=== PATIENT | male | born 1960 | race Caucasian/White ===

== ENCOUNTER 2020-05-09 08:56 | Outpatient (REF) | payer SELFPAY | END 2020-05-09 08:57 | disposition home or self-care (01) | LOC: HO.LAB 08:56 | PROVIDERS: Visit Provider Internal Medicine | DX: Z20.828 Contact with and (suspected) exposure to other viral communicable diseases (principal) | CPT/HCPCS: U0003 ==

== ENCOUNTER 2023-04-26 10:12 | Inpatient (IN) | payer OTHER, SELFPAY ==
[2023-04-26] VITALS (14 sets, daily range): BP systolic 129–240; BP diastolic 56–140; PULSE 75–100; RESP 11–20; TEMP 36.6–37.3; O2SAT 96–100; BMI 28.2
--- NOTE | ~2023-04-26 | XR_ITS ---
EXAMINATION: CHEST LUMBAR SPINE PELVIS LEFT HIP CLINICAL INFORMATION: Fall. Cough COMPARISON: None. TECHNIQUE: Frontal view of the chest. Frontal view of the pelvis. 2 views left hip. 3 views lumbar spine FINDINGS: Chest: Devices overlie the patient. No mediastinal widening. No mediastinal or hilar mass. The vasculature, lungs and visualized pleural margins are within normal limits. No acute displaced fracture demonstrated Pelvis: The SI joints, hips and symphysis are maintained. No acute pelvic fracture. No evidence of pelvic mass or collection. The visualized right proximal femur appears intact. Left hip: The hip is in normal alignment and the joint spaces preserved. The femoral head contour is smooth. There is no fracture in the visualized proximal femur. Lumbar spine: There are 5 intact lumbar vertebrae in normal alignment. There are some trace marginal osteophytes. The pedicles appear intact. No convincing evidence of a paraspinal abnormality. Faint arterial calcification. XR/XR hip LT w [id number] IMPRESSION: No mediastinal widening or pneumothorax. No pneumonia or edema. No acute fracture or subluxation demonstrated
--- NOTE | ~2023-04-26 | CT_ITS ---
EXAMINATION: CT ABDOMEN AND PELVIS WITHOUT CONTRAST CLINICAL INFORMATION: Suprapubic pain catheter site COMPARISON: CT abdomen from 04/26/2023 TECHNIQUE: Multidetector volumetric imaging was performed from the superior aspect of the liver through the pubic symphysis. Sagittal and coronal reformatted images were obtained on the technologist's workstation. This CT examination was performed using dose optimization techniques as appropriate, variously including the following: *Automated exposure control *Adjustment of mA and/or kV according to patient size (this includes techniques or standardized protocols for targeted exams where dose is matched to indication/reason for exam; i.e. extremities or head) *Use of iterative reconstruction technique DLP: 521 mGy-cm FINDINGS: LUNG BASES: The visualized lung bases are unremarkable. LIVER, GALLBLADDER, AND BILIARY TREE: The liver is normal in size, shape, and attenuation. No focal hepatic lesion or biliary ductal dilatation is present. The gallbladder is unremarkable with no evidence of radiopaque gallstones, gallbladder wall thickening, or obvious pericholecystic inflammatory changes. PANCREAS: Unremarkable. SPLEEN: Unremarkable. ADRENAL GLANDS: Unremarkable. KIDNEYS AND URETERS AND BLADDER: Redemonstration of severe bilateral hydronephrosis without discrete obstructing calculus. Redemonstration of prominently distended urinary bladder. Interval placement of Lew catheter balloon within the urinary bladder with large hyperdense focus around the balloon and within the urinary bladder lumen measuring 16.8 x 9.0 suggesting hematoma from recent insertion. Dependent foci of air noted in the urinary bladder. GASTROINTESTINAL TRACT: Colonic diverticulosis without acute diverticulitis. The small and large bowel are unremarkable. The appendix is unremarkable. ABDOMINAL WALL: Large left inguinal hernia containing sigmoid colon without evidence of obstruction. LYMPH NODES: Normal. VASCULAR: Unremarkable. PELVIC VISCERA: Prostate is enlarged measuring 5.9 x 5.5 cm with mass effect upon the urinary bladder base. OSSEOUS STRUCTURES: Multilevel degenerative changes of the thoracolumbar lumbosacral spine. CT/CT abdomen pelvis wo IV con IMPRESSION: 1. Redemonstration of prominently distended urinary bladder. Interval placement of Lew catheter balloon within the urinary bladder with large hyperdense focus around the balloon and within the urinary bladder lumen measuring 16.8 x 9.0 suggesting hematoma from recent insertion. Dependent foci of air noted in the urinary bladder. 2. Redemonstration of severe bilateral hydronephrosis without discrete obstructing calculus. 3. Prostate is enlarged measuring 5.9 x 5.5 cm with mass effect upon the urinary bladder base. 4. Large left inguinal hernia containing sigmoid colon without evidence of obstruction. 5. Colonic diverticulosis without acute diverticulitis.
--- NOTE | ~2023-04-26 | XR_ITS ---
EXAMINATION: CHEST LUMBAR SPINE PELVIS LEFT HIP CLINICAL INFORMATION: Fall. Cough COMPARISON: None. TECHNIQUE: Frontal view of the chest. Frontal view of the pelvis. 2 views left hip. 3 views lumbar spine FINDINGS: Chest: Devices overlie the patient. No mediastinal widening. No mediastinal or hilar mass. The vasculature, lungs and visualized pleural margins are within normal limits. No acute displaced fracture demonstrated Pelvis: The SI joints, hips and symphysis are maintained. No acute pelvic fracture. No evidence of pelvic mass or collection. The visualized right proximal femur appears intact. Left hip: The hip is in normal alignment and the joint spaces preserved. The femoral head contour is smooth. There is no fracture in the visualized proximal femur. Lumbar spine: There are 5 intact lumbar vertebrae in normal alignment. There are some trace marginal osteophytes. The pedicles appear intact. No convincing evidence of a paraspinal abnormality. Faint arterial calcification. XR/XR chest 1V IMPRESSION: No mediastinal widening or pneumothorax. No pneumonia or edema. No acute fracture or subluxation demonstrated
--- NOTE | ~2023-04-26 | CT_ITS ---
EXAMINATION: CT ABDOMEN AND PELVIS WITHOUT CONTRAST CLINICAL INFORMATION: Acute kidney injury. COMPARISON: None available. TECHNIQUE: Multidetector volumetric imaging was performed from the superior aspect of the liver through the pubic symphysis. Sagittal and coronal reformatted images were obtained on the technologist's workstation. This CT examination was performed using dose optimization techniques as appropriate, variously including the following: *Automated exposure control *Adjustment of mA and/or kV according to patient size (this includes techniques or standardized protocols for targeted exams where dose is matched to indication/reason for exam; i.e. extremities or head) *Use of iterative reconstruction technique DLP: 1023 mGy-cm FINDINGS: LUNG BASES: The visualized lung bases are unremarkable. LIVER, GALLBLADDER, AND BILIARY TREE: The liver is normal in size, shape, and attenuation. No focal hepatic lesion or biliary ductal dilatation is present. The gallbladder is unremarkable with no evidence of radiopaque gallstones, gallbladder wall thickening, or obvious pericholecystic inflammatory changes. PANCREAS: No discrete mass or ductal dilatation. SPLEEN: Normal. ADRENAL GLANDS: No adrenal mass. KIDNEYS AND URETERS: Severe bilateral hydroureteronephrosis without discrete obstructing lesion seen. Multiple simple cysts in the left kidney. No follow-up imaging is recommended. No nephrolithiasis BLADDER: Massively distended measuring 10.5 x 9.9 x 19.1 cm. approximately 900 mL. No discrete bladder mass. No bladder calculus. GASTROINTESTINAL TRACT: Small bowel is normal in caliber. The appendix is normal. Colonic diverticulosis without evidence of diverticulitis. The sigmoid colon is contained in a left inguinal hernia which appears indirect type. There is no evidence of bowel obstruction. ABDOMINAL WALL: Left inguinal hernia containing large bowel without evidence of obstruction. The hernia appears indirect. LYMPH NODES: No adenopathy. VASCULAR: Aortoiliac atherosclerosis without aneurysm. PELVIC VISCERA: The prostate is enlarged measuring 5.6 x 4.6 x 5.2 cm. Approximately 65 mL. OSSEOUS STRUCTURES: Degenerative changes in the hips and spine. CT/CT abdomen pelvis wo IV con IMPRESSION: Enlarged prostate, massively distended urinary bladder and bilateral severe hydronephrosis consistent with urinary retention. Fleischner guidelines were followed.
--- NOTE | ~2023-04-26 | XR_ITS ---
EXAMINATION: XR CHEST CLINICAL INFORMATION: Line placement COMPARISON: 04/26/2023 TECHNIQUE: Frontal view of the chest was obtained. FINDINGS: Lungs are mildly hypoinflated. The tip of a right IJ catheter is in region of proximal right atrium. No pneumothorax or pleural effusion. No acute pulmonary abnormality. No evidence of pulmonary edema, mass or focal consolidation. Cardiac silhouette has normal size and contour. Skeletal structures are unremarkable. XR/XR chest 1V IMPRESSION: No pneumothorax after right IJ line placement. The catheter tip is located in region of proximal right atrium.
--- NOTE | ~2023-04-26 | NM_ITS ---
EXAMINATION: NM BONE SCAN OF THE WHOLE BODY CLINICAL INFORMATION: Metastatic prostate. COMPARISON: No previous bone scan is available for comparison. A radiograph of the chest dated 04/30/2023, the same date as this lung scan, is available for comparison. CT scan of the abdomen dated 04/29/[address] of the head dated 04/26/2023 are available for comparison. Radiographs of the lumbar spine and pelvis and left hip dated 04/26/2023 are also available for comparison. TECHNIQUE: Multiple gamma scintillation camera images of the whole body were performed 4 hours following the intravenous administration of 28.0 mCi Tc-99m MDP. FINDINGS: In the head, no significant abnormalities are present. In the thoracic cage and upper extremities, there is minimally increased activity in the right acromioclavicular short and sternoclavicular joints bilaterally.. In the spine, there is mildly increased activity anteriorly in the lower cervical upper thoracic spine. In the pelvis, there is mildly increased activity present in the superior lip of the acetabula bilaterally, more prominently on the right. In the lower extremities, there is very mildly increased activity present in the intertrochanteric region of the proximal femurs bilaterally. Additional mild focus of increased activity is present in the midshaft of the right femur, and this is visualized only on the anterior whole body images. No other definite bony abnormalities are noted. The kidneys are well visualized bilaterally, but there is only faint activity visualized in the urinary bladder, possibly because the patient has a bladder catheter in place. NM/NM bone scan whole body IMPRESSION: 1. A focus of mildly increased activity is suggested in the midshaft of the right femur and there is also a mild diffuse increase in activity in the intertrochanteric regions bilaterally. The findings suggest continued bone remodeling at prior fracture sites, or possibly in the right mid shaft femoral region to some overlying urinary contamination. Clinical correlation is recommended, and the suggested abnormality in the midshaft of the right femur could be further evaluated with plain radiographs. 2. A few additional mild nonspecific abnormalities are noted as described above and these are all likely arthritic or traumatic in etiology. None of these abnormalities is strongly suspicious for metastatic disease.
--- NOTE | ~2023-04-26 | IR_ITS ---
CLINICAL HISTORY: End-stage renal disease. The patient presents to interventional radiology for placement of a tunneled central venous catheter for hemodialysis. PROCEDURES: 1. Real-time ultrasound-guided access into the right internal jugular vein after documentation of selected vessel patency, and permanent imaging storing in the patient record. 2. Placement of a 14.5 fr 23 cm tunneled, dual-lumen hemodialysis catheter. Clinician: Davide Landrum PA-C MEDICATIONS: -Fentanyl 50 mcg, Lidocaine 1% 10 mL SQ. -Antibiotics: None -For additional details, please see nursing flowsheet. COMPLICATIONS: None. ESTIMATED BLOOD LOSS: <5 ml SPECIMENS: None FLUOROSCOPY TIME: 1.2 min MODERATE SEDATION TIME: 28 min PROCEDURE NOTE: The procedure, risks, benefits, and alternatives were carefully explained to patient, and written informed consent was obtained. The patient was placed supine on the fluoroscopy table. A timeout was performed. The right neck and chest was prepped and draped in usual sterile fashion. Local anesthesia was administered to the access site with lidocaine. Under ultrasound guidance, the right internal jugular vein was accessed with a 5 Fr micropuncture set. A 0.035 in wire was advanced to the IVC to maintain access during the tunneling process. Next, subcutaneous lidocaine was administered to the chest. Using blunt dissection, a subcutaneous tunnel was created that connects from the upper chest to the venotomy site. The dialysis catheter was pulled through the tunnel. The tract in the vein was dilated and a peel-away sheath was advanced over the wire. The catheter was advanced through the sheath, which was subsequently peeled away. The catheter was tested, flushed, and sutured to the skin with its tip in the high right atrium. A permanent fluoroscopic image of the chest was saved to PACS. The catheter ports were packed with heparin per routine protocol. The temporary right dialysis catheter was removed after the procedure without immediate complications. The patient was stable after the procedure and was transferred to the post anesthesia care unit. This procedure was performed under moderate sedation with a dedicated nurse and continuous monitoring of vital signs. FINDINGS: 1. Patent right internal jugular vein. 2. Placement of a tunneled, dual-lumen hemodialysis catheter as above. 3. Catheter flushes and aspirates very well with a 10 mL syringe. No pneumothorax. IR/IR cvc insert central tunnel IMPRESSION: Placement of a tunneled hemodialysis catheter in the right internal jugular vein. PLAN: -The catheter may be used immediately. This procedure was performed by Davide Landrum PA-C, and directly supervised by Dr. Crenshaw.
--- NOTE | ~2023-04-26 | CT_ITS ---
EXAMINATION: CT HEAD WITHOUT CONTRAST CLINICAL INFORMATION: Left lower extremity weakness. COMPARISON: No relevant prior imaging. TECHNIQUE: Contiguous axial imaging was performed from the skull base to vertex without intravenous administration of contrast. This CT examination was performed using dose optimization techniques as appropriate, variously including the following: *Automated exposure control *Adjustment of mA and/or kV according to patient size (this includes techniques or standardized protocols for targeted exams where dose is matched to indication/reason for exam; i.e. extremities or head) *Use of iterative reconstruction technique DLP: 1045 mGy-cm FINDINGS: There is no acute intracranial hemorrhage or abnormal extra-axial collection. No intracranial mass effect or midline shift. Lateral and third ventricles are normal. Coy-white matter differentiation is grossly preserved and there is no evidence of acute territorial infarct. The calvarium and skull base are grossly intact. No mastoid or middle ear effusion. No active paranasal sinus disease. CT/CT head/brain wo IV con IMPRESSION: Unremarkable CT scan of the head. No evidence of acute territorial infarct or hemorrhage.
--- NOTE | ~2023-04-26 | XR_ITS ---
EXAMINATION: CHEST LUMBAR SPINE PELVIS LEFT HIP CLINICAL INFORMATION: Fall. Cough COMPARISON: None. TECHNIQUE: Frontal view of the chest. Frontal view of the pelvis. 2 views left hip. 3 views lumbar spine FINDINGS: Chest: Devices overlie the patient. No mediastinal widening. No mediastinal or hilar mass. The vasculature, lungs and visualized pleural margins are within normal limits. No acute displaced fracture demonstrated Pelvis: The SI joints, hips and symphysis are maintained. No acute pelvic fracture. No evidence of pelvic mass or collection. The visualized right proximal femur appears intact. Left hip: The hip is in normal alignment and the joint spaces preserved. The femoral head contour is smooth. There is no fracture in the visualized proximal femur. Lumbar spine: There are 5 intact lumbar vertebrae in normal alignment. There are some trace marginal osteophytes. The pedicles appear intact. No convincing evidence of a paraspinal abnormality. Faint arterial calcification. XR/XR lumbar spine 2-3V IMPRESSION: No mediastinal widening or pneumothorax. No pneumonia or edema. No acute fracture or subluxation demonstrated
--- NOTE | 2023-04-26 10:15 | ED_ITS ---
HPI - Neuro Symptoms/Deficit General Chief Complaint: Weakness Stated Complaint: STROKE ALERT,MEENU LEG WEAK X2 D,FALL T-1,BP 240/140 Time Seen by Provider: 04/26/23 10:14 Source: patient Mode of arrival: EMS Limitations: no limitations History of Present Illness HPI Narrative: Patient alcoholic drinks heavy comes here for increased weakness in the left lower extremity last few days yesterday fell because lower extremity has not seen a PCP for your blood pressure on EMS arrival was 240/140 no facial weakness no upper extremity pain no speech problem no low back pain complaining of pain in the left hip area repeat blood pressure in the ER was 180/90 patient does have history of alcohol use says last drink was 1 week ago was noticed to be tremulous no history of seizure no back pain no neck pain Patient does not have any PCP has not seen PCP since 1984 denies any melena or urinary discomfort Related Data Home Medications Medication Instructions Recorded Confirmed No Known Home Meds 04/26/23 04/26/23 Allergies Allergy/AdvReac Type Severity Reaction Status Date / Time No Known Allergies Allergy Verified 04/26/23 10:27 Review of Systems 2 Review of Systems: Yes all other systems are reviewed and are negative [facility] Social History Social History Alcohol intake: current Alcohol intake frequency: other Alcohol type: hard liquor Smoked in Last 30 Days: No Use of substances other than those prescribed or required for medical reasons: No Advance Directives: No Advance Directives Information Provided: Yes Physical Exam 2 Vital Signs: Vital Signs: Last Vital Signs Temp 98.2 F 04/26/23 13:32 Pulse 87 04/26/23 14:07 Resp 20 04/26/23 14:07 BP 188/80 H 04/26/23 14:07 Pulse Ox 99 04/26/23 13:32 O2 Del Method Room Air 04/26/23 13:32 BMI result Body Mass Index 28.2 Appearance: Alert. Oriented X3. No acute distress. Eyes: PERRLA, No Nystagmus pallor ENT: Pharynx normal. Oral Mucosa moist Neck: Normal inspection. Neck supple. CVS: Normal heart rate and rhythm. Pulses normal. Respiratory: No respiratory distress. Equal air entry bilateral, no wheezing/rales/rhonchi Abdomen: Soft and nontender. Bowel sounds are present, no mass palpable, no CVA tenderness rectal: Enlarged nontender prostate brown stool Skin: Skin warm and dry. Normal skin color. Normal skin turgor. Extremities: No lower extremity edema. No calf tenderness tender to touch left greater trochanteric area no lumbar spinal tenderness Neuro: Oriented X 3. Left leg slightly weaker than right deep tendon reflexes 2+. No sensory deficit.No cerebellar signs , cranial nerves II-XII intact Medications Administered Generic Name Dose Route Start Last Admin Trade Name Freq PRN Reason Stop Dose Admin Sodium Bicarbonate 100 meq/ 1,000 mls @ 100 mls/hr 04/26/23 12:00 04/26/23 12:30 Dextrose IV 100 mls/hr .Q10H ABDULAZIZ Administration Discontinued Medications Generic Name Dose Route Start Last Admin Trade Name Freq PRN Reason Stop Dose Admin Sodium Chloride 1,000 mls @ 999 mls/hr 04/26/23 10:38 04/26/23 12:31 Ns IV 04/26/23 11:38 Infused .Q1H1M ONE Infusion Sodium Chloride 1,000 mls @ 999 mls/hr 04/26/23 11:37 04/26/23 12:04 Ns IV 04/26/23 12:37 999 mls/hr .Q1H1M ONE Administration Lidocaine HCl 10 ml 04/26/23 12:49 04/26/23 13:00 Lidocaine Hcl 2 % Urojet 10 Ml Jel.Pf.Radha TOPICAL 04/26/23 12:50 10 ml ONCE ONE Administration Lorazepam 1 mg 04/26/23 10:38 04/26/23 10:49 Lorazepam 2 Mg/Ml Vial IVPUSH 04/26/23 10:39 1 mg ONCE ONE Administration Morphine Sulfate 4 mg 04/26/23 10:20 04/26/23 10:49 Morphine Sulfate 4 Mg/Ml Cartridge IVPUSH 04/26/23 10:21 4 mg ONCE ONE Administration Protocol Ondansetron HCl 4 mg 04/26/23 10:38 04/26/23 10:49 Ondansetron Hcl 4 Mg/2 Ml Vial IVPUSH 04/26/23 10:39 4 mg ONCE ONE Administration Procedures Catheter Insertion (Urinary) Date of insertion: 04/26/23 Time of insertion: 13:17 Reason for placing: Yes Reason for placing indwelling catheter: Acute urinary retention Bladder scan/ultrasound used before catheterization: No Antiseptic solution prep: Povidone-Iodine Topical anesthesia used: Yes Catheter type/location: Urethral Size (Afghan): 14 Catheter balloon size (mL): 10 Catheter balloon amount: 10 Results: successfully catheterized-immediate flow and other (Guidewire was used to place a Lew catheter) Procedure performed: without complications Comment: 1500 cc urine drained yellowish in color Medical Decision Making Medical Decision Making [facility] Narrative: Patient with generalized weakness alcoholic status post fall pain in the left hip area x-ray negative no focal deficit workup showed BUN of 93 creatinine 20.77 bicarb of 30 potassium 5.4 hemoglobin of 7.7 again patient has KIERA on CKD details not available as patient has not seen any PCP for more than 30 years no use of NSAID no abdominal pain patient denies any decreased urine output, will do CT scan of the abdomen to rule out any acute hydronephrosis 14:00 CT scan showed enlarged prostate with bilateral hydronephrosis Lew catheter was placed which drained about 50 100 cc of urine initially was yellow in color last for the urine was bright red blood without any pulling on the catheter by patient kg to the hospitalist will be admitting patient to the floor with pea the chemistry case discussed with mass spectroscopist Dr. Crespo IV hydration bicarb drip recheck chemistry and plan for dialysis in 1-2 days depending upon the response to the fluid and Lew catheter Differential Diagnosis Differential Diagnoses: The differential diagnosis associated with the presentation includes Alcoholic myopathy/CKD/KIERA/metabolic etiology/rhabdo/SAH/ Admission/Observation Consideration of admission/observation: Escalation of care including admission/observation considered Consult Healthcare Provider Management of the patient was discussed with: Hospitalist Lab Data [facility] Lab Attestation statement: I reviewed the patient's lab results. 04/26/23 10:35 04/26/23 14:15 Labs: Lab Results 04/26/23 04/26/23 04/26/23 Range/Units 10:35 10:36 11:57 WBC 6.4 (4.8-10.8) X10*3/uL RBC 2.42 L (4.60-5.80) X10*6/uL Hgb 7.7 L (14.0-18.0) g/dl Hct 21.7 L (42.0-52.0) % MCV 89.7 (80.0-98.0) fL MCH 31.8 (27.0-33.0) pg MCHC 35.5 (31.0-36.0) g/dl RDW 12.7 (11.0-16.0) % Plt Count 171 (160-400) X10*3/uL MPV 10.0 (9.4-12.4) fL Immature Gran % (Auto) 0.2 (0.0-0.4) % Neut % (Auto) 80.9 H (45-73) % Lymph % (Auto) 9.5 L (20-40) % [place] % (Auto) 7.5 (2-11) % Eos % (Auto) 1.4 (0-4) % Baso % (Auto) 0.5 (0-2) % Lymph # (Auto) 0.6 L (1.2-4.9) X10*3/uL [place] # (Auto) 0.5 (0.1-1.2) X10*3/uL Eos # (Auto) 0.1 (0.0-0.4) X10*3/uL Baso # (Auto) 0.0 (0.0-0.2) X10*3/uL Abs Immat Gran (auto) 0.01 (0.00-0.03) X10*3/uL Absolute Neuts (auto) 5.2 (2.0-8.3) x10*3/uL Absolute Nucleated RBC 0.000 (0.0-0.012) X10*3/uL Nucleated RBC % (auto) 0.0 (0.0-0.2) /100WBC PT 11.8 (11.1-13.3) SEC INR 1.0 (0.9-1.1) APTT 29.3 (26.0-36.4) SEC VBG pH (7.32-7.43) VBG pCO2 mmHg VBG pO2 mmHg VBG HCO3 (22-26) mmol/L VBG O2 Saturation % VBG Base Excess mmol/L Sodium 134 L (135-145) mmol/L Potassium 5.4 H (3.3-5.1) mmol/L Chloride 95 L (96-108) mmol/L Carbon Dioxide 13 L (22-29) mmol/L Anion Gap 31 H (12-20) BUN 193 H (9-16) mg/dL Creatinine 20.77 H* (0.5-1.4) mg/dL Estim Creat Clear Calc 3.6 Estimated GFR 2 Random Glucose 141 H (60-115) mg/dL Calcium 8.1 L (8.4-10.2) mg/dL Magnesium 2.6 (1.6-2.6) mg/dL Total Bilirubin 0.4 (0.0-1.0) mg/dL AST 6 (5-37) U/L ALT 9 (0-40) U/L Alkaline Phosphatase 62 (39-117) U/L Total Creatine Kinase 373 H (38-174) U/L Troponin I High Sens 53.9 H (<3.5-35.0) ng/L Total Protein 7.0 (6.5-8.0) g/dL Albumin 4.1 (3.5-5.0) g/dL Urine Color Urine Appearance Urine pH (5.0-9.0) Ur Specific [place] (1.005-1.025) Urine Protein (Neg-Trace) mg/dL Urine Glucose (UA) (Negative) mg/dL Urine Ketones (Negative) mg/dL Urine Blood (Negative) Urine Nitrite (Negative) Ur Leukocyte Esterase (Negative) Urine RBC (0-2) /HPF Urine WBC (0-5) /HPF Ur Squamous Epith Cells (0-2) /HPF Urine Bacteria (None Seen) Hyaline Casts (0-2) /LPF Stool Occult Blood NEGATIVE (NEGATIVE) Ethyl Alcohol < 10 mg/dL COVID-19 ([facility]ON) Negative (Negative) COVID-19 Clin Com See Note Blood Type Antibody Screen 04/26/23 04/26/23 04/26/23 Range/Units 12:41 13:35 14:15 WBC (4.8-10.8) X10*3/uL RBC (4.60-5.80) X10*6/uL Hgb (14.0-18.0) g/dl Hct (42.0-52.0) % MCV (80.0-98.0) fL MCH (27.0-33.0) pg MCHC (31.0-36.0) g/dl RDW (11.0-16.0) % Plt Count (160-400) X10*3/uL MPV (9.4-12.4) fL Immature Gran % (Auto) (0.0-0.4) % Neut % (Auto) (45-73) % Lymph % (Auto) (20-40) % [place] % (Auto) (2-11) % Eos % (Auto) (0-4) % Baso % (Auto) (0-2) % Lymph # (Auto) (1.2-4.9) X10*3/uL [place] # (Auto) (0.1-1.2) X10*3/uL Eos # (Auto) (0.0-0.4) X10*3/uL Baso # (Auto) (0.0-0.2) X10*3/uL Abs Immat Gran (auto) (0.00-0.03) X10*3/uL Absolute Neuts (auto) (2.0-8.3) x10*3/uL Absolute Nucleated RBC (0.0-0.012) X10*3/uL Nucleated RBC % (auto) (0.0-0.2) /100WBC PT (11.1-13.3) SEC INR (0.9-1.1) APTT (26.0-36.4) SEC VBG pH (7.32-7.43) VBG pCO2 mmHg VBG pO2 mmHg VBG HCO3 (22-26) mmol/L VBG O2 Saturation % VBG Base Excess mmol/L Sodium 135 (135-145) mmol/L Potassium 4.7 (3.3-5.1) mmol/L Chloride 97 (96-108) mmol/L Carbon Dioxide 12 L (22-29) mmol/L Anion Gap 31 H (12-20) BUN 192 H (9-16) mg/dL Creatinine 19.28 H* (0.5-1.4) mg/dL Estim Creat Clear Calc 3.8 Estimated GFR 2 Random Glucose 109 (60-115) mg/dL Calcium 7.7 L (8.4-10.2) mg/dL Magnesium (1.6-2.6) mg/dL Total Bilirubin (0.0-1.0) mg/dL AST (5-37) U/L ALT (0-40) U/L Alkaline Phosphatase (39-117) U/L Total Creatine Kinase (38-174) U/L Troponin I High Sens (<3.5-35.0) ng/L Total Protein (6.5-8.0) g/dL Albumin (3.5-5.0) g/dL Urine Color Yellow Urine Appearance Clear Urine pH 5.5 (5.0-9.0) Ur Specific [place] 1.010 (1.005-1.025) Urine Protein Trace (Neg-Trace) mg/dL Urine Glucose (UA) Negative (Negative) mg/dL Urine Ketones Negative (Negative) mg/dL Urine Blood Moderate (2+) H (Negative) Urine Nitrite Negative (Negative) Ur Leukocyte Esterase Negative (Negative) Urine RBC 6-10 H (0-2) /HPF Urine WBC 0-5 (0-5) /HPF Ur Squamous Epith Cells 0-2 (0-2) /HPF Urine Bacteria None Seen (None Seen) Hyaline Casts 0-2 (0-2) /LPF Stool Occult Blood (NEGATIVE) Ethyl Alcohol mg/dL COVID-19 ([facility]ON) (Negative) COVID-19 Clin Com Blood Type B Positive Antibody Screen NEGATIVE 04/26/23 Range/Units 14:19 WBC (4.8-10.8) X10*3/uL RBC (4.60-5.80) X10*6/uL Hgb (14.0-18.0) g/dl Hct (42.0-52.0) % MCV (80.0-98.0) fL MCH (27.0-33.0) pg MCHC (31.0-36.0) g/dl RDW (11.0-16.0) % Plt Count (160-400) X10*3/uL MPV (9.4-12.4) fL Immature Gran % (Auto) (0.0-0.4) % Neut % (Auto) (45-73) % Lymph % (Auto) (20-40) % [place] % (Auto) (2-11) % Eos % (Auto) (0-4) % Baso % (Auto) (0-2) % Lymph # (Auto) (1.2-4.9) X10*3/uL [place] # (Auto) (0.1-1.2) X10*3/uL Eos # (Auto) (0.0-0.4) X10*3/uL Baso # (Auto) (0.0-0.2) X10*3/uL Abs Immat Gran (auto) (0.00-0.03) X10*3/uL Absolute Neuts (auto) (2.0-8.3) x10*3/uL Absolute Nucleated RBC (0.0-0.012) X10*3/uL Nucleated RBC % (auto) (0.0-0.2) /100WBC PT (11.1-13.3) SEC INR (0.9-1.1) APTT (26.0-36.4) SEC VBG pH 7.26 L (7.32-7.43) VBG pCO2 26 mmHg VBG pO2 57 mmHg VBG HCO3 12 L (22-26) mmol/L VBG O2 Saturation 85.0 % VBG Base Excess -12.9 mmol/L Sodium (135-145) mmol/L Potassium (3.3-5.1) mmol/L Chloride (96-108) mmol/L Carbon Dioxide (22-29) mmol/L Anion Gap (12-20) BUN (9-16) mg/dL Creatinine (0.5-1.4) mg/dL Estim Creat Clear Calc Estimated GFR Random Glucose (60-115) mg/dL Calcium (8.4-10.2) mg/dL Magnesium (1.6-2.6) mg/dL Total Bilirubin (0.0-1.0) mg/dL AST (5-37) U/L ALT (0-40) U/L Alkaline Phosphatase (39-117) U/L Total Creatine Kinase (38-174) U/L Troponin I High Sens (<3.5-35.0) ng/L Total Protein (6.5-8.0) g/dL Albumin (3.5-5.0) g/dL Urine Color Urine Appearance Urine pH (5.0-9.0) Ur Specific [place] (1.005-1.025) Urine Protein (Neg-Trace) mg/dL Urine Glucose (UA) (Negative) mg/dL Urine Ketones (Negative) mg/dL Urine Blood (Negative) Urine Nitrite (Negative) Ur Leukocyte Esterase (Negative) Urine RBC (0-2) /HPF Urine WBC (0-5) /HPF Ur Squamous Epith Cells (0-2) /HPF Urine Bacteria (None Seen) Hyaline Casts (0-2) /LPF Stool Occult Blood (NEGATIVE) Ethyl Alcohol mg/dL COVID-19 ([facility]ON) (Negative) COVID-19 Clin Com Blood Type Antibody Screen Independent Interpretation I performed an independent interpretation of an: EKG Interpretation: Normal sinus rhythm heart rate 84 beats per minute poor progression of R-wave no acute ST-T changes no acute ischemia Radiology Impression Discussion of test interpretation with radiology: I have reviewed the radiologist's reading. Radiologist Impression: RDER #: [id number] CT/CT abdomen pelvis wo IV con IMPRESSION: Enlarged prostate, massively distended urinary bladder and bilateral severe hydronephrosis consistent with urinary retention. NIH Stroke Scale Internal: Initial- Upon Arrival Level of Consciousness: Alert Level of Consciousness Questions: Answers both questions correctly Level of Consciousness Commands: Performs both tasks correctly Best Gaze: Normal Visual: No visual loss Facial Palsy: Normal Motor Arm (Right): No drift Motor Arm (Left): No drift Motor Leg (Right): No drift Motor Leg (Left): Drift Limb Ataxia: Absent Sensory: Normal Best Language: No aphasia Dysarthia: Normal Extinction and Inattention: No abnormality Score: 1 Critical Care Time Critical Care Time Critical Care Time: Yes Total Critical Care Time: 60 Attestation: The patient was critically ill with a high probability of imminent or life threatening deterioration. I spent greater than 70 minutes of discontinuous time evaluating the patient,delivering critical care at the bedside, discussing and evaluating pertinent data with consultants. Critical care time does not include time spent performing separately billable procedures or teaching. Total time spent performing critical care was 60 minutes. Discharge Plan Discharge Clinical Impression: Acute renal failure (ARF), Benign enlargement of prostate, Bladder outlet obstruction, Anemia Patient Disposition: Admitted As Inpatient
--- NOTE | 2023-04-26 10:20 | ECG_ITS ---
Test Reason : HTN Blood Pressure : / mmHG Vent. Rate : 084 BPM Atrial Rate : 084 BPM P-R Int : 138 ms QRS Dur : 082 ms QT Int : 356 ms P-R-T Axes : 072 028 047 degrees QTc Int : 420 ms Normal sinus rhythm Normal ECG No previous ECGs available Referred By: Vick Albright Electronically Signed By:JANIE VOSS MD
[2023-04-26 10:42] LABS: MANUAL DIFF FLAG NO
[2023-04-26 10:43] LABS: Basophils Percent Auto 0.5 % (0-2); Eosinophils Absolute Auto 0.1 X10*3/uL (0.0-0.4); Eosinophils Percent Auto 1.4 % (0-4); Hematocrit 21.7 % (42.0-52.0); Hemoglobin 7.7 g/dl (14.0-18.0); Imm Gran Abs Auto 0.01 X10*3/uL (0.00-0.03); Imm Gran Pct Auto 0.2 % (0.0-0.4); Lymphocytes Absolute Auto 0.6 X10*3/uL (1.2-4.9); Lymphocytes Percent Auto 9.5 % (20-40); Mean Corpuscular HGB Conc 35.5 g/dl (31.0-36.0); Mean Corpuscular Hemoglobin 31.8 pg (27.0-33.0); Mean Corpuscular Volume 89.7 fL (80.0-98.0); Monocytes Absolute Auto 0.5 X10*3/uL (0.1-1.2); Monocytes Percent Auto 7.5 % (2-11); Neutrophils Absolute Auto 5.2 x10*3/uL (2.0-8.3); Neutrophils Percent Auto 80.9 % (45-73); Platelet Count 171 X10*3/uL (160-400); Red Blood Count 2.42 X10*6/uL (4.60-5.80); Red Cell Distribution Width 12.7 % (11.0-16.0); White Blood Count 6.4 X10*3/uL (4.8-10.8)
[2023-04-26] MEDS: 0.9 % Sodium Chloride 1,000 ML 999 ML IV ×2 (10:48→12:04)
[2023-04-26] MEDS: LORazepam 2 MG/ML VIAL 1 MG IVPUSH ×2 (10:49→15:34)
[2023-04-26] MEDS: Morphine Sulfate 4 MG/ML CARTRIDGE IVPUSH ×2 (10:49→15:37)
[2023-04-26] MEDS: ondansetron HCL 4 MG/2 ML VIAL IVPUSH ×3 (10:49→17:13)
[2023-04-26 10:55] LABS: Prothrombin Time 11.8 SEC (11.1-13.3)
--- NOTE | 2023-04-26 11:00 | PC.NURSE ---
Addendum entered by Di Syed 04/26/23 11:04: pt speaking in clear full sentences, no facial droop, hand grasp strong and equal and no drift, left leg appears weaker then the right Original Note: pt is alert and oriented, skin slightly pale in appearance and sclera slightly yellow, respiration even and unlabored, ls clear, oral musocal dry and pt reports poor po intake with nausea and intermittent vomiting but denies abd pain, is reporting left sided hip pain at 8/10, pt did have a fall yesterday denies head strike and no blood thinners, pt is a daily drinker about half a pint of chevy a day has not had a drink for a couple days, visible tremor at this time, vs stable and seizure pads in place
[2023-04-26 11:27] LABS: Troponin-I High Sensitivity 53.9 ng/L (<3.5-35.0)
[2023-04-26 11:30] LABS: Ethanol < 10 mg/dL
[2023-04-26 11:31] LABS: COVID-19 Test Negative (Negative); IDNOW Serial# 55D5AD1C
[2023-04-26 11:44] LABS: Alanine Aminotransferase 9 U/L (0-40); Albumin Level 4.1 g/dL (3.5-5.0); Alkaline Phosphatase 62 U/L (39-117); Anion Gap 31 (12-20); Aspartate Amino Transferase 6 U/L (5-37); Bilirubin Total 0.4 mg/dL (0.0-1.0); Blood Urea Nitrogen 193 mg/dL (9-16); Calcium 8.1 mg/dL (8.4-10.2); Carbon Dioxide 13 mmol/L (22-29); Chloride 95 mmol/L (96-108); Creatinine Clr Calc Pharmacy 3.6; Estimated Glomerular Filt Rate 2; Glucose Random 141 mg/dL (60-115); Magnesium 2.6 mg/dL (1.6-2.6); Potassium 5.4 mmol/L (3.3-5.1); Sodium 134 mmol/L (135-145)
--- NOTE | 2023-04-26 11:54 | PC.NURSE ---
chaperoned dr gardner during a rectal exam, pt tolerated the procedure well
[2023-04-26 12:05] LABS: OBS Int Ctl Valid YES; OBS1 NEGATIVE (NEGATIVE)
--- NOTE | 2023-04-26 12:08 | PHA.MEDREC ---
Pharmacy Consult ? Medication Reconciliation Pharmacy has completed the medication reconciliation.
[2023-04-26] MEDS: Sodium Bicarbonate 8.4% 100 MEQ in Dextrose 5 % 900 ML IV ×2 (12:30→22:28)
[2023-04-26] MEDS: Lidocaine HCl 2 % Urojet 10 ML JEL.PF.APP TOPICAL ×2 (13:00→16:29)
--- NOTE | 2023-04-26 13:20 | PC.NURSE ---
called the floor to given report and tiggered the nurse
--- NOTE | 2023-04-26 13:20 | PC.NURSE ---
attempted to insert a lockhart but unable to do so because of the enlarged prostate, dr gardner aware and dr gardner ended up inserting a 14french with a guide wire, urine yellow and about 1200 ml as if now
[2023-04-26 13:43] LABS: Appearance Urine Clear; Color Urine Yellow; Glucose Urine UA Negative (Negative); Leukocyte Esterase Urine Negative (Negative); Nitrite Urine Negative (Negative); PH 5.5 (5.0-9.0); UMIC TRIGGER UACC YES; Urine Blood Moderate (2+) (Negative); Urine Ketones Negative (Negative); Urine Protein Trace mg/dL (Neg-Trace)
[2023-04-26 14:00] LABS: Bacteria Urine None Seen (None Seen); Hyaline Casts Urine 0-2 /LPF (0-2); Squamous Epithelial Cell Urine 0-2 /HPF (0-2); WBC Urine 0-5 /HPF (0-5)
--- NOTE | 2023-04-26 14:10 | PC.NURSE ---
pt's lockhart is now draining light red blood into the lockhart about 800ml of bloody urine, dr gardner is aware
[2023-04-26 14:24] LABS: VBG Base Excess -12.9 mmol/L; VBG HCO3 12 mmol/L (22-26); VBG pCO2 26 mmHg; VBG pH 7.26 (7.32-7.43); VBG pO2 57 mmHg
[2023-04-26 14:26] LABS: Venous Blood Gas Refer to POC result
[2023-04-26 14:30] LABS: Partial Thromboplastin Time 29.3 SEC (26.0-36.4)
[2023-04-26 15:00] LABS: Anion Gap 31 (12-20); Blood Urea Nitrogen 192 mg/dL (9-16); Calcium 7.7 mg/dL (8.4-10.2); Carbon Dioxide 12 mmol/L (22-29); Chloride 97 mmol/L (96-108); Creatinine Clr Calc Pharmacy 3.8; Estimated Glomerular Filt Rate 2; Glucose Random 109 mg/dL (60-115); Potassium 4.7 mmol/L (3.3-5.1); Sodium 135 mmol/L (135-145)
--- NOTE | 2023-04-26 16:09 | P.HPHOSP_ITS ---
History of Present Illness Date of Service: 04/26/23 Attending physician on admission: Rossana Salazar Chief Complaint: Feeling generally unwell Pt is a 62-year-old male with no reported significant PMH who states he has not seen a PCP since 1984 who presents to the ED with vague complaints of feeling generally unwell. Patient is a poor historian and it is unclear how long symptoms have been ongoing, but likely for at least a few weeks. Patient has been experiencing nausea and occasional vomiting, generalized weakness, and urinary incontinence at night. Patient is unable to further verbalize his symptoms, chest says he knows ?something is wrong?. Patient states he has a long history of daily alcohol use of up to 1 pt of whiskey and ?some beers?. Reports stopped drinking 6 days ago because his skin turned yellow. Patient denies chest pain/pressure, palpitations. Occasional SOB. Denies fever, chills, abdominal pain. Patient also complaints of urogenital pain at site of Lew catheter insertion. There is gross hematuria in Lew collection bag. Patient denies any previous history of hematuria. In the ED patient with temperature as high as 99.2 degrees, pulse high as 100, and elevated BP as high as 199/86. Labs were significant for H&H of, 7.7/21.7, sodium 134, potassium 5.4, bicarb 13, anion gap 31, BUN 193, creatinine 20.77, CPK 373, initial troponin 53.9. VBG joint metabolic acidosis with pH of 7.26 bicarb of 12. Hepatic function WNL. Stool negative for occult blood. UA negative for UTI. Ethyl alcohol <10. CXR showed no acute cardiopulmonary process seen. CT?of abdomen and pelvis found enlarged prostate, massively distended urinary bladder, and bilateral severe hydronephrosis consistent with urinary retention. CT of head unremarkable with no evidence of acute territorial infarct or hemorrhage. Hip and pelvis and lumbar spine x-rays found no evidence for any acute fracture or subluxation. EKG demonstrated normal sinus rhythm without evidence of ST elevations or depressions. Pt was treated with IVF, morphine, ondansetron, lorazepam, lidocaine, and started on a bicarb drip. Pt will be admitted to the hospital for treatment further evaluation of acute renal failure, metabolic acidosis, and electrolyte imbalances. Review of Systems 2 Review of Systems: Generalized weakness [place] no urinary incontinence Chills, no fever Nausea, no vomiting Urogenital pain Denies chest pain/pressure, palpitations No shortness of breath Denies abdominal pain [facility] Medical History Anemia Social History Household Members: None Housing: Apartment Alcohol intake: current Alcohol intake frequency: other Alcohol type: hard liquor Patient Tobacco Use Status: Never used Tobacco Second Hand Smoke Exposure: No service: No Meds Allergies Allergy/AdvReac Type Severity Reaction Status Date / Time No Known Allergies Allergy Verified 04/26/23 10:27 Active Medications: Current Medications Acetaminophen (Acetaminophen 325 Mg Tablet) 650 mg PO Q6H PRN PRN Reason: Pain, Mild (Pain Scale 1-3) Benzonatate (Benzonatate 100 Mg Capsule) 100 mg PO TID PRN PRN Reason: Cough Docusate Sodium (Docusate Sodium 100 Mg Capsule) 100 mg PO DAILY PRN PRN Reason: Constipation Sodium Bicarbonate 100 meq/ (Dextrose) 1,000 mls @ 100 mls/hr IV .Q10H [facility] Last Admin: 04/26/23 12:30 Dose: 100 mls/hr Melatonin (Melatonin 3 Mg Tablet) 6 mg PO BEDTIME PRN PRN Reason: Insomnia Ondansetron HCl (Ondansetron Hcl 4 Mg/2 Ml Vial) 4 mg IVPUSH Q8H PRN PRN Reason: Nausea and Vomiting Sodium Chloride (0.9 % Sodium Chloride Flush 3 Ml Syringe) 3 ml IVFLUSH QSHIFT [facility] Home Medications Medication Instructions Recorded Confirmed Last Taken Type No Known Home Meds 04/26/23 04/26/23 Unknown History Physical Exam 2 Vital Signs and Narrative: Vital Signs: Last Vital Signs Temp 98.2 F 04/26/23 13:32 Pulse 87 04/26/23 14:07 Resp 20 04/26/23 14:07 BP 188/80 H 04/26/23 14:07 Pulse Ox 99 04/26/23 13:32 O2 Del Method Room Air 04/26/23 13:32 BMI result Body Mass Index 28.2 Constitutional: Alert, looks uncomfortable, in no acute distress. Mental Status: Oriented to person, place and time. Eyes: Pupils are equal, round, and reactive to light. Ear, Nose, and Throat: Oropharynx clear, mucous membranes moist. Ears and nose without deformities. Trachea midline. Respiratory: Clear to auscultation bilaterally. No wheezing, rales, or rhonchi. Cardiovascular: S1, S2 regular. No murmurs, rubs, or gallops. Gastrointestinal: Abdomen soft, non-tender, non-distended. Normal bowel sounds. Neurologic: Cranial nerves II-XII are grossly intact bilaterally. No focal neurological deficits. Moves all extremities spontaneously. Preserved strength and ROM of upper and lower extremities bilaterally. Skin: Warm, dry. Musculoskeletal: No cyanosis or clubbing. : Lew in place with gross hematuria. Extremities: No edema. Psychiatric: Normal mood and affect. Results Labs 04/27/23 06:19 04/27/23 06:19 Labs: Laboratory Results - last 24 hr 04/26/23 04/26/23 04/26/23 10:35 10:36 11:57 MCV 89.7 MCH 31.8 MCHC 35.5 RDW 12.7 Plt Count 171 MPV 10.0 Immature Gran % (Auto) 0.2 Neut % (Auto) 80.9 H Lymph % (Auto) 9.5 L [place] % (Auto) 7.5 Eos % (Auto) 1.4 Baso % (Auto) 0.5 Lymph # (Auto) 0.6 L [place] # (Auto) 0.5 Eos # (Auto) 0.1 Baso # (Auto) 0.0 Abs Immat Gran (auto) 0.01 Absolute Neuts (auto) 5.2 Absolute Nucleated RBC 0.000 Nucleated RBC % (auto) 0.0 PT 11.8 INR 1.0 APTT 29.3 VBG pH VBG pCO2 VBG pO2 VBG HCO3 VBG O2 Saturation VBG Base Excess Anion Gap 31 H Estim Creat Clear Calc 3.6 Estimated GFR 2 Random Glucose 141 H Calcium 8.1 L Magnesium 2.6 Total Bilirubin 0.4 AST 6 ALT 9 Alkaline Phosphatase 62 Total Creatine Kinase 373 H Total Protein 7.0 Albumin 4.1 Urine Color Urine Appearance Urine pH Ur Specific [place] Urine Protein Urine Glucose (UA) Urine Ketones Urine Blood Urine Nitrite Ur Leukocyte Esterase Urine RBC Urine WBC Ur Squamous Epith Cells Urine Bacteria Hyaline Casts Stool Occult Blood NEGATIVE Ethyl Alcohol < 10 COVID-19 ([facility]) Negative COVID-19 Clin Com See Note Blood Type Antibody Screen 04/26/23 04/26/23 04/26/23 12:41 13:35 14:15 MCV MCH MCHC RDW Plt Count MPV Immature Gran % (Auto) Neut % (Auto) Lymph % (Auto) [place] % (Auto) Eos % (Auto) Baso % (Auto) Lymph # (Auto) [place] # (Auto) Eos # (Auto) Baso # (Auto) Abs Immat Gran (auto) Absolute Neuts (auto) Absolute Nucleated RBC Nucleated RBC % (auto) PT INR APTT VBG pH VBG pCO2 VBG pO2 VBG HCO3 VBG O2 Saturation VBG Base Excess Anion Gap 31 H Estim Creat Clear Calc 3.8 Estimated GFR 2 Random Glucose 109 Calcium 7.7 L Magnesium Total Bilirubin AST ALT Alkaline Phosphatase Total Creatine Kinase Total Protein Albumin Urine Color Yellow Urine Appearance Clear Urine pH 5.5 Ur Specific [place] 1.010 Urine Protein Trace Urine Glucose (UA) Negative Urine Ketones Negative Urine Blood Moderate (2+) H Urine Nitrite Negative Ur Leukocyte Esterase Negative Urine RBC 6-10 H Urine WBC 0-5 Ur Squamous Epith Cells 0-2 Urine Bacteria None Seen Hyaline Casts 0-2 Stool Occult Blood Ethyl Alcohol COVID-19 ([facility]) [id number] Com Blood Type B Positive Antibody Screen NEGATIVE 04/26/23 14:19 MCV MCH MCHC RDW Plt Count MPV Immature Gran % (Auto) Neut % (Auto) Lymph % (Auto) [place] % (Auto) Eos % (Auto) Baso % (Auto) Lymph # (Auto) [place] # (Auto) Eos # (Auto) Baso # (Auto) Abs Immat Gran (auto) Absolute Neuts (auto) Absolute Nucleated RBC Nucleated RBC % (auto) PT INR APTT VBG pH 7.26 L VBG pCO2 26 VBG pO2 57 VBG HCO3 12 L VBG O2 Saturation 85.0 VBG Base Excess -12.9 Anion Gap Estim Creat Clear Calc Estimated GFR Random Glucose Calcium Magnesium Total Bilirubin AST ALT Alkaline Phosphatase Total Creatine Kinase Total Protein Albumin Urine Color Urine Appearance Urine pH Ur Specific [place] Urine Protein Urine Glucose (UA) Urine Ketones Urine Blood Urine Nitrite Ur Leukocyte Esterase Urine RBC Urine WBC Ur Squamous Epith Cells Urine Bacteria Hyaline Casts Stool Occult Blood Ethyl Alcohol COVID-19 ([facility]) [id number] Com Blood Type Antibody Screen Imaging Radiologist's Impressions: Impressions Chest X-Ray 04/26/23 11:32 IMPRESSION: No mediastinal widening or pneumothorax. No pneumonia or edema. No acute fracture or subluxation demonstrated Head CT 04/26/23 11:32 IMPRESSION: Unremarkable CT scan of the head. No evidence of acute territorial infarct or hemorrhage. Hip/Pelvis X-Ray 04/26/23 11:32 IMPRESSION: No mediastinal widening or pneumothorax. No pneumonia or edema. No acute fracture or subluxation demonstrated Lumbar Spine X-Ray 04/26/23 11:32 IMPRESSION: No mediastinal widening or pneumothorax. No pneumonia or edema. No acute fracture or subluxation demonstrated Abdomen/Pelvis CT 04/26/23 12:29 IMPRESSION: Enlarged prostate, massively distended urinary bladder and bilateral severe hydronephrosis consistent with urinary retention. Fleischner guidelines were followed. Assessment and Plan (1) Acute renal failure (ARF): Status: Acute Plan Pt is a 62-year-old male with no reported significant PMH who states he has not seen a PCP since 1984 who presents to the ED with vague complaints of feeling generally unwell. Pt will be admitted to the hospital for treatment further evaluation of acute renal failure, metabolic acidosis, and electrolyte imbalances. Acute renal failure with urinary retention BUN [address] of abdomen and pelvis found enlarged prostate with massively distended urinary bladder and bilateral severe hydronephrosis consistent with urinary retention Patient with no known significant renal PMH, though patient states he has not seen a doctor regularly since 1984 Reports urinary incontinence at night, not clear how much he urinates in the day Lew placed in the ED Will start on tamsulosin Nephrology consult Follow BMP Hematuria Likely secondary to traumatic Lew insertion d/t enlarged prostate Patient denies any previous history of hematuria Maintain Lew Urology consult Follow CBC Metabolic acidosis Patient with VBG pH 7.26, bicarb 12 Patient placed on bicarb drip in ED, continue Follow BMP Hyperkalemia Patient's potassium 5.4 at time of presentation repeat WNL at 4.7 EKG without significant T-wave changes Monitor on telemetry Follow BMP Elevated troponins Initial troponin 53.9 Pt asymptomatic: Denies chest pain/pressure, palpitations, EKG without significant ischemic changes Likely type 2 in the setting of demand ischemia Will repeat troponin Monitor on telemetry Normocytic anemia H&H 7.7/21.7 with MCV 89.7, baseline unclear Will check iron studies, B12, folate Follow CBC Hypertension BP elevated as high as 191/90 Will start on amlodipine 2.5 mg daily History of alcohol use disorder Patient reports longstanding hx of drinking 1 pt of whiskey with up to 6 beers daily Reports last drink 6 days ago Currently no signs of acute alcohol withdrawal CIWA Generalized weakness Pt complains of recent weakness the past couple of weeks with difficult ambulating Will get PT consult Full Code Attending:?Dr. Salazar DVT Prophylaxis: Pneumatic boots d/t anemia and hematuria Pt will require a hospitalization of at least two nights for treatment of?acute renal failure with metabolic acidosis. Patient will require bicarb drip, electrolyte replenishment, close monitoring, and specialist consultation. Time Spent With Patient Time: Total time managing care of this patient today ____ minutes. Quality Stroke Does the patient have a stroke diagnosis?: No VTE Prior VTE?: No VTE Risk Level:: Medical - moderate - high VTE Device Contraindication: N/A - Device Ordered VTE Drug Contraindication: Treatment Not Indicated
[2023-04-26] MEDS: 0.9 % Sodium Chloride Flush 3 ML SYRINGE IVFLUSH (16:29)
--- NOTE | 2023-04-26 16:34 | PC.NURSE ---
MD requested this RN assist him with placing catheter in pt. MD removed first catheter, pts was having hematuria with first cath. MD Pires attempted second catheter, pt in visible dicomfort during procedure, this RN made MD aware. MD continued to place catheter, moderate amount of blood occurring in the catheter itself. Pt became increasingly uncomfortable, yelling and requesting to stop. MD continued. Finally, Md stopped and pulled catheter out, moderate amount of blood came out after catheter was removed. MD requested this RN retrieve an 18f cath so he could attempt again, pt stated please don't . This RN advocated to give pts a break with cath due to being in increasing amounts of pain. MD continued, attempted to place 18f cath with a wire guide . Pt tolerated poorly, yelling, requesting MD to stop. This RN voiced concern with continuing. stopped stated he will contact the urologist. Pt is now resting on stretcher, verbalizing discomfort in penis. Otherwise, respirations even and unlabored, skin pwd. Bed cleaned up and pt gown changed. Pt provided with urinal at bedside along with emesis bag
[2023-04-26] MEDS: Tamsulosin HCL 0.4 MG CAPSULE PO (17:05)
--- NOTE | 2023-04-26 17:11 | PC.NURSE ---
this RN attempted to medicate patient. Pt began vomiting, will hold PO medications until symptoms subside
[2023-04-26] MEDS: amLODIPine Besylate 2.5 MG TABLET PO (17:32)
[2023-04-26 17:34] LABS: Troponin-I High Sensitivity 60.8 ng/L (<3.5-35.0)
--- NOTE | 2023-04-26 18:10 | PM.UROCN ---
History of Present Illness Consult details Consult date: 04/26/23 Narrative: consulting complaint: difficult Lew catheter placement 62-year-old male seen in emergency room alcohol withdrawal seizures prior catheter placement with hematuria Removed by ER physician Now with bladder spasm in retention, scan for a 500 cc Nursing staff have tried to place Lew multiple times Lew catheter placed by urologic staff member. required disposable cystoscope at bedside with use of guidewire and 16 [place] tip catheter - CPT 62435 Good efflux of urine. See nursing note for description of total output. 650 cc on initial placement If output less than 500 cc voiding trial may be performed in 48 hours, if output 500 to a 1000 cc voiding trial may be performed in 1 week, if output greater than a 1000 cc catheter should remain for 1 month. If catheter going to remain for longer than 48 hours blue cap should be placed in end of catheter to allow bladder cycling. Cap is a available on . Patient should be taught how to cycle bladder during the day and empty every 4-6 hours while using a drainage bag overnight. Review of Systems Constitutional: Constitutional: Reports as per HPI and Reports no additional constitutional complaints Cardiovascular: Cardiovascular: Reports as per HPI and Reports no additional cardiovascular complaints Respiratory: Respiratory: Reports as per HPI and Reports no additional respiratory complaints Gastrointestinal: Gastrointestinal: Reports as per HPI and Reports no additional gastrointestinal complaints Genitourinary: Genitourinary: Reports as per HPI Musculoskeletal: Musculoskeletal: Reports no additional musculoskeletal complaints and Reports as per HPI Neurologic: Reports system reviewed and no additional complaints, except as documented and Reports as per HPI [facility] Social History Social History Alcohol intake: current Alcohol intake frequency: other Alcohol type: hard liquor Patient Tobacco Use Status: Never used Tobacco Smoked in Last 30 Days: No Use of substances other than those prescribed or required for medical reasons: No Advance Directives: No Advance Directives Information Provided: Yes Nutrition Risks: No Nutritional Risk Meds Allergies Allergy/AdvReac Type Severity Reaction Status Date / Time No Known Allergies Allergy Verified 04/26/23 10:27 Active Medications: Current Medications Acetaminophen (Acetaminophen 325 Mg Tablet) 650 mg PO Q6H PRN PRN Reason: Pain, Mild (Pain Scale 1-3) Amlodipine Besylate (Amlodipine Besylate 2.5 Mg Tablet) 2.5 mg PO DAILY ABDULAZIZ; Protocol Last Admin: 04/26/23 17:32 Dose: 2.5 mg Benzonatate (Benzonatate 100 Mg Capsule) 100 mg PO TID PRN PRN Reason: Cough Docusate Sodium (Docusate Sodium 100 Mg Capsule) 100 mg PO DAILY PRN PRN Reason: Constipation Finasteride (Finasteride 5 Mg Tablet) 5 mg PO DAILY [facility] Last Admin: 04/26/23 17:35 Dose: Not Given Sodium Bicarbonate 100 meq/ (Dextrose) 1,000 mls @ 100 mls/hr IV .Q10H [facility] Last Admin: 04/26/23 12:30 Dose: 100 mls/hr Melatonin (Melatonin 3 Mg Tablet) 6 mg PO BEDTIME PRN PRN Reason: Insomnia Ondansetron HCl (Ondansetron Hcl 4 Mg/2 Ml Vial) 4 mg IVPUSH Q8H PRN PRN Reason: Nausea and Vomiting Last Admin: 04/26/23 17:13 Dose: 4 mg Sodium Chloride (0.9 % Sodium Chloride Flush 3 Ml Syringe) 3 ml IVFLUSH QSHIFT [facility] Last Admin: 04/26/23 16:29 Dose: 3 ml Tamsulosin HCl (Tamsulosin Hcl 0.4 Mg Capsule) 0.4 mg PO DAILY [facility] Last Admin: 04/26/23 17:05 Dose: 0.4 mg Home Medications Medication Instructions Recorded Confirmed Last Taken Type No Known Home Meds 04/26/23 04/26/23 Unknown History Physical Exam Vital Signs: Vital Signs: Last Vital Signs Temp 98.8 F 04/26/23 17:32 Pulse 81 04/26/23 17:32 Resp 16 04/26/23 17:32 BP 179/79 H 04/26/23 17:32 Pulse Ox 97 04/26/23 17:32 O2 Del Method Room Air 04/26/23 17:32 BMI result Body Mass Index 28.2 Const: General: cooperative, healthy appearing, comfortable and no acute distress Orientation/consciousness: patient oriented x3 HEENT: Face and sinus: Yes normal facial exam Mouth: moist mucous membranes Neck: Neck: Yes normal visual inspection, Yes full ROM and Yes trachea midline Chest: Chest palpation & inspection: normal inspection of the chest Resp: Effort & Inspection: normal respiratory effort, able to speak in complete sentences and no respiratory distress GI: Inspection: Yes normal to inspection Back/Spine/Pelvis: Cervical Spine: normal cervical lordosis Thoracic/Lumbar Spine: thoracic and lumbar spine normal to inspection Skin: General skin exam: no rashes or lesions noted Neuro: General: patient oriented x3, tone normal and moves all extremities Extrem: General: Yes normal to inspection and Yes capillary refill normal Results Labs 04/26/23 10:35 04/26/23 14:15 Labs: Abnormal lab results 04/26/23 04/26/23 04/26/23 Range/Units 10:35 13:35 14:15 RBC 2.42 L (4.60-5.80) X10*6/uL Hgb 7.7 L (14.0-18.0) g/dl Hct 21.7 L (42.0-52.0) % Neut % (Auto) 80.9 H (45-73) % Lymph % (Auto) 9.5 L (20-40) % Lymph # (Auto) 0.6 L (1.2-4.9) X10*3/uL VBG pH (7.32-7.43) VBG HCO3 (22-26) mmol/L Sodium 134 L (135-145) mmol/L Potassium 5.4 H (3.3-5.1) mmol/L Chloride 95 L (96-108) mmol/L Carbon Dioxide 13 L 12 L (22-29) mmol/L Anion Gap 31 H 31 H (12-20) BUN 193 H 192 H (9-16) mg/dL Creatinine 20.77 H* 19.28 H* (0.5-1.4) mg/dL Random Glucose 141 H (60-115) mg/dL Calcium 8.1 L 7.7 L (8.4-10.2) mg/dL Total Creatine Kinase 373 H (38-174) U/L Troponin I High Sens 53.9 H (<3.5-35.0) ng/L Urine Blood Moderate (2+) H (Negative) Urine RBC 6-10 H (0-2) /HPF 04/26/23 04/26/23 Range/Units 14:19 17:04 RBC (4.60-5.80) X10*6/uL Hgb (14.0-18.0) g/dl Hct (42.0-52.0) % Neut % (Auto) (45-73) % Lymph % (Auto) (20-40) % Lymph # (Auto) (1.2-4.9) X10*3/uL VBG pH 7.26 L (7.32-7.43) VBG HCO3 12 L (22-26) mmol/L Sodium (135-145) mmol/L Potassium (3.3-5.1) mmol/L Chloride (96-108) mmol/L Carbon Dioxide (22-29) mmol/L Anion Gap (12-20) BUN (9-16) mg/dL Creatinine (0.5-1.4) mg/dL Random Glucose (60-115) mg/dL Calcium (8.4-10.2) mg/dL Total Creatine Kinase (38-174) U/L Troponin I High Sens 60.8 H (<3.5-35.0) ng/L Urine Blood (Negative) Urine RBC (0-2) /HPF Short CBC 04/26/23 Range/Units 10:35 WBC 6.4 (4.8-10.8) X10*3/uL Hgb 7.7 L (14.0-18.0) g/dl Hct 21.7 L (42.0-52.0) % Plt Count 171 (160-400) X10*3/uL BMP 04/26/23 04/26/23 10:35 14:15 Sodium 134 L 135 Potassium 5.4 H 4.7 Chloride 95 L 97 Carbon Dioxide 13 L 12 L BUN 193 H 192 H Creatinine 20.77 H* 19.28 H* Calcium 8.1 L 7.7 L Cardiac Enzymes 04/26/23 Range/Units 10:35 Total Creatine Kinase 373 H (38-174) U/L Liver Function 04/26/23 Range/Units 10:35 Total Bilirubin 0.4 (0.0-1.0) mg/dL AST 6 (5-37) U/L ALT 9 (0-40) U/L Alkaline Phosphatase 62 (39-117) U/L Albumin 4.1 (3.5-5.0) g/dL Urine 04/26/23 Range/Units 13:35 Urine Color Yellow Urine Appearance Clear Urine pH 5.5 (5.0-9.0) Ur Specific [place] 1.010 (1.005-1.025) Urine Protein Trace (Neg-Trace) mg/dL Urine Glucose (UA) Negative (Negative) mg/dL All other labs normal. Assessment and Plan (1) Bladder outlet obstruction: Status: Acute (2) Urinary retention with incomplete bladder emptying: Status: Acute Plan Lew catheter 7 days Time Spent With Patient Time: Total time managing care of this patient today ____ minutes. Procedures Date of Service Date of Service: 04/26/23 Catheter Insertion (Urinary) Replacement of catheter present on admission: No Reason for placing: Acute urinary retention Bladder scan/ultrasound used before catheterization: Yes Antiseptic solution prep: Povidone-Iodine Topical anesthesia used: Yes Catheter type/location: 2-way Urethral Size (Sammarinese): 16 Procedure performed: with complications ( required Urology assistance) Additional comments: Meatus circumcised Urethra anterior posterior urethra normal Prostatic Urethra false passage at level of prostatic urethra. Using cystoscopy guidance into bladder CPT 90903, 39913 difficult catheter
--- NOTE | 2023-04-26 18:18 | PC.NURSE ---
Dr. Louise placed catheter, pt cleaned and changed by this RN and NICKI Chauhan. Pt now resting on stretcher, respirations even and unlabored, skin pwd, alert and oriented x2. Pt verbalizes no complaints at this time
[2023-04-26 21:11] LABS: Hematocrit 18.7 % (42.0-52.0); Hemoglobin 6.6 g/dl (14.0-18.0)
--- NOTE | 2023-04-26 21:13 | PM.EVENT ---
Event Note Date of Service: 04/26/23 Event Note: Hb noted be less than 7. Will transfuse one unit pRBC. Close monitor H&H Time Spent With Patient Time: Total time managing care of this patient today ____ minutes.
--- NOTE | 2023-04-26 21:25 | PC.NURSE ---
Pts H&H decreased upon second draw, aware, 1 unit PRBC ordered. Pt is aware. This RN went over risks and benefits of receiving blood transfusion. pt agreeable. PA signed transfusion consent with patient. Pt has 2 points of access, vitals within range for transfusion.
--- NOTE | 2023-04-26 21:30 | PC.NURSE ---
this RN called pharmacy for 2200 medication
[2023-04-26 21:34] LABS: Anion Gap 30 (12-20); Calcium 7.5 mg/dL (8.4-10.2); Carbon Dioxide 13 mmol/L (22-29); Chloride 97 mmol/L (96-108); Estimated Glomerular Filt Rate 3; Glucose Random 169 mg/dL (60-115); Iron 157 mcg/dL (45-160); Percent Iron Saturation 86 % (15-50); Potassium 4.2 mmol/L (3.3-5.1); Sodium 136 mmol/L (135-145); Total Iron Binding Capacity 182 mcg/dL (228-428); Unsaturated Iron Binding < 25 ug/dL
[2023-04-26 21:54] LABS: Blood Urea Nitrogen 179 mg/dL (9-16)
[2023-04-26 22:01] LABS: Folate 5.2 ng/mL (> or = 4.0); Vitamin B12 1071 pg/mL (200-900)
--- NOTE | 2023-04-26 22:30 | PC.NURSE ---
pt receiving blood transfusion at this time, respirations even and unlabored, skin pwd, alert and oriented x2 at baseline at this time. No transfusion rxns thus far
--- NOTE | 2023-04-26 23:56 | PC.NURSE ---
Pt continues to tolerate blood transfusion well. Sleeping on stretcher, respirations even and unlabored, skin pwd, no apparent distress. Cath intact, draining urine appropriately, urine is red with no clots at this time.
[2023-04-27] VITALS (12 sets, daily range): BP systolic 139–198; BP diastolic 65–98; PULSE 80–115; RESP 11–20; TEMP 36.1–37.1; O2SAT 95–98; BMI 28.2
--- NOTE | 2023-04-27 00:29 | PC.NURSE ---
Pt starting to become agitated once again, restless in bed, unable to find comfortable position. He states that he needs to urinate, this RN educated patient that he has a lockhart catheter and that it is draining urine for him. Lockhart cath is patent, continues to drain appropriately. Updated CIWA of 16, this RN delfina texted MD Meza requesting Ativan for pts comfort
[2023-04-27] MEDS: LORazepam 2 MG/ML VIAL IVPUSH (01:37)
--- NOTE | 2023-04-27 02:18 | PC.NURSE ---
20g in RAC starting to fall out due to patient moving around. this RN attempted to fix it but was unsuccessful. Attempted a second IV in two other locations with no success. Pt currently only has 20g in LAC at this time.
--- NOTE | 2023-04-27 02:22 | PC.NURSE ---
pt was reporting that he felt like he needed to urinate again, this RN explained that the catheter was draining his urine but requested that Shaggy ROBERT and ELDER Bruner bladder scan patient. Bladder scan came out to 152. Lew cath still draining appropriately
[2023-04-27 06:57] LABS: Anion Gap 27 (12-20); Calcium 7.8 mg/dL (8.4-10.2); Carbon Dioxide 17 mmol/L (22-29); Chloride 97 mmol/L (96-108); Estimated Glomerular Filt Rate 3; Glucose Random 154 mg/dL (60-115); Potassium 4.2 mmol/L (3.3-5.1); Sodium 137 mmol/L (135-145)
[2023-04-27 07:12] LABS: Blood Urea Nitrogen 180 mg/dL (9-16)
--- NOTE | 2023-04-27 07:15 | PC.NURSE ---
Patient alert, reports pain at cath site, patient requesting liquids reminded he is NPO until he is seen by speech. Bicarb infusing per order. NSR on monitor. Lew cath draining bright red bloody urine.
[2023-04-27 07:18] LABS: Hemoglobin 7.2 g/dl (14.0-18.0); Mean Corpuscular HGB Conc 34.3 g/dl (31.0-36.0); Mean Corpuscular Hemoglobin 30.6 pg (27.0-33.0); Mean Corpuscular Volume 89.4 fL (80.0-98.0); Mean Platelet Volume 10.9 fL (9.4-12.4); Platelet Count 142 X10*3/uL (160-400); Red Blood Count 2.35 X10*6/uL (4.60-5.80); Red Cell Distribution Width 13.1 % (11.0-16.0); White Blood Count 6.8 X10*3/uL (4.8-10.8)
--- NOTE | 2023-04-27 08:06 | PM.CNNEP ---
History of Present Illness Reason for Consult Consult date: 04/27/23 Chief Complaint Chief complaint: acute kidney failure, electrolyte imbalances History of Present Illness Narrative: 62 year old patient presented with general malaise and found to have elevated serum creatinine and BUN. The patient who has not seen a provider for many years complains for nausea and vomiting. CT scan of the abdomen showed enlarged prostate with bilateral hydronephrosis. Patient was seen by urology and Lew was inserted withy 500 cc urine drained. Review of Systems Review of Systems 10 points ROS negative except for pertinent in [facility] Past Medical History Medical History (Updated 04/27/23 @ 08:08 by Noe Benton MD) Anemia Social History Social History Alcohol intake: current Alcohol intake frequency: other Alcohol type: hard liquor Patient Tobacco Use Status: Never used Tobacco Smoked in Last 30 Days: No Use of substances other than those prescribed or required for medical reasons: No Advance Directives: No Advance Directives Information Provided: Yes Nutrition Risks: No Nutritional Risk Meds Allergies Allergy/AdvReac Type Severity Reaction Status Date / Time No Known Allergies Allergy Verified 04/26/23 10:27 Active Medications: Current Medications Acetaminophen (Acetaminophen 325 Mg Tablet) 650 mg PO Q6H PRN PRN Reason: Pain, Mild (Pain Scale 1-3) Amlodipine Besylate (Amlodipine Besylate 2.5 Mg Tablet) 2.5 mg PO DAILY ABDULAZIZ; Protocol Last Admin: 04/26/23 17:32 Dose: 2.5 mg Benzonatate (Benzonatate 100 Mg Capsule) 100 mg PO TID PRN PRN Reason: Cough Docusate Sodium (Docusate Sodium 100 Mg Capsule) 100 mg PO DAILY PRN PRN Reason: Constipation Finasteride (Finasteride 5 Mg Tablet) 5 mg PO DAILY [facility] Last Admin: 04/26/23 17:35 Dose: Not Given Sodium Bicarbonate 100 meq/ (Dextrose) 1,000 mls @ 100 mls/hr IV .Q10H ABDULAZIZ Last Admin: 04/26/23 22:28 Dose: 100 mls/hr Sodium Chloride (Ns) 100 mls @ 100 mls/hr IV ONCE ONE Stop: 04/27/23 08:15 Melatonin (Melatonin 3 Mg Tablet) 6 mg PO BEDTIME PRN PRN Reason: Insomnia Ondansetron HCl (Ondansetron Hcl 4 Mg/2 Ml Vial) 4 mg IVPUSH Q8H PRN PRN Reason: Nausea and Vomiting Last Admin: 04/26/23 17:13 Dose: 4 mg Sodium Chloride (0.9 % Sodium Chloride Flush 3 Ml Syringe) 3 ml IVFLUSH QSHIFT [facility] Last Admin: 04/26/23 22:29 Dose: Not Given Tamsulosin HCl (Tamsulosin Hcl 0.4 Mg Capsule) 0.4 mg PO DAILY [facility] Last Admin: 04/26/23 17:05 Dose: 0.4 mg Home Medications Medication Instructions Recorded Confirmed Last Taken Type No Known Home Meds 04/26/23 04/26/23 Unknown History Physical Exam Vital Signs: Last Vital Signs Temp 98.3 F 04/27/23 01:47 Pulse 84 04/27/23 06:02 Resp 13 04/27/23 06:02 BP 151/80 H 04/27/23 06:02 Pulse Ox 98 04/27/23 06:02 O2 Del Method Room Air 04/27/23 06:02 BMI result Body Mass Index 28.2 Const General: alert and awake HEENT Head: Yes normocephalic and Yes atraumatic Neck Neck: Yes supple Resp Auscultation: clear to auscultation bilaterally Cardio Heart sounds: S1 normal heart sound present and S2 normal heart sound present GI Palpation (GI): Soft to palpation and nontender Extrem General: Yes normal to inspection Results Lab Results 04/27/23 06:19 04/27/23 06:19 Lab results: Chemistry 04/26/23 04/26/23 04/26/23 10:35 14:15 20:59 Sodium 134 L 135 136 Potassium 5.4 H 4.7 4.2 Carbon Dioxide 13 L 12 L 13 L BUN 193 H 192 H 179 H Creatinine 20.77 H* 19.28 H* 18.70 H* Calcium 8.1 L 7.7 L 7.5 L 04/27/23 06:19 Sodium 137 Potassium 4.2 Carbon Dioxide 17 L BUN 180 H Creatinine 18.55 H* Calcium 7.8 L Hematology 04/26/23 04/26/23 04/27/23 10:35 20:59 06:19 WBC 6.4 6.8 Hgb 7.7 L 6.6 L* 7.2 L Plt Count 171 142 L Urinalysis 04/26/23 13:35 Urine Color Yellow Urine Appearance Clear Urine pH 5.5 Ur Specific [place] 1.010 Urine Protein Trace Urine Glucose (UA) Negative Urine Ketones Negative Urine Blood Moderate (2+) H Urine Nitrite Negative Ur Leukocyte Esterase Negative Urine RBC 6-10 H Urine WBC 0-5 Ur Squamous Epith Cells 0-2 Hyaline Casts 0-2 Assessment and Plan (1) KIERA (acute kidney injury): Status: Acute (2) Bladder outlet obstruction: Status: Acute (3) Benign enlargement of prostate: Status: Acute (4) Metabolic acidosis: Status: Acute (5) Anemia: Status: Acute Plan KIERA due to obstructive uropathy CT scan of the abdomen c/w bilateral hydronephrosis in the setting of bladder outlet obstruction unknown chronicity of obstructive uropathy he may have end stage kidney disease due to chronic obstructive uropathy 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 Procedures Date of Service Date of Service: 04/27/23
--- NOTE | 2023-04-27 08:21 | PC.NURSE ---
Report given to accepting unit, transport notified
[2023-04-27] MEDS: amLODIPine Besylate 2.5 MG TABLET PO (09:34)
[2023-04-27] MEDS: Tamsulosin HCL 0.4 MG CAPSULE PO (09:34)
[2023-04-27] MEDS: Finasteride 5 MG TABLET PO (09:35)
[2023-04-27] MEDS: Acetaminophen 325 MG TABLET 650 MG PO (09:35)
[2023-04-27] MEDS: Tranexamic Acid 1,000 MG in 0.9 % Sodium Chloride 50 ML 360 MG IV (09:41)
[2023-04-27] MEDS: Sodium Bicarbonate 8.4% 100 MEQ in Dextrose 5 % 900 ML IV (09:41)
[2023-04-27] MEDS: PHENobarbitaL sodium 130 MG/ML IM ONCE 204 MG IM (10:12)
--- NOTE | 2023-04-27 11:13 | MHC.CM.PN ---
EMR REVIEWED, PT ADMITTED W/KIERA/ELECTROLYTE IMBALANCE, CM MET W/PT AT BEDSIDE WHILE PT RECEIVING BLOOD, PT REPORTS HE LIVES ALONE, DOES NOT DRIVE HOWEVER STILL WORKS, PT REPORTS HE IS INDEP W/ALL CARE, DENIES USE OF DME/HOME SERVICES. PT REPORTS HE DOES NOT HAVE A PCP AND WAS PROVIDED W/PAPMPHLET W/[facility] PROVIDERS, PT EDUCATED ON AND DECLINES TO COMPLETE A HCP HOWEVER WILL THINK ABOUT IT, PT COVID VACC X2.
[2023-04-27] MEDS: cloNIDine HCL 0.1 MG TABLET PO ×2 (11:34→20:33)
[2023-04-27] MEDS: PHENobarbitaL sodium 130 MG/ML VIAL IM (11:35)
[2023-04-27] MEDS: Haloperidol Lactate 5 MG/ML VIAL 2 MG IM (11:35)
[2023-04-27] MEDS: PHENobarbitaL sodium 130 MG/ML VIAL IM Q3Hx2 153 MG IM ×2 (14:01→17:37)
--- NOTE | 2023-04-27 14:28 | HO.PM.IMPN ---
Subjective Subjective Date of Service: 04/27/23 Interval History: has anemia acute blood loss on possible ch anemia ,hematuria ,alcohol withdrawal,kiera seems anxious Review of Systems tramulous ,sweaty ,anxious , still has hematuria mental status seems fine denies sob or chest pain or abd pain or fevers or nausea Physical Exam Vital Signs: Vital Signs: Last Vital Signs Temp 97.8 F 04/27/23 12:00 Pulse 90 04/27/23 12:00 Resp 20 04/27/23 12:00 BP 139/85 04/27/23 12:00 Pulse Ox 97 04/27/23 12:00 O2 Del Method Room Air 04/27/23 12:00 BMI result Body Mass Index 28.2 Appearance: Alert.? Oriented X3.? but little drowsy? cvs: rrr, [id number] , no murmur res: clear to auscultation ,no rhonchii or wheezing abd: no rebound or guarding ,nt, bs present. Gu: gross hemtaruria lockhart bag ext pulses present , no cyanosis . neuro: axo3 , nonfocal. Objective Data Active Medications Acetaminophen (Acetaminophen 325 Mg Tablet) 650 mg PO Q6H PRN PRN Reason: Pain, Mild (Pain Scale 1-3) Amlodipine Besylate (Amlodipine Besylate 2.5 Mg Tablet) 2.5 mg PO DAILY [facility]; Protocol Last Admin: 04/27/23 09:34 Dose: 2.5 mg Documented By: LIZA Benzonatate (Benzonatate 100 Mg Capsule) 100 mg PO TID PRN PRN Reason: Cough Clonidine HCl (Clonidine Hcl 0.1 Mg Tablet) 0.1 mg PO BID [facility]; Protocol Last Admin: 04/27/23 11:34 Dose: 0.1 mg Documented By: LIZA Docusate Sodium (Docusate Sodium 100 Mg Capsule) 100 mg PO DAILY PRN PRN Reason: Constipation Finasteride (Finasteride 5 Mg Tablet) 5 mg PO DAILY [facility] Last Admin: 04/27/23 09:35 Dose: 5 mg Documented By: LIZA Sodium Bicarbonate 100 meq/ (Dextrose) 1,000 mls @ 100 mls/hr IV .Q10H [facility] Last Infusion: 04/27/23 14:02 Dose: 100 mls/hr Documented By: LIZA Melatonin (Melatonin 3 Mg Tablet) 6 mg PO BEDTIME PRN PRN Reason: Insomnia Ondansetron HCl (Ondansetron Hcl 4 Mg/2 Ml Vial) 4 mg IVPUSH Q8H PRN PRN Reason: Nausea and Vomiting Last Admin: 04/26/23 17:13 Dose: 4 mg Documented By: LOTTIE Pharmacy Consult (Consult Rx Etoh Phenob Im/Po) 1 each MISCELLANE ONCE PRN; Protocol PRN Reason: Consult order Phenobarbital (Phenobarbital 15 Mg Tablet) 45 mg PO BID [facility] Stop: 04/29/23 21:01 Phenobarbital (Phenobarbital 15 Mg Tablet) 15 mg PO BID [facility] Stop: 05/01/23 21:01 Phenobarbital (Phenobarbital 15 Mg Tablet) 15 mg PO DAILY [facility] Stop: 05/03/23 09:01 Phenobarbital Sodium (Phenobarbital Sodium 130 Mg/Ml Vial Im Q3hx2) 153 mg IM Q3H [facility] Stop: 04/27/23 17:01 Last Admin: 04/27/23 14:01 Dose: 153 mg Documented By: LIZA Comments: L thigh Sodium Chloride (0.9 % Sodium Chloride Flush 3 Ml Syringe) 3 ml IVFLUSH QSHIFT [facility] Last Admin: 04/27/23 09:04 Dose: Not Given Documented By: LIZA Non-Admin Reason: IV Running Tamsulosin HCl (Tamsulosin Hcl 0.4 Mg Capsule) 0.4 mg PO DAILY [facility] Last Admin: 04/27/23 09:34 Dose: 0.4 mg Documented By: LIZA Labs 04/27/23 06:19 04/27/23 06:19 Labs: Laboratory Results - last 24 hr 04/26/23 04/26/23 04/26/23 10:35 12:41 14:15 MCV MCH MCHC RDW Plt Count MPV Absolute Nucleated RBC Nucleated RBC % (auto) APTT 29.3 Anion Gap 31 H Estim Creat Clear Calc 3.8 Estimated GFR 2 Random Glucose 109 Calcium 7.7 L Iron TIBC % Saturation Unsat Iron Binding Vitamin B12 Folate Blood Type B Positive Antibody Screen NEGATIVE Crossmatch See Detail 04/26/23 04/26/23 04/27/23 20:58 20:59 06:19 MCV 89.4 MCH 30.6 MCHC 34.3 RDW 13.1 Plt Count 142 L MPV 10.9 Absolute Nucleated RBC 0.000 Nucleated RBC % (auto) 0.0 APTT Anion Gap 30 H 27 H Estim Creat Clear Calc 4.0 4.0 Estimated GFR 3 3 Random Glucose 169 H 154 H Calcium 7.5 L 7.8 L Iron 157 TIBC 182 L % Saturation 86 H Unsat Iron Binding < 25 Vitamin B12 1071 H Folate 5.2 Blood Type Antibody Screen Crossmatch Assessment and Plan (1) Anemia: Status: Acute (2) Metabolic acidosis: Status: Acute (3) KIERA (acute kidney injury): Status: Acute (4) Urinary retention with incomplete bladder emptying: Status: Acute Assessment and Plan: 62-year-old male with no reported significant PMH who states he has not seen a PCP since 1984 who presents to the ED with vague complaints of feeling generally unwell. Pt will be admitted to the hospital for treatment further evaluation of acute renal failure, metabolic acidosis, and electrolyte imbalances. Acute renal failure with urinary retention -possible bph/bladder outlet obstruction intial -BUN [address] of abdomen and pelvis found enlarged prostate with massively distended urinary bladder and bilateral severe hydronephrosis consistent with urinary retention Patient with no known significant renal PMH, though patient states he has not seen a doctor regularly since 1984 Reports urinary incontinence at night, not clear how much he urinates in the day has Lockhart , need bladder irrigation, tamsulosin Nephrology consult noted-continue flomax ,ivf ,urology eval also noted - also staff is aware for bladder irrigation . Follow BMP Hematuria Likely secondary to traumatic Lockhart insertion d/t enlarged prostate s/p 2 prbc ,tranexemic acid x1 Maintain Lockhart Urology consult- placed lockhart -need irrigation. moniter h/h Metabolic acidosis Patient with VBG pH 7.26, bicarb 12 bicarb inproving ,has agma cotninue bicarb drip. Follow BMP Hyperkalemia Patient's potassium 5.4 at time of presentation repeat WNL at 4.7 EKG without significant T-wave changes Monitor on telemetry Follow BMP Elevated troponins Initial troponin flat in 50 Pt asymptomatic: Denies chest pain/pressure, palpitations, EKG without significant ischemic changes added echo Monitor on telemetry acute blood loss anemia on possible ch Normocytic anemia(aocd) s/p 1prbc -h/h 7.2/21 H&H 7.7/21.7 with MCV 89.7, baseline unclear reviewed iron studies, B12, folate-seems aocd moniter h/h Hypertension BP elevated as high as 191/90 Will start on amlodipine 2.5 mg daily alcohol withdrwals Patient reports longstanding hx of drinking 1 pt of whiskey with up to 6 beers daily CIWA continue phenobarbital ,given dose of halodol moniter neurochecks. Generalized weakness Pt complains of recent weakness the past couple of weeks with difficult ambulating Will get PT consult Full Code DVT Prophylaxis: Pneumatic boots d/t anemia and hematuria ongoing hospitalization need: for treatment of?acute renal failure with metabolic acidosis. Patient will require bicarb drip, electrolyte replenishment, close monitoring, and also Need hematuria monitoring as well as H as in H monitoring ,alcohol withdrawal,on phenobarbital protocol. Time Spent With Patient Time: Total time managing care of this patient today ____ minutes. Quality Stroke Does the patient have a stroke diagnosis?: No VTE Prior VTE?: No VTE Risk Level:: Medical - moderate - high VTE Device Contraindication: N/A - Device Ordered VTE Drug Contraindication: Treatment Not Indicated
[2023-04-27 15:19] LABS: Hematocrit 21.4 % (42.0-52.0); Hemoglobin 7.3 g/dl (14.0-18.0)
[2023-04-27] MEDS: Morphine Sulfate 4 MG/ML CARTRIDGE IVPUSH ×2 (19:33→22:10)
--- NOTE | 2023-04-27 21:29 | PC.NURSE ---
Dr Salazar ordered CBI this afternoon , requested nursing curing supervisor to place 3 way catheter. Nursing curing supervisor Hilda tried to place 3 way cath with no success . DR Salazar and DR Jose Guadalupe Louise was notifed at that time by curing supervisor. The plan was made for DR Louise to come in and palce 3 way lockhart for CBI. This RN reached out to DR Louise via tiger text to clarified if he is coming tonight.DR Louise responded that he will . Pt c/o lt groin pain , medicated with Morphine with minimal effect, bladder scanned for 459 ml at 21:00 , pt has some scant amount of bloody discharge from the penise .
--- NOTE | 2023-04-27 22:13 | PM.EVENT ---
Event Note Date of Service: 04/27/23 Event Note: Rapid response was called as patient in significant pain. Vital stable. Will administer IV morphine. Urology consult pending to replace Lew. Nurse to text Dr. Louise Time Spent With Patient Time: Total time managing care of this patient today ____ minutes.
--- NOTE | 2023-04-27 22:16 | PC.NURSE ---
SENIOR GRANT WRITER was called for increased pain to the left groin, swelling to the lt grion , pt stated i am dying Morphine 4 mg Iv administered , Dr Louise on his way to place the lockhart cath
--- NOTE | 2023-04-27 22:43 | PC.NURSE ---
Dr Louise placed silicone cath #22 , initial output 500 ml bloody urine , small blood clots . Per DR Louise , pt doesn't need 3 way cath and CBI. Nursing may irrigate cath PRN manually
[2023-04-28] VITALS (14 sets, daily range): BP systolic 135–175; BP diastolic 64–92; PULSE 73–115; RESP 14–20; TEMP 36.2–37.3; O2SAT 96–100
[2023-04-28] MEDS: Sodium Bicarbonate 8.4% 100 MEQ in Dextrose 5 % 900 ML IV (03:07)
[2023-04-28] MEDS: Morphine Sulfate 4 MG/ML CARTRIDGE IVPUSH (03:14)
--- NOTE | 2023-04-28 04:30 | PC.NURSE ---
Lew continues with hematuria.Irrigated x 2 with NS,no clots obtained.Pt denies pain.Only 100cc output.Bladder scanned at 0430 for 247.
--- NOTE | 2023-04-28 07:00 | CA_ITS ---
Transthoracic Echocardiogram Patient (Last, First, Middle): Abdelrahman Campbell, Gender: Male Date of : 1960 Age: 62 Procedure Date: 04/28/2023 Procedure Type: Transthoracic [place] [facility] [place]: 167.64 cm Weight: 79.38 kg BSA: 1.89 m2 Heart Rate: 80 bpm BP: 166 / 75 mmHg Cesspool Cleaner: MELISSA Referring MD: Rossana Salazar MD Music Historian: Bobby Leary MD Symptoms: elevated troponins Study Quality: Adequate ECG Rhythm: Sinus Conclusions: - 1. Low normal LV ejection fraction 50-55% with mild LVH 2. Normal cardiac valvular Dopplers 3. No gross pericardial effusion Findings Left Ventricle Normal left ventricular cavity size. There is mildly increased left ventricular wall thickness. The left ventricular systolic function is low normal. The visually estimated ejection fraction is between 50-55%. Spectral Doppler is indicative of an impaired relaxation filling pattern. Wall Motion Rest Echo Findings The basal inferior and basal inferoseptal segments are hypokinetic. All other scored wall segments showed normal motion. Right Ventricle Normal right ventricular cavity size. There is normal right ventricular systolic function. Atria The left atrium is normal in size. There is no evidence of interatrial shunt. The right atrium is normal in size. Aortic Valve There is mild calcification of the aortic valve. There is no aortic valve stenosis. There is no aortic valve regurgitation. Mitral Valve There is mild anterior and posterior mitral leaflet thickening. There is trace mitral valve regurgitation. There is no mitral valve stenosis. Pulmonic Valve The pulmonic valve was not well visualized. Tricuspid Valve Likely normal tricuspid valve structure and function. Tricuspid regurgitation envelope is inadequate for calculation of right ventricular systolic pressure. Great Vessels All visible segments of the aorta are normal in size. The pulmonary artery was not well visualized. Venous The inferior vena cava is normal in size and collapses greater than 50% with inspiration. Pericardium/Pleural There is no evidence of pericardial effusion. Prior Study Comparison No prior study available for comparison. Measurements 2D Linear Measurements IVSd: 1.36 0.6-0.9/0.6-1.0 cm LVIDd: 5.13 3.9-5.3/4.2-5.9 cm LVIDd Index: 2.71 2.4-3.2/2.2-3.1 cm/m2 LVIDs: 3.05 2.0-3.6 cm LVPWd: 1.38 0.7-1.1 cm LA Diam: 3.90 2.7-3.8/3.0-4.0 cm LAIDs Index: 2.06 1.5-2.3 cm/m2 LV Mass: 366.54 67-162/88-224 g LV Mass Index: 193.93 43-95/49-115 g/m2 LVOT Diam: 2.10 3.0+(-)1.3 cm 2D Systolic Function EF 4C: 46.70 >55% EF 2C: 54.00 >55% EF BiP: 50.30 >55% Mitral Valve MV Pk E: 0.69 MV PK A: 0.85 MV Decel Time: 187.00 E/A: 0.80 E'Lateral: 4.46 E'Medial: 5.11 E/E' Med: 13.50 E/E' Lat: 15.50 PHT: 55.00 MVA PHT: 4.00 Decel [place]: 3.70 Aortic Valve AoV Pk Heath: 1.35 AoV Pk Grad: 7.00 DIANNE: 2.74 LVOT LVOT Pk Heath: 1.08 LVOT Mn Heath: 0.75 LVOT VTI: 0.22 LVOT Pk Grad: 5.00 LVOT Mn Grad: 3.00 LVOT Diam: 2.10 LVOT Area: 3.46 Diastolic Function MV Pk E: 0.69 MV Pk A: 0.85 E/A: 0.80 E'Medial: 5.11 E/E' Med: 13.50 E' Laterial: 4.46 E/E' Lat: 15.50 Right Ventricle TAPSE (mm): 27.70 TVS' Heath: 21.90 Tricuspid Valve RA Press: 3.00 Great Vessels Aorta Sinus of Valsalva: 3.60 2.0-3.5 cm Ao Asc: 3.30 2.1-3.4 cm Pulmonary Valve PV Pk Heath: 1.51 Peak PV Grad: 9.00 Updated in Other Vendor System with Status of Final Bobby Leary MD electronically signed on 04/28/2023 11:48:16 AM with status of Final
[2023-04-28 07:40] LABS: Mean Corpuscular HGB Conc 35.9 g/dl (31.0-36.0); Mean Corpuscular Hemoglobin 31.4 pg (27.0-33.0); Mean Corpuscular Volume 87.6 fL (80.0-98.0); Mean Platelet Volume 11.3 fL (9.4-12.4); Platelet Count 116 X10*3/uL (160-400); Red Blood Count 1.94 X10*6/uL (4.60-5.80); Red Cell Distribution Width 13.8 % (11.0-16.0); White Blood Count 7.2 X10*3/uL (4.8-10.8)
[2023-04-28 07:54] LABS: Anion Gap 28 (12-20); Calcium 7.6 mg/dL (8.4-10.2); Carbon Dioxide 19 mmol/L (22-29); Chloride 92 mmol/L (96-108); Creatinine Clr Calc Pharmacy 3.8; Estimated Glomerular Filt Rate 2; Glucose Random 115 mg/dL (60-115); Potassium 4.4 mmol/L (3.3-5.1); Sodium 135 mmol/L (135-145)
[2023-04-28 08:02] LABS: Blood Urea Nitrogen 182 mg/dL (9-16)
[2023-04-28] MEDS: amLODIPine Besylate 2.5 MG TABLET PO ×2 (08:05→15:14)
[2023-04-28] MEDS: cloNIDine HCL 0.1 MG TABLET PO (08:05)
[2023-04-28] MEDS: Tamsulosin HCL 0.4 MG CAPSULE PO (08:05)
[2023-04-28] MEDS: Finasteride 5 MG TABLET PO (08:05)
[2023-04-28] MEDS: PHENobarbitaL 15 MG TABLET 45 MG PO ×2 (08:06→20:45)
[2023-04-28 08:14] LABS: Hemoglobin 6.1 g/dl (14.0-18.0)
[2023-04-28 08:24] LABS: Appearance Urine Turbid; Color Urine Red; Glucose Urine UA 100 mg/dL (Negative); Leukocyte Esterase Urine Moderate (2+) (Negative); Nitrite Urine Positive (Negative); PH 6.5 (5.0-9.0); UMIC TRIGGER UA YES; Urine Blood Large (3+) (Negative); Urine Ketones Negative (Negative); Urine Protein 300 (3+) mg/dL (Neg-Trace)
[2023-04-28 08:41] LABS: Bacteria Urine Trace (None Seen); Hyaline Casts Urine 0-2 /LPF (0-2); RBC Urine >20 /HPF (0-2); Squamous Epithelial Cell Urine 0-2 /HPF (0-2)
[2023-04-28] MEDS: Acetaminophen 325 MG TABLET 650 MG PO (09:27)
[2023-04-28 09:45] LABS: Hemoglobin 5.9 g/dl (14.0-18.0)
--- NOTE | 2023-04-28 10:45 | PC.NURSE ---
Lew cath in place and patent draining minimal hemartuia output - [address] Louise at bedside to hand irrigate with improvement of urine output - urine remain bloody w/ minimal clotting. Lew bag removed and plug placed at end of cath VO Dr Louise. Urine output at this time 500cc. Nursing to drain q4hr VO Dr Louise. Patient receiving 2u PRBC for critical H&H. No plan for OR at this time per MD. Low NA diet ordered - GSR called to bedside.
--- NOTE | 2023-04-28 13:17 | MHC.SL.SWA ---
Speech Pathologist Impression: Oral phase dysphagia Risk of Aspiration Due to: Lethargy Dysphasia Diet Status: START on NDD3 Liquid Consistency and Strategies for Safe Swallow: Liquid Intake Recommendation: Thin Liquid Intake Strategies: Small Sips Solid Food Consistency: Dietary Recommendations: Chopped/Advanced (NDD3) Additional Modifications to Solid Foods: Pt w/ mild oral phase dysphagia characterized by slowed and prolonged oral preparation on hard solids. Pt is recommended to START on a CHOPPED/ADVANCED (NDD3) diet to reduce fatigue during meals, and THIN liquids, pills WHOLE in LIQUID. MUSIC PASTOR to continue to follow to monitor tolerance and re-assess for potential upgrade as pt's overall condition improves. Oral Medication Intake: Whole with Liquid Please contact the pharmacy regarding appropriate crushable or liquid drug formulations that are available whenever modified delivery is recommended. Compensatory Strategies and Precautions to be Taken for Safe Swallow: Sitting Upright (90 deg) Double Swallow Small Bites and Sips Alternate Liquids/Solids Rate of Ingestion Change Supervision While Eating and Drinking for Safe Swallow: Intermittent Supervision Swallowing Recommended Treatments: Compens. Strategy Educat. Recommendation for Speech: Inpatient Speech Therapy Comment: Frequency/Duration: M-F PRN Date Range for Service Req: Timeline to reassess: Business Excellence Manager Clinican/Clinical Fellow: No Supervisory Statement: I have reviewed and agree with the student/clinical fellow's documentation: N/A Speech Language Pathologist: Sabrina Mace M.A., CCC-MUSIC PASTOR
--- NOTE | 2023-04-28 13:34 | P.PNUR_ITS ---
Subjective Subjective Date of Service: 04/27/23 Interval history: ATSP: Catheter removed by nursing staff Uable to replace I was called to replace catheter Glidewire placed into bladder 22Fr silicon placed over wire Bladder irrigated (CPT 96537 DIfficult lockhart placement) Review in am Physical Exam 2 Vital Signs: Vital Signs: Last Vital Signs Temp 97.6 F 04/28/23 13:31 Pulse 86 04/28/23 13:31 Resp 17 04/28/23 13:31 BP 175/72 H 04/28/23 13:31 Pulse Ox 97 04/28/23 11:40 O2 Del Method Room Air 04/28/23 11:40 BMI result Body Mass Index 28.2 Const: General: cooperative, healthy appearing, comfortable and no acute distress Orientation/consciousness: patient oriented x3 HEENT: Face and sinus: Yes normal facial exam Mouth: moist mucous membranes Neck: Neck: Yes normal visual inspection, Yes full ROM and Yes trachea midline Chest: Chest palpation & inspection: normal inspection of the chest Resp: Effort & Inspection: normal respiratory effort, able to speak in complete sentences and no respiratory distress GI: Inspection: Yes normal to inspection Back/Spine/Pelvis: Cervical Spine: normal cervical lordosis Thoracic/Lumbar Spine: thoracic and lumbar spine normal to inspection Skin: General skin exam: no rashes or lesions noted Neuro: General: patient oriented x3, tone normal and moves all extremities Extrem: General: Yes normal to inspection and Yes capillary refill normal Urology Results Labs 04/28/23 08:32 04/28/23 06:24 Labs: Laboratory Results - last 24 hr 04/26/23 04/27/23 04/28/23 12:41 15:09 06:24 WBC 7.2 RBC 1.94 L Hgb 7.3 L 6.1 L* Hct 21.4 L 17.0 L* D MCV 87.6 MCH 31.4 MCHC 35.9 RDW 13.8 Plt Count 116 L MPV 11.3 Absolute Nucleated RBC 0.000 Nucleated RBC % (auto) 0.0 Sodium 135 Potassium 4.4 Chloride 92 L Carbon Dioxide 19 L Anion Gap 28 H BUN 182 H Creatinine 19.25 H* Estim Creat Clear Calc 3.8 Estimated GFR 2 Random Glucose 115 Calcium 7.6 L Urine Color Urine Appearance Urine pH Ur Specific [place] Urine Protein Urine Glucose (UA) Urine Ketones Urine Blood Urine Nitrite Ur Leukocyte Esterase Urine RBC Urine WBC Ur Squamous Epith Cells Urine Bacteria Hyaline Casts Blood Type B Positive Antibody Screen NEGATIVE Crossmatch See Detail 04/28/23 04/28/23 08:01 08:32 WBC RBC Hgb 5.9 L* Hct 17.0 L* MCV MCH MCHC RDW Plt Count MPV Absolute Nucleated RBC Nucleated RBC % (auto) Sodium Potassium Chloride Carbon Dioxide Anion Gap BUN Creatinine Estim Creat Clear Calc Estimated GFR Random Glucose Calcium Urine Color Red A Urine Appearance Turbid Urine pH 6.5 Ur Specific [place] 1.020 Urine Protein 300 (3+) H Urine Glucose (UA) 100 H Urine Ketones Negative Urine Blood Large (3+) H Urine Nitrite Positive H Ur Leukocyte Esterase Moderate (2+) H Urine RBC >20 H Urine WBC 6-10 H Ur Squamous Epith Cells 0-2 Urine Bacteria Trace Hyaline Casts 0-2 Blood Type Antibody Screen Crossmatch Progress Note: A&P Assessment and plan (1) Difficult Lockhart catheter placement: Status: Acute Plan Follow in am Time Spent With Patient Time: Total time managing care of this patient today ____ minutes. Progress Note: Quality Stroke Does the patient have a stroke diagnosis?: No
--- NOTE | 2023-04-28 13:36 | PM.UROPN ---
Subjective Subjective Date of Service: 04/28/23 Interval history: Hematuria Catheter examined Large prostate Drainage back leads to tension of catheter in cancer prostate Catheter advanced and bladder irrigated to clear (CPT 54472) 60 cc placed in catheter balloon Recommendation to trial catheter cap with intermittent drainage to reduce trauma from tension on Lockhart Physical Exam Vital Signs: Vital Signs: Last Vital Signs Temp 97.6 F 04/28/23 13:31 Pulse 86 04/28/23 13:31 Resp 17 04/28/23 13:31 BP 175/72 H 04/28/23 13:31 Pulse Ox 97 04/28/23 11:40 O2 Del Method Room Air 04/28/23 11:40 BMI result Body Mass Index 28.2 Const: General: cooperative, healthy appearing, comfortable and no acute distress Orientation/consciousness: patient oriented x3 HEENT: Face and sinus: Yes normal facial exam Mouth: moist mucous membranes Neck: Neck: Yes normal visual inspection, Yes full ROM and Yes trachea midline Chest: Chest palpation & inspection: normal inspection of the chest Resp: Effort & Inspection: normal respiratory effort, able to speak in complete sentences and no respiratory distress GI: Inspection: Yes normal to inspection Back/Spine/Pelvis: Cervical Spine: normal cervical lordosis Thoracic/Lumbar Spine: thoracic and lumbar spine normal to inspection Skin: General skin exam: no rashes or lesions noted Neuro: General: patient oriented x3, gait normal, tone normal and moves all extremities Extrem: General: Yes normal to inspection and Yes capillary refill normal Urology Results Labs 04/28/23 08:32 04/28/23 06:24 Labs: Laboratory Results - last 24 hr 04/26/23 04/27/23 04/28/23 12:41 15:09 06:24 WBC 7.2 RBC 1.94 L Hgb 7.3 L 6.1 L* Hct 21.4 L 17.0 L* D MCV 87.6 MCH 31.4 MCHC 35.9 RDW 13.8 Plt Count 116 L MPV 11.3 Absolute Nucleated RBC 0.000 Nucleated RBC % (auto) 0.0 Sodium 135 Potassium 4.4 Chloride 92 L Carbon Dioxide 19 L Anion Gap 28 H BUN 182 H Creatinine 19.25 H* Estim Creat Clear Calc 3.8 Estimated GFR 2 Random Glucose 115 Calcium 7.6 L Urine Color Urine Appearance Urine pH Ur Specific [place] Urine Protein Urine Glucose (UA) Urine Ketones Urine Blood Urine Nitrite Ur Leukocyte Esterase Urine RBC Urine WBC Ur Squamous Epith Cells Urine Bacteria Hyaline Casts Blood Type B Positive Antibody Screen NEGATIVE Crossmatch See Detail 04/28/23 04/28/23 08:01 08:32 WBC RBC Hgb 5.9 L* Hct 17.0 L* MCV MCH MCHC RDW Plt Count MPV Absolute Nucleated RBC Nucleated RBC % (auto) Sodium Potassium Chloride Carbon Dioxide Anion Gap BUN Creatinine Estim Creat Clear Calc Estimated GFR Random Glucose Calcium Urine Color Red A Urine Appearance Turbid Urine pH 6.5 Ur Specific [place] 1.020 Urine Protein 300 (3+) H Urine Glucose (UA) 100 H Urine Ketones Negative Urine Blood Large (3+) H Urine Nitrite Positive H Ur Leukocyte Esterase Moderate (2+) H Urine RBC >20 H Urine WBC 6-10 H Ur Squamous Epith Cells 0-2 Urine Bacteria Trace Hyaline Casts 0-2 Blood Type Antibody Screen Crossmatch Urology Procedures Other Procedure Other Procedure: See above Lockhart irrigation for hemturia approx 500cc CPT 67571 Progress Note: A&P Assessment and plan (1) Gross hematuria: Status: Acute Plan Continue to review lockhart Time Spent With Patient Time: Total time managing care of this patient today ____ minutes. Progress Note: Quality Stroke Does the patient have a stroke diagnosis?: No
[2023-04-28] MEDS: Sodium Bicarbonate 8.4% 50 MEQ in Dextrose 5 % 950 ML 100 MEQ IV (13:57)
--- NOTE | 2023-04-28 15:04 | HO.PM.IMPN ---
Subjective Subjective Date of Service: 04/28/23 Interval History: has anemia acute blood loss on possible ch anemia ,hematuria ,alcohol withdrawal,jennifer seems anxious Review of Systems less anxious,mental status seems at baseline. still has hematuria denies sob or chest pain or abd pain or fevers or nausea Physical Exam Vital Signs: Vital Signs: Last Vital Signs Temp 97.6 F 04/28/23 13:31 Pulse 86 04/28/23 13:31 Resp 17 04/28/23 13:31 BP 175/72 H 04/28/23 13:31 Pulse Ox 97 04/28/23 11:40 O2 Del Method Room Air 04/28/23 11:40 BMI result Body Mass Index 28.2 Appearance: Alert.? Oriented X3.? mental status seems at baseline,generalised weak.? cvs: [id number], [id number] , no murmur res: clear to auscultation ,no rhonchii or wheezing abd: no rebound or guarding ,nt, bs present. Gu: gross hemtaruria lockhart bag ext pulses present , no cyanosis . neuro: nonfocal. Objective Data Active Medications Acetaminophen (Acetaminophen 325 Mg Tablet) 650 mg PO Q6H PRN PRN Reason: Pain, Mild (Pain Scale 1-3) Last Admin: 04/28/23 09:27 Dose: 650 mg Documented By: GEN Amlodipine Besylate (Amlodipine Besylate 5 Mg Tablet) 5 mg PO DAILY [facility]; Protocol Amlodipine Besylate (Amlodipine Besylate 2.5 Mg Tablet) 2.5 mg PO ONCE ONE; Protocol Stop: 04/28/23 15:05 Benzonatate (Benzonatate 100 Mg Capsule) 100 mg PO TID PRN PRN Reason: Cough Clonidine HCl (Clonidine Hcl 0.1 Mg Tablet) 0.1 mg PO BID [facility]; Protocol Last Admin: 04/28/23 08:05 Dose: 0.1 mg Documented By: GEN Docusate Sodium (Docusate Sodium 100 Mg Capsule) 100 mg PO DAILY PRN PRN Reason: Constipation Finasteride (Finasteride 5 Mg Tablet) 5 mg PO DAILY [facility] Last Admin: 04/28/23 08:05 Dose: 5 mg Documented By: GEN Sodium Bicarbonate 50 meq/ (Dextrose) 1,000 mls @ 100 mls/hr IV .Q10H ABDULAZIZ Last Admin: 04/28/23 13:57 Dose: 100 mls/hr Documented By: JADYN Melatonin (Melatonin 3 Mg Tablet) 6 mg PO BEDTIME PRN PRN Reason: Insomnia Morphine Sulfate (Morphine Sulfate 4 Mg/Ml Cartridge) 4 mg IVPUSH Q4H PRN; Protocol PRN Reason: Pain, Severe (Pain Scale 7-10) Last Admin: 04/28/23 03:14 Dose: 4 mg Documented By: TEDDY Ondansetron HCl (Ondansetron Hcl 4 Mg/2 Ml Vial) 4 mg IVPUSH Q8H PRN PRN Reason: Nausea and Vomiting Last Admin: 04/26/23 17:13 Dose: 4 mg Documented By: LOTTIE Pharmacy Consult (Consult Rx Etoh Phenob Im/Po) 1 each MISCELLANE ONCE PRN; Protocol PRN Reason: Consult order Phenobarbital (Phenobarbital 15 Mg Tablet) 45 mg PO BID [facility] Stop: 04/29/23 21:01 Last Admin: 04/28/23 08:06 Dose: 45 mg Documented By: GEN Phenobarbital (Phenobarbital 15 Mg Tablet) 15 mg PO BID [facility] Stop: 05/01/23 21:01 Phenobarbital (Phenobarbital 15 Mg Tablet) 15 mg PO DAILY [facility] Stop: 05/03/23 09:01 Sodium Chloride (0.9 % Sodium Chloride Flush 3 Ml Syringe) 3 ml IVFLUSH QSHIFT [facility] Last Admin: 04/28/23 14:12 Dose: Not Given Documented By: GEN Non-Admin Reason: IV Running Tamsulosin HCl (Tamsulosin Hcl 0.4 Mg Capsule) 0.4 mg PO DAILY [facility] Last Admin: 04/28/23 08:05 Dose: 0.4 mg Documented By: GEN Labs 04/28/23 08:32 04/28/23 06:24 Labs: Laboratory Results - last 24 hr 04/26/23 04/28/23 04/28/23 12:41 06:24 08:01 MCV 87.6 MCH 31.4 MCHC 35.9 RDW 13.8 Plt Count 116 L MPV 11.3 Absolute Nucleated RBC 0.000 Nucleated RBC % (auto) 0.0 Anion Gap 28 H Estim Creat Clear Calc 3.8 Estimated GFR 2 Random Glucose 115 Calcium 7.6 L Urine Color Red A Urine Appearance Turbid Urine pH 6.5 Ur Specific [place] 1.020 Urine Protein 300 (3+) H Urine Glucose (UA) 100 H Urine Ketones Negative Urine Blood Large (3+) H Urine Nitrite Positive H Ur Leukocyte Esterase Moderate (2+) H Urine RBC >20 H Urine WBC 6-10 H Ur Squamous Epith Cells 0-2 Urine Bacteria Trace Hyaline Casts 0-2 Blood Type B Positive Antibody Screen NEGATIVE Crossmatch See Detail Assessment and Plan (1) Anemia: Status: Acute (2) Metabolic acidosis: Status: Acute (3) JENNIFER (acute kidney injury): Status: Acute (4) Urinary retention with incomplete bladder emptying: Status: Acute Assessment and Plan: 62-year-old male with no reported significant PMH who states he has not seen a PCP since 1984 who presents to the ED with vague complaints of feeling generally unwell. Pt will be admitted to the hospital for treatment further evaluation of acute renal failure, metabolic acidosis, and electrolyte imbalances. Acute renal failure with urinary retention -possible bph/bladder outlet obstruction intial -BUN 182 with creatinine 19.[address] of abdomen and pelvis found enlarged prostate with massively distended urinary bladder and bilateral severe hydronephrosis consistent with urinary retention Patient with no known significant renal PMH, though patient states he has not seen a doctor regularly since 1984 Nephrology consult noted-continue lockhart flomax ,ivf ,urology eval noted ,urology follow up today-recomeded to continue lockhart for now (no clots). Follow BMP Hematuria Likely secondary to traumatic Lockhart insertion d/t enlarged prostate s/p 2 prbc ,tranexemic acid x1 -still h/h 5.9/17 range Urology consult- placed lockhart -please see jennifer section above also. Metabolic acidosis bicarb inproving ,has agma cotninue bicarb drip. Follow BMP Hyperkalemia Patient's potassium 5.4 at time of presentation repeat WNL at 4.4. EKG without significant T-wave changes Monitor on telemetry Follow BMP Elevated troponins Initial troponin flat in 50 Pt asymptomatic: Denies chest pain/pressure, palpitations, EKG without significant ischemic changes echo-shows some wma -basal inferior and basal inferoseptal segments are hypokinetic. started on bb,statin ,will avoid asa since has gross hematuria ongoing/severe anemia requiring transfusions. added cardiology eval acute blood loss anemia on possible ch Normocytic anemia(aocd) s/p 2prbc -h/h 5.9, additional 2 prbc ordered & another dose tranexemic acid x1 reviewed iron studies, B12, folate-seems aocd moniter h/h Hypertension-uncontrolled adjusted amlodipine 5 mg daily,added metoprolol. alcohol withdrawals Patient reports longstanding hx of drinking 1 pt of whiskey with up to 6 beers daily CIWA continue phenobarbital ,given dose of halodol moniter neurochecks. Generalized weakness Pt complains of recent weakness the past couple of weeks with difficult ambulating Will get PT consult Full Code DVT Prophylaxis: Pneumatic boots d/t anemia and hematuria ongoing hospitalization need: for treatment of?acute renal failure with metabolic acidosis. Patient will require bicarb drip, electrolyte replenishment, close monitoring, and also Need hematuria monitoring as well as H as in H monitoring ,alcohol withdrawal,on phenobarbital protocol. Time Spent With Patient Time: Total time managing care of this patient today ____ minutes. Quality Stroke Does the patient have a stroke diagnosis?: No VTE Prior VTE?: No VTE Risk Level:: Medical - moderate - high VTE Device Contraindication: N/A - Device Ordered VTE Drug Contraindication: Treatment Not Indicated
--- NOTE | 2023-04-28 15:11 | P.CDIM_ITS ---
PROVIDER RESPONSE TEXT: To clarify, the appropriate diagnosis supported by the clinical indicators: Acute QUERY TEXT: >>> Provider Instructions - Do not remove this line >>> PHYSICIAN'S DOCUMENTATION REQUEST Date of Query: 04/28/2023 12:28 PM EDT Patient Name: Abdelrahman Campbell Admit Date: 04/26/2023 Dear Rossana Salazar, A review of the medical record indicates additional documentation may be needed. Please review below and update the documentation accordingly. Clinical Indicators: Per Hospitalist Progress Note 04/27/23: Metabolic acidosis Patient with VBG pH 7.26, bicarb 12 bicarb improving ,has agma continue bicarb drip. Follow BMP Clarify which of the following accurately represents the acuity of the Metabolic Acidosis. Possible options might include: <<< Provider Instructions - Do not remove this line <<< Acute Acute on chronic Compensated Chronic stable condition Remission Other (explain)Clinically unable to determine (explain)>>> Contact Info Do not remove this line>>> Thank you, Negar Burdick RN Use of terms such as suspected, likely, concern for, or probable (associated with a specific diagnosi s that is being evaluated, monitored, or treated as if it exists) are acceptable and can be coded in the inpatient se tting, when documented at the time of discharge. Please use your independent medical judgment in providing your response. THIS QUERY IS PART OF THE PERMANENT MEDICAL RECORD <<< Contact Info Do not remove this line <<< >>> Disclaimer - Do no remove this line>>> Extension: [phone] <<< Disclaimer - Do not remove this line<<<
[2023-04-28] MEDS: Tranexamic Acid 1,000 MG in 0.9 % Sodium Chloride 50 ML 360 MG IV (15:50)
[2023-04-28 16:01] LABS: Alanine Aminotransferase 8 U/L (0-40); Albumin Level 3.1 g/dL (3.5-5.0); Alkaline Phosphatase 45 U/L (39-117); Aspartate Amino Transferase 7 U/L (5-37); Bilirubin Direct 0.2 mg/dL (0.0-0.5); Bilirubin Total 0.4 mg/dL (0.0-1.0); Total Protein 5.4 g/dL (6.5-8.0)
[2023-04-28 19:48] LABS: Hemoglobin 7.1 g/dl (14.0-18.0)
[2023-04-28 20:37] LABS: Hematocrit 20.1 % (42.0-52.0)
[2023-04-28] MEDS: Atorvastatin Calcium 20 MG TABLET PO (20:45)
[2023-04-28] MEDS: Metoprolol Tartrate 25 MG TABLET PO (20:45)
--- NOTE | 2023-04-28 21:56 | P.PNNP_ITS ---
Subjective Subjective Date of Service: 04/28/23 Interval history: has anemia acute blood loss on possible ch anemia ,hematuria ,alcohol withdrawal,kiera seems anxious Seen by Urology Has a Lockhart capped Physical Exam 2 Vital Signs: Vital Signs: Last Vital Signs Temp 97.6 F 04/28/23 18:43 Pulse 90 04/28/23 20:48 Resp 18 04/28/23 18:43 BP 162/70 H 04/28/23 20:48 Pulse Ox 98 04/28/23 18:43 O2 Del Method Room Air 04/28/23 18:43 BMI result Body Mass Index 28.2 Appearance: Alert.? Oriented X3.? mental status seems at baseline,generalised weak.? cvs: [id number], [id number] , no murmur res: clear to auscultation ,no rhonchii or wheezing abd: no rebound or guarding ,nt, bs present. Gu: gross hemtaruria lockhart bag ext pulses present , no cyanosis . neuro: nonfocal. Objective Data Labs 04/28/23 19:05 04/28/23 06:24 Labs: Laboratory Results - last 24 hr 04/26/23 04/28/23 04/28/23 12:41 06:24 08:01 WBC 7.2 RBC 1.94 L Hgb 6.1 L* Hct 17.0 L* D MCV 87.6 MCH 31.4 MCHC 35.9 RDW 13.8 Plt Count 116 L MPV 11.3 Absolute Nucleated RBC 0.000 Nucleated RBC % (auto) 0.0 Sodium 135 Potassium 4.4 Chloride 92 L Carbon Dioxide 19 L Anion Gap 28 H BUN 182 H Creatinine 19.25 H* Estim Creat Clear Calc 3.8 Estimated GFR 2 Random Glucose 115 Calcium 7.6 L Total Bilirubin 0.4 Direct Bilirubin 0.2 AST 7 ALT 8 Alkaline Phosphatase 45 Total Protein 5.4 L Albumin 3.1 L Urine Color Red A Urine Appearance Turbid Urine pH 6.5 Ur Specific [place] 1.020 Urine Protein 300 (3+) H Urine Glucose (UA) 100 H Urine Ketones Negative Urine Blood Large (3+) H Urine Nitrite Positive H Ur Leukocyte Esterase Moderate (2+) H Urine RBC >20 H Urine WBC 6-10 H Ur Squamous Epith Cells 0-2 Urine Bacteria Trace Hyaline Casts 0-2 Blood Type B Positive Antibody Screen NEGATIVE Crossmatch See Detail 04/28/23 04/28/23 08:32 19:05 WBC RBC Hgb 5.9 L* 7.1 L D Hct 17.0 L* 20.1 L* MCV MCH MCHC RDW Plt Count MPV Absolute Nucleated RBC Nucleated RBC % (auto) Sodium Potassium Chloride Carbon Dioxide Anion Gap BUN Creatinine Estim Creat Clear Calc Estimated GFR Random Glucose Calcium Total Bilirubin Direct Bilirubin AST ALT Alkaline Phosphatase Total Protein Albumin Urine Color Urine Appearance Urine pH Ur Specific [place] Urine Protein Urine Glucose (UA) Urine Ketones Urine Blood Urine Nitrite Ur Leukocyte Esterase Urine RBC Urine WBC Ur Squamous Epith Cells Urine Bacteria Hyaline Casts Blood Type Antibody Screen Crossmatch Procedures Date of Service Date of Service: 04/28/23 Assessment & Plan Assessment and plan (1) KIERA (acute kidney injury): Status: Acute Assessment and Plan: KIERA due to obstructive uropathy CT scan of the abdomen c/w bilateral hydronephrosis in the setting of bladder outlet obstruction unknown chronicity of obstructive uropathy he may have end stage kidney disease due to chronic obstructive uropathy 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 REC IVF with bicarb Lockhart tamsulosin no indication for emergent [employer] if kidney function does not improve in the next 24-48 hours will need permcath and initiation of [employer] iPTH iron profile- Fe stores are high - Will give epo in AM 20 K s/q transfuse for Hb < 7 follow kidney function and electrtolytes d/w medical team (2) Metabolic acidosis: Status: Acute (3) Anemia: Status: Acute (4) Difficult Lockhart catheter placement: Status: Acute (5) Bladder outlet obstruction: Status: Acute Time Spent With Patient Time: Total time managing care of this patient today ____ minutes. Progress Note: Quality Stroke Does the patient have a stroke diagnosis?: No
[2023-04-29] VITALS (23 sets, daily range): BP systolic 127–188; BP diastolic 57–91; PULSE 78–98; RESP 12–24; TEMP 36.4–37.3; O2SAT 94–100
[2023-04-29] MEDS: 0.9 % Sodium Chloride Flush 3 ML SYRINGE IVFLUSH ×3 (00:35→10:53)
[2023-04-29] MEDS: Sodium Bicarbonate 8.4% 50 MEQ in Dextrose 5 % 950 ML 100 MEQ IV ×2 (01:34→09:48)
[2023-04-29] MEDS: Morphine Sulfate 4 MG/ML CARTRIDGE IVPUSH ×4 (02:22→10:51)
--- NOTE | 2023-04-29 05:00 | MHC.PIE ---
P.Pain I.Pt yelling out in pain.stating he has to pee and has to move his bowels.F/C irrigated several times throughout the night,remains bloody but no clots seen.Seems to have some relief after irrigating but urine output remains low,25-50 cc. Pt unable to move his bowels on bedpan.3 assist OOB to commode as pt is very weak.Still unable to move his bowels.Dr Meza updated,order for dulcolax supp given and extra dose of MS 4MG IV.Pt calmer after meds given. E.Cont to monitor.
[2023-04-29] MEDS: bisacodyL 10 MG SUPP.RECT PR (05:32)
[2023-04-29 06:57] LABS: Anion Gap 32 (12-20); Calcium 7.6 mg/dL (8.4-10.2); Carbon Dioxide 19 mmol/L (22-29); Chloride 85 mmol/L (96-108); Cholesterol 98 mg/dL (<200); Glucose Random 111 mg/dL (60-115); HDL Cholesterol 25 mg/dL (>40); LDL Cholesterol Calculated 53 mg/dL (<100); Potassium 4.6 mmol/L (3.3-5.1); Sodium 131 mmol/L (135-145); Triglycerides 102 mg/dL (<150)
[2023-04-29 07:08] LABS: Blood Urea Nitrogen 185 mg/dL (9-16); Estimated Glomerular Filt Rate 3
[2023-04-29] MEDS: Acetaminophen 325 MG TABLET 650 MG PO (08:15)
[2023-04-29] MEDS: Metoprolol Tartrate 25 MG TABLET PO ×2 (08:15→21:43)
[2023-04-29] MEDS: PHENobarbitaL 15 MG TABLET PO (08:15)
[2023-04-29] MEDS: Tamsulosin HCL 0.4 MG CAPSULE PO (08:15)
[2023-04-29] MEDS: Finasteride 5 MG TABLET PO (08:15)
[2023-04-29] MEDS: amLODIPine Besylate 5 MG TABLET PO (08:16)
[2023-04-29] MEDS: ondansetron HCL 4 MG/2 ML VIAL IVPUSH (08:16)
[2023-04-29] MEDS: Docusate Sodium 100 MG CAPSULE PO (08:16)
[2023-04-29 09:27] LABS: Hematocrit 21.2 % (42.0-52.0); Hemoglobin 7.7 g/dl (14.0-18.0)
[2023-04-29 09:28] LABS: VBG Base Excess -0.8 mmol/L; VBG HCO3 20 mmol/L (22-26); VBG pCO2 24 mmHg; VBG pH 7.53 (7.32-7.43); VBG pO2 151 mmHg
[2023-04-29 09:34] LABS: Venous Blood Gas Refer to POC result
[2023-04-29] MEDS: cefTRIAXone sodium 1 GM in 0.9 % Sodium Chloride 50 ML IV (09:48)
--- NOTE | 2023-04-29 10:30 | PM.CNCAR ---
History of Present Illness History of Present Illness Date of Service: 04/29/23 Requesting physician: Rossana Salazar Consult reason: troponin elevation Chief complaint: acute kidney failure, electrolyte imbalances Narrative: I was consulted to see Abdelrahman in cardiology consultation today for elevated troponin. Patient is 62-year-old male was not seen a physician for many years presents to the hospital with not feeling well. Patient was noted to have significantly elevated BUN and creatinine subsequently noticed to be related to obstructive uropathy with markedly dilated urinary bladder as well as both kidneys with significant hydronephrosis suspected to be due to prostate issue. He subsequently had a catheter placed in the ED and there is reported good diuresis although no improvement in his creatinine over the last 2 days. He will also present with marked hyperkalemia which has subsequently improved and also significant anemia. Subsequently as significant hematuria. He has also has significant alcohol abuse history and was initially treated for alcohol withdrawal syndrome. He is currently complain of significant pain in the suprapubic area and continues to have hematuria. He has required multiple transfusions of packed RBCs. On admission troponin was minimally elevated in the 50s and flat. There were no EKG changes for ischemia. Cardiology consult was sought for the same. Patient denies any chest pain. Denies any prior cardiac history. Remains hypertensive but is in significant pain at this point in time. Review of Systems Constitutional: Constitutional: Denies chills, Denies fever(s), Reports lethargy and Reports weakness Cardiovascular: Cardiovascular: Reports no additional cardiovascular complaints Respiratory: Respiratory: Reports no additional respiratory complaints Genitourinary: Genitourinary: Reports hematuria, Reports oliguria and Reports other (Suprapubic pain) Neurologic: Reports system reviewed and no additional complaints, except as documented and Reports weakness Endocrine: Endocrine: Reports no additional endocrine complaints [facility] Past Medical History Medical History Anemia Social History Social History Household Members: None Housing: Apartment Alcohol intake: current Alcohol intake frequency: other Alcohol type: hard liquor Patient Tobacco Use Status: Never used Tobacco Second Hand Smoke Exposure: No service: No Meds Allergies Allergy/AdvReac Type Severity Reaction Status Date / Time No Known Allergies Allergy Verified 04/26/23 10:27 Active Medications: Current Medications Acetaminophen (Acetaminophen 325 Mg Tablet) 650 mg PO Q6H PRN PRN Reason: Pain, Mild (Pain Scale 1-3) Last Admin: 04/29/23 08:15 Dose: 650 mg Amlodipine Besylate (Amlodipine Besylate 5 Mg Tablet) 5 mg PO DAILY [facility]; Protocol Last Admin: 04/29/23 08:16 Dose: 5 mg Atorvastatin Calcium (Atorvastatin Calcium 20 Mg Tablet) 20 mg PO BEDTIME REPLACED BY [facility] Last Admin: 04/28/23 20:45 Dose: 20 mg Benzonatate (Benzonatate 100 Mg Capsule) 100 mg PO TID PRN PRN Reason: Cough Docusate Sodium (Docusate Sodium 100 Mg Capsule) 100 mg PO DAILY PRN PRN Reason: Constipation Last Admin: 04/29/23 08:16 Dose: 100 mg Finasteride (Finasteride 5 Mg Tablet) 5 mg PO DAILY [facility] Last Admin: 04/29/23 08:15 Dose: 5 mg Sodium Bicarbonate 50 meq/ (Dextrose) 1,000 mls @ 100 mls/hr IV .Q10H REPLACED BY [facility] Last Admin: 04/29/23 09:48 Dose: 100 mls/hr Ceftriaxone Sodium 1 gm/ (Sodium Chloride) 50 mls @ 100 mls/hr IV Q24H REPLACED BY [facility] Last Admin: 04/29/23 09:48 Dose: 100 mls/hr Melatonin (Melatonin 3 Mg Tablet) 6 mg PO BEDTIME PRN PRN Reason: Insomnia Metoprolol Tartrate (Metoprolol Tartrate 25 Mg Tablet) 25 mg PO BID [facility] BY [facility]; Protocol Last Admin: 04/29/23 08:15 Dose: 25 mg Morphine Sulfate (Morphine Sulfate 4 Mg/Ml Cartridge) 4 mg IVPUSH Q4H PRN; Protocol PRN Reason: Pain, Severe (Pain Scale 7-10) Last Admin: 04/29/23 02:22 Dose: 4 mg Ondansetron HCl (Ondansetron Hcl 4 Mg/2 Ml Vial) 4 mg IVPUSH Q8H PRN PRN Reason: Nausea and Vomiting Last Admin: 04/29/23 08:16 Dose: 4 mg Pharmacy Consult (Consult Rx Etoh Phenob Im/Po) 1 each MISCELLANE ONCE PRN; Protocol PRN Reason: Consult order Phenobarbital (Phenobarbital 15 Mg Tablet) 45 mg PO BID [facility]PL[facility]ED BY [facility] Stop: 04/29/23 21:01 Last Admin: 04/28/23 20:45 Dose: 45 mg Phenobarbital (Phenobarbital 15 Mg Tablet) 15 mg PO BID REPLACED BY [facility] Stop: 05/01/23 21:01 Last Admin: 04/29/23 08:15 Dose: 15 mg Phenobarbital (Phenobarbital 15 Mg Tablet) 15 mg PO DAILY [facility]PL[facility] BY [facility] Stop: 05/03/23 09:01 Sodium Chloride (0.9 % Sodium Chloride Flush 3 Ml Syringe) 3 ml IVFLUSH QSHIFT REPLACED BY [facility] Last Admin: 04/29/23 08:14 Dose: 3 ml Tamsulosin HCl (Tamsulosin Hcl 0.4 Mg Capsule) 0.4 mg PO DAILY REPLACED BY [facility] Last Admin: 04/29/23 08:15 Dose: 0.4 mg Home Medications Medication Instructions Recorded Confirmed Last Taken Type No Known Home Meds 04/26/23 04/26/23 Unknown History Physical Exam Vital Signs: Vital Signs: Last Vital Signs Temp 98.9 F 04/29/23 07:35 Pulse 98 04/29/23 07:35 Resp 20 04/29/23 07:35 BP 170/74 H 04/29/23 07:35 Pulse Ox 98 04/29/23 07:35 O2 Del Method Room Air 04/29/23 07:35 BMI result Body Mass Index 28.2 Const: General: cooperative and in distress moderate and other (Pain) Nutritional Appearance: overweight Orientation/consciousness: patient oriented x3 HEENT: Head: Yes normocephalic and Yes atraumatic Neck: Neck: Yes trachea midline, Yes supple and Yes no JVD Resp: Effort & Inspection: normal respiratory effort Auscultation: clear to auscultation bilaterally Cardio: Jugular venous distension: no JVD Palpation: normal PMI Rate: regular rate Rhythm: regular rhythm Heart sounds: S1 normal heart sound present, S2 normal heart sound present, no click, no gallops, no murmurs and no rubs Peripheral pulses: Peripheral pulses 2+ throughout GI: Auscultation: normal bowel sounds Skin: General skin exam: no rashes or lesions noted Neuro: General: patient oriented x3 and no focal motor deficits Extrem: General: Yes no clubbing, cyanosis or edema Objective Labs and Meds 04/29/23 09:18 04/29/23 06:01 Lab results: Laboratory Results - last 24 hr 04/26/23 04/28/23 04/28/23 12:41 06:24 19:05 Hgb 7.1 L D Hct 20.1 L* Hold Purple Top VBG pH VBG pCO2 VBG pO2 VBG HCO3 VBG O2 Saturation VBG Base Excess Sodium Potassium Chloride Carbon Dioxide Anion Gap BUN Creatinine Estim Creat Clear Calc Estimated GFR Random Glucose Calcium Total Bilirubin 0.4 Direct Bilirubin 0.2 AST 7 ALT 8 Alkaline Phosphatase 45 Total Protein 5.4 L Albumin 3.1 L Triglycerides Cholesterol LDL Cholesterol, Calc HDL Cholesterol Blood Type B Positive Antibody Screen NEGATIVE Crossmatch See Detail 04/29/23 04/29/23 04/29/23 06:01 09:18 09:23 Hgb 7.7 L Hct 21.2 L Hold Purple Top SEE NOTE VBG pH 7.53 H VBG pCO2 24 VBG pO2 151 VBG HCO3 20 L VBG O2 Saturation 99.0 VBG Base Excess -0.8 Sodium 131 L Potassium 4.6 Chloride 85 L Carbon Dioxide 19 L Anion Gap 32 H BUN 185 H Creatinine 18.58 H* Estim Creat Clear Calc 4.0 Estimated GFR 3 Random Glucose 111 Calcium 7.6 L Total Bilirubin Direct Bilirubin AST ALT Alkaline Phosphatase Total Protein Albumin Triglycerides 102 Cholesterol 98 LDL Cholesterol, Calc 53 HDL Cholesterol 25 L Blood Type Antibody Screen Crossmatch EKG does not show any significant ischemic changes Assessment and Plan (1) Troponin level elevated: Status: Acute Minimal troponin elevation this middle-aged man who has risk factors although a troponin elevation is only minimal and flat and unlikely to represent any evidence of acute coronary syndrome either primary or secondary. Troponin elevation most likely due to acute kidney injury and elevated creatinine with reduce clearance. I do not think he requires any further workup at current time as he has other significant medical/surgical issues that need to be addressed. Continue aggressive control blood pressure and pain control. Can consider amlodipine as well as metoprolol. Also can consider statin therapy. Given his significant anemia and hematuria unlikely to use aspirin or anticoagulation at this point in time. Will sign of the case at this point time. Thank you for allowing me to partake in his care Time Spent With Patient Time: Total time managing care of this patient today ____ minutes. Procedures Date of Service Date of Service: 04/29/23
--- NOTE | 2023-04-29 10:53 | MHC.SPEECHCO ---
Pt NPO for procedure today. [facility]VAGE will continue to follow.
[2023-04-29] MEDS: Tranexamic Acid 1,000 MG in 0.9 % Sodium Chloride 50 ML 360 MG IV (11:05)
--- NOTE | 2023-04-29 12:26 | P.PNIM_ITS ---
Subjective Subjective Date of Service: 04/29/23 Interval History: anemia acute blood loss on possible ch anemia ,hematuria ,alcohol withdrawal,jennifer Review of Systems less anxious,mental status seems at baseline. still has hematuria denies sob or chest pain or abd pain or fevers or nausea Physical Exam 2 Vital Signs: Vital Signs: Last Vital Signs Temp 98.3 F 04/29/23 11:01 Pulse 85 04/29/23 11:01 Resp 20 04/29/23 11:01 BP 158/85 H 04/29/23 11:01 Pulse Ox 98 04/29/23 11:01 O2 Del Method Room Air 04/29/23 11:01 BMI result Body Mass Index 28.2 Appearance: Alert.? Oriented X3.? mental status seems at baseline,generalised weak.? cvs: rrr, [id number]. res: clear to auscultation ,no rhonchii or wheezing abd: no rebound or guarding ,nt, bs present. Gu: gross hemtaruria lockhart bag ext pulses present , no cyanosis . neuro: nonfocal. Objective Data Active Medications Acetaminophen (Acetaminophen 325 Mg Tablet) 650 mg PO Q6H PRN PRN Reason: Pain, Mild (Pain Scale 1-3) Last Admin: 04/29/23 08:15 Dose: 650 mg Documented By: ARNAUD Amlodipine Besylate (Amlodipine Besylate 5 Mg Tablet) 5 mg PO DAILY [facility]; Protocol Last Admin: 04/29/23 08:16 Dose: 5 mg Documented By: ARNAUD Atorvastatin Calcium (Atorvastatin Calcium 20 Mg Tablet) 20 mg PO BEDTIME [facility] Last Admin: 04/28/23 20:45 Dose: 20 mg Documented By: NETTE Benzonatate (Benzonatate 100 Mg Capsule) 100 mg PO TID PRN PRN Reason: Cough Docusate Sodium (Docusate Sodium 100 Mg Capsule) 100 mg PO DAILY PRN PRN Reason: Constipation Last Admin: 04/29/23 08:16 Dose: 100 mg Documented By: ARNAUD Finasteride (Finasteride 5 Mg Tablet) 5 mg PO DAILY [facility] Last Admin: 04/29/23 08:15 Dose: 5 mg Documented By: ARNAUD Sodium Bicarbonate 50 meq/ (Dextrose) 1,000 mls @ 100 mls/hr IV .Q10H [facility] Last Admin: 04/29/23 09:48 Dose: 100 mls/hr Documented By: ARNAUD Ceftriaxone Sodium 1 gm/ (Sodium Chloride) 50 mls @ 100 mls/hr IV Q24H [facility] Last Infusion: 04/29/23 10:57 Dose: Infused Documented By: ARNAUD Melatonin (Melatonin 3 Mg Tablet) 6 mg PO BEDTIME PRN PRN Reason: Insomnia Metoprolol Tartrate (Metoprolol Tartrate 25 Mg Tablet) 25 mg PO BID [facility]; Protocol Last Admin: 04/29/23 08:15 Dose: 25 mg Documented By: ARNAUD Morphine Sulfate (Morphine Sulfate 4 Mg/Ml Cartridge) 4 mg IVPUSH Q2H PRN; Protocol PRN Reason: Pain, Severe (Pain Scale 7-10) Last Admin: 04/29/23 10:51 Dose: 4 mg Documented By: ARNAUD Ondansetron HCl (Ondansetron Hcl 4 Mg/2 Ml Vial) 4 mg IVPUSH Q8H PRN PRN Reason: Nausea and Vomiting Last Admin: 04/29/23 08:16 Dose: 4 mg Documented By: ARNAUD Pharmacy Consult (Consult Rx Etoh Phenob Im/Po) 1 each MISCELLANE ONCE PRN; Protocol PRN Reason: Consult order Phenobarbital (Phenobarbital 15 Mg Tablet) 45 mg PO BID [facility] Stop: 04/29/23 21:01 Last Admin: 04/29/23 10:52 Dose: Not Given Documented By: ARNAUD Non-Admin Reason: Patient Refused Phenobarbital (Phenobarbital 15 Mg Tablet) 15 mg PO BID [facility] Stop: 05/01/23 21:01 Last Admin: 04/29/23 08:15 Dose: 15 mg Documented By: ARNAUD Phenobarbital (Phenobarbital 15 Mg Tablet) 15 mg PO DAILY [facility] Stop: 05/03/23 09:01 Sodium Chloride (0.9 % Sodium Chloride Flush 3 Ml Syringe) [facility] Last Admin: 04/29/23 10:53 Dose: 3 ml Documented By: ARNAUD Tamsulosin HCl (Tamsulosin Hcl 0.4 Mg Capsule) 0.4 mg PO DAILY [facility] Last Admin: 04/29/23 08:15 Dose: 0.4 mg Documented By: ARNAUD Labs 04/29/23 09:18 04/29/23 06:01 Labs: Laboratory Results - last 24 hr 04/26/23 04/28/23 04/29/23 12:41 06:24 06:01 Hold Purple Top SEE NOTE VBG pH VBG pCO2 VBG pO2 VBG HCO3 VBG O2 Saturation VBG Base Excess Anion Gap 32 H Estim Creat Clear Calc 4.0 Estimated GFR 3 Random Glucose 111 Calcium 7.6 L Total Bilirubin 0.4 Direct Bilirubin 0.2 AST 7 ALT 8 Alkaline Phosphatase 45 Total Protein 5.4 L Albumin 3.1 L Triglycerides 102 Cholesterol 98 LDL Cholesterol, Calc 53 HDL Cholesterol 25 L Blood Type B Positive Antibody Screen NEGATIVE Crossmatch See Detail 04/29/23 09:23 Hold Purple Top VBG pH 7.53 H VBG pCO2 24 VBG pO2 151 VBG HCO3 20 L VBG O2 Saturation 99.0 VBG Base Excess -0.8 Anion Gap Estim Creat Clear Calc Estimated GFR Random Glucose Calcium Total Bilirubin Direct Bilirubin AST ALT Alkaline Phosphatase Total Protein Albumin Triglycerides Cholesterol LDL Cholesterol, Calc HDL Cholesterol Blood Type Antibody Screen Crossmatch Assessment and Plan (1) Troponin level elevated: Status: Acute (2) Gross hematuria: Status: Acute (3) Difficult Lockhart catheter placement: Status: Acute Plan 62-year-old male with no reported significant PMH who states he has not seen a PCP since 1984 who presents to the ED with vague complaints of feeling generally unwell. Pt will be admitted to the hospital for treatment further evaluation of acute renal failure, metabolic acidosis, and electrolyte imbalances. Acute renal failure with urinary retention -possible bph/bladder outlet obstruction intial -BUN 182 with creatinine 20.[address] of abdomen and pelvis found enlarged prostate with massively distended urinary bladder and bilateral severe hydronephrosis consistent with urinary retention Patient with no known significant renal PMH, though patient states he has not seen a doctor regularly since 1984 Nephrology consult noted-continue lockhart flomax ,ivf ,urology eval noted ,urology follow up today-recomeded to continue lockhart for now (no clots). 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 urology followup-may need cytoscopy, possible bladder irrigation, also continue morphine for pain control Follow BMP Hematuria and acute blood loss anemia on possible ch Normocytic anemia(aocd) Likely secondary to traumatic Lockhart insertion d/t enlarged prostate s/p 4 prbc ,tranexemic acid x3-still h/h 7.7/21.2 still has hemturia will add another prbc in case continue to bleed. Urology follow up as above. ? uti : abnormal ua ,has pain (unable to tell due to obstructive uropathy ?) added urine culture and ceftraixone (04/29/23) Metabolic acidosis bicarb similar ,has agma added vbg nephro- recomended continue bocarb drip. Hyperkalemia Patient's potassium 5.4 at time of presentation repeat WNL at 4.4. EKG without significant T-wave changes Monitor on telemetry Follow BMP Elevated troponins Initial troponin flat in 50 Pt asymptomatic: Denies chest pain/pressure, palpitations, EKG without significant ischemic changes echo-shows some wma -basal inferior and basal inferoseptal segments are hypokinetic. started on bb,statin ,will avoid asa since has gross hematuria ongoing/severe anemia requiring transfusions. cardiology eval-Troponin elevation most likely due to acute kidney injury and elevated creatinine with reduce clearance,continue statin /bb,lipid panel(please see cardiology note for more details) please rediscuss with cardio- once patient hematuria/jennifer improves Hypertension-uncontrolled continue amlodipine 5 mg daily, adjusted metoprolol. alcohol withdrawals Patient reports longstanding hx of drinking 1 pt of whiskey with up to 6 beers daily CIWA continue phenobarbital ,given dose of halodol moniter neurochecks. Generalized weakness Pt complains of recent weakness the past couple of weeks with difficult ambulating Will get PT consult Full Code DVT Prophylaxis: Pneumatic boots d/t anemia and hematuria ongoing hospitalization need: for treatment of?acute renal failure with metabolic acidosis. Patient will require bicarb drip, electrolyte replenishment, close monitoring, and also Need hematuria monitoring as well as H as in H monitoring ,alcohol withdrawal,on phenobarbital protocol. Time Spent With Patient Time: Total time managing care of this patient today ____ minutes. Quality Stroke Does the patient have a stroke diagnosis?: No VTE Prior VTE?: No VTE Risk Level:: Medical - moderate - high VTE Device Contraindication: N/A - Device Ordered VTE Drug Contraindication: Treatment Not Indicated
--- NOTE | 2023-04-29 15:18 | MHC.CM.PN ---
CM has assisted Patient with the completion of a HCP. HCP has been uploaded into [facility] and a copy has been placed on the chart.
[2023-04-29] MEDS: amLODIPine Besylate 2.5 MG TABLET PO (15:58)
[2023-04-29] MEDS: PHENobarbitaL 30 MG TABLET 60 MG PO (15:58)
--- NOTE | 2023-04-29 16:15 | P.CONAN_ITS ---
HPI - Anesthesia Eval Consult details Narrative: cysto plus PMFSH Active Problems Active Problems: All Active Problems (Updated 04/29/23 @ 10:38 by Bobby Leary MD) Troponin level elevated (Acute) Gross hematuria (Acute) Difficult Lew catheter placement (Acute) Anemia (Acute) Anemia (Acute) Metabolic acidosis (Acute) KIERA (acute kidney injury) (Acute) Urinary retention with incomplete bladder emptying (Acute) Bladder outlet obstruction (Acute) Benign enlargement of prostate (Acute) Acute renal failure (ARF) (Acute) Past Medical History Medical History Anemia Family History Family history of problems with anesthesia: No Surgical History History of Problems with Anesthesia: No Social History Social History Household Members: None Housing: Apartment Alcohol intake: current Alcohol intake frequency: other Alcohol type: hard liquor Patient Tobacco Use Status: Never used Tobacco Second Hand Smoke Exposure: No service: No Meds Allergies Allergy/AdvReac Type Severity Reaction Status Date / Time No Known Allergies Allergy Verified 04/26/23 10:27 Active Medications: Current Medications Acetaminophen (Acetaminophen 325 Mg Tablet) 650 mg PO Q6H PRN PRN Reason: Pain, Mild (Pain Scale 1-3) Last Admin: 04/29/23 08:15 Dose: 650 mg Amlodipine Besylate (Amlodipine Besylate 5 Mg Tablet) 5 mg PO DAILY [facility]; Protocol Last Admin: 04/29/23 08:16 Dose: 5 mg Benzonatate (Benzonatate 100 Mg Capsule) 100 mg PO TID PRN PRN Reason: Cough Docusate Sodium (Docusate Sodium 100 Mg Capsule) 100 mg PO DAILY PRN PRN Reason: Constipation Last Admin: 04/29/23 08:16 Dose: 100 mg Finasteride (Finasteride 5 Mg Tablet) 5 mg PO DAILY [facility] Last Admin: 04/29/23 08:15 Dose: 5 mg Sodium Bicarbonate 50 meq/ (Dextrose) 1,000 mls @ 100 mls/hr IV .Q10H [facility] Last Admin: 04/29/23 09:48 Dose: 100 mls/hr Ceftriaxone Sodium 1 gm/ (Sodium Chloride) 50 mls @ 100 mls/hr IV Q24H [facility] Last Infusion: 04/29/23 10:57 Dose: Infused Melatonin (Melatonin 3 Mg Tablet) 6 mg PO BEDTIME PRN PRN Reason: Insomnia Metoprolol Tartrate (Metoprolol Tartrate 25 Mg Tablet) 25 mg PO BID [facility]; Protocol Last Admin: 04/29/23 08:15 Dose: 25 mg Morphine Sulfate (Morphine Sulfate 4 Mg/Ml Cartridge) 4 mg IVPUSH Q2H PRN; Protocol PRN Reason: Pain, Severe (Pain Scale 7-10) Last Admin: 04/29/23 10:51 Dose: 4 mg Ondansetron HCl (Ondansetron Hcl 4 Mg/2 Ml Vial) 4 mg IVPUSH Q8H PRN PRN Reason: Nausea and Vomiting Last Admin: 04/29/23 08:16 Dose: 4 mg Pharmacy Consult (Consult Rx Etoh Phenob Im/Po) 1 each MISCELLANE ONCE PRN; Protocol PRN Reason: Consult order Phenobarbital (Phenobarbital 15 Mg Tablet) 45 mg PO BID [facility] Stop: 04/29/23 21:01 Last Admin: 04/29/23 10:52 Dose: Not Given Phenobarbital (Phenobarbital 15 Mg Tablet) 15 mg PO BID [facility] Stop: 05/01/23 21:01 Last Admin: 04/29/23 08:15 Dose: 15 mg Phenobarbital (Phenobarbital 15 Mg Tablet) 15 mg PO DAILY [facility] Stop: 05/03/23 09:01 Sodium Chloride (0.9 % Sodium Chloride Flush 3 Ml Syringe) 3 ml IVFLUSH QSHIFT [facility] Last Admin: 04/29/23 10:53 Dose: 3 ml Tamsulosin HCl (Tamsulosin Hcl 0.4 Mg Capsule) 0.4 mg PO DAILY [facility] Last Admin: 04/29/23 08:15 Dose: 0.4 mg Home Medications Medication Instructions Recorded Confirmed Last Taken Type No Known Home Meds 04/26/23 04/26/23 Unknown History Exam Exam Date and Time: April 29, 2023 161 Height,Weight and Vital Signs: Height 5 ft 6 in Weight 79.379 kg Last Vital Signs Temp 97.8 F 04/29/23 15:16 Pulse 85 04/29/23 15:16 Resp 18 04/29/23 15:16 BP 182/86 H 04/29/23 15:16 Pulse Ox 99 04/29/23 15:16 O2 Del Method Room Air 04/29/23 15:16 O2 Flow Rate 98 04/29/23 12:56 Pertinent Lab Results Pertinent Lab Results: Laboratory Tests 04/26/23 04/26/23 04/26/23 10:35 10:36 11:57 WBC 6.4 RBC 2.42 L Hgb 7.7 L Hct 21.7 L MCV 89.7 MCH 31.8 MCHC 35.5 RDW 12.7 Plt Count 171 MPV 10.0 Immature Gran % (Auto) 0.2 Neut % (Auto) 80.9 H Lymph % (Auto) 9.5 L Moca % (Auto) 7.5 Eos % (Auto) 1.4 Baso % (Auto) 0.5 Lymph # (Auto) 0.6 L Moca # (Auto) 0.5 Eos # (Auto) 0.1 Baso # (Auto) 0.0 Abs Immat Gran (auto) 0.01 Absolute Neuts (auto) 5.2 Absolute Nucleated RBC 0.000 Nucleated RBC % (auto) 0.0 Hold Purple Top PT 11.8 INR 1.0 APTT 29.3 VBG pH VBG pCO2 VBG pO2 VBG HCO3 VBG O2 Saturation VBG Base Excess Sodium 134 L Potassium 5.4 H Chloride 95 L Carbon Dioxide 13 L Anion Gap 31 H BUN 193 H Creatinine 20.77 H* Estim Creat Clear Calc 3.6 Estimated GFR 2 Random Glucose 141 H Calcium 8.1 L Magnesium 2.6 Iron TIBC % Saturation Unsat Iron Binding Total Bilirubin 0.4 Direct Bilirubin AST 6 ALT 9 Alkaline Phosphatase 62 Total Creatine Kinase 373 H Troponin I High Sens 53.9 H Total Protein 7.0 Albumin 4.1 Triglycerides Cholesterol LDL Cholesterol, Calc HDL Cholesterol Vitamin B12 Folate Urine Color Urine Appearance Urine pH Ur Specific [place] Urine Protein Urine Glucose (UA) Urine Ketones Urine Blood Urine Nitrite Ur Leukocyte Esterase Urine RBC Urine WBC Ur Squamous Epith Cells Urine Bacteria Hyaline Casts Stool Occult Blood NEGATIVE Ethyl Alcohol < 10 COVID-19 ([facility]) Negative COVID-19 Clin Com See Note Blood Type Antibody Screen Crossmatch 04/26/23 04/26/23 04/26/23 12:41 13:35 14:15 WBC RBC Hgb Hct MCV MCH MCHC RDW Plt Count MPV Immature Gran % (Auto) Neut % (Auto) Lymph % (Auto) Moca % (Auto) Eos % (Auto) Baso % (Auto) Lymph # (Auto) Moca # (Auto) Eos # (Auto) Baso # (Auto) Abs Immat Gran (auto) Absolute Neuts (auto) Absolute Nucleated RBC Nucleated RBC % (auto) Hold Purple Top PT INR APTT VBG pH VBG pCO2 VBG pO2 VBG HCO3 VBG O2 Saturation VBG Base Excess Sodium 135 Potassium 4.7 Chloride 97 Carbon Dioxide 12 L Anion Gap 31 H BUN 192 H Creatinine 19.28 H* Estim Creat Clear Calc 3.8 Estimated GFR 2 Random Glucose 109 Calcium 7.7 L Magnesium Iron TIBC % Saturation Unsat Iron Binding Total Bilirubin Direct Bilirubin AST ALT Alkaline Phosphatase Total Creatine Kinase Troponin I High Sens Total Protein Albumin Triglycerides Cholesterol LDL Cholesterol, Calc HDL Cholesterol Vitamin B12 Folate Urine Color Yellow Urine Appearance Clear Urine pH 5.5 Ur Specific [place]eger 1.010 Urine Protein Trace Urine Glucose (UA) Negative Urine Ketones Negative Urine Blood Moderate (2+) H Urine Nitrite Negative Ur Leukocyte Esterase Negative Urine RBC 6-10 H Urine WBC 0-5 Ur Squamous Epith Cells 0-2 Urine Bacteria None Seen Hyaline Casts 0-2 Stool Occult Blood Ethyl Alcohol COVID-19 ([facility]) COVID-19 Clin Com Blood Type B Positive Antibody Screen NEGATIVE Crossmatch See Detail 04/26/23 04/26/23 04/26/23 14:19 17:04 20:58 WBC RBC Hgb Hct MCV MCH MCHC RDW Plt Count MPV Immature Gran % (Auto) Neut % (Auto) Lymph % (Auto) Moca % (Auto) Eos % (Auto) Baso % (Auto) Lymph # (Auto) Moca # (Auto) Eos # (Auto) Baso # (Auto) Abs Immat Gran (auto) Absolute Neuts (auto) Absolute Nucleated RBC Nucleated RBC % (auto) Hold Purple Top PT INR APTT VBG pH 7.26 L VBG pCO2 26 VBG pO2 57 VBG HCO3 12 L VBG O2 Saturation 85.0 VBG Base Excess -12.9 Sodium Potassium Chloride Carbon Dioxide Anion Gap BUN Creatinine Estim Creat Clear Calc Estimated GFR Random Glucose Calcium Magnesium Iron TIBC % Saturation Unsat Iron Binding Total Bilirubin Direct Bilirubin AST ALT Alkaline Phosphatase Total Creatine Kinase Troponin I High Sens 60.8 H Total Protein Albumin Triglycerides Cholesterol LDL Cholesterol, Calc HDL Cholesterol Vitamin B12 1071 H Folate 5.2 Urine Color Urine Appearance Urine pH Ur Specific [place] Urine Protein Urine Glucose (UA) Urine Ketones Urine Blood Urine Nitrite Ur Leukocyte Esterase Urine RBC Urine WBC Ur Squamous Epith Cells Urine Bacteria Hyaline Casts Stool Occult Blood Ethyl Alcohol COVID-19 ([facility]) COVID-19 Clin Com Blood Type Antibody Screen Crossmatch 04/26/23 04/27/23 04/27/23 20:59 06:19 15:09 WBC 6.8 RBC 2.35 L Hgb 6.6 L* 7.2 L 7.3 L Hct 18.7 L* 21.0 L* 21.4 L MCV 89.4 MCH 30.6 MCHC 34.3 RDW 13.1 Plt Count 142 L MPV 10.9 Immature Gran % (Auto) Neut % (Auto) Lymph % (Auto) Moca % (Auto) Eos % (Auto) Baso % (Auto) Lymph # (Auto) Moca # (Auto) Eos # (Auto) Baso # (Auto) Abs Immat Gran (auto) Absolute Neuts (auto) Absolute Nucleated RBC 0.000 Nucleated RBC % (auto) 0.0 Hold Purple Top PT INR APTT VBG pH VBG pCO2 VBG pO2 VBG HCO3 VBG O2 Saturation VBG Base Excess Sodium 136 137 Potassium 4.2 4.2 Chloride 97 97 Carbon Dioxide 13 L 17 L Anion Gap 30 H 27 H BUN 179 H 180 H Creatinine 18.70 H* 18.55 H* Estim Creat Clear Calc 4.0 4.0 Estimated GFR 3 3 Random Glucose 169 H 154 H Calcium 7.5 L 7.8 L Magnesium Iron 157 TIBC 182 L % Saturation 86 H Unsat Iron Binding < 25 Total Bilirubin Direct Bilirubin AST ALT Alkaline Phosphatase Total Creatine Kinase Troponin I High Sens Total Protein Albumin Triglycerides Cholesterol LDL Cholesterol, Calc HDL Cholesterol Vitamin B12 Folate Urine Color Urine Appearance Urine pH Ur Specific [place] Urine Protein Urine Glucose (UA) Urine Ketones Urine Blood Urine Nitrite Ur Leukocyte Esterase Urine RBC Urine WBC Ur Squamous Epith Cells Urine Bacteria Hyaline Casts Stool Occult Blood Ethyl Alcohol COVID-19 ([facility]) COVID-19 Clin Com Blood Type Antibody Screen Crossmatch 04/28/23 04/28/23 04/28/23 06:24 08:01 08:32 WBC 7.2 RBC 1.94 L Hgb 6.1 L* 5.9 L* Hct 17.0 L* D 17.0 L* MCV 87.6 MCH 31.4 MCHC 35.9 RDW 13.8 Plt Count 116 L MPV 11.3 Immature Gran % (Auto) Neut % (Auto) Lymph % (Auto) Moca % (Auto) Eos % (Auto) Baso % (Auto) Lymph # (Auto) Moca # (Auto) Eos # (Auto) Baso # (Auto) Abs Immat Gran (auto) Absolute Neuts (auto) Absolute Nucleated RBC 0.000 Nucleated RBC % (auto) 0.0 Hold Purple Top PT INR APTT VBG pH VBG pCO2 VBG pO2 VBG HCO3 VBG O2 Saturation VBG Base Excess Sodium 135 Potassium 4.4 Chloride 92 L Carbon Dioxide 19 L Anion Gap 28 H BUN 182 H Creatinine 19.25 H* Estim Creat Clear Calc 3.8 Estimated GFR 2 Random Glucose 115 Calcium 7.6 L Magnesium Iron TIBC % Saturation Unsat Iron Binding Total Bilirubin 0.4 Direct Bilirubin 0.2 AST 7 ALT 8 Alkaline Phosphatase 45 Total Creatine Kinase Troponin I High Sens Total Protein 5.4 L Albumin 3.1 L Triglycerides Cholesterol LDL Cholesterol, Calc HDL Cholesterol Vitamin B12 Folate Urine Color Red A Urine Appearance Turbid Urine pH 6.5 Ur Specific [place] 1.020 Urine Protein 300 (3+) H Urine Glucose (UA) 100 H Urine Ketones Negative Urine Blood Large (3+) H Urine Nitrite Positive H Ur Leukocyte Esterase Moderate (2+) H Urine RBC >20 H Urine WBC 6-10 H Ur Squamous Epith Cells 0-2 Urine Bacteria Trace Hyaline Casts 0-2 Stool Occult Blood Ethyl Alcohol COVID-19 ([facility]) COVID-19 Clin Com Blood Type Antibody Screen Crossmatch 04/28/23 04/29/23 04/29/23 19:05 06:01 09:18 WBC RBC Hgb 7.1 L D 7.7 L Hct 20.1 L* 21.2 L MCV MCH MCHC RDW Plt Count MPV Immature Gran % (Auto) Neut % (Auto) Lymph % (Auto) Moca % (Auto) Eos % (Auto) Baso % (Auto) Lymph # (Auto) Moca # (Auto) Eos # (Auto) Baso # (Auto) Abs Immat Gran (auto) Absolute Neuts (auto) Absolute Nucleated RBC Nucleated RBC % (auto) Hold Purple Top SEE NOTE PT INR APTT VBG pH VBG pCO2 VBG pO2 VBG HCO3 VBG O2 Saturation VBG Base Excess Sodium 131 L Potassium 4.6 Chloride 85 L Carbon Dioxide 19 L Anion Gap 32 H BUN 185 H Creatinine 18.58 H* Estim Creat Clear Calc 4.0 Estimated GFR 3 Random Glucose 111 Calcium 7.6 L Magnesium Iron TIBC % Saturation Unsat Iron Binding Total Bilirubin Direct Bilirubin AST ALT Alkaline Phosphatase Total Creatine Kinase 772 H Troponin I High Sens Total Protein Albumin Triglycerides 102 Cholesterol 98 LDL Cholesterol, Calc 53 HDL Cholesterol 25 L Vitamin B12 Folate Urine Color Urine Appearance Urine pH Ur Specific [place] Urine Protein Urine Glucose (UA) Urine Ketones Urine Blood Urine Nitrite Ur Leukocyte Esterase Urine RBC Urine WBC Ur Squamous Epith Cells Urine Bacteria Hyaline Casts Stool Occult Blood Ethyl Alcohol COVID-19 ([facility]) COVID-19 [employer] Com Blood Type Antibody Screen Crossmatch 04/29/23 09:23 WBC RBC Hgb Hct MCV MCH MCHC RDW Plt Count MPV Immature Gran % (Auto) Neut % (Auto) Lymph % (Auto) Moca % (Auto) Eos % (Auto) Baso % (Auto) Lymph # (Auto) Moca # (Auto) Eos # (Auto) Baso # (Auto) Abs Immat Gran (auto) Absolute Neuts (auto) Absolute Nucleated RBC Nucleated RBC % (auto) Hold Purple Top PT INR APTT VBG pH 7.53 H VBG pCO2 24 VBG pO2 151 VBG HCO3 20 L VBG O2 Saturation 99.0 VBG Base Excess -0.8 Sodium Potassium Chloride Carbon Dioxide Anion Gap BUN Creatinine Estim Creat Clear Calc Estimated GFR Random Glucose Calcium Magnesium Iron TIBC % Saturation Unsat Iron Binding Total Bilirubin Direct Bilirubin AST ALT Alkaline Phosphatase Total Creatine Kinase Troponin I High Sens Total Protein Albumin Triglycerides Cholesterol LDL Cholesterol, Calc HDL Cholesterol Vitamin B12 Folate Urine Color Urine Appearance Urine pH Ur Specific [place] Urine Protein Urine Glucose (UA) Urine Ketones Urine Blood Urine Nitrite Ur Leukocyte Esterase Urine RBC Urine WBC Ur Squamous Epith Cells Urine Bacteria Hyaline Casts Stool Occult Blood Ethyl Alcohol COVID-19 ([facility]) COVID-19 [employer] Com Blood Type Antibody Screen Crossmatch Airway Mallampati Class: II TM Dist: <=3cm Neck ROM: Full Loose/Missing/Broken Teeth: Yes, Upper and Lower Heart: ok Lungs: ok Assessment and Plan Assessment Anesthesia Assessment: Anesthesia Plan Discussed and Chart Reviewed Final Anesthetic Review Family History of Problems with Anesthesia: No History of Problems with Anesthesia: No NPO: Yes ASA Class: III and Emergency Final Preanesthetic Review: No Changes in Pt Med Stat, Meds/Allgs Chart Reviewed, Consent Obtained/Reviewed and Anes Risks/Benef Reviewed Patient Risk: High Procedure Risk: Low Anesthetic Plan Anesthetic Plan: GA and Agree w/ Assess. and Plan Disposition: Standard PACU
--- NOTE | 2023-04-29 16:24 | MHC.SHP ---
Pre-Procedural Eval Section A Date of Service: 04/29/23 The patient is an INPATIENT: Yes Changes since office visit: No Cold of Flu in the past 2 weeks, No New Medical Problems, No Changes in Medication and No Patient answered all questions The History & Physical has been completed within 30 days and I have reviewed it.: Yes Section B Chief Complaint: acute kidney failure, electrolyte imbalances Details of Present Illness: gross hematuria secondary to prostate trauma Relevant Family History (Specify if Yes): No Relevant Social History: Alcohol Use Present Medications: see Short Stay Collaborative assessment Medical History: Significant History History of Previous Operations: No relevant previous surgery Allergies: Allergies Allergy/AdvReac Type Severity Reaction Status Date / Time No Known Allergies Allergy Verified 04/26/23 10:27 Review of Systems Sugical H&P ROS: Negative: Constitution, Cardiovascular, Respiratory, Neurological, Psychiatric, Hem-Onc, Allergic/Immunologic, Gastrointestinal, Genitourinary, Musculoskeletal, Integumentary, Endocrine and Eyes/Ears/Nose/Throat Exam Surgical H&P Exam: Normal: HEENT, Normal: Heart, Normal: Lungs, Normal: Extremities, Normal: Abdomen, Normal: Skin and Normal: Neurological Plan Diagnosis/Plan: Unchanged (cysto, clot evacution, prosatate procedure) I have reviewed the history and physical and performed a pertinent physical examination on my patient. No changes have occurred unless specified. Time Spent With Patient Time: Total time managing care of this patient today ____ minutes.
--- NOTE | 2023-04-29 17:37 | P.OP_ITS ---
Operative Note Operative Note Date of Service: 04/29/23 Narrative: PreOperative Diagnosis: Gross hematuria Post Operative Diagnosis: gross hematuria likely secondary to prostate cancer Procedure: cystoscopy with clot evacuation - prostate vaporization Surgeon: Dr Elliott Louise Anesthesia: general Indications for procedure: persistent gross hematuria for 48 hours after admission with Lew catheter placement and balloon and prostate Procedure: After informed consent was verified the patient was brought to the operating room and placed in a supine position. Anesthesia was administered per protocol. The patient was prepped and draped in a sterile fashion. Safety pause time-out was performed. Antibiotics being given. the penile urethra was lubricated with 40 cc of Gel. The resectoscope was placed. As we entered through the prostate there was whitish tissue with ooze throughout the prostate area. We entered the bladder. Large organized clot was seen. The bladder was then irrigated for approximately 25 minutes with significant clot removal. When irrigation was finally free-flowing the bladder was able to be examined. The bladder was examined. There were no lesions within the bladder. Blood blisters with seen. Using the VaporTrode on coag setting 120 some areas in the bladder were cauterized. Coming back to the prostate it was clear the prostate tissue was abnormal. Placing the VaporTrode settings on ablation at 270 areas of the prostate were vaporized. This continued for approximately 25 minutes. Control was gained of bleeding. The prostate tissue was abnormal. This would explain with the continued bleeding lost the patient had been on the floor at the hospital. The appearance was consistent with a prostate cancer type phenomena. This will need to be confirmed with PSA postprocedure. At the completion of the procedure a [address] hematuria catheter was placed using a stylet. 60 cc placed in the balloon the balloon placed on traction. After the patient being cleaned and extubated but was still on the operating table a traction Lew catheter secure was placed on the left leg. The Lew catheter was secured in place under traction where remain for 24-36 hours. The patient was transferred to the bed in stable condition Pathology: None Drains: 3 way Lew hematuria catheter
--- NOTE | 2023-04-29 17:38 | PC.NURSE ---
Pt c/o 10/10 pain this morning lower abd, groin area, prn pain meds utilized with effective results. Pt bladder scanned for 550, unable to irrigate pt. MD aware. Pt had intermittent confusion until pain was under control. PT received 1 unit PRBC this afternoon, with out and reactions to infusion. Pt left floor @4pm to go to OR for Bladder irrigation. Pt will need CT of hip upon return to unit. Pt bi-carb drip on hold until return to unit. Ciwa score 1. Neuros Negative. pt remained NPO except sips for medications. new iv placed L Forearm #20 and R forearm #18
[2023-04-29 17:56] LABS: Hematocrit 25.4 % (42.0-52.0); Hemoglobin 9.1 g/dl (14.0-18.0); Mean Corpuscular HGB Conc 35.8 g/dl (31.0-36.0); Mean Corpuscular Hemoglobin 30.6 pg (27.0-33.0); Mean Corpuscular Volume 85.5 fL (80.0-98.0); Mean Platelet Volume 10.6 fL (9.4-12.4); Platelet Count 130 X10*3/uL (160-400); Red Blood Count 2.97 X10*6/uL (4.60-5.80); Red Cell Distribution Width 14.3 % (11.0-16.0); White Blood Count 10.5 X10*3/uL (4.8-10.8)
--- NOTE | 2023-04-29 18:33 | W.PM.CCCN ---
History of Present Illness Data of Consult Service Date: 04/29/23 Requesting physician: Rossana Salazar Primary Care Provider: None Physician HPI Reason for consult: obstructive nephropathy/ uremia/ KIERA/ hematuria 62-year-old male known alcoholic last drink was approximately 2 days ago when he was admitted came in just not feeling well and the virtually an uric found to have acute renal failure marked azotemia and actually the uremic in did have a little bit of waxing waning mental status issues periods of confusion could not tell how much might be encephalopathic from the uremia and how much might be early alcohol withdrawal he had traumatic Lew catheter placement actually 2 of 3 Lew catheter placements through the emergency room initially there was some urine output but then there was very considerable bleeding / hematuria and today went for a fulgurate shunt procedure and then placement of a of 3 wake at catheter for CBI and a also a cleaned out the about 700 cc of thrombus in inside the bladder sever eating seems to be draining well a nd no issues at of the OR no complaints of pain at this point and were getting a little bit of early clearing and definitely urine output because the amount of volume output is greater than the mount of volume in slight drop in from the 180s to 170s in the BUN and creatinine came down from 18 in half to about 17 and half he has got a compensated pH but is on a bicarb drip but we also noticed that the again is hemoglobin drop so we need to know the unit of transfusion and in addition a precipitous drop in his sodium to 125 and might have been because of some of the glycine in the 45 minutes during the transurethral prostatectomy because his serum osmole allow lid he is a little bit high at 327 so I believe an element of may be pseudo hyponatremia but and that may have been accounting for some of his confusion rather than alcohol withdrawal because he does not have that physical stigmata my bedside echo shows normal LV and RV function Review of Systems Review of Systems: Yes Unobtainable due to mental status PMFSH Past Medical History Medical History Anemia Social History Social History Household Members: None Housing: Apartment Alcohol intake: current Alcohol intake frequency: a few times a week Alcohol type: hard liquor Patient Tobacco Use Status: Never used Tobacco Second Hand Smoke Exposure: No service: No Meds Allergies Allergy/AdvReac Type Severity Reaction Status Date / Time No Known Allergies Allergy Verified 04/26/23 10:27 Active Medications: Current Medications Amlodipine Besylate (Amlodipine Besylate 5 Mg Tablet) 5 mg PO DAILY REPLACED BY [facility]; Protocol Last Admin: 04/29/23 08:16 Dose: 5 mg Docusate Sodium (Docusate Sodium 100 Mg Capsule) 100 mg PO DAILY PRN PRN Reason: Constipation Last Admin: 04/29/23 08:16 Dose: 100 mg Fentanyl (Fentanyl Citrate/Pf 100 Mcg/2 Ml Vial) 50 mcg IVPUSH Q5M PRN; Protocol PRN Reason: Pain, Severe (Pain Scale 7-10) Finasteride (Finasteride 5 Mg Tablet) 5 mg PO DAILY REPLACED BY [facility] Last Admin: 04/29/23 08:15 Dose: 5 mg Hydromorphone HCl (Hydromorphone Hcl 0.5 Mg/0.5 Ml Syringe) 0.25 mg IVPUSH Q5M PRN; Protocol PRN Reason: Pain, Severe (Pain Scale 7-10) Sodium Bicarbonate 50 meq/ (Dextrose) 1,000 mls @ 100 mls/hr IV .Q10H REPLACED BY [facility] Last Infusion: 04/29/23 16:54 Dose: 0 mls/hr Ceftriaxone Sodium 1 gm/ (Sodium Chloride) 50 mls @ 100 mls/hr IV Q24H REPLACED BY [facility] Last Infusion: 04/29/23 10:57 Dose: Infused Melatonin (Melatonin 3 Mg Tablet) 6 mg PO BEDTIME PRN PRN Reason: Insomnia Metoprolol Tartrate (Metoprolol Tartrate 25 Mg Tablet) 25 mg PO BID REPLACED BY [facility]; Protocol Last Admin: 04/29/23 08:15 Dose: 25 mg Ondansetron HCl (Ondansetron Hcl 4 Mg/2 Ml Vial) 4 mg IVPUSH ONCE PRN PRN Reason: Nausea and Vomiting Pharmacy Consult (Consult Rx Etoh Phenob Im/Po) 1 each MISCELLANE ONCE PRN; Protocol PRN Reason: Consult order Phenobarbital (Phenobarbital 15 Mg Tablet) 45 mg PO BID REPLACED BY [facility] Stop: 04/29/23 21:01 Last Admin: 04/29/23 10:52 Dose: Not Given Phenobarbital (Phenobarbital 15 Mg Tablet) 15 mg PO BID REPLACED BY [facility] Stop: 05/01/23 21:01 Last Admin: 04/29/23 08:15 Dose: 15 mg Phenobarbital (Phenobarbital 15 Mg Tablet) 15 mg PO DAILY REPLACED BY [facility] Stop: 05/03/23 09:01 Sodium Chloride (0.9 % Sodium Chloride Flush 3 Ml Syringe) 3 ml IVFLUSH QSHIFT REPLACED BY [facility] Last Admin: 04/29/23 10:53 Dose: 3 ml Tamsulosin HCl (Tamsulosin Hcl 0.4 Mg Capsule) 0.4 mg PO DAILY REPLACED BY [facility] Last Admin: 04/29/23 08:15 Dose: 0.4 mg Home Medications Medication Instructions Recorded Confirmed Last Taken Type No Known Home Meds 04/26/23 04/26/23 Unknown History Physical Exam Vital Signs: Vital Signs: Last Vital Signs Temp 97.5 F 04/29/23 17:41 Pulse 94 04/29/23 18:11 Resp 16 04/29/23 18:11 BP 184/81 H 04/29/23 18:11 Pulse Ox 98 04/29/23 18:11 O2 Del Method Nasal Cannula wit h Capnography 04/29/23 18:11 O2 Flow Rate 2 04/29/23 18:11 BMI result Body Mass Index 28.2 vital signs are stable is intermittently requiring very minimal dose of Levophed but this is usually when we have to use dexmedetomidine to control behavioral issues the no his brief episodes of confusion not truly febrile bedside echo IVC is flat so this still is room for volume and he is currently being transfused and currently on 50 cc an hour of a bicarb drip abdomen is soft no organomegaly Results Labs 04/30/23 02:06 04/30/23 05:50 Labs: Short CBC 04/28/23 04/29/23 04/29/23 Range/Units 19:05 09:18 17:48 WBC 10.5 (4.8-10.8) X10*3/uL Hgb 7.1 L D 7.7 L 9.1 L (14.0-18.0) g/dl Hct 20.1 L* 21.2 L 25.4 L (42.0-52.0) % Plt Count 130 L (160-400) X10*3/uL BMP 04/29/23 06:01 Sodium 131 L Potassium 4.6 Chloride 85 L Carbon Dioxide 19 L BUN 185 H Creatinine 18.58 H* Calcium 7.6 L Cardiac Enzymes 04/29/23 Range/Units 06:01 Total Creatine Kinase 772 H (38-174) U/L Assessment and Plan (1) Troponin level elevated: Status: Acute (2) Gross hematuria: Status: Acute (3) Difficult Lew catheter placement: Status: Acute (4) Anemia: Status: Acute (5) Anemia: Status: Acute (6) Metabolic acidosis: Status: Acute (7) KIERA (acute kidney injury): Status: Acute (8) Urinary retention with incomplete bladder emptying: Status: Acute (9) Bladder outlet obstruction: Status: Acute (10) Benign enlargement of prostate: Status: Acute (11) Acute renal failure (ARF): Status: Acute (12) Uremia: Status: Acute (13) Alcohol withdrawal: Status: Acute (14) Hyponatremia: Status: Acute Plan continuing for now with the bicarb drip given his compensated pH in near normalization of his serum bicarb it is big help dexmedetomidine as needed and Levophed as needed considering 1 dose of vancomycin pending the results of a MRSA nasal screen currently I do not see a need for central line nor do I see a need for temporary dialysis catheter Time Spent With Patient Time: Total time managing care of this patient today _60___ minutes.
[2023-04-29] MEDS: HYDROmorphone HCl 0.5 MG/0.5 ML SYRINGE 0.25 MG IVPUSH ×2 (18:55→19:00)
--- NOTE | 2023-04-29 19:52 | PM.PNNEP ---
Subjective Subjective Date of Service: 04/29/23 Interval history: anemia acute blood loss on possible ch anemia ,hematuria ,alcohol withdrawal,kiera Seen this AM Pt going to OR Physical Exam Vital Signs: Vital Signs: Last Vital Signs Temp 98.5 F 04/29/23 19:15 Pulse 97 04/29/23 19:15 Resp 16 04/29/23 19:15 BP 179/91 H 04/29/23 19:15 Pulse Ox 100 04/29/23 19:15 O2 Del Method Room Air 04/29/23 19:15 O2 Flow Rate 2 04/29/23 18:41 BMI result Body Mass Index 28.2 Appearance: Alert.? Oriented X3.? mental status seems at baseline,generalised weak.? cvs: rrr, [id number] , no murmur res: clear to auscultation ,no rhonchii or wheezing abd: no rebound or guarding ,nt, bs present. Gu: gross hemtaruria lockhart bag ext pulses present , no cyanosis . neuro: nonfocal. Objective Data Labs 04/29/23 17:48 04/29/23 06:01 Labs: Laboratory Results - last 24 hr 04/26/23 04/28/23 04/29/23 12:41 19:05 06:01 WBC RBC Hgb 7.1 L D Hct 20.1 L* MCV MCH MCHC RDW Plt Count MPV Absolute Nucleated RBC Nucleated RBC % (auto) Hold Purple Top SEE NOTE VBG pH VBG pCO2 VBG pO2 VBG HCO3 VBG O2 Saturation VBG Base Excess Sodium 131 L Potassium 4.6 Chloride 85 L Carbon Dioxide 19 L Anion Gap 32 H BUN 185 H Creatinine 18.58 H* Estim Creat Clear Calc 4.0 Estimated GFR 3 Random Glucose 111 Calcium 7.6 L Total Creatine Kinase 772 H Triglycerides 102 Cholesterol 98 LDL Cholesterol, Calc 53 HDL Cholesterol 25 L Blood Type B Positive Antibody Screen NEGATIVE Crossmatch See Detail 04/29/23 04/29/23 04/29/23 09:18 09:23 17:48 WBC 10.5 RBC 2.97 L D Hgb 7.7 L 9.1 L Hct 21.2 L 25.4 L MCV 85.5 MCH 30.6 MCHC 35.8 RDW 14.3 Plt Count 130 L MPV 10.6 Absolute Nucleated RBC 0.000 Nucleated RBC % (auto) 0.0 Hold Purple Top VBG pH 7.53 H VBG pCO2 24 VBG pO2 151 VBG HCO3 20 L VBG O2 Saturation 99.0 VBG Base Excess -0.8 Sodium Potassium Chloride Carbon Dioxide Anion Gap BUN Creatinine Estim Creat Clear Calc Estimated GFR Random Glucose Calcium Total Creatine Kinase Triglycerides Cholesterol LDL Cholesterol, Calc HDL Cholesterol Blood Type B Positive Antibody Screen NEGATIVE Crossmatch See Detail Procedures Date of Service Date of Service: 04/29/23 Assessment & Plan Assessment and plan (1) KIERA (acute kidney injury): Status: Acute Assessment and Plan: KIERA due to obstructive uropathy CT scan of the abdomen c/w bilateral hydronephrosis in the setting of bladder outlet obstruction unknown chronicity of obstructive uropathy he may have end stage kidney disease due to chronic obstructive uropathy 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 Salazar - Asked him to arrange for a permcath in AM Will decide in AM iPTH iron profile- Fe stores are high - Had epo in AM 20 K s/q yesterday transfuse for Hb < 7 follow kidney function and electrolytes d/w medical team (2) Urinary retention with incomplete bladder emptying: Status: Acute (3) Metabolic acidosis: Status: Acute (4) Anemia: Status: Acute (5) Difficult Lockhart catheter placement: Status: Acute (6) Bladder outlet obstruction: Status: Acute Time Spent With Patient Time: Total time managing care of this patient today ____ minutes. Progress Note: Quality Stroke Does the patient have a stroke diagnosis?: No
[2023-04-29] MEDS: PHENobarbitaL 15 MG TABLET 45 MG PO (21:45)
[2023-04-29] MEDS: Sodium Bicarbonate 8.4% 50 MEQ in Dextrose 5 % 950 ML IV (22:00)
--- NOTE | 2023-04-29 22:45 | PC.NURSE ---
Patient came from PACU into ICU approx 2015 pm. Post op prostate procedure, CBI in place, draining bright red. Patient alert, confused, able to follow directions. States doesn't feel great, but unable to describe further, denies pain. Lungs clear, SR 90s, BP 140s. Moving self in bed with ease. CBI infusing wide open, stringy/mucousy clots in bag, blocking ability to drain lockhart bag, changed out for new bag. Bed alarm on for safety, oriented to room. Patient drowsy, sleeping on and off. Medicated with Phenobarb and Metoprolol at HS, patient more confused at this time, stating he needs his keys, he's not sure he needs these meds, able to redirect. Lockhart continues to drain, but now fruit punch. Several 3 L bags have infused, output documented in electronic chart. Sodium bicarb IVF started per provider orders. HR down to 70s by end of shift. Frequent safety checks, patient remains alert, but confused.
[2023-04-30] VITALS (41 sets, daily range): BP systolic 87–163; BP diastolic 46–87; PULSE 66–93; RESP 11–20; TEMP 36.1–37.1; O2SAT 91–100
[2023-04-30] MEDS: dexmedeTOMIDidine HCL/NS 400 MCG/100 ML INFUS..BTL 19.85 MCG IVCONT (00:12)
[2023-04-30 00:19] LABS: VBG Base Excess -2.1 mmol/L; VBG HCO3 20 mmol/L (22-26); VBG pCO2 28 mmHg; VBG pH 7.47 (7.32-7.43); VBG pO2 91 mmHg
--- NOTE | 2023-04-30 00:59 | PC.NURSE ---
Addendum entered by Sunny Daniel RN 04/30/23 02:54: Critical H/H taken by [employer]ICER, new order for 1 UpRBC Addendum entered by Sunny Daniel RN 04/30/23 02:51: Patient with significant drop in BP, required downtitration of precedex to 0.2, MAP now >65. Patient also with some flow problems noted to CBI, patient was initially resisitant to allow RN to reposition and inspect lockhart catheter, but after some encouragement seen to have pinched off inlet line in two places, after which flow stopped, and required 2,000 ccs of NaCl irrigation manually with help from [employer]ICER, now flowing. only one small shred noted. NO clots. Original Note: Assumed care at 23:00. Patient alert, confused, forgetful to short term, oriented to person, forgetful/vague to place, oriented to month/year, but not date or day of week, disoriented to situation. Patient able to move all extremities, is restless, trying to get OOB without assistance, repeatedly saying he needs to leave, to go home, to go to work, to pay his bills, was reassured. Says he works at [employer], in [place], and no one else in family is able to pay his bills for him. Patient is not very redirectable, has CIWA of 11, partly due to tremulousness, anxiety, agitation, itching sensation, disorientation, phenobarbital protocol in place, [employer]ER notified, new order for precedex, at 1 well tolerated. Patient also was very hungry, NPO orders remain, patient was tolerating sips on prior shift. Discussed with [employer] OFFICER, new order for bedside swallow eval, this was passed and ok to eat per [employer]ICER, had an ice cream and well tolerated. SR on monitor. SpO2 100% on RA, BP 140's/80's. Reports 6/10 pain to right side of groin, reports tolerating pain, declines pain medication at this time.
[2023-04-30 01:21] LABS: Anion Gap 28 (12-20); Blood Urea Nitrogen 175 mg/dL (9-16); Calcium 7.3 mg/dL (8.4-10.2); Carbon Dioxide 17 mmol/L (22-29); Chloride 84 mmol/L (96-108); Creatinine Clr Calc Pharmacy 4.2; Estimated Glomerular Filt Rate 3; Glucose Random 138 mg/dL (60-115); Potassium 4.4 mmol/L (3.3-5.1); Sodium 125 mmol/L (135-145)
[2023-04-30 02:15] LABS: VBG Base Excess -1.8 mmol/L; VBG HCO3 21 mmol/L (22-26); VBG pCO2 32 mmHg; VBG pH 7.43 (7.32-7.43); VBG pO2 38 mmHg
[2023-04-30 02:17] LABS: Basophils Percent Auto 0.1 % (0-2); Eosinophils Percent Auto 0.1 % (0-4); Hematocrit 20.7 % (42.0-52.0); Hemoglobin 7.4 g/dl (14.0-18.0); Imm Gran Abs Auto 0.05 X10*3/uL (0.00-0.03); Imm Gran Pct Auto 0.6 % (0.0-0.4); Lymphocytes Absolute Auto 0.3 X10*3/uL (1.2-4.9); Lymphocytes Percent Auto 3.4 % (20-40); MANUAL DIFF FLAG SCAN; Mean Corpuscular HGB Conc 35.7 g/dl (31.0-36.0); Mean Corpuscular Hemoglobin 30.6 pg (27.0-33.0); Mean Corpuscular Volume 85.5 fL (80.0-98.0); Mean Platelet Volume 10.9 fL (9.4-12.4); Monocytes Absolute Auto 0.3 X10*3/uL (0.1-1.2); Monocytes Percent Auto 3.7 % (2-11); Neutrophils Absolute Auto 8.2 x10*3/uL (2.0-8.3); Neutrophils Percent Auto 92.1 % (45-73); Platelet Count 127 X10*3/uL (160-400); Red Blood Count 2.42 X10*6/uL (4.60-5.80); Red Cell Distribution Width 14.8 % (11.0-16.0); SCAN SMEAR FLAG 1; White Blood Count 8.9 X10*3/uL (4.8-10.8)
[2023-04-30 02:30] LABS: Lactic Acid 1.1 mmol/L (0.5-2.0)
[2023-04-30 02:42] LABS: Albumin Level 2.9 g/dL (3.5-5.0); Anion Gap 27 (12-20); Calcium 7.1 mg/dL (8.4-10.2); Carbon Dioxide 19 mmol/L (22-29); Chloride 84 mmol/L (96-108); Creatinine Clr Calc Pharmacy 4.2; Estimated Glomerular Filt Rate 3; Glucose Random 139 mg/dL (60-115); Magnesium 1.8 mg/dL (1.6-2.6); Phosphorus 12.9 mg/dL (2.7-4.5); Potassium 4.7 mmol/L (3.3-5.1); Sodium 125 mmol/L (135-145)
[2023-04-30 02:44] LABS: SLIDE REVIEW VERIFIED
[2023-04-30 02:48] LABS: Blood Urea Nitrogen 175 mg/dL (9-16)
[2023-04-30 03:06] LABS: Osmolality, Serum 327 mosm/kg (281-305)
[2023-04-30 03:09] LABS: Venous Blood Gas Refer to POC result
[2023-04-30 03:30] LABS: Venous Blood Gas Refer to POC result
[2023-04-30] MEDS: HYDROmorphone HCl 0.5 MG/0.5 ML SYRINGE 0.25 MG IVPUSH ×2 (03:38→08:00)
[2023-04-30 04:09] LABS: PTHI 462 pg/mL (16-77)
--- NOTE | 2023-04-30 04:12 | P.HPCC_ITS ---
[facility] Past Medical History Medical History Anemia Social History Social History Household Members: None Housing: Apartment Alcohol intake: current Alcohol intake frequency: a few times a week Alcohol type: hard liquor Patient Tobacco Use Status: Never used Tobacco Second Hand Smoke Exposure: No service: No Meds Allergies Allergy/AdvReac Type Severity Reaction Status Date / Time No Known Allergies Allergy Verified 04/26/23 10:27 Active Medications: Current Medications Amlodipine Besylate (Amlodipine Besylate 5 Mg Tablet) 5 mg PO DAILY ABDULAZIZ; Protocol Last Admin: 04/29/23 08:16 Dose: 5 mg Docusate Sodium (Docusate Sodium 100 Mg Capsule) 100 mg PO DAILY PRN PRN Reason: Constipation Last Admin: 04/29/23 08:16 Dose: 100 mg Fentanyl (Fentanyl Citrate/Pf 100 Mcg/2 Ml Vial) 50 mcg IVPUSH Q5M PRN; Protocol PRN Reason: Pain, Severe (Pain Scale 7-10) Finasteride (Finasteride 5 Mg Tablet) 5 mg PO DAILY ABDULAZIZ Last Admin: 04/29/23 08:15 Dose: 5 mg Hydromorphone HCl (Hydromorphone Hcl 0.5 Mg/0.5 Ml Syringe) 0.25 mg IVPUSH Q5M PRN; Protocol PRN Reason: Pain, Severe (Pain Scale 7-10) Last Admin: 04/30/23 03:38 Dose: 0.25 mg Sodium Bicarbonate 50 meq/ (Dextrose) 1,000 mls @ 50 mls/hr IV .Q20H ABDULAZIZ Last Admin: 04/29/23 22:00 Dose: 50 mls/hr Ceftriaxone Sodium 1 gm/ (Sodium Chloride) 50 mls @ 100 mls/hr IV Q24H ABDULAZIZ Last Infusion: 04/29/23 10:57 Dose: Infused Dexmedetomidine HCl (Precedex) 400 mcg in 100 mls @ 0 mls/hr IVCONT .Q0M ABDULAZIZ; Protocol Last Titration: 04/30/23 01:44 Dose: 0.2 mcg/kg/hr, 3.97 mls/hr Norepinephrine Bitartrate (Levophed) 8 mg in 250 mls @ 0 mls/hr IV .Q0M ABDULAZIZ; Protocol Melatonin (Melatonin 3 Mg Tablet) 6 mg PO BEDTIME PRN PRN Reason: Insomnia Metoprolol Tartrate (Metoprolol Tartrate 25 Mg Tablet) 25 mg PO BID [facility]; Protocol Last Admin: 04/29/23 21:43 Dose: 25 mg Ondansetron HCl (Ondansetron Hcl 4 Mg/2 Ml Vial) 4 mg IVPUSH ONCE PRN PRN Reason: Nausea and Vomiting Pharmacy Consult (Consult Rx Etoh Phenob Im/Po) 1 each MISCELLANE ONCE PRN; Protocol PRN Reason: Consult order Phenobarbital (Phenobarbital 15 Mg Tablet) 15 mg PO BID [facility] Stop: 05/01/23 21:01 Last Admin: 04/29/23 08:15 Dose: 15 mg Phenobarbital (Phenobarbital 15 Mg Tablet) 15 mg PO DAILY [facility] Stop: 05/03/23 09:01 Sodium Chloride (0.9 % Sodium Chloride Flush 3 Ml Syringe) 3 ml IVFLUSH QSHIFT [facility] Last Admin: 04/30/23 01:05 Dose: Not Given Tamsulosin HCl (Tamsulosin Hcl 0.4 Mg Capsule) 0.4 mg PO DAILY [facility] Last Admin: 04/29/23 08:15 Dose: 0.4 mg Home Medications Medication Instructions Recorded Confirmed Last Taken Type No Known Home Meds 04/26/23 04/26/23 Unknown History Physical Exam 2 Vital Signs: Vital Signs: Last Vital Signs Temp 98.4 F 04/30/23 03:17 Pulse 76 04/30/23 03:17 Resp 16 04/30/23 03:38 BP 107/63 04/30/23 03:17 Pulse Ox 92 04/30/23 03:00 O2 Del Method Room Air 04/30/23 03:00 O2 Flow Rate 2 04/29/23 18:41 FiO2 95 04/29/23 20:59 BMI result Body Mass Index 28.2 Results Labs 04/30/23 02:06 04/30/23 02:06 Labs: Laboratory Results - last 24 hr 04/26/23 04/28/23 04/29/23 12:41 06:24 06:01 MCV MCH MCHC RDW Plt Count MPV Immature Gran % (Auto) Neut % (Auto) Lymph % (Auto) [place] % (Auto) Eos % (Auto) Baso % (Auto) Lymph # (Auto) [place] # (Auto) Eos # (Auto) Baso # (Auto) Abs Immat Gran (auto) Absolute Neuts (auto) Absolute Nucleated RBC Nucleated RBC % (auto) Smear Tech's Comments Hold Purple Top SEE NOTE VBG pH VBG pCO2 VBG pO2 VBG HCO3 VBG O2 Saturation VBG Base Excess Anion Gap 32 H Estim Creat Clear Calc 4.0 Estimated GFR 3 Random Glucose 111 Osmolality Lactic Acid Calcium 7.6 L Phosphorus Magnesium Total Creatine Kinase 772 H Albumin Triglycerides 102 Cholesterol 98 LDL Cholesterol, Calc 53 HDL Cholesterol 25 L PTH Intact 462 H Blood Type B Positive Antibody Screen NEGATIVE Crossmatch See Detail 04/29/23 04/29/23 04/30/23 09:23 17:48 00:14 MCV 85.5 MCH 30.6 MCHC 35.8 RDW 14.3 Plt Count 130 L MPV 10.6 Immature Gran % (Auto) Neut % (Auto) Lymph % (Auto) [place] % (Auto) Eos % (Auto) Baso % (Auto) Lymph # (Auto) [place] # (Auto) Eos # (Auto) Baso # (Auto) Abs Immat Gran (auto) Absolute Neuts (auto) Absolute Nucleated RBC 0.000 Nucleated RBC % (auto) 0.0 Smear Tech's Comments Hold Purple Top VBG pH 7.53 H 7.47 H VBG pCO2 24 28 VBG pO2 151 91 VBG HCO3 20 L 20 L VBG O2 Saturation 99.0 97.0 VBG Base Excess -0.8 -2.1 Anion Gap 28 H Estim Creat Clear Calc 4.2 Estimated GFR 3 Random Glucose 138 H Osmolality Lactic Acid Calcium 7.3 L Phosphorus Magnesium Total Creatine Kinase Albumin Triglycerides Cholesterol LDL Cholesterol, Calc HDL Cholesterol PTH Intact Blood Type B Positive Antibody Screen NEGATIVE Crossmatch See Detail 04/30/23 04/30/23 02:06 02:08 MCV 85.5 MCH 30.6 MCHC 35.7 RDW 14.8 Plt Count 127 L MPV 10.9 Immature Gran % (Auto) 0.6 H Neut % (Auto) 92.1 H Lymph % (Auto) 3.4 L [place] % (Auto) 3.7 Eos % (Auto) 0.1 Baso % (Auto) 0.1 Lymph # (Auto) 0.3 L [place] # (Auto) 0.3 Eos # (Auto) 0.0 Baso # (Auto) 0.0 Abs Immat Gran (auto) 0.05 H Absolute Neuts (auto) 8.2 Absolute Nucleated RBC 0.000 Nucleated RBC % (auto) 0.0 Smear Tech's Comments VERIFIED Hold Purple Top VBG pH 7.43 VBG pCO2 32 VBG pO2 38 VBG HCO3 21 L VBG O2 Saturation 61.0 VBG Base Excess -1.8 Anion Gap 27 H Estim Creat Clear Calc 4.2 Estimated GFR 3 Random Glucose 139 H Osmolality 327 H Lactic Acid 1.1 Calcium 7.1 L Phosphorus 12.9 H Magnesium 1.8 Total Creatine Kinase Albumin 2.9 L Triglycerides Cholesterol LDL Cholesterol, Calc HDL Cholesterol PTH Intact Blood Type Antibody Screen Crossmatch Imaging Radiologist's Impressions: Impressions Abdomen/Pelvis CT 04/29/23 10:50 IMPRESSION: 1. Redemonstration of prominently distended urinary bladder. Interval placement of Lew catheter balloon within the urinary bladder with large hyperdense focus around the balloon and within the urinary bladder lumen measuring 16.8 x 9.0 suggesting hematoma from recent insertion. Dependent foci of air noted in the urinary bladder. 2. Redemonstration of severe bilateral hydronephrosis without discrete obstructing calculus. 3. Prostate is enlarged measuring 5.9 x 5.5 cm with mass effect upon the urinary bladder base. 4. Large left inguinal hernia containing sigmoid colon without evidence of obstruction. 5. Colonic diverticulosis without acute diverticulitis. Assessment and Plan Time Spent With Patient Time: Total time managing care of this patient today ____ minutes.
[2023-04-30] MEDS: Norepinephrine Bitartrate/D5W 8 MG/250 ML PLAST..BAG 7.44 MG IV (05:09)
[2023-04-30] MEDS: vancomycin HCL 1,500 MG in 0.9 % Sodium Chloride 500 ML 333.33 MG IV (05:48)
[2023-04-30 05:55] LABS: VBG Base Excess -1.1 mmol/L; VBG HCO3 22 mmol/L (22-26); VBG pCO2 31 mmHg; VBG pH 7.44 (7.32-7.43); VBG pO2 35 mmHg
[2023-04-30 06:08] LABS: Venous Blood Gas Refer to POC result
[2023-04-30 06:32] LABS: Albumin Level 2.8 g/dL (3.5-5.0); Anion Gap 27 (12-20); Calcium 7.1 mg/dL (8.4-10.2); Carbon Dioxide 19 mmol/L (22-29); Chloride 84 mmol/L (96-108); Creatinine Clr Calc Pharmacy 4.3; Estimated Glomerular Filt Rate 3; Glucose Random 138 mg/dL (60-115); Magnesium 1.8 mg/dL (1.6-2.6); Potassium 4.8 mmol/L (3.3-5.1); Sodium 125 mmol/L (135-145)
[2023-04-30 06:53] LABS: Blood Urea Nitrogen 173 mg/dL (9-16)
--- NOTE | 2023-04-30 06:59 | PHA.PROG ---
Admission Date/Time: April 26, 2023 15:47 Indication: OTHER Weight in k.379 kg Adjusted body weight in Kg: [place] body weight in Kg: Obesity Dosing Indication % IBW: Serum Creatinine - Last 168 Hours 04/26/23 04/26/23 04/26/23 10:35 14:15 20:59 Creatinine 20.77 H* 19.28 H* 18.70 H* 04/27/23 04/28/23 04/29/23 06:19 06:24 06:01 Creatinine 18.55 H* 19.25 H* 18.58 H* 04/30/23 04/30/23 04/30/23 00:14 02:06 05:50 Creatinine 17.54 H* 17.68 H* 17.29 H* Estimated CrCl and GFR - Last 168 Hours 04/26/23 04/26/23 04/26/23 10:35 14:15 20:59 Estim Creat Clear Calc 3.6 3.8 4.0 Estimated GFR 2 2 3 04/27/23 04/28/23 04/29/23 06:19 06:24 06:01 Estim Creat Clear Calc 4.0 3.8 4.0 Estimated GFR 3 2 3 04/30/23 04/30/23 04/30/23 00:14 02:06 05:50 Estim Creat Clear Calc 4.2 4.2 4.3 Estimated GFR 3 3 3 Vancomycin Loading Dose: 1500 MG Current Vancomycin Dosing Regimen: pATIENT WILL BE GETTING RANDOM DOSES BASED OFF OF POST DOSE LEVELS Vancomycin Monitoring using AUC goal of 400 - 600 range with trough as surrogate marker: Date and Time for next Vancomycin Level to be drawn: Pharmacist Comments on Vancomycin Plan: Vancomycin dosing will take advantage of [employer] as a clinical decision support tool that uses Bayesian modeling to calculate individual patient's pharmacokinetic parameters and forecast the patient's drug concentration time course with the target goal AUC 24 range of 400 - 600 mg/L/hr.
[2023-04-30] MEDS: Tamsulosin HCL 0.4 MG CAPSULE PO (08:32)
[2023-04-30] MEDS: Metoprolol Tartrate 25 MG TABLET PO (08:32)
[2023-04-30] MEDS: Finasteride 5 MG TABLET PO (08:32)
[2023-04-30] MEDS: cefTRIAXone sodium 1 GM in 0.9 % Sodium Chloride 50 ML IV (08:33)
--- NOTE | 2023-04-30 09:20 | PM.CCPN ---
Subjective Subjective Date of Service: 04/30/23 Interval History: 62-year-old male alcoholic very poor dentition present presented just simply not feeling well was apparently uremic from a a massively enlarged prostatic carcinoma who developed a obstructive nephropathy although uremic were able to compensate despite very very high levels of BUN and creatinine with a bicarb drip keeping good pH compensated and also by transfusing but were up to at least half a dozen units of red cells and in about a 3 to 3 and half day span of time but he underwent a source control procedure with full gear a shins of these of the prostate yesterday and with some mild intermittent confusion we notice his serum osmolarity was a little high as he did receive about 45 minutes of glycine bladder irrigation so some of this is pseudo hyponatremia but was precipitous drop to 125 for the sodium part could have been an early alcohol withdrawal I think that is the less likely cuss he did not have any other clinical stigmata and he is doing very well not confused very very slow drop in BUN and creatinine pH of 7.4 but I am going to give him 3 hours of 3% saline of while off the bicarb just to were not only restore volume because his IVC Critical Care Time (minutes): 45 Physical Exam Vital Signs: Vital Signs: Last Vital Signs Temp 98.7 F 04/30/23 08:00 Pulse 78 04/30/23 09:07 Resp 16 04/30/23 09:00 BP 89/47 L 04/30/23 09:07 Pulse Ox 92 04/30/23 09:00 O2 Del Method Room Air 04/30/23 09:00 O2 Flow Rate 2 04/29/23 18:41 FiO2 95 04/29/23 20:59 BMI result Body Mass Index 28.2 but to soften some of the reduction in his sodium vital signs of find any remains in normal sinus rhythm no acute ST-T changes bedside echo with preserved LV and RV function and still small diameter IVC so there is room for volume he has no adventitious sounds over his lungs lungs are clear there is no respiratory effort abdomen benign Objective Data Labs 04/30/23 02:06 04/30/23 05:50 Labs: Laboratory Results - last 24 hr 04/26/23 04/28/23 04/29/23 12:41 06:24 06:01 WBC RBC Hgb Hct MCV MCH MCHC RDW Plt Count MPV Immature Gran % (Auto) Neut % (Auto) Lymph % (Auto) [place] % (Auto) Eos % (Auto) Baso % (Auto) Lymph # (Auto) [place] # (Auto) Eos # (Auto) Baso # (Auto) Abs Immat Gran (auto) Absolute Neuts (auto) Absolute Nucleated RBC Nucleated RBC % (auto) Smear Tech's Comments VBG pH VBG pCO2 VBG pO2 VBG HCO3 VBG O2 Saturation VBG Base Excess Sodium Potassium Chloride Carbon Dioxide Anion Gap BUN Creatinine Estim Creat Clear Calc Estimated GFR Random Glucose Osmolality Lactic Acid Calcium Phosphorus Magnesium Total Creatine Kinase 772 H Albumin PTH Intact 462 H Calcium (PTH Intact) 5.8 (L) Blood Type B Positive Antibody Screen NEGATIVE Crossmatch See Detail 04/29/23 04/29/23 04/29/23 09:18 09:23 17:48 WBC 10.5 RBC 2.97 L D Hgb 7.7 L 9.1 L Hct 21.2 L 25.4 L MCV 85.5 MCH 30.6 MCHC 35.8 RDW 14.3 Plt Count 130 L MPV 10.6 Immature Gran % (Auto) Neut % (Auto) Lymph % (Auto) [place] % (Auto) Eos % (Auto) Baso % (Auto) Lymph # (Auto) [place] # (Auto) Eos # (Auto) Baso # (Auto) Abs Immat Gran (auto) Absolute Neuts (auto) Absolute Nucleated RBC 0.000 Nucleated RBC % (auto) 0.0 Smear Tech's Comments VBG pH 7.53 H VBG pCO2 24 VBG pO2 151 VBG HCO3 20 L VBG O2 Saturation 99.0 VBG Base Excess -0.8 Sodium Potassium Chloride Carbon Dioxide Anion Gap BUN Creatinine Estim Creat Clear Calc Estimated GFR Random Glucose Osmolality Lactic Acid Calcium Phosphorus Magnesium Total Creatine Kinase Albumin PTH Intact Calcium (PTH Intact) Blood Type B Positive Antibody Screen NEGATIVE Crossmatch See Detail 04/30/23 04/30/23 04/30/23 00:14 02:06 02:08 WBC 8.9 RBC 2.42 L Hgb 7.4 L Hct 20.7 L* MCV 85.5 MCH 30.6 MCHC 35.7 RDW 14.8 Plt Count 127 L MPV 10.9 Immature Gran % (Auto) 0.6 H Neut % (Auto) 92.1 H Lymph % (Auto) 3.4 L [place] % (Auto) 3.7 Eos % (Auto) 0.1 Baso % (Auto) 0.1 Lymph # (Auto) 0.3 L [place] # (Auto) 0.3 Eos # (Auto) 0.0 Baso # (Auto) 0.0 Abs Immat Gran (auto) 0.05 H Absolute Neuts (auto) 8.2 Absolute Nucleated RBC 0.000 Nucleated RBC % (auto) 0.0 Smear Tech's Comments VERIFIED VBG pH 7.47 H 7.43 VBG pCO2 28 32 VBG pO2 91 38 VBG HCO3 20 L 21 L VBG O2 Saturation 97.0 61.0 VBG Base Excess -2.1 -1.8 Sodium 125 L 125 L Potassium 4.4 4.7 Chloride 84 L 84 L Carbon Dioxide 17 L 19 L Anion Gap 28 H 27 H BUN 175 H 175 H Creatinine 17.54 H* 17.68 H* Estim Creat Clear Calc 4.2 4.2 Estimated GFR 3 3 Random Glucose 138 H 139 H Osmolality 327 H Lactic Acid 1.1 Calcium 7.3 L 7.1 L Phosphorus 12.9 H Magnesium 1.8 Total Creatine Kinase Albumin 2.9 L PTH Intact Calcium (PTH Intact) Blood Type Antibody Screen Crossmatch 04/30/23 05:50 WBC RBC Hgb Hct MCV MCH MCHC RDW Plt Count MPV Immature Gran % (Auto) Neut % (Auto) Lymph % (Auto) [place] % (Auto) Eos % (Auto) Baso % (Auto) Lymph # (Auto) [place] # (Auto) Eos # (Auto) Baso # (Auto) Abs Immat Gran (auto) Absolute Neuts (auto) Absolute Nucleated RBC Nucleated RBC % (auto) Smear Tech's Comments VBG pH 7.44 H VBG pCO2 31 VBG pO2 35 VBG HCO3 22 VBG O2 Saturation 57.0 VBG Base Excess -1.1 Sodium 125 L Potassium 4.8 Chloride 84 L Carbon Dioxide 19 L Anion Gap 27 H BUN 173 H Creatinine 17.29 H* Estim Creat Clear Calc 4.3 Estimated GFR 3 Random Glucose 138 H Osmolality Lactic Acid Calcium 7.1 L Phosphorus 14.0 H Magnesium 1.8 Total Creatine Kinase 758 H Albumin 2.8 L PTH Intact Calcium (PTH Intact) Blood Type Antibody Screen Crossmatch Progress Note: A&P Assessment and plan (1) Hyponatremia: Status: Acute (2) Alcohol withdrawal: Status: Acute (3) Uremia: Status: Acute (4) Troponin level elevated: Status: Acute (5) Gross hematuria: Status: Acute (6) Difficult Lew catheter placement: Status: Acute (7) Anemia: Status: Acute (8) Anemia: Status: Acute (9) Metabolic acidosis: Status: Acute (10) KIERA (acute kidney injury): Status: Acute (11) Urinary retention with incomplete bladder emptying: Status: Acute (12) Bladder outlet obstruction: Status: Acute (13) Benign enlargement of prostate: Status: Acute (14) Acute renal failure (ARF): Status: Acute Plan so I plan do more of the same continue with CBI until he really clears follow his renal function numbers but we can hold off on dialysis to and central line today and recheck blood work after the 3% saline and probably introduce diet but I am going to cover him in addition to ceftriaxone with vancomycin Quality Stroke Does the patient have a stroke diagnosis?: No VTE Prior VTE?: No VTE Risk Level:: Medical - moderate - high VTE Device Contraindication: N/A - Device Ordered VTE Drug Contraindication: Treatment Not Indicated
--- NOTE | 2023-04-30 10:59 | MHC.CM.PN ---
EMR reviewed. Pt transferred to ICU and not medically cleared for dc at this time. CM met with patient at bedside, as pt expressed concerns for losing his job and considered leaving AMA. Pt has since communicated with his employer and is no longer considering AMA. From home alone, but currently feeling very weak - will require PT eval when medically appropriate. CM will continue to follow.
[2023-04-30 11:15] LABS: MRSA Nasal PCR NEGATIVE (Negative); SA Nasal PCR POSITIVE (Negative)
--- NOTE | 2023-04-30 11:19 | PC.NURSE ---
Medication administered: 04/29/23 @1052 Phenobarbital 15mgx3
[2023-04-30] MEDS: dexmedeTOMIDidine HCL/NS 400 MCG/100 ML INFUS..BTL 5.95 MCG IVCONT (11:43)
--- NOTE | 2023-04-30 13:07 | HO.POSTANES ---
Post Anesthesia Evaluation Post Anesthesia Evaluation Date of Service: 04/30/23 Vital Signs: Vital Signs Temp Pulse Resp BP Pulse Ox O2 Del Method 04/30/23 12:51 98.4 F 68 14 116/57 L 99 Room Air 04/30/23 12:26 68 92/50 L 04/30/23 12:00 97.8 F 70 13 94/49 L 100 Room Air 04/30/23 11:40 66 88/48 L 04/30/23 11:00 97.2 F 68 14 99/53 L 96 Room Air 04/30/23 10:00 68 15 117/57 L 94 Room Air 04/30/23 09:07 78 89/47 L 04/30/23 09:00 80 16 93/47 L 92 Room Air 04/30/23 08:58 79 93/47 L 04/30/23 08:47 82 126/58 L 04/30/23 08:00 98.7 F 81 16 124/72 95 Room Air 04/30/23 07:55 86 163/71 H 04/30/23 07:00 68 14 109/56 L 93 Room Air 04/30/23 06:00 70 14 100/55 L 95 Room Air 04/30/23 05:27 69 89/47 L 04/30/23 05:15 97.4 F 68 12 90/48 L 04/30/23 05:09 71 87/46 L 04/30/23 05:00 70 14 87/46 L 96 Room Air 04/30/23 04:00 72 15 91/50 L 94 Room Air 04/30/23 03:38 16 04/30/23 03:17 98.4 F 76 14 107/63 04/30/23 03:02 98.4 F 76 20 97/54 L 04/30/23 03:02 98.4 F 72 20 97/54 L 04/30/23 03:00 75 17 103/59 L 92 Room Air 04/30/23 02:00 79 14 114/57 L 96 Room Air Anesthesia: General Mental Status: Awake Pain Control: Satisfactory Nausea/Vomiting: None Hydration: Adequate Anesthesia-Related Issues: No Anes. Related Issues
[2023-04-30] MEDS: Midazolam HCl/PF 2 MG/2 ML VIAL IVPUSH (13:09)
--- NOTE | 2023-04-30 13:48 | P.PCNCC_ITS ---
Procedures Date of Service Date of Service: 04/30/23 Procedure Note Procedure Note: Dr. Singh dictating placement of a 12 [place] 20 cm length double-lumen dialysis catheter for patient with uremia due to obstructive nephropathy no relief or postobstructive diuresis so after sterile preparation and draping utilizing ultrasound guidance I gained easy entry to the right internal jugular vein passing retrograde with Seldinger technique a J tipped guidewire with a progressive dilators and then placed the dialysis catheter over the guidewire and the chest x-ray shows no complication no pneumothorax perfect placement between the superior vena cava and right atrium and the dialysis catheter is cleared to be used
--- NOTE | 2023-04-30 13:50 | MHC.SLORD ---
Speech Language Pathology Order Status: PRECINCT POLICE SERGEANT attempted to see patient; being transported out of room & unavailable for PRECINCT POLICE SERGEANT visit. Per RN, patient is tolerating current diet recommendation (NDD3, thin) w/ no concerns. PRECINCT POLICE SERGEANT to continue to follow during hospitalization.
[2023-04-30] MEDS: MannitoL 12.5 GM/50 ML VIAL IV (19:15)
[2023-04-30] MEDS: fentaNYL citrate/PF 100 MCG/2 ML VIAL 50 MCG IVPUSH (19:45)
[2023-04-30] MEDS: PHENobarbitaL 15 MG TABLET PO (21:07)
--- NOTE | 2023-04-30 21:08 | P.PNNP_ITS ---
Subjective Subjective Date of Service: 04/30/23 Interval history: Pt now in ICU Hyponatremic No improvement in urine output Physical Exam 2 Vital Signs: Vital Signs: Last Vital Signs Temp 98.1 F 04/30/23 21:00 Pulse 88 04/30/23 21:00 Resp 18 04/30/23 21:00 BP 156/69 H 04/30/23 21:00 Pulse Ox 95 04/30/23 21:00 O2 Del Method Room Air 04/30/23 21:00 O2 Flow Rate 2 04/29/23 18:41 FiO2 95 04/29/23 20:59 BMI result Body Mass Index 28.2 Appearance: Alert.? Oriented X3.? mental status seems at baseline,generalised weak.? cvs: rrr, [id number] , no murmur res: clear to auscultation ,no rhonchii or wheezing abd: no rebound or guarding ,nt, bs present. Gu: gross hemtaruria lockhart bag ext pulses present , no cyanosis . neuro: nonfocal. Objective Data Labs 04/30/23 02:06 04/30/23 05:50 Labs: Laboratory Results - last 24 hr 04/28/23 04/29/23 04/30/23 06:24 17:48 00:14 WBC RBC Hgb Hct MCV MCH MCHC RDW Plt Count MPV Immature Gran % (Auto) Neut % (Auto) Lymph % (Auto) [place] % (Auto) Eos % (Auto) Baso % (Auto) Lymph # (Auto) [place] # (Auto) Eos # (Auto) Baso # (Auto) Abs Immat Gran (auto) Absolute Neuts (auto) Absolute Nucleated RBC Nucleated RBC % (auto) Smear Tech's Comments VBG pH 7.47 H VBG pCO2 28 VBG pO2 91 VBG HCO3 20 L VBG O2 Saturation 97.0 VBG Base Excess -2.1 Sodium 125 L Potassium 4.4 Chloride 84 L Carbon Dioxide 17 L Anion Gap 28 H BUN 175 H Creatinine 17.54 H* Estim Creat Clear Calc 4.2 Estimated GFR 3 Random Glucose 138 H Osmolality Lactic Acid Calcium 7.3 L Phosphorus Magnesium Total Creatine Kinase Albumin PTH Intact 462 H Calcium (PTH Intact) 5.8 (L) Nasal Screen MRSA (PCR) Nasal S. aureus Screen Nasal MRSA/S.aureus Interp Blood Type B Positive Antibody Screen NEGATIVE Crossmatch See Detail 04/30/23 04/30/23 04/30/23 02:06 02:08 04:52 WBC 8.9 RBC 2.42 L Hgb 7.4 L Hct 20.7 L* MCV 85.5 MCH 30.6 MCHC 35.7 RDW 14.8 Plt Count 127 L MPV 10.9 Immature Gran % (Auto) 0.6 H Neut % (Auto) 92.1 H Lymph % (Auto) 3.4 L [place] % (Auto) 3.7 Eos % (Auto) 0.1 Baso % (Auto) 0.1 Lymph # (Auto) 0.3 L [place] # (Auto) 0.3 Eos # (Auto) 0.0 Baso # (Auto) 0.0 Abs Immat Gran (auto) 0.05 H Absolute Neuts (auto) 8.2 Absolute Nucleated RBC 0.000 Nucleated RBC % (auto) 0.0 Smear Tech's Comments VERIFIED VBG pH 7.43 VBG pCO2 32 VBG pO2 38 VBG HCO3 21 L VBG O2 Saturation 61.0 VBG Base Excess -1.8 Sodium 125 L Potassium 4.7 Chloride 84 L Carbon Dioxide 19 L Anion Gap 27 H BUN 175 H Creatinine 17.68 H* Estim Creat Clear Calc 4.2 Estimated GFR 3 Random Glucose 139 H Osmolality 327 H Lactic Acid 1.1 Calcium 7.1 L Phosphorus 12.9 H Magnesium 1.8 Total Creatine Kinase Albumin 2.9 L PTH Intact Calcium (PTH Intact) Nasal Screen MRSA (PCR) NEGATIVE Nasal S. aureus Screen POSITIVE A Nasal MRSA/S.aureus Interp SEE NOTE Blood Type Antibody Screen Crossmatch 04/30/23 05:50 WBC RBC Hgb Hct MCV MCH MCHC RDW Plt Count MPV Immature Gran % (Auto) Neut % (Auto) Lymph % (Auto) [place] % (Auto) Eos % (Auto) Baso % (Auto) Lymph # (Auto) [place] # (Auto) Eos # (Auto) Baso # (Auto) Abs Immat Gran (auto) Absolute Neuts (auto) Absolute Nucleated RBC Nucleated RBC % (auto) Smear Tech's Comments VBG pH 7.44 H VBG pCO2 31 VBG pO2 35 VBG HCO3 22 VBG O2 Saturation 57.0 VBG Base Excess -1.1 Sodium 125 L Potassium 4.8 Chloride 84 L Carbon Dioxide 19 L Anion Gap 27 H BUN 173 H Creatinine 17.29 H* Estim Creat Clear Calc 4.3 Estimated GFR 3 Random Glucose 138 H Osmolality Lactic Acid Calcium 7.1 L Phosphorus 14.0 H Magnesium 1.8 Total Creatine Kinase 758 H Albumin 2.8 L PTH Intact Calcium (PTH Intact) Nasal Screen MRSA (PCR) Nasal S. aureus Screen Nasal MRSA/S.aureus Interp Blood Type Antibody Screen Crossmatch Procedures Date of Service Date of Service: 04/30/23 Assessment & Plan Assessment and plan (1) KIERA (acute kidney injury): Status: Acute Assessment and Plan: KIERA due to obstructive uropathy Pt uremic CT scan of the abdomen c/w bilateral hydronephrosis in the setting of bladder outlet obstruction unknown chronicity of obstructive uropathy he may have end stage kidney disease due to chronic obstructive uropathy Hyponatremia - Acute 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 REC Pt received 3% salline D/w pt and ICU attending ICU attending placed a HD cath HD today and in AMN Will follow NA level tamsulosin Cardiopulmonary support in the ICU iPTH iron profile- Fe stores are high - Had epo in AM 20 K s/q this week transfuse for Hb < 7 follow kidney function and electrolytes d/w ICU team (2) Uremia: Status: Acute (3) Hyponatremia: Status: Acute (4) Urinary retention with incomplete bladder emptying: Status: Acute (5) Metabolic acidosis: Status: Acute (6) Anemia: Status: Acute (7) Difficult [place] catheter placement: Status: Acute (8) Bladder outlet obstruction: Status: Acute Time Spent With Patient Time: Total time managing care of this patient today ____ minutes. Progress Note: Quality Stroke Does the patient have a stroke diagnosis?: No
[2023-04-30] MEDS: ondansetron HCL 4 MG/2 ML VIAL IVPUSH (21:12)
[2023-04-30 21:16] LABS: MANUAL DIFF FLAG NO
[2023-04-30 21:20] LABS: Basophils Percent Auto 0.2 % (0-2); Eosinophils Percent Auto 0.1 % (0-4); Hematocrit 21.8 % (42.0-52.0); Hemoglobin 7.9 g/dl (14.0-18.0); Imm Gran Abs Auto 0.06 X10*3/uL (0.00-0.03); Imm Gran Pct Auto 0.5 % (0.0-0.4); Lymphocytes Absolute Auto 0.6 X10*3/uL (1.2-4.9); Lymphocytes Percent Auto 5.3 % (20-40); Mean Corpuscular HGB Conc 36.2 g/dl (31.0-36.0); Mean Corpuscular Hemoglobin 30.5 pg (27.0-33.0); Mean Corpuscular Volume 84.2 fL (80.0-98.0); Mean Platelet Volume 11.2 fL (9.4-12.4); Monocytes Absolute Auto 0.9 X10*3/uL (0.1-1.2); Monocytes Percent Auto 7.9 % (2-11); Neutrophils Absolute Auto 9.9 x10*3/uL (2.0-8.3); Platelet Count 158 X10*3/uL (160-400); Red Blood Count 2.59 X10*6/uL (4.60-5.80); Red Cell Distribution Width 15.2 % (11.0-16.0); White Blood Count 11.5 X10*3/uL (4.8-10.8)
[2023-04-30 21:47] LABS: Anion Gap 24 (12-20); Blood Urea Nitrogen 113 mg/dL (9-16); Calcium 7.5 mg/dL (8.4-10.2); Carbon Dioxide 22 mmol/L (22-29); Chloride 92 mmol/L (96-108); Creatinine Clr Calc Pharmacy 7.3; Estimated Glomerular Filt Rate 5; Glucose Random 102 mg/dL (60-115); Potassium 3.9 mmol/L (3.3-5.1); Sodium 134 mmol/L (135-145)
[2023-05-01] VITALS (23 sets, daily range): BP systolic 112–150; BP diastolic 43–83; PULSE 84–103; RESP 11–19; TEMP 36.2–37.1; O2SAT 92–98; BMI 29.4
[2023-05-01 04:28] LABS: HBS Num1 2.19 mIU/mL (0-7.99); HBc Num1 0.06 S/CO (0.00-0.79); HBsAGNum1 0.48 S/CO (0.00-0.99); Hepatitis B Core Antibody Nonreactive (Nonreactive); Hepatitis B Surface Antigen Negative (Negative); ~Hepatitis B Surface Antibody NONREACTIVE (Nonreactive)
[2023-05-01 05:15] LABS: VBG Base Excess 0.2 mmol/L; VBG HCO3 23 mmol/L (22-26); VBG pCO2 30 mmHg; VBG pH 7.48 (7.32-7.43); VBG pO2 57 mmHg
[2023-05-01 05:18] LABS: Venous Blood Gas Refer to POC result
[2023-05-01 06:00] LABS: Vancomycin Random 16.1 mcg/mL (15-20)
[2023-05-01 06:09] LABS: Albumin Level 2.8 g/dL (3.5-5.0); Anion Gap 24 (12-20); Blood Urea Nitrogen 118 mg/dL (9-16); Calcium 7.7 mg/dL (8.4-10.2); Carbon Dioxide 19 mmol/L (22-29); Chloride 94 mmol/L (96-108); Creatinine Clr Calc Pharmacy 6.5; Estimated Glomerular Filt Rate 5; Glucose Random 100 mg/dL (60-115); Phosphorus 9.9 mg/dL (2.7-4.5); Potassium 3.9 mmol/L (3.3-5.1); Sodium 133 mmol/L (135-145)
[2023-05-01 06:55] LABS: Prostate Specific Antigen 149.45 ng/mL (<0.05-4.0)
[2023-05-01 07:00] LABS: MANUAL DIFF FLAG NO
[2023-05-01 07:01] LABS: Basophils Percent Auto 0.1 % (0-2); Eosinophils Percent Auto 0.1 % (0-4); Imm Gran Abs Auto 0.03 X10*3/uL (0.00-0.03); Imm Gran Pct Auto 0.4 % (0.0-0.4); Lymphocytes Absolute Auto 0.4 X10*3/uL (1.2-4.9); Lymphocytes Percent Auto 5.7 % (20-40); Mean Corpuscular HGB Conc 35.8 g/dl (31.0-36.0); Mean Corpuscular Hemoglobin 30.4 pg (27.0-33.0); Mean Platelet Volume 10.9 fL (9.4-12.4); Monocytes Absolute Auto 0.6 X10*3/uL (0.1-1.2); Monocytes Percent Auto 7.8 % (2-11); Neutrophils Absolute Auto 6.2 x10*3/uL (2.0-8.3); Neutrophils Percent Auto 85.9 % (45-73); Platelet Count 133 X10*3/uL (160-400); Red Blood Count 2.27 X10*6/uL (4.60-5.80); Red Cell Distribution Width 15.3 % (11.0-16.0); White Blood Count 7.2 X10*3/uL (4.8-10.8)
[2023-05-01 07:09] LABS: Hematocrit 19.3 % (42.0-52.0); Hemoglobin 6.9 g/dl (14.0-18.0)
[2023-05-01] MEDS: Famotidine/PF 20 MG/2 ML VIAL IVPUSH (08:26)
[2023-05-01] MEDS: PHENobarbitaL 15 MG TABLET PO ×2 (08:26→20:26)
[2023-05-01] MEDS: Tamsulosin HCL 0.4 MG CAPSULE PO (08:27)
[2023-05-01] MEDS: cefTRIAXone sodium 1 GM in 0.9 % Sodium Chloride 50 ML IV (08:32)
[2023-05-01] MEDS: MannitoL 12.5 GM/50 ML VIAL IV (09:01)
[2023-05-01] MEDS: LORazepam 2 MG/ML VIAL 1 MG IVPUSH (10:18)
--- NOTE | 2023-05-01 12:05 | MHC.SLORD ---
Speech Language Pathology Order Status: Attempted to see patient mid day, with patient sleeping soundly. Per RN, patient is mostly refusing his food due to poor appetite, nausea. Tolerating some liquids only. GIS DATABASE ADMINISTRATOR will continue to follow.
[2023-05-01 14:06] LABS: Anion Gap 18 (12-20); Blood Urea Nitrogen 55 mg/dL (9-16); Calcium 8.5 mg/dL (8.4-10.2); Carbon Dioxide 20 mmol/L (22-29); Chloride 101 mmol/L (96-108); Creatinine Clr Calc Pharmacy 12.4; Estimated Glomerular Filt Rate 9; Glucose Random 103 mg/dL (60-115); Potassium 3.7 mmol/L (3.3-5.1); Sodium 135 mmol/L (135-145)
[2023-05-01] MEDS: vancomycin HCL 500 MG in 0.9 % Sodium Chloride 100 ML 110 MG IV (14:43)
--- NOTE | 2023-05-01 14:58 | MHC.CM.PN ---
Pt continues care in ICU w/obstructive uropathy. D/C plan remains to be finalized: pt resides alone/works. CM to follow - pt may need VNA vs STR.
--- NOTE | 2023-05-01 15:02 | P.PNCC_ITS ---
Subjective Subjective Date of Service: 05/01/23 Interval History: this 62-year-old male presents with an urea for several days in acute end-stage renal disease from obstructive nephropathy on the basis of very large prostate carcinoma complicated by traumatic Lew insertion and subsequent bleeding with large amount of blood loss at least the no 6 units of transfused red cells over a 3 day period of time with continued slow loss of hemoglobin the last hemoglobin today was 6.9 and I am holding off on transfusion at this point until the next CBC but the a dramatic improvement in his metabolic status with is since his 2 dialysis treatments which is considerably improved improved his the no serum bicarb regimen resolution of uremia significant improvement in the degree of azotemia currently has a 3 way Lew catheter placed by Dr. Louise in the OR following a laser treatment of the prostate with fulguration of but whenever actively bleeding sites he saw and because no urine was sent for culture blood cultures have remained negative he was empirically placed on ceftriaxone which she has received 3 days of therapy and this was purely empiric 1 dose of vancomycin was also given because he had had the instrumentation with adeno a retrograde urethral approach but I stopped those medications gave him 1 dose of 500 mg of Levaquin today and I think that with span almost a five-day equivocal in treatment for presumptive urinary tract infection he is not displayed any signs of alcohol withdrawal he also had initially developed progressive hyponatremia which we refers reversed and now has been secured with since the dialysis is started sodium back up in the 130s and that has not resulted in any complication either he was never really clearly encephalopathic by echo he has got preserved LV function no pericardial or other form of serositis Critical Care Time (minutes): 35 Physical Exam 2 Vital Signs: Vital Signs: Last Vital Signs Temp 98.2 F 05/01/23 12:05 Pulse 87 05/01/23 14:00 Resp 15 05/01/23 14:00 BP 118/48 L 05/01/23 14:00 Pulse Ox 93 05/01/23 14:00 O2 Del Method Room Air 05/01/23 14:00 O2 Flow Rate 2 04/29/23 18:41 FiO2 95 04/29/23 20:59 BMI result Body Mass Index 29.4 tolerated dialysis in sinus rhythm rate 88 oxygen saturation 92% no respiratory difficulties blood pressure 110/43 mean of 66 bedside echo with preserved LV function no change abdomen soft no organomegaly lungs with no adventitious sounds Objective Data Labs 05/01/23 06:51 05/01/23 13:37 Labs: Laboratory Results - last 24 hr 04/30/23 05/01/23 05/01/23 20:55 05:08 05:09 WBC 11.5 H RBC 2.59 L Hgb 7.9 L Hct 21.8 L MCV 84.2 MCH 30.5 MCHC 36.2 H RDW 15.2 Plt Count 158 L MPV 11.2 Immature Gran % (Auto) 0.5 H Neut % (Auto) 86.0 H Lymph % (Auto) 5.3 L [place] % (Auto) 7.9 Eos % (Auto) 0.1 Baso % (Auto) 0.2 Lymph # (Auto) 0.6 L [place] # (Auto) 0.9 Eos # (Auto) 0.0 Baso # (Auto) 0.0 Abs Immat Gran (auto) 0.06 H Absolute Neuts (auto) 9.9 H Absolute Nucleated RBC 0.000 Nucleated RBC % (auto) 0.0 Smear Path Review VBG pH 7.48 H VBG pCO2 30 VBG pO2 57 VBG HCO3 23 VBG O2 Saturation 87.0 VBG Base Excess 0.2 Sodium 134 L 133 L Potassium 3.9 3.9 Chloride 92 L 94 L Carbon Dioxide 22 19 L Anion Gap 24 H 24 H BUN 113 H 118 H Creatinine 10.24 H* 11.39 H* Estim Creat Clear Calc 7.3 6.5 Estimated GFR 5 5 Random Glucose 102 100 Calcium 7.5 L 7.7 L Phosphorus 9.9 H Magnesium 2.0 Albumin 2.8 L Prostate Specific Ag 149.45 H Random Vancomycin 16.1 Hep Bs Antigen Negative Hep Bs Antibody NONREACTIVE Hep B Core Total Ab Nonreactive 05/01/23 05/01/23 06:51 13:37 WBC 7.2 RBC 2.27 L Hgb 6.9 L* Hct 19.3 L* MCV 85.0 MCH 30.4 MCHC 35.8 RDW 15.3 Plt Count 133 L MPV 10.9 Immature Gran % (Auto) 0.4 Neut % (Auto) 85.9 H Lymph % (Auto) 5.7 L [place] % (Auto) 7.8 Eos % (Auto) 0.1 Baso % (Auto) 0.1 Lymph # (Auto) 0.4 L [place] # (Auto) 0.6 Eos # (Auto) 0.0 Baso # (Auto) 0.0 Abs Immat Gran (auto) 0.03 Absolute Neuts (auto) 6.2 Absolute Nucleated RBC 0.000 Nucleated RBC % (auto) 0.0 Smear Path Review SEE NOTE VBG pH VBG pCO2 VBG pO2 VBG HCO3 VBG O2 Saturation VBG Base Excess Sodium 135 Potassium 3.7 Chloride 101 Carbon Dioxide 20 L Anion Gap 18 BUN 55 H Creatinine 6.13 H* Estim Creat Clear Calc 12.4 Estimated GFR 9 Random Glucose 103 Calcium 8.5 D Phosphorus Magnesium Albumin Prostate Specific Ag Random Vancomycin 11.0 L Hep Bs Antigen Hep Bs Antibody Hep B Core Total Ab Microbiology Microbiology Results: Microbiology 04/30/23 02:06 Blood - Venous Blood Culture - Preliminary No growth after 24 hours. 04/30/23 02:06 Blood - Venous Blood Culture - Preliminary No growth after 24 hours. Progress Note: A&P Assessment and plan (1) Hyponatremia: Status: Acute (2) Alcohol withdrawal: Status: Acute (3) Uremia: Status: Acute (4) Troponin level elevated: Status: Acute (5) Gross hematuria: Status: Acute (6) Difficult Lew catheter placement: Status: Acute (7) Anemia: Status: Acute (8) Anemia: Status: Acute (9) Metabolic acidosis: Status: Acute (10) KIERA (acute kidney injury): Status: Acute (11) Urinary retention with incomplete bladder emptying: Status: Acute (12) Bladder outlet obstruction: Status: Acute (13) Benign enlargement of prostate: Status: Acute (14) Acute renal failure (ARF): Status: Acute Plan so at this point I think we can remitted to the floor dialysis with frequency will be decided by a renal who has been following along at this point appears to be euvolemic and 1 of the bigger issues is still remains the progressive blood loss Quality Stroke Does the patient have a stroke diagnosis?: No VTE Prior VTE?: No VTE Risk Level:: Medical - moderate - high VTE Device Contraindication: N/A - Device Ordered VTE Drug Contraindication: Treatment Not Indicated
[2023-05-01] MEDS: levoFLOXacin/D5W 500 MG/100 ML PIGGYBACK 100 MG IV (15:52)
[2023-05-01] MEDS: 0.9 % Sodium Chloride Flush 3 ML SYRINGE IVFLUSH ×2 (18:10→23:44)
[2023-05-01] MEDS: Sevelamer Carbonate Tablet 800 MG TABLET PO (18:10)
--- NOTE | 2023-05-01 18:24 | PC.NURSE ---
report to inpatient nurse pt updated on plan of care.
--- NOTE | 2023-05-01 22:57 | PM.PNNEP ---
Subjective Subjective Date of Service: 05/01/23 Interval history: Pt on HD Seen on HD Non oliguric Physical Exam Vital Signs: Vital Signs: Last Vital Signs Temp 98.7 F 05/01/23 19:18 Pulse 97 05/01/23 19:18 Resp 12 05/01/23 19:18 BP 147/65 H 05/01/23 19:18 Pulse Ox 94 05/01/23 19:18 O2 Del Method Room Air 05/01/23 19:18 O2 Flow Rate 2 04/29/23 18:41 FiO2 95 04/29/23 20:59 BMI result Body Mass Index 29.4 tolerated dialysis in sinus rhythm rate 88 oxygen saturation 92% no respiratory difficulties blood pressure 110/43 mean of 66 bedside echo with preserved LV function no change abdomen soft no organomegaly lungs with no adventitious sounds Objective Data Labs 05/01/23 06:51 05/01/23 13:37 Labs: Laboratory Results - last 24 hr 04/30/23 05/01/23 05/01/23 20:55 05:08 05:09 WBC RBC Hgb Hct MCV MCH MCHC RDW Plt Count MPV Immature Gran % (Auto) Neut % (Auto) Lymph % (Auto) [place] % (Auto) Eos % (Auto) Baso % (Auto) Lymph # (Auto) [place] # (Auto) Eos # (Auto) Baso # (Auto) Abs Immat Gran (auto) Absolute Neuts (auto) Absolute Nucleated RBC Nucleated RBC % (auto) Smear Path Review VBG pH 7.48 H VBG pCO2 30 VBG pO2 57 VBG HCO3 23 VBG O2 Saturation 87.0 VBG Base Excess 0.2 Sodium 133 L Potassium 3.9 Chloride 94 L Carbon Dioxide 19 L Anion Gap 24 H BUN 118 H Creatinine 11.39 H* Estim Creat Clear Calc 6.5 Estimated GFR 5 Random Glucose 100 Calcium 7.7 L Phosphorus 9.9 H Magnesium 2.0 Albumin 2.8 L Prostate Specific Ag 149.45 H Random Vancomycin 16.1 Hep Bs Antigen Negative Hep Bs Antibody NONREACTIVE Hep B Core Total Ab Nonreactive 05/01/23 05/01/23 06:51 13:37 WBC 7.2 RBC 2.27 L Hgb 6.9 L* Hct 19.3 L* MCV 85.0 MCH 30.4 MCHC 35.8 RDW 15.3 Plt Count 133 L MPV 10.9 Immature Gran % (Auto) 0.4 Neut % (Auto) 85.9 H Lymph % (Auto) 5.7 L [place] % (Auto) 7.8 Eos % (Auto) 0.1 Baso % (Auto) 0.1 Lymph # (Auto) 0.4 L [place] # (Auto) 0.6 Eos # (Auto) 0.0 Baso # (Auto) 0.0 Abs Immat Gran (auto) 0.03 Absolute Neuts (auto) 6.2 Absolute Nucleated RBC 0.000 Nucleated RBC % (auto) 0.0 Smear Path Review SEE NOTE VBG pH VBG pCO2 VBG pO2 VBG HCO3 VBG O2 Saturation VBG Base Excess Sodium 135 Potassium 3.7 Chloride 101 Carbon Dioxide 20 L Anion Gap 18 BUN 55 H Creatinine 6.13 H* Estim Creat Clear Calc 12.4 Estimated GFR 9 Random Glucose 103 Calcium 8.5 D Phosphorus Magnesium Albumin Prostate Specific Ag Random Vancomycin 11.0 L Hep Bs Antigen Hep Bs Antibody Hep B Core Total Ab Microbiology Microbiology Results: Microbiology 04/30/23 02:06 Blood - Venous Blood Culture - Preliminary No growth after 24 hours. 04/30/23 02:06 Blood - Venous Blood Culture - Preliminary No growth after 24 hours. Procedures Date of Service Date of Service: 05/01/23 Assessment & Plan Assessment and plan (1) KIERA (acute kidney injury): Status: Acute Assessment and Plan: KIERA due to obstructive uropathy Pt uremic CT scan of the abdomen c/w bilateral hydronephrosis in the setting of bladder outlet obstruction unknown chronicity of obstructive uropathy he may have end stage kidney disease due to chronic obstructive uropathy Hyponatremia - Acute 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 REC D/w pt and ICU attending ICU attending placed a HD cath HD today and will reassess for AM Will follow NA level tamsulosin Cardiopulmonary support in the ICU iPTH iron profile- Fe stores are high - Had epo in AM 20 K s/q given this week transfuse for Hb < 7 follow kidney function and electrolytes d/w ICU team (2) Benign enlargement of prostate: Status: Acute (3) Uremia: Status: Acute (4) Hyponatremia: Status: Acute (5) Urinary retention with incomplete bladder emptying: Status: Acute (6) Metabolic acidosis: Status: Acute (7) Anemia: Status: Acute (8) Difficult Lew catheter placement: Status: Acute (9) Bladder outlet obstruction: Status: Acute Time Spent With Patient Time: Total time managing care of this patient today ____ minutes. Progress Note: Quality Stroke Does the patient have a stroke diagnosis?: No
[2023-05-02] VITALS (7 sets, daily range): BP systolic 137–188; BP diastolic 65–78; PULSE 84–96; RESP 16–20; TEMP 36.3–37.6; O2SAT 94–99; BMI 26.4
[2023-05-02 06:25] LABS: Creatinine Clr Calc Pharmacy 11.4; Estimated Glomerular Filt Rate 8
[2023-05-02] MEDS: Sevelamer Carbonate Tablet 800 MG TABLET PO ×3 (07:48→16:51)
[2023-05-02] MEDS: 0.9 % Sodium Chloride Flush 3 ML SYRINGE IVFLUSH ×3 (07:49→20:46)
[2023-05-02] MEDS: Famotidine/PF 20 MG/2 ML VIAL IVPUSH (07:49)
[2023-05-02] MEDS: PHENobarbitaL 15 MG TABLET PO (07:49)
--- NOTE | 2023-05-02 10:31 | HO.PM.IMPN ---
Subjective Subjective Date of Service: 05/02/23 Interval History: weakness Physical Exam Vital Signs: Vital Signs: Last Vital Signs Temp 98.4 F 05/02/23 07:38 Pulse 93 05/02/23 07:38 Resp 20 05/02/23 07:38 BP 148/65 H 05/02/23 07:38 Pulse Ox 94 05/02/23 07:38 O2 Del Method Room Air 05/02/23 07:38 O2 Flow Rate 2 04/29/23 18:41 FiO2 95 04/29/23 20:59 BMI result Body Mass Index 29.4 tolerated dialysis in sinus rhythm rate 88 oxygen saturation 92% no respiratory difficulties blood pressure 110/43 mean of 66 bedside echo with preserved LV function no change abdomen soft no organomegaly lungs with no adventitious sounds Objective Data Active Medications Docusate Sodium (Docusate Sodium 100 Mg Capsule) 100 mg PO DAILY PRN PRN Reason: Constipation Last Admin: 04/29/23 08:16 Dose: 100 mg Documented By: ARNAUD Famotidine (Famotidine/Pf 20 Mg/2 Ml Vial) 20 mg IVPUSH DAILY [facility] Last Admin: 05/02/23 07:49 Dose: 20 mg Documented By: SASHA Vancomycin HCl 500 mg/ Sodium (Chloride) 110 mls @ 110 mls/hr IV ONCE ONE Stop: 05/01/23 08:59 Melatonin (Melatonin 3 Mg Tablet) 6 mg PO BEDTIME PRN PRN Reason: Insomnia Pharmacy Consult (Consult Rx Etoh Phenob Im/Po) 1 each MISCELLANE ONCE PRN; Protocol PRN Reason: Consult order Pharmacy Consult (Consult Rx Vancomycin Dosing) 1 each MISCELLANE DAILY PRN PRN Reason: Consult order Phenobarbital (Phenobarbital 15 Mg Tablet) 15 mg PO DAILY [facility] Stop: 05/03/23 09:01 Last Admin: 05/02/23 07:49 Dose: 15 mg Documented By: SASHA Sevelamer Carbonate (Sevelamer Carbonate Tablet 800 Mg Tablet) 800 mg PO TIDWM [facility] Last Admin: 05/02/23 07:48 Dose: 800 mg Documented By: SASHA Sodium Chloride (0.9 % Sodium Chloride Flush 3 Ml Syringe) 3 ml IVFLUSH QSHIFT [facility] Last Admin: 05/02/23 07:49 Dose: 3 ml Documented By: SASHA Labs 05/01/23 06:51 05/02/23 05:16 Labs: Laboratory Results - last 24 hr 05/01/23 05/01/23 05/02/23 06:51 13:37 05:16 Smear Path Review SEE NOTE Hold Purple Top SEE NOTE Anion Gap 18 Estim Creat Clear Calc 12.4 11.4 Estimated GFR 9 8 Random Glucose 103 Calcium 8.5 D Random Vancomycin 11.0 L Microbiology Microbiology Results: Microbiology 04/30/23 02:06 Blood Culture - Preliminary Blood - Venous No growth after 48 hours. 04/30/23 02:06 Blood Culture - Preliminary Blood - Venous No growth after 48 hours. Assessment and Plan (1) Hyponatremia: Status: Acute Plan 62M with no significan tPM was admitted 04/26/23 with hemautria, jennfier, uremia, anemia. course complicated etoh withdrawal, hyponatremia Acute kidney injury complicated by acute metabolic encephalopathy, acute metabolic acidosis Nephrology following closely Monitor labs Acute blood loss anemia Due to hematuria, monitor closely Urinary obstruction due to prostatomegaly with concern for prostate cancer Continue Lew, urology following Hyponatremia Resolved dvt prophylaxis - mechanical full code reason for continued hospitalization:severe anemia Time Spent With Patient Time: Total time managing care of this patient today ____ minutes. Quality Stroke Does the patient have a stroke diagnosis?: No VTE Prior VTE?: No VTE Risk Level:: Medical - moderate - high VTE Device Contraindication: N/A - Device Ordered VTE Drug Contraindication: Treatment Not Indicated
--- NOTE | 2023-05-02 10:43 | MHC.SLORD ---
Speech Language Pathology Order Status: Pt off floor, away at dialysis. Per RN, pt took only few bites of breakfast, did not eat much. Pt is on a chopped diet (NDD3) with thin liquids. TUBE AND MANIFOLD BUILDER will continue to follow as needed during inpatient stay.
--- NOTE | 2023-05-02 11:56 | MHC.CM.PN ---
EMR reviewed and per MD rounds, pt is not medically cleared for D/C home due to severe anemia. CM will continue to follow.
[2023-05-02 14:45] LABS: Hematocrit 22.3 % (42.0-52.0); Hemoglobin 7.6 g/dl (14.0-18.0)
[2023-05-02 14:57] LABS: Vancomycin Random 11.8 mcg/mL (15-20)
--- NOTE | 2023-05-02 15:33 | MHC.SL.SWA ---
Speech Pathologist Impression: Oral phase dysphagia Risk of Aspiration Due to: Lethargy Dysphasia Diet Status: No change Liquid Consistency and Strategies for Safe Swallow: Liquid Intake Recommendation: Thin Liquid Intake Strategies: Small Sips Solid Food Consistency: Dietary Recommendations: Chopped/Advanced (NDD3) Additional Modifications to Solid Foods: Pt w/ mild oral phase dysphagia characterized by slowed and prolonged oral preparation on hard solids. Continue on a CHOPPED/ADVANCED (NDD3) diet to reduce fatigue during meals, and THIN liquids, pills WHOLE in LIQUID. DIGESTER HAND to continue to follow to monitor tolerance and re-assess for potential upgrade as pt's overall condition improves. Oral Medication Intake: Whole with Liquid Please contact the pharmacy regarding appropriate crushable or liquid drug formulations that are available whenever modified delivery is recommended. Compensatory Strategies and Precautions to be Taken for Safe Swallow: Sitting Upright (90 deg) Double Swallow Small Bites and Sips Alternate Liquids/Solids Rate of Ingestion Change Supervision While Eating and Drinking for Safe Swallow: Intermittent Supervision Swallowing Recommended Treatments: Compens. Strategy Educat. Recommendation for Speech: Inpatient Speech Therapy Comment: Frequency/Duration: M-F PRN Date Range for Service Req: Timeline to reassess: Talent Acquisition Coordinator Clinican/Clinical Fellow: No Supervisory Statement: I have reviewed and agree with the student/clinical fellow's documentation: N/A Speech Language Pathologist: Sabrina Mace M.A., CCC-DIGESTER HAND
[2023-05-02] MEDS: vancomycin HCL 500 MG in 0.9 % Sodium Chloride 100 ML 110 MG IV (15:39)
--- NOTE | 2023-05-02 16:27 | PC.NURSE ---
MD Razo aware pt BP elevated at 188/77, no new orders at this time.
--- NOTE | 2023-05-02 22:15 | P.PNNP_ITS ---
Subjective Subjective Date of Service: 05/02/23 Interval history: Pt seen on HD earlier Feels better Hematuria better Physical Exam 2 Vital Signs: Vital Signs: Last Vital Signs Temp 98.9 F 05/02/23 20:00 Pulse 86 05/02/23 20:00 Resp 16 05/02/23 20:00 BP 158/76 H 05/02/23 20:00 Pulse Ox 99 05/02/23 20:00 O2 Del Method Room Air 05/02/23 20:00 O2 Flow Rate 2 04/29/23 18:41 FiO2 95 04/29/23 20:59 BMI result Body Mass Index 26.4 tolerated dialysis in sinus rhythm rate 88 oxygen saturation 92% no respiratory difficulties blood pressure 110/43 mean of 66 bedside echo with preserved LV function no change abdomen soft no organomegaly lungs with no adventitious sounds Objective Data Labs 05/02/23 14:21 05/02/23 05:16 Labs: Laboratory Results - last 24 hr 05/02/23 05/02/23 05:16 14:21 Hgb 7.6 L Hct 22.3 L Hold Purple Top SEE NOTE Creatinine 6.68 H* Estim Creat Clear Calc 11.4 Estimated GFR 8 Random Vancomycin 11.8 L Microbiology Microbiology Results: Microbiology 04/30/23 02:06 Blood - Venous Blood Culture - Preliminary No growth after 48 hours. 04/30/23 02:06 Blood - Venous Blood Culture - Preliminary No growth after 48 hours. Procedures Date of Service Date of Service: 05/02/23 Assessment & Plan Assessment and plan (1) KIERA (acute kidney injury): Status: Acute Assessment and Plan: KIERA due to obstructive uropathy Pt uremic CT scan of the abdomen c/w bilateral hydronephrosis in the setting of bladder outlet obstruction unknown chronicity of obstructive uropathy he may have end stage kidney disease due to chronic obstructive uropathy Hyponatremia - Acute 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 REC D/w pt and I Medical team HD today ( 3rd Rx) No HD over the week end Plan for Permcath on Friday tamsulosin iron profile- Fe stores are high - Had epo in AM 20 K s/q given this week transfuse for Hb < 7 follow kidney function and electrolytes (2) Urinary retention with incomplete bladder emptying: Status: Acute (3) Bladder outlet obstruction: Status: Acute (4) Benign enlargement of prostate: Status: Acute (5) Uremia: Status: Acute (6) Hyponatremia: Status: Acute (7) Metabolic acidosis: Status: Acute (8) Anemia: Status: Acute (9) Difficult Lew catheter placement: Status: Acute Time Spent With Patient Time: Total time managing care of this patient today ____ minutes. Progress Note: Quality Stroke Does the patient have a stroke diagnosis?: No
[2023-05-03] VITALS (7 sets, daily range): BP systolic 141–176; BP diastolic 71–78; PULSE 81–98; RESP 16–20; TEMP 36.4–36.9; O2SAT 95–100
[2023-05-03 07:08] LABS: Mean Corpuscular HGB Conc 34.1 g/dl (31.0-36.0); Mean Corpuscular Hemoglobin 30.3 pg (27.0-33.0); Mean Corpuscular Volume 88.7 fL (80.0-98.0); Mean Platelet Volume 10.6 fL (9.4-12.4); Platelet Count 205 X10*3/uL (160-400); Red Blood Count 2.31 X10*6/uL (4.60-5.80); Red Cell Distribution Width 14.7 % (11.0-16.0); White Blood Count 6.6 X10*3/uL (4.8-10.8)
[2023-05-03 07:31] LABS: Anion Gap 15 (12-20); Blood Urea Nitrogen 36 mg/dL (9-16); Calcium 8.7 mg/dL (8.4-10.2); Carbon Dioxide 24 mmol/L (22-29); Chloride 101 mmol/L (96-108); Creatinine Clr Calc Pharmacy 14.8; Estimated Glomerular Filt Rate 13; Glucose Fasting 120 mg/dL (60-99); Potassium 3.2 mmol/L (3.3-5.1); Sodium 137 mmol/L (135-145)
[2023-05-03 08:25] LABS: Hematocrit 20.5 % (42.0-52.0)
[2023-05-03] MEDS: Famotidine/PF 20 MG/2 ML VIAL IVPUSH (09:50)
[2023-05-03] MEDS: Sevelamer Carbonate Tablet 800 MG TABLET PO (09:50)
[2023-05-03] MEDS: Docusate Sodium 100 MG CAPSULE PO (09:51)
[2023-05-03] MEDS: PHENobarbitaL 15 MG TABLET PO (09:51)
[2023-05-03] MEDS: 0.9 % Sodium Chloride Flush 3 ML SYRINGE IVFLUSH ×3 (09:51→22:57)
--- NOTE | 2023-05-03 10:18 | HO.PM.IMPN ---
Subjective Subjective Date of Service: 05/03/23 Interval History: weakness Physical Exam Vital Signs: Vital Signs: Last Vital Signs Temp 97.6 F 05/03/23 07:12 Pulse 81 05/03/23 07:12 Resp 18 05/03/23 07:12 BP 155/72 H 05/03/23 07:12 Pulse Ox 95 05/03/23 07:12 O2 Del Method Room Air 05/03/23 07:12 O2 Flow Rate 2 04/29/23 18:41 FiO2 95 04/29/23 20:59 BMI result Body Mass Index 26.4 tolerated dialysis in sinus rhythm rate 88 oxygen saturation 92% no respiratory difficulties blood pressure 110/43 mean of 66 bedside echo with preserved LV function no change abdomen soft no organomegaly lungs with no adventitious sounds Objective Data Active Medications Docusate Sodium (Docusate Sodium 100 Mg Capsule) 100 mg PO DAILY PRN PRN Reason: Constipation Last Admin: 05/03/23 09:51 Dose: 100 mg Documented By: ANISHA Famotidine (Famotidine/Pf 20 Mg/2 Ml Vial) 20 mg IVPUSH DAILY [facility] Last Admin: 05/03/23 09:50 Dose: 20 mg Documented By: ANISHA Vancomycin HCl 500 mg/ Sodium (Chloride) 110 mls @ 110 mls/hr IV ONCE ONE Stop: 05/01/23 08:59 Melatonin (Melatonin 3 Mg Tablet) 6 mg PO BEDTIME PRN PRN Reason: Insomnia Morphine Sulfate (Morphine Sulfate 2 Mg/Ml Cartridge) 2 mg IVPUSH Q4H PRN; Protocol PRN Reason: moderate pain Ondansetron HCl (Ondansetron Odt 4 Mg Tab.Rapdis) 4 mg TRANSLINGU Q6H PRN PRN Reason: Nausea and Vomiting Pharmacy Consult (Consult Rx Etoh Phenob Im/Po) 1 each MISCELLANE ONCE PRN; Protocol PRN Reason: Consult order Pharmacy Consult (Consult Rx Vancomycin Dosing) 1 each MISCELLANE DAILY PRN PRN Reason: Consult order Sevelamer Carbonate (Sevelamer Carbonate Tablet 800 Mg Tablet) 800 mg PO TIDWM [facility] Last Admin: 05/03/23 09:50 Dose: 800 mg Documented By: ANISHA Sodium Chloride (0.9 % Sodium Chloride Flush 3 Ml Syringe) 3 ml IVFLUSH QSHIFT [facility] Last Admin: 05/03/23 09:51 Dose: 3 ml Documented By: ANISHA Labs 05/03/23 06:13 05/03/23 06:13 Labs: Laboratory Results - last 24 hr 05/02/23 05/03/23 14:21 06:13 MCV 88.7 MCH 30.3 MCHC 34.1 RDW 14.7 Plt Count 205 D MPV 10.6 Absolute Nucleated RBC 0.000 Nucleated RBC % (auto) 0.0 Anion Gap 15 Estim Creat Clear Calc 14.8 Estimated GFR 13 Fasting Glucose 120 H Calcium 8.7 Random Vancomycin 11.8 L Assessment and Plan (1) Hyponatremia: Status: Acute Plan 62M with no significan tPMH was admitted 04/26/23 with hemautria, jennifer, uremia, anemia. course complicated etoh withdrawal, hyponatremia Acute kidney injury complicated by acute metabolic encephalopathy, acute metabolic acidosis Nephrology following closely Monitor labs plan for permacath friday Acute blood loss anemia Due to hematuria, monitor closely Urinary obstruction due to prostatomegaly with concern for prostate cancer Continue Lew, urology following Hyponatremia Resolved dvt prophylaxis - mechanical full code reason for continued hospitalization:severe anemia Time Spent With Patient Time: Total time managing care of this patient today ____ minutes. Quality Stroke Does the patient have a stroke diagnosis?: No VTE Prior VTE?: No VTE Risk Level:: Medical - moderate - high VTE Device Contraindication: N/A - Device Ordered VTE Drug Contraindication: Treatment Not Indicated
[2023-05-03] MEDS: polyethylene glycoL 3350 17 GM POWD.PACK PO (12:11)
--- NOTE | 2023-05-03 16:28 | P.PNNP_ITS ---
Subjective Subjective Date of Service: 05/03/23 Interval history: Feels better Physical Exam 2 Vital Signs: Vital Signs: Last Vital Signs Temp 97.9 F 05/03/23 15:38 Pulse 98 05/03/23 15:38 Resp 18 05/03/23 15:38 BP 141/71 H 05/03/23 15:38 Pulse Ox 99 05/03/23 15:38 O2 Del Method Room Air 05/03/23 15:38 O2 Flow Rate 2 04/29/23 18:41 FiO2 95 04/29/23 20:59 BMI result Body Mass Index 26.4 tolerated dialysis in sinus rhythm rate 88 oxygen saturation 92% no respiratory difficulties blood pressure 110/43 mean of 66 bedside echo with preserved LV function no change abdomen soft no organomegaly lungs with no adventitious sounds Objective Data Labs 05/03/23 06:13 05/03/23 06:13 Labs: Laboratory Results - last 24 hr 05/03/23 06:13 WBC 6.6 RBC 2.31 L Hgb 7.0 L* Hct 20.5 L* MCV 88.7 MCH 30.3 MCHC 34.1 RDW 14.7 Plt Count 205 D MPV 10.6 Absolute Nucleated RBC 0.000 Nucleated RBC % (auto) 0.0 Sodium 137 Potassium 3.2 L Chloride 101 Carbon Dioxide 24 Anion Gap 15 BUN 36 H Creatinine 4.58 H* Estim Creat Clear Calc 14.8 Estimated GFR 13 Fasting Glucose 120 H Calcium 8.7 Microbiology Microbiology Results: Microbiology 04/30/23 02:06 Blood - Venous Blood Culture - Preliminary No growth after 48 hours. 04/30/23 02:06 Blood - Venous Blood Culture - Preliminary No growth after 48 hours. Procedures Date of Service Date of Service: 05/03/23 Assessment & Plan Assessment and plan (1) KIERA (acute kidney injury): Status: Acute Assessment and Plan: KIERA due to obstructive uropathy Pt uremic CT scan of the abdomen c/w bilateral hydronephrosis in the setting of bladder outlet obstruction unknown chronicity of obstructive uropathy he may have end stage kidney disease due to chronic obstructive uropathy Hyponatremia - Acute 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 REC D/w pt and Medical team No hd over week end No HD over the week end Plan for Permcath on Friday- If Cr better can cancel tamsulosin iron profile- Fe stores are high - Had epo in AM 20 K s/q given this week transfuse for Hb < 7 follow kidney function and electrolytes (2) Bladder outlet obstruction: Status: Acute (3) Urinary retention with incomplete bladder emptying: Status: Acute (4) Benign enlargement of prostate: Status: Acute (5) Uremia: Status: Acute (6) Hyponatremia: Status: Acute (7) Metabolic acidosis: Status: Acute (8) Anemia: Status: Acute (9) Difficult Lew catheter placement: Status: Acute Time Spent With Patient Time: Total time managing care of this patient today ____ minutes. Progress Note: Quality Stroke Does the patient have a stroke diagnosis?: No
[2023-05-04] VITALS (8 sets, daily range): BP systolic 149–188; BP diastolic 71–94; PULSE 90–102; RESP 17–20; TEMP 36.4–37.3; O2SAT 97–100
[2023-05-04 06:28] LABS: Mean Corpuscular HGB Conc 33.3 g/dl (31.0-36.0); Mean Corpuscular Hemoglobin 29.8 pg (27.0-33.0); Mean Corpuscular Volume 89.4 fL (80.0-98.0); Mean Platelet Volume 10.3 fL (9.4-12.4); Platelet Count 226 X10*3/uL (160-400); Red Blood Count 2.35 X10*6/uL (4.60-5.80); Red Cell Distribution Width 14.4 % (11.0-16.0); White Blood Count 6.6 X10*3/uL (4.8-10.8)
[2023-05-04 06:51] LABS: Anion Gap 17 (12-20); Blood Urea Nitrogen 44 mg/dL (9-16); Calcium 8.8 mg/dL (8.4-10.2); Carbon Dioxide 23 mmol/L (22-29); Chloride 99 mmol/L (96-108); Glucose Fasting 120 mg/dL (60-99); Potassium 3.3 mmol/L (3.3-5.1); Sodium 136 mmol/L (135-145)
[2023-05-04 07:01] LABS: Creatinine Clr Calc Pharmacy 13.6; Estimated Glomerular Filt Rate 12
[2023-05-04] MEDS: amLODIPine Besylate 5 MG TABLET PO (07:50)
[2023-05-04] MEDS: Sevelamer Carbonate Tablet 800 MG TABLET PO ×3 (07:50→16:18)
[2023-05-04] MEDS: Famotidine/PF 20 MG/2 ML VIAL IVPUSH (07:50)
[2023-05-04] MEDS: Potassium Chloride ER 20 MEQ TAB.ER.PRT 40 MEQ PO (07:50)
[2023-05-04] MEDS: 0.9 % Sodium Chloride Flush 3 ML SYRINGE IVFLUSH (07:50)
--- NOTE | 2023-05-04 09:20 | P.PNIM_ITS ---
Subjective Subjective Date of Service: 05/04/23 Interval History: weakness Physical Exam 2 Vital Signs: Vital Signs: Last Vital Signs Temp 98.4 F 05/04/23 07:12 Pulse 98 05/04/23 07:12 Resp 18 05/04/23 07:12 BP 188/85 H 05/04/23 07:12 Pulse Ox 98 05/04/23 07:12 O2 Del Method Room Air 05/04/23 07:12 O2 Flow Rate 2 04/29/23 18:41 FiO2 95 04/29/23 20:59 BMI result Body Mass Index 26.4 tolerated dialysis in sinus rhythm rate 88 oxygen saturation 92% no respiratory difficulties blood pressure 110/43 mean of 66 bedside echo with preserved LV function no change abdomen soft no organomegaly lungs with no adventitious sounds Objective Data Active Medications Amlodipine Besylate (Amlodipine Besylate 5 Mg Tablet) 5 mg PO DAILY [facility]; Protocol Last Admin: 05/04/23 07:50 Dose: 5 mg Documented By: DANNY Docusate Sodium (Docusate Sodium 100 Mg Capsule) 100 mg PO DAILY PRN PRN Reason: Constipation Last Admin: 05/03/23 09:51 Dose: 100 mg Documented By: ADA-SHANIKA Famotidine (Famotidine/Pf 20 Mg/2 Ml Vial) 20 mg IVPUSH DAILY [facility] Last Admin: 05/04/23 07:50 Dose: 20 mg Documented By: DANNY Vancomycin HCl 500 mg/ Sodium (Chloride) 110 mls @ 110 mls/hr IV ONCE ONE Stop: 05/01/23 08:59 Melatonin (Melatonin 3 Mg Tablet) 6 mg PO BEDTIME PRN PRN Reason: Insomnia Morphine Sulfate (Morphine Sulfate 2 Mg/Ml Cartridge) 2 mg IVPUSH Q4H PRN; Protocol PRN Reason: moderate pain Ondansetron HCl (Ondansetron Odt 4 Mg Tab.Rapdis) 4 mg TRANSLINGU Q6H PRN PRN Reason: Nausea and Vomiting Pharmacy Consult (Consult Rx Etoh Phenob Im/Po) 1 each MISCELLANE ONCE PRN; Protocol PRN Reason: Consult order Pharmacy Consult (Consult Rx Vancomycin Dosing) 1 each MISCELLANE DAILY PRN PRN Reason: Consult order Sevelamer Carbonate (Sevelamer Carbonate Tablet 800 Mg Tablet) 800 mg PO TIDWM [facility] Last Admin: 05/04/23 07:50 Dose: 800 mg Documented By: DANNY Sodium Chloride (0.9 % Sodium Chloride Flush 3 Ml Syringe) 3 ml IVFLUSH QSHIFT [facility] Last Admin: 05/04/23 07:50 Dose: 3 ml Documented By: MIRAARTWaleska Labs 05/04/23 05:50 05/04/23 05:50 Labs: Laboratory Results - last 24 hr 05/04/23 05/04/23 05:50 08:15 MCV 89.4 MCH 29.8 MCHC 33.3 RDW 14.4 Plt Count 226 MPV 10.3 Absolute Nucleated RBC 0.000 Nucleated RBC % (auto) 0.0 Anion Gap 17 Estim Creat Clear Calc 13.6 Estimated GFR 12 Fasting Glucose 120 H Calcium 8.8 Crossmatch See Detail Assessment and Plan (1) Hyponatremia: Status: Acute Plan 62M with no significan tPMTaina was admitted 04/26/23 with hemautria, jennifer, uremia, anemia. course complicated etoh withdrawal, hyponatremia Acute kidney injury complicated by acute metabolic encephalopathy, acute metabolic acidosis encephalopathy improved started on HD plan for permacath friday Acute blood loss anemia Due to hematuria, transfuse antoher unit today monitor Urinary obstruction due to prostatomegaly with concern for prostate cancer Continue Lew, urology following Hyponatremia Resolved dvt prophylaxis - mechanical full code reason for continued hospitalization:need for HD Time Spent With Patient Time: Total time managing care of this patient today ____ minutes. Quality Stroke Does the patient have a stroke diagnosis?: No VTE Prior VTE?: No VTE Risk Level:: Medical - moderate - high VTE Device Contraindication: N/A - Device Ordered VTE Drug Contraindication: Treatment Not Indicated
--- NOTE | 2023-05-04 13:06 | P.PNNP_ITS ---
Subjective Subjective Date of Service: 05/04/23 Interval history: Pt feels much better CBI in progress cr up to 5.1 Physical Exam 2 Vital Signs: Vital Signs: Last Vital Signs Temp 98.3 F 05/04/23 12:53 Pulse 98 05/04/23 12:53 Resp 17 05/04/23 12:53 BP 158/89 H 05/04/23 12:53 Pulse Ox 98 05/04/23 11:18 O2 Del Method Room Air 05/04/23 11:18 O2 Flow Rate 2 04/29/23 18:41 FiO2 95 04/29/23 20:59 BMI result Body Mass Index 26.4 tolerated dialysis in sinus rhythm rate 88 oxygen saturation 92% no respiratory difficulties blood pressure 110/43 mean of 66 bedside echo with preserved LV function no change abdomen soft no organomegaly lungs with no adventitious sounds Objective Data Labs 05/04/23 05:50 05/04/23 05:50 Labs: Laboratory Results - last 24 hr 05/04/23 05/04/23 05:50 08:15 WBC 6.6 RBC 2.35 L Hgb 7.0 L* Hct 21.0 L* MCV 89.4 MCH 29.8 MCHC 33.3 RDW 14.4 Plt Count 226 MPV 10.3 Absolute Nucleated RBC 0.000 Nucleated RBC % (auto) 0.0 Sodium 136 Potassium 3.3 Chloride 99 Carbon Dioxide 23 Anion Gap 17 BUN 44 H Creatinine 5.01 H* Estim Creat Clear Calc 13.6 Estimated GFR 12 Fasting Glucose 120 H Calcium 8.8 Blood Type B Positive Antibody Screen NEGATIVE Crossmatch See Detail Microbiology Microbiology Results: Microbiology 04/30/23 02:06 Blood - Venous Blood Culture - Preliminary No growth after 48 hours. 04/30/23 02:06 Blood - Venous Blood Culture - Preliminary No growth after 48 hours. Procedures Date of Service Date of Service: 05/04/23 Assessment & Plan Assessment and plan (1) CKD (chronic kidney disease) stage 5, GFR less than 15 ml/min: Status: Acute (2) KIERA (acute kidney injury): Status: Acute Assessment and Plan: KIERA due to obstructive uropathy Pt uremic CT scan of the abdomen c/w bilateral hydronephrosis in the setting of bladder outlet obstruction unknown chronicity of obstructive uropathy/ Unknown baseline He likeley have end stage kidney disease due to chronic obstructive uropathy Hyponatremia - Acute - resolved Nephrogenic anemia REC D/w pt and Medical team No hd over week end Plan for Permcath on Friday- Cr increasing off HD- Ordredcby medical team - Keep pt NPO post MN Coag profile and platelets - OK Flomax iron profile- Fe stores are high - Had epo in AM 20 K s/q given this week Sec Hyperparathydism _ Started on Calcitriol 0.5 mcg daily transfuse for Hb < 7 follow kidney function and electrolytes (3) Urinary retention with incomplete bladder emptying: Status: Acute (4) Bladder outlet obstruction: Status: Acute (5) Benign enlargement of prostate: Status: Acute (6) Uremia: Status: Acute (7) Hyponatremia: Status: Acute (8) Metabolic acidosis: Status: Acute (9) Anemia: Status: Acute (10) Difficult Lew catheter placement: Status: Acute Time Spent With Patient Time: Total time managing care of this patient today ____ minutes. Progress Note: Quality Stroke Does the patient have a stroke diagnosis?: No
[2023-05-04] MEDS: calcitrioL 0.25 MCG CAPSULE 0.5 MCG PO (13:20)
[2023-05-04 20:53] LABS: Glucose, Whole Blood 126 mg/dL (60-115)
[2023-05-05] VITALS (7 sets, daily range): BP systolic 128–170; BP diastolic 62–86; PULSE 88–99; RESP 16–20; TEMP 36.3–37.2; O2SAT 95–100; BMI 28.1
[2023-05-05] MEDS: 0.9 % Sodium Chloride Flush 3 ML SYRINGE IVFLUSH ×3 (04:03→17:39)
[2023-05-05 06:35] LABS: Hematocrit 25.1 % (42.0-52.0); Hemoglobin 8.5 g/dl (14.0-18.0); Mean Corpuscular HGB Conc 33.9 g/dl (31.0-36.0); Mean Corpuscular Hemoglobin 30.4 pg (27.0-33.0); Mean Corpuscular Volume 89.6 fL (80.0-98.0); Mean Platelet Volume 9.8 fL (9.4-12.4); Platelet Count 251 X10*3/uL (160-400); Red Cell Distribution Width 14.2 % (11.0-16.0); White Blood Count 7.4 X10*3/uL (4.8-10.8)
[2023-05-05 06:41] LABS: INTERNATIONAL NORM RATIO 1.1 (0.9-1.1); Prothrombin Time 13.2 SEC (11.1-13.3)
[2023-05-05 07:33] LABS: Anion Gap 17 (12-20); Blood Urea Nitrogen 48 mg/dL (9-16); Calcium 8.7 mg/dL (8.4-10.2); Carbon Dioxide 24 mmol/L (22-29); Chloride 101 mmol/L (96-108); Creatinine Clr Calc Pharmacy 13.4; Estimated Glomerular Filt Rate 12; Glucose Fasting 103 mg/dL (60-99); Potassium 3.8 mmol/L (3.3-5.1); Sodium 138 mmol/L (135-145)
[2023-05-05] MEDS: Famotidine/PF 20 MG/2 ML VIAL IVPUSH (08:14)
[2023-05-05] MEDS: Sevelamer Carbonate Tablet 800 MG TABLET PO ×3 (08:14→17:39)
[2023-05-05] MEDS: calcitrioL 0.25 MCG CAPSULE 0.5 MCG PO (08:14)
[2023-05-05] MEDS: amLODIPine Besylate 5 MG TABLET PO (08:14)
--- NOTE | 2023-05-05 08:44 | HO.PM.IMPN ---
Subjective Subjective Date of Service: 05/05/23 Interval History: hematuria Physical Exam Vital Signs: Vital Signs: Last Vital Signs Temp 98.6 F 05/05/23 07:58 Pulse 94 05/05/23 07:58 Resp 18 05/05/23 07:58 BP 129/75 05/05/23 07:58 Pulse Ox 98 05/05/23 07:58 O2 Del Method Room Air 05/05/23 07:58 O2 Flow Rate 2 04/29/23 18:41 FiO2 95 04/29/23 20:59 BMI result Body Mass Index 28.1 tolerated dialysis in sinus rhythm rate 88 oxygen saturation 92% no respiratory difficulties blood pressure 110/43 mean of 66 bedside echo with preserved LV function no change abdomen soft no organomegaly lungs with no adventitious sounds Objective Data Active Medications Amlodipine Besylate (Amlodipine Besylate 5 Mg Tablet) 5 mg PO DAILY [facility]; Protocol Last Admin: 05/05/23 08:14 Dose: 5 mg Documented By: KAROLINA Calcitriol (Calcitriol 0.25 Mcg Capsule) 0.5 mcg PO DAILY [facility] Last Admin: 05/05/23 08:14 Dose: 0.5 mcg Documented By: KAROLINA Docusate Sodium (Docusate Sodium 100 Mg Capsule) 100 mg PO DAILY PRN PRN Reason: Constipation Last Admin: 05/03/23 09:51 Dose: 100 mg Documented By: ANISHA Famotidine (Famotidine/Pf 20 Mg/2 Ml Vial) 20 mg IVPUSH DAILY [facility] Last Admin: 05/05/23 08:14 Dose: 20 mg Documented By: KAROLINA Vancomycin HCl 500 mg/ Sodium (Chloride) 110 mls @ 110 mls/hr IV ONCE ONE Stop: 05/01/23 08:59 Melatonin (Melatonin 3 Mg Tablet) 6 mg PO BEDTIME PRN PRN Reason: Insomnia Morphine Sulfate (Morphine Sulfate 2 Mg/Ml Cartridge) 2 mg IVPUSH Q4H PRN; Protocol PRN Reason: moderate pain Ondansetron HCl (Ondansetron Odt 4 Mg Tab.Rapdis) 4 mg TRANSLINGU Q6H PRN PRN Reason: Nausea and Vomiting Pharmacy Consult (Consult Rx Etoh Phenob Im/Po) 1 each MISCELLANE ONCE PRN; Protocol PRN Reason: Consult order Pharmacy Consult (Consult Rx Vancomycin Dosing) 1 each MISCELLANE DAILY PRN PRN Reason: Consult order Sevelamer Carbonate (Sevelamer Carbonate Tablet 800 Mg Tablet) 800 mg PO TIDWM [facility] Last Admin: 05/05/23 08:14 Dose: 800 mg Documented By: KAROLINA Sodium Chloride (0.9 % Sodium Chloride Flush 3 Ml Syringe) 3 ml IVFLUSH QSHIFT [facility] Last Admin: 05/05/23 08:15 Dose: 3 ml Documented By: KAROLINA Labs 05/05/23 06:08 05/05/23 06:08 Labs: Laboratory Results - last 24 hr 05/04/23 05/04/23 05/05/23 08:15 20:49 06:08 MCV 89.6 MCH 30.4 MCHC 33.9 RDW 14.2 Plt Count 251 MPV 9.8 Absolute Nucleated RBC 0.000 Nucleated RBC % (auto) 0.0 PT 13.2 INR 1.1 Anion Gap 17 Estim Creat Clear Calc 13.4 Estimated GFR 12 POC Glucose 126 H Fasting Glucose 103 H Calcium 8.7 Blood Type B Positive Antibody Screen NEGATIVE Crossmatch See Detail Microbiology Microbiology Results: Microbiology 04/30/23 02:06 Blood Culture - Final Blood - Venous No growth after 5 days. 04/30/23 02:06 Blood Culture - Final Blood - Venous No growth after 5 days. Assessment and Plan (1) Hyponatremia: Status: Acute Plan 62M with no significan Reinaldo was admitted 04/26/23 with hemautria, jennifer, uremia, anemia. course complicated etoh withdrawal, hyponatremia Acute kidney injury complicated by acute metabolic encephalopathy, acute metabolic acidosis encephalopathy improved started on HD plan for permacath today, 05/05 Acute blood loss anemia Due to hematuria monitor Urinary obstruction due to prostatomegaly with concern for prostate cancer Continue Lew, cbi as needed, urology following Hyponatremia Resolved dvt prophylaxis - mechanical full code reason for continued hospitalization:need for HD Time Spent With Patient Time: Total time managing care of this patient today ____ minutes. Quality Stroke Does the patient have a stroke diagnosis?: No VTE Prior VTE?: No VTE Risk Level:: Medical - moderate - high VTE Device Contraindication: N/A - Device Ordered VTE Drug Contraindication: Treatment Not Indicated
--- NOTE | 2023-05-05 09:06 | MHC.SLORD ---
Speech Language Pathology Order Status: Pt is NPO for Permcath- No PO trials given this date.
--- NOTE | 2023-05-05 10:08 | MHC.CM.PN ---
Per ROUNDS discussion, Patient is a new HD patient and getting a permacath today. Patient would benefit from a PT eval to assist with disposition. CM will follow.
--- NOTE | 2023-05-05 18:41 | P.PNNP_ITS ---
Subjective Subjective Date of Service: 05/05/23 Interval history: Seen and examined,events noted Physical Exam 2 Vital Signs: Vital Signs: Last Vital Signs Temp 97.4 F 05/05/23 15:35 Pulse 99 05/05/23 15:35 Resp 20 05/05/23 15:35 BP 170/86 H 05/05/23 15:35 Pulse Ox 97 05/05/23 15:35 O2 Del Method Room Air 05/05/23 15:35 O2 Flow Rate 2 04/29/23 18:41 FiO2 95 04/29/23 20:59 BMI result Body Mass Index 28.1 Const: General: alert and awake HEENT: Head: Yes normocephalic and Yes atraumatic Neck: Neck: Yes supple Resp: Auscultation: clear to auscultation bilaterally Cardio: Heart sounds: S1 normal heart sound present and S2 normal heart sound present GI: Palpation (GI): Soft to palpation and nontender Extrem: General: Yes normal to inspection Objective Data Labs 05/05/23 06:08 05/05/23 06:08 Labs: Laboratory Results - last 24 hr 05/04/23 05/05/23 20:49 06:08 WBC 7.4 RBC 2.80 L Hgb 8.5 L D Hct 25.1 L MCV 89.6 MCH 30.4 MCHC 33.9 RDW 14.2 Plt Count 251 MPV 9.8 Absolute Nucleated RBC 0.000 Nucleated RBC % (auto) 0.0 PT 13.2 INR 1.1 Sodium 138 Potassium 3.8 Chloride 101 Carbon Dioxide 24 Anion Gap 17 BUN 48 H Creatinine 5.06 H* Estim Creat Clear Calc 13.4 Estimated GFR 12 POC Glucose 126 H Fasting Glucose 103 H Calcium 8.7 Microbiology Microbiology Results: Microbiology 04/30/23 02:06 Blood - Venous Blood Culture - Final No growth after 5 days. 04/30/23 02:06 Blood - Venous Blood Culture - Final No growth after 5 days. Procedures Date of Service Date of Service: 05/05/23 Assessment & Plan Assessment and plan (1) CKD (chronic kidney disease) stage 5, GFR less than 15 ml/min: Status: Acute (2) KIERA (acute kidney injury): Status: Acute Assessment and Plan: KIERA due to obstructive uropathy and given clinical response thus far it appears he may indeed be at ESRD and time will tell In the mean time he is HD dependent CT scan of the abdomen c/w bilateral hydronephrosis in the setting of bladder outlet obstruction unknown chronicity of obstructive uropathy/ Unknown baseline Nephrogenic anemia REC: Pcath in am and HD 05/06 Flomax EPO as ordered Sec Hyperparathydism _ Started on Calcitriol 0.5 mcg daily transfuse for Hb < 7 follow kidney function and electrolytes outpt hd spot being arranged (3) Urinary retention with incomplete bladder emptying: Status: Acute (4) Bladder outlet obstruction: Status: Acute (5) Benign enlargement of prostate: Status: Acute (6) Uremia: Status: Acute (7) Hyponatremia: Status: Acute (8) Metabolic acidosis: Status: Acute (9) Anemia: Status: Acute (10) Difficult Lew catheter placement: Status: Acute Time Spent With Patient Time: Total time managing care of this patient today ____ minutes. Progress Note: Quality Stroke Does the patient have a stroke diagnosis?: No
--- NOTE | 2023-05-05 22:54 | PC.NURSE ---
peripheral IV's removed d/t pain . Unable to place new IV at this time per RN and per nursing piping supervisor Corina. Pt stated that he is tired from the needle stick tonight
[2023-05-06] VITALS (10 sets, daily range): BP systolic 87–158; BP diastolic 55–76; PULSE 84–104; RESP 14–20; TEMP 36.1–37.7; O2SAT 96–100
[2023-05-06] MEDS: Morphine Sulfate 2 MG/ML CARTRIDGE IVPUSH (03:12)
[2023-05-06 06:38] LABS: Hemoglobin 8.5 g/dl (14.0-18.0); Mean Corpuscular Hemoglobin 30.5 pg (27.0-33.0); Mean Corpuscular Volume 89.6 fL (80.0-98.0); Mean Platelet Volume 9.7 fL (9.4-12.4); Platelet Count 269 X10*3/uL (160-400); Red Blood Count 2.79 X10*6/uL (4.60-5.80); Red Cell Distribution Width 14.4 % (11.0-16.0); White Blood Count 8.2 X10*3/uL (4.8-10.8)
[2023-05-06 07:02] LABS: Anion Gap 17 (12-20); Blood Urea Nitrogen 54 mg/dL (9-16); Carbon Dioxide 24 mmol/L (22-29); Chloride 100 mmol/L (96-108); Creatinine Clr Calc Pharmacy 15.7; Estimated Glomerular Filt Rate 12; Glucose Fasting 101 mg/dL (60-99); Potassium 3.8 mmol/L (3.3-5.1); Sodium 137 mmol/L (135-145)
[2023-05-06] MEDS: amLODIPine Besylate 5 MG TABLET PO (08:36)
[2023-05-06] MEDS: 0.9 % Sodium Chloride Flush 3 ML SYRINGE IVFLUSH ×4 (08:36→23:35)
[2023-05-06] MEDS: calcitrioL 0.25 MCG CAPSULE 0.5 MCG PO (08:36)
[2023-05-06] MEDS: Sevelamer Carbonate Tablet 800 MG TABLET PO ×2 (08:36→18:42)
[2023-05-06] MEDS: Famotidine/PF 20 MG/2 ML VIAL IVPUSH (08:36)
--- NOTE | 2023-05-06 10:02 | MHC.SPEECHCO ---
Pt NPO for procedure. Pls note, previous recommended diet of Chopped/Advanced (NDD3) and Thin Liquids when ready to advance.
--- NOTE | 2023-05-06 10:59 | P.PNIM_ITS ---
Subjective Subjective Date of Service: 05/06/23 Interval History: hematuria Physical Exam 2 Vital Signs: Vital Signs: Last Vital Signs Temp 98.5 F 05/06/23 09:05 Pulse 95 05/06/23 09:05 Resp 16 05/06/23 09:05 BP 131/76 05/06/23 09:05 Pulse Ox 96 05/06/23 07:19 O2 Del Method Room Air 05/06/23 09:05 O2 Flow Rate 2 04/29/23 18:41 FiO2 95 04/29/23 20:59 BMI result Body Mass Index 28.1 Const: General: alert and awake HEENT: Head: Yes normocephalic and Yes atraumatic Neck: Neck: Yes supple Resp: Auscultation: clear to auscultation bilaterally Cardio: Heart sounds: S1 normal heart sound present and S2 normal heart sound present GI: Palpation (GI): Soft to palpation and nontender Extrem: General: Yes normal to inspection Objective Data Active Medications Amlodipine Besylate (Amlodipine Besylate 5 Mg Tablet) 5 mg PO DAILY [facility]; Protocol Last Admin: 05/06/23 08:36 Dose: 5 mg Documented By: JACQUELIN Calcitriol (Calcitriol 0.25 Mcg Capsule) 0.5 mcg PO DAILY [facility] Last Admin: 05/06/23 08:36 Dose: 0.5 mcg Documented By: JACQUELIN Docusate Sodium (Docusate Sodium 100 Mg Capsule) 100 mg PO DAILY PRN PRN Reason: Constipation Last Admin: 05/03/23 09:51 Dose: 100 mg Documented By: ANISHA Famotidine (Famotidine/Pf 20 Mg/2 Ml Vial) 20 mg IVPUSH DAILY [facility] Last Admin: 05/06/23 08:36 Dose: 20 mg Documented By: JACQUELIN Vancomycin HCl 500 mg/ Sodium (Chloride) 110 mls @ 110 mls/hr IV ONCE ONE Stop: 05/01/23 08:59 Melatonin (Melatonin 3 Mg Tablet) 6 mg PO BEDTIME PRN PRN Reason: Insomnia Morphine Sulfate (Morphine Sulfate 2 Mg/Ml Cartridge) 2 mg IVPUSH Q4H PRN; Protocol PRN Reason: moderate pain Last Admin: 05/06/23 03:12 Dose: 2 mg Documented By: ANDREW Ondansetron HCl (Ondansetron Odt 4 Mg Tab.Rapdis) 4 mg TRANSLINGU Q6H PRN PRN Reason: Nausea and Vomiting Pharmacy Consult (Consult Rx Etoh Phenob Im/Po) 1 each MISCELLANE ONCE PRN; Protocol PRN Reason: Consult order Pharmacy Consult (Consult Rx Vancomycin Dosing) 1 each MISCELLANE DAILY PRN PRN Reason: Consult order Sevelamer Carbonate (Sevelamer Carbonate Tablet 800 Mg Tablet) 800 mg PO TIDWM [facility] Last Admin: 05/06/23 08:36 Dose: 800 mg Documented By: JACQUELIN Sodium Chloride (0.9 % Sodium Chloride Flush 3 Ml Syringe) 3 ml IVFLUSH QSHIFT [facility] Last Admin: 05/06/23 08:36 Dose: 3 ml Documented By: JACQUELIN Labs 05/06/23 05:31 05/06/23 05:31 Labs: Laboratory Results - last 24 hr 05/06/23 05:31 MCV 89.6 MCH 30.5 MCHC 34.0 RDW 14.4 Plt Count 269 MPV 9.7 Absolute Nucleated RBC 0.000 Nucleated RBC % (auto) 0.0 Anion Gap 17 Estim Creat Clear Calc 15.7 Estimated GFR 12 Fasting Glucose 101 H Calcium 9.0 Assessment and Plan (1) Hyponatremia: Status: Acute Plan 62M with no significant tPMH was admitted 04/26/23 with hemautria, jennifer, uremia, anemia. course complicated etoh withdrawal, hyponatremia Acute kidney injury complicated by acute metabolic encephalopathy, acute metabolic acidosis encephalopathy resolved started on HD plan for permacath today, 05/06 Acute blood loss anemia Due to hematuria s/p multiple prbcs monitor Urinary obstruction due to prostatomegaly with concern for metastatic prostate cancer Continue Lew, cbi as needed, urology following Hyponatremia Resolved dvt prophylaxis - mechanical due to hematuria full code dispo - likely snf with hd vs home with outpatient hd set up reason for continued hospitalization:need for HD Time Spent With Patient Time: Total time managing care of this patient today ____ minutes. Quality Stroke Does the patient have a stroke diagnosis?: No VTE Prior VTE?: No VTE Risk Level:: Medical - moderate - high VTE Device Contraindication: N/A - Device Ordered VTE Drug Contraindication: Treatment Not Indicated
[2023-05-06 18:48] LABS: Vancomycin Random 4.9 mcg/mL (15-20)
[2023-05-06] MEDS: vancomycin HCL 500 MG in 0.9 % Sodium Chloride 100 ML 110 MG IV (19:21)
--- NOTE | 2023-05-06 19:39 | P.PNNP_ITS ---
Subjective Subjective Date of Service: 05/06/23 Interval history: Seen and examined, events noted Physical Exam 2 Vital Signs: Vital Signs: Last Vital Signs Temp 97.4 F 05/06/23 19:16 Pulse 103 H 05/06/23 19:16 Resp 14 05/06/23 19:16 BP 123/74 05/06/23 19:16 Pulse Ox 100 05/06/23 19:16 O2 Del Method Room Air 05/06/23 19:16 O2 Flow Rate 2 04/29/23 18:41 FiO2 95 04/29/23 20:59 BMI result Body Mass Index 28.1 Const: General: alert and awake HEENT: Head: Yes normocephalic and Yes atraumatic Neck: Neck: Yes supple Resp: Auscultation: clear to auscultation bilaterally Cardio: Heart sounds: S1 normal heart sound present and S2 normal heart sound present GI: Palpation (GI): Soft to palpation and nontender Extrem: General: Yes normal to inspection Objective Data Labs 05/06/23 05:31 05/06/23 05:31 Labs: Laboratory Results - last 24 hr 05/06/23 05/06/23 05:31 17:58 WBC 8.2 RBC 2.79 L Hgb 8.5 L Hct 25.0 L MCV 89.6 MCH 30.5 MCHC 34.0 RDW 14.4 Plt Count 269 MPV 9.7 Absolute Nucleated RBC 0.000 Nucleated RBC % (auto) 0.0 Sodium 137 Potassium 3.8 Chloride 100 Carbon Dioxide 24 Anion Gap 17 BUN 54 H Creatinine 4.76 H* Estim Creat Clear Calc 15.7 Estimated GFR 12 Fasting Glucose 101 H Calcium 9.0 Random Vancomycin 4.9 L Microbiology Microbiology Results: Microbiology 04/30/23 02:06 Blood - Venous Blood Culture - Final No growth after 5 days. 04/30/23 02:06 Blood - Venous Blood Culture - Final No growth after 5 days. Procedures Date of Service Date of Service: 05/06/23 Assessment & Plan Assessment and plan (1) CKD (chronic kidney disease) stage 5, GFR less than 15 ml/min: Status: Acute (2) KIERA (acute kidney injury): Status: Acute Assessment and Plan: KIERA due to obstructive uropathy and given clinical response thus far it appears he may indeed be at ESRD and time will tell In the mean time he is HD dependent CT scan of the abdomen c/w bilateral hydronephrosis in the setting of bladder outlet obstruction unknown chronicity of obstructive uropathy/ Unknown baseline Nephrogenic anemia REC: cont Flomax EPO as ordered Sec Hyperparathydism _ Started on Calcitriol 0.5 mcg daily transfuse for Hb < 7 follow kidney function and electrolytes outpt hd spot being arranged (3) Urinary retention with incomplete bladder emptying: Status: Acute (4) Bladder outlet obstruction: Status: Acute (5) Benign enlargement of prostate: Status: Acute (6) Uremia: Status: Acute (7) Hyponatremia: Status: Acute (8) Metabolic acidosis: Status: Acute (9) Anemia: Status: Acute (10) Difficult Lew catheter placement: Status: Acute Time Spent With Patient Time: Total time managing care of this patient today ____ minutes. Progress Note: Quality Stroke Does the patient have a stroke diagnosis?: No
[2023-05-07 03:03] VITALS: BP 130/69; PULSE 88; RESP 20; TEMP 36.4; O2SAT 96
[2023-05-07 07:01] LABS: Hematocrit 28.1 % (42.0-52.0); Hemoglobin 9.5 g/dl (14.0-18.0); Mean Corpuscular HGB Conc 33.8 g/dl (31.0-36.0); Mean Corpuscular Hemoglobin 31.1 pg (27.0-33.0); Mean Corpuscular Volume 92.1 fL (80.0-98.0); Mean Platelet Volume 9.9 fL (9.4-12.4); Platelet Count 308 X10*3/uL (160-400); Red Blood Count 3.05 X10*6/uL (4.60-5.80); Red Cell Distribution Width 14.4 % (11.0-16.0); White Blood Count 9.5 X10*3/uL (4.8-10.8)
[2023-05-07 07:18] LABS: Anion Gap 19 (12-20); Blood Urea Nitrogen 40 mg/dL (9-16); Calcium 9.5 mg/dL (8.4-10.2); Carbon Dioxide 21 mmol/L (22-29); Chloride 98 mmol/L (96-108); Creatinine Clr Calc Pharmacy 19.7; Estimated Glomerular Filt Rate 16; Glucose Fasting 104 mg/dL (60-99); Potassium 4.6 mmol/L (3.3-5.1); Sodium 133 mmol/L (135-145)
[2023-05-07 07:33] VITALS: BP 120/63; PULSE 91; RESP 20; TEMP 37.2; O2SAT 98; BMI 27.2
--- NOTE | 2023-05-07 07:42 | HE.PHANOTE ---
ERICK HERNADEZ PT IS NOT GETTING DIALYSIS TODAY. NO DOSE WARRANTED. WILL CALL DIALYSIS TOMORROW. PT GOT A POST DIALYSIS DOSE ON 05/06 SHANTEL
[2023-05-07] MEDS: amLODIPine Besylate 5 MG TABLET PO (08:34)
[2023-05-07] MEDS: 0.9 % Sodium Chloride Flush 3 ML SYRINGE IVFLUSH ×2 (08:34→16:57)
[2023-05-07] MEDS: Famotidine/PF 20 MG/2 ML VIAL IVPUSH (08:34)
[2023-05-07] MEDS: Sevelamer Carbonate Tablet 800 MG TABLET PO ×3 (08:34→16:57)
[2023-05-07] MEDS: calcitrioL 0.25 MCG CAPSULE 0.5 MCG PO (08:34)
--- NOTE | 2023-05-07 09:10 | MHC.CM.PN ---
PT is recommending STR; CM will follow.
[2023-05-07 11:05] VITALS: BP 102/68; PULSE 97; RESP 20; TEMP 36.8; O2SAT 97
--- NOTE | 2023-05-07 12:16 | MHC.CM.PN ---
Neither of the SNFs that have on-site HD ([facility] nor [facility]) have beds to offer today. Both facilities are willing to follow for bed availability. CM also referred to [facility]. CM will continue to follow..
--- NOTE | 2023-05-07 12:21 | MHC.CM.PN ---
CM met with Patient at bedside to discuss PT's recommendation for STR; Patient is in agreement to that plan. CM asked Patient if he were to go to a SNF that did not have on-site HD, would he have a family member or Friend who could provide transport; Patient does not have anyone who could transport him to and from HD, while he is at the SNF. CM awaits a bed opening at one of the 2 onsite HD facilities. The Acute Re[facility] were not able to accept Patient.CM will follow.
--- NOTE | 2023-05-07 12:50 | MHC.SLORD ---
Addendum entered and electronically signed by KALIE Goodrich 05/07/23 16:30: Per RN, patient also tolerated regular solids at lunch. Recommend patient continue to be monitored for toleration of regular solids. AUTOMOBILE RENTAL CLERK to continue to follow. MD notified. Original Note: Speech Language Pathology Order Status: AUTOMOBILE RENTAL CLERK attempted to see patient this morning for re-evaluation of swallow. Patient refused d/t lack of hunger. Patient most recently recommended chopped/advanced solids by AUTOMOBILE RENTAL CLERK on 05/02 to reduce fatigue during meals. Patient's diet currently listed as regular solids in Expanse. Per RN, patient tolerated regular solids at breakfast this morning (pancakes). AUTOMOBILE RENTAL CLERK to re-attempt to see patient later this date. Recommend AUTOMOBILE RENTAL CLERK continue to follow to monitor toleration of regular solids.
--- NOTE | 2023-05-07 14:28 | P.PNIM_ITS ---
Subjective Subjective Date of Service: 05/07/23 Interval History: Seen and evaluated Permacath in place tolerating dialysis well Hematuria resolving Review of Systems Review of Systems: Yes all other systems are reviewed and are negative Physical Exam 2 Vital Signs: Vital Signs: Last Vital Signs Temp 98.2 F 05/07/23 11:05 Pulse 97 05/07/23 11:05 Resp 20 05/07/23 11:05 BP 102/68 05/07/23 11:05 Pulse Ox 97 05/07/23 11:05 O2 Del Method Room Air 05/07/23 11:05 O2 Flow Rate 2 04/29/23 18:41 FiO2 95 04/29/23 20:59 BMI result Body Mass Index 27.2 Const: Other: Constitutional : Awake, interactive, not in distress Neck : Normal inspection, Supple Cardiovascular : RRR, no JVP, no lower extremity edema Respiratory : good bilateral air entry, no crackles, wheezes or rhonchi Gastrointestinal: soft, lax, Normal bowel sounds, Non tender Skin : Warm, Dry, Permacath in place Neurological : Alert & oriented x3, No focal deficit Objective Data Active Medications Amlodipine Besylate (Amlodipine Besylate 5 Mg Tablet) 5 mg PO DAILY [facility]; Protocol Last Admin: 05/07/23 08:34 Dose: 5 mg Documented By: JACQUELIN Calcitriol (Calcitriol 0.25 Mcg Capsule) 0.5 mcg PO DAILY [facility] Last Admin: 05/07/23 08:34 Dose: 0.5 mcg Documented By: JACQUELIN Docusate Sodium (Docusate Sodium 100 Mg Capsule) 100 mg PO DAILY PRN PRN Reason: Constipation Last Admin: 05/03/23 09:51 Dose: 100 mg Documented By: ANISHA Famotidine (Famotidine/Pf 20 Mg/2 Ml Vial) 20 mg IVPUSH DAILY [facility] Last Admin: 05/07/23 08:34 Dose: 20 mg Documented By: JACQUELIN Vancomycin HCl 500 mg/ Sodium (Chloride) 110 mls @ 110 mls/hr IV ONCE ONE Stop: 05/01/23 08:59 Melatonin (Melatonin 3 Mg Tablet) 6 mg PO BEDTIME PRN PRN Reason: Insomnia Morphine Sulfate (Morphine Sulfate 2 Mg/Ml Cartridge) 2 mg IVPUSH Q4H PRN; Protocol PRN Reason: moderate pain Last Admin: 05/06/23 03:12 Dose: 2 mg Documented By: ANDREW Ondansetron HCl (Ondansetron Odt 4 Mg Tab.Rapdis) 4 mg TRANSLINGU Q6H PRN PRN Reason: Nausea and Vomiting Pharmacy Consult (Consult Rx Etoh Phenob Im/Po) 1 each MISCELLANE ONCE PRN; Protocol PRN Reason: Consult order Pharmacy Consult (Consult Rx Vancomycin Dosing) 1 each MISCELLANE DAILY PRN PRN Reason: Consult order Sevelamer Carbonate (Sevelamer Carbonate Tablet 800 Mg Tablet) 800 mg PO TIDWM [facility] Last Admin: 05/07/23 11:53 Dose: 800 mg Documented By: JACQUELIN Sodium Chloride (0.9 % Sodium Chloride Flush 3 Ml Syringe) 3 ml IVFLUSH QSHIFT [facility] Last Admin: 05/07/23 08:34 Dose: 3 ml Documented By: JACQUELIN Labs 05/07/23 06:01 05/07/23 06:01 Labs: Laboratory Results - last 24 hr 05/06/23 05/07/23 17:58 06:01 MCV 92.1 MCH 31.1 MCHC 33.8 RDW 14.4 Plt Count 308 MPV 9.9 Absolute Nucleated RBC 0.000 Nucleated RBC % (auto) 0.0 Anion Gap 19 Estim Creat Clear Calc 19.7 Estimated GFR 16 Fasting Glucose 104 H Calcium 9.5 Random Vancomycin 4.9 L Assessment and Plan (1) Hyponatremia: Status: Acute (2) Uremia: Status: Acute (3) ESRD needing dialysis: Status: Acute Plan 62M with no significant tPMH was admitted 04/26/23 with hemautria, jennifer, uremia, anemia. course complicated etoh withdrawal, hyponatremia Acute kidney injury complicated by acute metabolic encephalopathy, acute metabolic acidosis encephalopathy resolved started on HD permacath placed 05/06 Nephro following Acute blood loss anemia Due to hematuria, resolved s/p multiple prbcs Urinary obstruction due to prostatomegaly with concern for metastatic prostate cancer Continue RODRÍGUEZ Lockhart CBI to keep lockhart at time of discharge for 2 weeks and follow with dr Louise urology following Hyponatremia Resolved dvt prophylaxis - mechanical due to hematuria full code reason for continued hospitalization:need for HD pending SNF placement Quality Stroke Does the patient have a stroke diagnosis?: No VTE Prior VTE?: No VTE Risk Level:: Medical - moderate - high VTE Device Contraindication: N/A - Device Ordered VTE Drug Contraindication: Treatment Not Indicated
[2023-05-07 15:00] VITALS: BP 138/69; PULSE 93; RESP 18; TEMP 37.2; O2SAT 94
--- NOTE | 2023-05-07 18:22 | P.PNNP_ITS ---
Subjective Subjective Date of Service: 05/07/23 Interval history: Seen and evaluated Permacath in place cont GH with CBI Physical Exam 2 Vital Signs: Vital Signs: Last Vital Signs Temp 98.9 F 05/07/23 15:00 Pulse 93 05/07/23 15:00 Resp 18 05/07/23 15:00 BP 138/69 05/07/23 15:00 Pulse Ox 94 05/07/23 15:00 O2 Del Method Room Air 05/07/23 15:00 O2 Flow Rate 2 04/29/23 18:41 FiO2 95 04/29/23 20:59 BMI result Body Mass Index 27.2 Const: General: alert and awake HEENT: Head: Yes normocephalic and Yes atraumatic Neck: Neck: Yes supple Resp: Auscultation: clear to auscultation bilaterally Cardio: Heart sounds: S1 normal heart sound present and S2 normal heart sound present GI: Palpation (GI): Soft to palpation and nontender Extrem: General: Yes normal to inspection Objective Data Labs 05/07/23 06:01 05/07/23 06:01 Labs: Laboratory Results - last 24 hr 05/06/23 05/07/23 17:58 06:01 WBC 9.5 RBC 3.05 L Hgb 9.5 L Hct 28.1 L MCV 92.1 MCH 31.1 MCHC 33.8 RDW 14.4 Plt Count 308 MPV 9.9 Absolute Nucleated RBC 0.000 Nucleated RBC % (auto) 0.0 Sodium 133 L Potassium 4.6 D Chloride 98 Carbon Dioxide 21 L Anion Gap 19 BUN 40 H Creatinine 3.78 H Estim Creat Clear Calc 19.7 Estimated GFR 16 Fasting Glucose 104 H Calcium 9.5 Random Vancomycin 4.9 L Microbiology Microbiology Results: Microbiology 04/30/23 02:06 Blood - Venous Blood Culture - Final No growth after 5 days. 04/30/23 02:06 Blood - Venous Blood Culture - Final No growth after 5 days. Procedures Date of Service Date of Service: 05/07/23 Assessment & Plan Assessment and plan (1) CKD (chronic kidney disease) stage 5, GFR less than 15 ml/min: Status: Acute (2) KIERA (acute kidney injury): Status: Acute Assessment and Plan: KIERA due to obstructive uropathy and given clinical response thus far it appears he may indeed be at ESRD but time will tell In the mean time he is HD dependent CT scan of the abdomen c/w bilateral hydronephrosis in the setting of bladder outlet obstruction unknown chronicity of obstructive uropathy/ Unknown baseline Nephrogenic anemia REC: Trial of d/c CBI cont Flomax EPO as ordered Sec Hyperparathydism _ Started on Calcitriol 0.5 mcg daily transfuse for Hb < 7 follow kidney function and electrolytes outpt hd spot being arranged (3) Urinary retention with incomplete bladder emptying: Status: Acute (4) Bladder outlet obstruction: Status: Acute (5) Benign enlargement of prostate: Status: Acute (6) Uremia: Status: Acute (7) Hyponatremia: Status: Acute (8) Metabolic acidosis: Status: Acute (9) Anemia: Status: Acute (10) Difficult Lew catheter placement: Status: Acute Time Spent With Patient Time: Total time managing care of this patient today ____ minutes. Progress Note: Quality Stroke Does the patient have a stroke diagnosis?: No
[2023-05-07 18:50] VITALS: BP 131/75; PULSE 100; RESP 16; TEMP 36.6; O2SAT 99
--- NOTE | 2023-05-07 19:10 | PC.NURSE ---
Per hospitalist, CBI stopped at 1000 this morning. Urine output remaining red tinged/rust colored with no clots. notified of urine characteristics. Urine output measured 325 mL as of 1700.
[2023-05-07] MEDS: Morphine Sulfate 2 MG/ML CARTRIDGE IVPUSH (22:26)
[2023-05-07 23:23] VITALS: BP 110/53; PULSE 86; RESP 20; TEMP 36.5; O2SAT 96
[2023-05-08] VITALS (7 sets, daily range): BP systolic 100–119; BP diastolic 51–77; PULSE 84–101; RESP 18–20; TEMP 36.2–37.1; O2SAT 95–98
[2023-05-08] MEDS: 0.9 % Sodium Chloride Flush 3 ML SYRINGE IVFLUSH ×4 (00:14→22:51)
--- NOTE | 2023-05-08 05:03 | PM.EVENT ---
Event Note Date of Service: 05/08/23 Event Note: patient with asymptomatic 16 beat vtach overnight, check lytes, consider cardio follow up Time Spent With Patient Time: Total time managing care of this patient today ____ minutes.
[2023-05-08] MEDS: calcitrioL 0.25 MCG CAPSULE 0.5 MCG PO (10:24)
[2023-05-08] MEDS: Metoprolol Tartrate 12.5 MG HALFTAB PO (10:24)
[2023-05-08] MEDS: Famotidine/PF 20 MG/2 ML VIAL IVPUSH (10:25)
--- NOTE | 2023-05-08 10:37 | PM.PNCARD ---
Subjective Subjective Date of Service: 05/08/23 Interval history: Seen and examined at bedside. Physical Exam Vital Signs: Last Vital Signs Temp 97.4 F 05/08/23 08:00 Pulse 101 H 05/08/23 08:00 Resp 18 05/08/23 08:00 BP 110/71 05/08/23 08:00 Pulse Ox 95 05/08/23 08:00 O2 Del Method Room Air 05/08/23 08:00 O2 Flow Rate 2 04/29/23 18:41 FiO2 95 04/29/23 20:59 BMI result Body Mass Index 27.2 GENERAL APPEARANCE: in no acute distress, pleasant. NECK: no carotid bruit, no jugular venous distention. SKIN: no suspicious lesions, warm and dry. Right chest wall permacath. HEART: no murmurs, regular rate and rhythm. regular tachycardia. LUNGS: clear to auscultation bilaterally. ABDOMEN: soft, nontender. EXTREMITIES: no edema. PERIPHERAL PULSES: equal. NEUROLOGIC: No gross deficits, AAO X 3 Objective Labs and Meds 05/07/23 06:01 05/07/23 06:01 Progress Note: A&P Assessment and plan (1) ESRD needing dialysis: Status: Acute (2) NSVT (nonsustained ventricular tachycardia): Status: Acute Plan Pleasant 62 year gentleman presenting with acute renal failure now on dialysis. We have been asked to see him for nonsustained VT. He has been asymptomatic. Increase metoprolol to 25 mg twice a day. He just started hemodialysis and is possible that there was some fluid shifts leading to sympathetic tone being higher as he is tachycardic at rest to with sinus tachycardia at this point. Titrate beta-blockers depending on tolerance. Monitor electrolytes. Thank you for allowing me to participate in the care of your patient. Please feel free to contact me if you have any questions. Time Spent With Patient Time: Total time managing care of this patient today ____ minutes. Progress Note: Quality Stroke Does the patient have a stroke diagnosis?: No Procedures Date of Service Date of Service: 05/08/23
--- NOTE | 2023-05-08 11:03 | MHC.SLORD ---
Speech Language Pathology Order Status: Attempted to see patient this am for PO trials, patient sleeping. Will re-attempt PM time allowing.
[2023-05-08] MEDS: Metoprolol Tartrate 25 MG TABLET PO ×2 (11:50→22:51)
[2023-05-08] MEDS: Sevelamer Carbonate Tablet 800 MG TABLET PO ×2 (11:50→17:35)
--- NOTE | 2023-05-08 12:49 | MHC.SL.SWA ---
Speech Pathologist Impression: Risk of Aspiration Due to: Lethargy Dysphasia Diet Status: Recommend patient continue on Regular Diet with Thin Liquids, pills whole with puree or liquid (larger pills in puree). Patient is now on least restrictive diet, has demonstrated some improved PO intake on this diet, however continues frequently nauseous and with limited appetite. Recommend DC Speech at this time, please reconsult if additional concerns arise. Liquid Consistency and Strategies for Safe Swallow: Liquid Intake Recommendation: Thin Liquid Intake Strategies: Small Sips Solid Food Consistency: Dietary Recommendations: Regular Additional Modifications to Solid Foods: Oral Medication Intake: Whole with Puree Please contact the pharmacy regarding appropriate crushable or liquid drug formulations that are available whenever modified delivery is recommended. Compensatory Strategies and Precautions to be Taken for Safe Swallow: Sitting Upright (90 deg) Double Swallow Small Bites and Sips Alternate Liquids/Solids Rate of Ingestion Change Supervision While Eating and Drinking for Safe Swallow: Intermittent Supervision Foods to Avoid: Swallowing Recommended Treatments: Compens. Strategy Educat. Recommendation for Speech: Inpatient Speech Therapy Comment: Patient seen at lunch. At time of visit, patient was being given medication from RN, with some large pills cut in half. Patient was attempting to take with liquid, noted to place pill on tongue, hold it, then gagged before taking liquid in mouth. Recommended attempt with apple sauce, which then allowed patient to take pill without difficulty. With lunch tray present, patient reported that he was not hungry, had recently eaten breakfast, as he had been away in dialysis all morning. Patient reports that he has not been having any difficulty with Regular Diet, which he was advanced to by MD on Friday. He reported enjoying a burger last night. Patient was observed taking sips of juanito alden, water, and taking meds with puree, all with timely swallow, no clinical signs of aspiration. Recommend patient continue on Regular Diet with Thin Liquids, pills whole with puree or liquid (larger pills in puree). Patient is now on least restrictive diet, has demonstrated some improved PO intake on this diet, however continues frequently nauseous and with limited appetite. Recommend DC Speech at this time, please reconsult if additional concerns arise. Frequency/Duration: M-F PRN Date Range for Service Req: Timeline to reassess: Education And Training Manager Clinican/Clinical Fellow: No Supervisory Statement: I have reviewed and agree with the student/clinical fellow's documentation: N/A Speech Language Pathologist: Sabrina Mace M.A., [facility]
--- NOTE | 2023-05-08 12:52 | MHC.CM.PN ---
CM received a call from Marybeth from [facility] @ [phone] and faxed all requested HD information to her @ [phone]. Marybeth indicated that she has a HD slot available for Patient M/W/F 3rd shift (arrive at 3PM). CM awaits a SNF bed offer from [facility] and [facility] auth will be necessary. BRIDGER will follow.
--- NOTE | 2023-05-08 13:02 | HO.PM.IMPN ---
Subjective Subjective Date of Service: 05/08/23 Interval History: Seen and evaluated tolerating dialysis well Hematuria resolved Review of Systems Review of Systems: Yes all other systems are reviewed and are negative Physical Exam Vital Signs: Vital Signs: Last Vital Signs Temp 97.1 F 05/08/23 11:36 Pulse 99 05/08/23 11:36 Resp 18 05/08/23 11:36 BP 100/59 L 05/08/23 11:36 Pulse Ox 96 05/08/23 11:36 O2 Del Method Room Air 05/08/23 11:36 O2 Flow Rate 2 04/29/23 18:41 FiO2 95 04/29/23 20:59 BMI result Body Mass Index 27.2 Const: Other: Constitutional : Awake, interactive, not in distress Neck : Normal inspection, Supple Cardiovascular : RRR, no JVP, no lower extremity edema Respiratory : good bilateral air entry, no crackles, wheezes or rhonchi Gastrointestinal: soft, lax, Normal bowel sounds, Non tender Skin : Warm, Dry, Permacath in place Neurological : Alert & oriented x3, No focal deficit Objective Data Active Medications Calcitriol (Calcitriol 0.25 Mcg Capsule) 0.5 mcg PO DAILY [facility] Last Admin: 05/08/23 10:24 Dose: 0.5 mcg Documented By: VANDANA Docusate Sodium (Docusate Sodium 100 Mg Capsule) 100 mg PO DAILY PRN PRN Reason: Constipation Last Admin: 05/03/23 09:51 Dose: 100 mg Documented By: ADA-SHANIKA Famotidine (Famotidine/Pf 20 Mg/2 Ml Vial) 20 mg IVPUSH DAILY [facility] Last Admin: 05/08/23 10:25 Dose: 20 mg Documented By: VANDANA Vancomycin HCl 500 mg/ Sodium (Chloride) 110 mls @ 110 mls/hr IV ONCE ONE Stop: 05/01/23 08:59 Melatonin (Melatonin 3 Mg Tablet) 6 mg PO BEDTIME PRN PRN Reason: Insomnia Metoprolol Tartrate (Metoprolol Tartrate 25 Mg Tablet) 25 mg PO BID [facility]; Protocol Ondansetron HCl (Ondansetron Odt 4 Mg Tab.Rapdis) 4 mg TRANSLINGU Q6H PRN PRN Reason: Nausea and Vomiting Pharmacy Consult (Consult Rx Etoh Phenob Im/Po) 1 each MISCELLANE ONCE PRN; Protocol PRN Reason: Consult order Pharmacy Consult (Consult Rx Vancomycin Dosing) 1 each MISCELLANE DAILY PRN PRN Reason: Consult order Sevelamer Carbonate (Sevelamer Carbonate Tablet 800 Mg Tablet) 800 mg PO TIDWM [facility] Last Admin: 05/08/23 11:50 Dose: 800 mg Documented By: VANDANA Sodium Chloride (0.9 % Sodium Chloride Flush 3 Ml Syringe) 3 ml IVFLUSH QSHIFT [facility] Last Admin: 05/08/23 10:25 Dose: 3 ml Documented By: VANDANA Labs 05/07/23 06:01 05/07/23 06:01 Assessment and Plan (1) NSVT (nonsustained ventricular tachycardia): Status: Acute (2) ESRD needing dialysis: Status: Acute Plan 62M with no significant tPMH was admitted 04/26/23 with hemautria, jennifer, uremia, anemia. course complicated etoh withdrawal, hyponatremia Acute kidney injury complicated by acute metabolic encephalopathy, acute metabolic acidosis encephalopathy resolved started on HD TTS permacath placed 05/06 Nephro following NSVT Electrolytes ok Start Metoprolol bid cardio following Acute blood loss anemia Due to hematuria, resolved s/p multiple prbcs Urinary obstruction due to prostatomegaly with concern for metastatic prostate cancer Continue LockhartRODRÍGUEZ CBI to keep lockhart at time of discharge for 2 weeks and follow with dr Louise urology following Hyponatremia Resolved dvt prophylaxis - mechanical due to hematuria full code reason for continued hospitalization:need for HD pending SNF placement Quality Stroke Does the patient have a stroke diagnosis?: No VTE Prior VTE?: No VTE Risk Level:: Medical - moderate - high VTE Device Contraindication: N/A - Device Ordered VTE Drug Contraindication: Treatment Not Indicated
[2023-05-08 13:51] LABS: Vancomycin Random 7.3 mcg/mL (15-20)
[2023-05-08 13:54] LABS: Anion Gap 16 (12-20); Blood Urea Nitrogen 32 mg/dL (9-16); Calcium 10.1 mg/dL (8.4-10.2); Carbon Dioxide 24 mmol/L (22-29); Chloride 98 mmol/L (96-108); Creatinine Clr Calc Pharmacy 21.3; Estimated Glomerular Filt Rate 20; Glucose Random 135 mg/dL (60-115); Magnesium 2.2 mg/dL (1.6-2.6); Potassium 4.5 mmol/L (3.3-5.1); Sodium 133 mmol/L (135-145)
[2023-05-08] MEDS: vancomycin HCL 500 MG in 0.9 % Sodium Chloride 100 ML 110 MG IV (14:10)
--- NOTE | 2023-05-08 15:13 | P.PNNP_ITS ---
Subjective Subjective Date of Service: 05/08/23 Interval history: Seen and evaluated tolerating dialysis well CBI d/c'd but lockhart still in place with GH Legs too weak to walk Physical Exam 2 Vital Signs: Vital Signs: Last Vital Signs Temp 98.1 F 05/08/23 15:03 Pulse 97 05/08/23 15:03 Resp 18 05/08/23 15:03 BP 119/77 05/08/23 15:03 Pulse Ox 98 05/08/23 15:03 O2 Del Method Room Air 05/08/23 15:03 O2 Flow Rate 2 04/29/23 18:41 FiO2 95 04/29/23 20:59 BMI result Body Mass Index 27.2 Const: General: alert and awake HEENT: Head: Yes normocephalic and Yes atraumatic Neck: Neck: Yes supple Resp: Auscultation: clear to auscultation bilaterally Cardio: Heart sounds: S1 normal heart sound present and S2 normal heart sound present GI: Palpation (GI): Soft to palpation and nontender Extrem: General: Yes normal to inspection Objective Data Labs 05/07/23 06:01 05/08/23 13:11 Labs: Laboratory Results - last 24 hr 05/08/23 05/08/23 05/08/23 13:11 13:11 13:11 Sodium 133 L Potassium 4.5 Chloride 98 Carbon Dioxide 24 Anion Gap 16 BUN 32 H Creatinine Cancelled 3.20 H Estim Creat Clear Calc Cancelled 21.3 Estimated GFR Cancelled Random Glucose Calcium Magnesium Random Vancomycin 05/08/23 13:11 Sodium Potassium Chloride Carbon Dioxide Anion Gap BUN Creatinine Estim Creat Clear Calc Estimated GFR 20 Random Glucose 135 H Calcium 10.1 D Magnesium 2.2 Random Vancomycin 7.3 L Microbiology Microbiology Results: Microbiology 04/30/23 02:06 Blood - Venous Blood Culture - Final No growth after 5 days. 04/30/23 02:06 Blood - Venous Blood Culture - Final No growth after 5 days. Procedures Date of Service Date of Service: 05/08/23 Assessment & Plan Assessment and plan (1) CKD (chronic kidney disease) stage 5, GFR less than 15 ml/min: Status: Acute (2) KIERA (acute kidney injury): Status: Acute Assessment and Plan: KIERA due to obstructive uropathy and given clinical response thus far it appears he may indeed be at ESRD but time will tell In the mean time he is HD dependent CT scan of the abdomen c/w bilateral hydronephrosis in the setting of bladder outlet obstruction unknown chronicity of obstructive uropathy/ Unknown baseline Nephrogenic anemia REC: d/c CBI cont Flomax EPO as ordered Sec Hyperparathydism _ Started on Calcitriol 0.5 mcg daily transfuse for Hb < 7 follow kidney function and electrolytes outpt hd spot being arranged Cont to watch for renal recovery Lockhart bag Has [facility]NE but it does not cov transportation and at ths time [facility] Ordo[facility]ez has HD spot but no bed [facility] has bed but no HD spot Staff is working on it as he remains too weak to go home per PT (3) Urinary retention with incomplete bladder emptying: Status: Acute (4) Bladder outlet obstruction: Status: Acute (5) Benign enlargement of prostate: Status: Acute (6) Uremia: Status: Acute (7) Hyponatremia: Status: Acute (8) Metabolic acidosis: Status: Acute (9) Anemia: Status: Acute (10) Difficult Lockhart catheter placement: Status: Acute Time Spent With Patient Time: Total time managing care of this patient today ____ minutes. Progress Note: Quality Stroke Does the patient have a stroke diagnosis?: No
[2023-05-09] VITALS (7 sets, daily range): BP systolic 86–121; BP diastolic 53–65; PULSE 80–92; RESP 18–20; TEMP 36.2–36.8; O2SAT 95–97; BMI 25.8
--- NOTE | 2023-05-09 08:47 | MHC.CM.PN ---
Patient has been accepted at [facility] and has a HD slot there. CM awaits [facility] auth and will continue to follow.
[2023-05-09] MEDS: Metoprolol Tartrate 25 MG TABLET PO (09:31)
[2023-05-09] MEDS: Famotidine/PF 20 MG/2 ML VIAL IVPUSH (09:31)
[2023-05-09] MEDS: calcitrioL 0.25 MCG CAPSULE 0.5 MCG PO (09:31)
[2023-05-09 09:44] LABS: Creatinine Clr Calc Pharmacy 13.1; Estimated Glomerular Filt Rate 11
[2023-05-09] MEDS: Sevelamer Carbonate Powder 800 MG POWD.PACK PO ×2 (10:03→12:41)
--- NOTE | 2023-05-09 14:25 | P.PNNP_ITS ---
Subjective Subjective Date of Service: 05/09/23 Interval history: dialyzed yesterday Physical Exam 2 Vital Signs: Vital Signs: Last Vital Signs Temp 97.8 F 05/09/23 12:00 Pulse 92 05/09/23 12:00 Resp 18 05/09/23 12:00 BP 120/57 L 05/09/23 12:00 Pulse Ox 97 05/09/23 12:00 O2 Del Method Room Air 05/09/23 12:00 O2 Flow Rate 2 04/29/23 18:41 FiO2 95 04/29/23 20:59 BMI result Body Mass Index 25.8 Const: Other: Constitutional : Awake, interactive, not in distress Neck : Normal inspection, Supple Cardiovascular : RRR, no JVP, no lower extremity edema Respiratory : good bilateral air entry, no crackles, wheezes or rhonchi Gastrointestinal: soft, lax, Normal bowel sounds, Non tender Skin : Warm, Dry, Permacath in place Neurological : Alert & oriented x3, No focal deficit Objective Data Labs 05/07/23 06:01 05/09/23 08:14 Labs: Laboratory Results - last 24 hr 05/09/23 08:14 Hold Purple Top SEE NOTE Creatinine 5.18 H* Estim Creat Clear Calc 13.1 Estimated GFR 11 Microbiology Microbiology Results: Microbiology 04/30/23 02:06 Blood - Venous Blood Culture - Final No growth after 5 days. 04/30/23 02:06 Blood - Venous Blood Culture - Final No growth after 5 days. Procedures Date of Service Date of Service: 05/09/23 Assessment & Plan Assessment and plan (1) CKD (chronic kidney disease) stage 5, GFR less than 15 ml/min: Status: Acute (2) KIERA (acute kidney injury): Status: Acute Assessment and Plan: 62M with no significant tPMH was admitted 04/26/23 with hemautria, kiera, uremia, anemia. course complicated etoh withdrawal, hyponatremia Acute kidney injury from obstructive uropathy. Dialysis dependent started on HD TTS permacath placed 05/06 Urinary obstruction due to prostatomegaly with concern for metastatic prostate cancer Required CBI REC: Sec Hyperparathydism _ Started on Calcitriol 0.5 mcg daily EPO 20,000u weekly for anemia Lew Dialysis on tts schedule awaiting rehab with HD outpt (3) Urinary retention with incomplete bladder emptying: Status: Acute (4) Bladder outlet obstruction: Status: Acute (5) Benign enlargement of prostate: Status: Acute (6) Uremia: Status: Acute (7) Hyponatremia: Status: Acute (8) Metabolic acidosis: Status: Acute (9) Anemia: Status: Acute (10) Difficult Lew catheter placement: Status: Acute Time Spent With Patient Time: Total time managing care of this patient today ____ minutes. Progress Note: Quality Stroke Does the patient have a stroke diagnosis?: No
--- NOTE | 2023-05-09 14:37 | P.PNIM_ITS ---
Subjective Subjective Date of Service: 05/09/23 Interval History: Seen and evaluated tolerating dialysis well Hematuria resolved Physical Exam 2 Vital Signs: Vital Signs: Last Vital Signs Temp 97.8 F 05/09/23 12:00 Pulse 92 05/09/23 12:00 Resp 18 05/09/23 12:00 BP 120/57 L 05/09/23 12:00 Pulse Ox 97 05/09/23 12:00 O2 Del Method Room Air 05/09/23 12:00 O2 Flow Rate 2 04/29/23 18:41 FiO2 95 04/29/23 20:59 BMI result Body Mass Index 25.8 Const: Other: Constitutional : Awake, interactive, not in distress Neck : Normal inspection, Supple Cardiovascular : RRR, no JVP, no lower extremity edema Respiratory : good bilateral air entry, no crackles, wheezes or rhonchi Gastrointestinal: soft, lax, Normal bowel sounds, Non tender Skin : Warm, Dry, Permacath in place Neurological : Alert & oriented x3, No focal deficit Objective Data Active Medications Calcitriol (Calcitriol 0.25 Mcg Capsule) 0.5 mcg PO DAILY [facility] Last Admin: 05/09/23 09:31 Dose: 0.5 mcg Documented By: GWEN Docusate Sodium (Docusate Sodium 100 Mg Capsule) 100 mg PO DAILY PRN PRN Reason: Constipation Last Admin: 05/03/23 09:51 Dose: 100 mg Documented By: ANISHA Famotidine (Famotidine/Pf 20 Mg/2 Ml Vial) 20 mg IVPUSH DAILY [facility] Last Admin: 05/09/23 09:31 Dose: 20 mg Documented By: GWEN Vancomycin HCl 500 mg/ Sodium (Chloride) 110 mls @ 110 mls/hr IV ONCE ONE Stop: 05/01/23 08:59 Melatonin (Melatonin 3 Mg Tablet) 6 mg PO BEDTIME PRN PRN Reason: Insomnia Metoprolol Tartrate (Metoprolol Tartrate 25 Mg Tablet) 25 mg PO BID [facility]; Protocol Last Admin: 05/09/23 09:31 Dose: 25 mg Documented By: GWEN Ondansetron HCl (Ondansetron Odt 4 Mg Tab.Rapdis) 4 mg TRANSLINGU Q6H PRN PRN Reason: Nausea and Vomiting Pharmacy Consult (Consult Rx Etoh Phenob Im/Po) 1 each MISCELLANE ONCE PRN; Protocol PRN Reason: Consult order Pharmacy Consult (Consult Rx Vancomycin Dosing) 1 each MISCELLANE DAILY PRN PRN Reason: Consult order Sevelamer Carbonate (Sevelamer Carbonate Powder 800 Mg Powd.Pack) 800 mg PO TIDWM [facility] Last Admin: 05/09/23 12:41 Dose: 800 mg Documented By: GWEN Sodium Chloride (0.9 % Sodium Chloride Flush 3 Ml Syringe) 3 ml IVFLUSH QSHIFT [facility] Last Admin: 05/09/23 11:35 Dose: Not Given Documented By: GWEN Non-Admin Reason: See Note Labs 05/07/23 06:01 05/09/23 08:14 Labs: Laboratory Results - last 24 hr 05/09/23 08:14 Hold Purple Top SEE NOTE Estim Creat Clear Calc 13.1 Estimated GFR 11 Assessment and Plan (1) NSVT (nonsustained ventricular tachycardia): Status: Acute (2) ESRD needing dialysis: Status: Acute Plan 62M with no significant tPMH was admitted 04/26/23 with hemautria, jennifer, uremia, anemia. course complicated etoh withdrawal, hyponatremia Acute kidney injury complicated by acute metabolic encephalopathy, acute metabolic acidosis encephalopathy resolved started on HD TTS permacath placed 05/06 Nephro following NSVT Electrolytes ok Start Metoprolol bid cardio following Acute blood loss anemia Due to hematuria, resolved s/p multiple prbcs Urinary obstruction due to prostatomegaly with concern for metastatic prostate cancer Continue Lockhart, DC CBI to keep lockhart at time of discharge for 2 weeks and follow with dr Louise urology following Hyponatremia Resolved dvt prophylaxis - mechanical due to hematuria full code reason for continued hospitalization:need for HD pending SNF placement Quality Stroke Does the patient have a stroke diagnosis?: No VTE Prior VTE?: No VTE Risk Level:: Medical - moderate - high VTE Device Contraindication: N/A - Device Ordered VTE Drug Contraindication: Treatment Not Indicated
--- NOTE | 2023-05-09 14:59 | MHC.CM.PN ---
Patient has been medically cleared for dc to SNF/STR today. Patient will dc to [facility] today at 4 PM, via [facility] Patient and his Sister/Naida @ [phone] are aware of and in agreement with the dc plan.BRIDGER spoke with Dr. Webber who has approved a 05/12/2023 SOC/HD start at the SNF.
--- NOTE | 2023-05-09 15:20 | P.RADPN_ITS ---
RADIOLOGY Narrative Narrative: Procedure Note Right IJ Permacath Indication: Needs access for intermediate HD Events: A right IJ 23 cm Permacath was placed using US/Fluoro. Tip at cavoatrial junction. Of for use. Full dictation in PACS to follow. Davide Landrum PA-C Interventional Radiology
--- NOTE | 2023-05-09 15:49 | PM.DS ---
DS: Providers Provider Date of Service: 05/09/23 Date of admission: 04/26/23 15:47 Primary care physician: None Physician Consults: 04/26/23 15:52 Consult to Nephrology Routine Consulting Provider: Noe Benton Reason for consultation: Acute kidney failure Consult to Urology Routine Consulting Provider: Elliott Louise Reason for consultation: Gross hematuria 04/28/23 15:35 Consult to Cardiology Routine Consulting Provider: [facility] Reason for consultation: elevated troponins ,echo shows wma Has provider been notified: No 04/29/23 08:39 Consult to Critical Care Routine Consulting Provider: Sukhwinder Singh Reason for consultation: Level of care Has provider been notified: Yes 05/08/23 07:24 Consult to Cardiology Routine Consulting Provider: [facility] [facility] Reason for consultation: NSVT in new Dialysis patient for eval and rec. DS: Diagnosis Discharge Diagnosis (1) NSVT (nonsustained ventricular tachycardia): Status: Acute (2) ESRD needing dialysis: Status: Acute (3) Hyponatremia: Status: Acute (4) Alcohol withdrawal: Status: Acute (5) Uremia: Status: Acute (6) Troponin level elevated: Status: Acute (7) Gross hematuria: Status: Acute DS: Summary Hospital Course Hospital Course: Admission note HPI Pt is a 62-year-old male with no reported significant PMH who states he has not seen a PCP since 1984 who presents to the ED with vague complaints of feeling generally unwell. Patient is a poor historian and it is unclear how long symptoms have been ongoing, but likely for at least a few weeks. Patient has been experiencing nausea and occasional vomiting, generalized weakness, and urinary incontinence at night. Patient is unable to further verbalize his symptoms, chest says he knows ?something is wrong?. Patient states he has a long history of daily alcohol use of up to 1 pt of whiskey and ?some beers?. Reports stopped drinking 6 days ago because his skin turned yellow. Patient denies chest pain/pressure, palpitations. Occasional SOB. Denies fever, chills, abdominal pain. Patient also complaints of urogenital pain at site of Lockhart catheter insertion. There is gross hematuria in Lockhart collection bag. Patient denies any previous history of hematuria. In the ED patient with temperature as high as 99.2 degrees, pulse high as 100, and elevated BP as high as 199/86. Labs were significant for H&H of, 7.7/21.7, sodium 134, potassium 5.4, bicarb 13, anion gap 31, BUN 193, creatinine 20.77, CPK 373, initial troponin 53.9. VBG joint metabolic acidosis with pH of 7.26 bicarb of 12. Hepatic function WNL. Stool negative for occult blood. UA negative for UTI. Ethyl alcohol <10. CXR showed no acute cardiopulmonary process seen. CT?of abdomen and pelvis found enlarged prostate, massively distended urinary bladder, and bilateral severe hydronephrosis consistent with urinary retention. CT of head unremarkable with no evidence of acute territorial infarct or hemorrhage. Hip and pelvis and lumbar spine x-rays found no evidence for any acute fracture or subluxation. EKG demonstrated normal sinus rhythm without evidence of ST elevations or depressions. Pt was treated with IVF, morphine, ondansetron, lorazepam, lidocaine, and started on a bicarb drip. Pt will be admitted to the hospital for treatment further evaluation of acute renal failure, metabolic acidosis, and electrolyte imbalances. Hospital course # Acute kidney injury complicated by acute metabolic encephalopathy, acute metabolic acidosis encephalopathy evaluated by transportation planner and started on HD TTS as permacath placed 05/06 and tolerated dialysis well. To be followed by nephrology with dr Webber. kidney failure beleived to be a result of chronic urinary obstruction for enlarged prostate. # Urinary obstruction due to prostatomegaly with concern for metastatic prostate cancer as he presented with hematuria and started on CBI with good response as it was discontinued. Plan to keep lockhart at time of discharge for 2 weeks and follow with dr Louise. # Developed NSVT which were controlled Metoprolol bid as he was seen by cardiology. # Acute blood loss anemia Due to hematuria s/p multiple prbcs transfusion with good response as H&H remains stable. Continue MEtoprolol, Calcitriol as prescribed Started dialysis for acute kidney failure Follow with dr Louise in office in 1-2 weeks for void trials and remove Follow with dr Webber as outpatient Time Attestation Discharge coordination time: Greater than 30 minutes Quality: Safe Use of Opioids Does Pt have an Active Cancer Diagnosis on the Problem List?: No Quality: Stroke Does the patient have a stroke diagnosis?: No Physical Exam Vital Signs: Vital Signs: Last Vital Signs Temp 97.8 F 05/09/23 12:00 Pulse 92 05/09/23 12:00 Resp 18 05/09/23 12:00 BP 120/57 L 05/09/23 12:00 Pulse Ox 97 05/09/23 12:00 O2 Del Method Room Air 05/09/23 12:00 O2 Flow Rate 2 04/29/23 18:41 FiO2 95 04/29/23 20:59 BMI result Body Mass Index 25.8 Const: Other: Constitutional : Awake, interactive, not in distress Neck : Normal inspection, Supple Cardiovascular : RRR, no JVP, no lower extremity edema Respiratory : good bilateral air entry, no crackles, wheezes or rhonchi Gastrointestinal: soft, lax, Normal bowel sounds, Non tender Skin : Warm, Dry, Permacath in place Neurological : Alert & oriented x3, No focal deficit DS: Data Data Completed and Pending Labs on day of discharge: Laboratory Results - last 24 hr 05/09/23 08:14 Hold Purple Top SEE NOTE Creatinine 5.18 H* Estim Creat Clear Calc 13.1 Estimated GFR 11 Imaging Chest x-ray: Radiologist's impression: ITS Impressions Chest X-Ray 04/26/23 11:32 IMPRESSION: No mediastinal widening or pneumothorax. No pneumonia or edema. No acute fracture or subluxation demonstrated Head CT 04/26/23 11:32 IMPRESSION: Unremarkable CT scan of the head. No evidence of acute territorial infarct or hemorrhage. Hip/Pelvis X-Ray 04/26/23 11:32 IMPRESSION: No mediastinal widening or pneumothorax. No pneumonia or edema. No acute fracture or subluxation demonstrated Lumbar Spine X-Ray 04/26/23 11:32 IMPRESSION: No mediastinal widening or pneumothorax. No pneumonia or edema. No acute fracture or subluxation demonstrated Abdomen/Pelvis CT 04/26/23 12:29 IMPRESSION: Enlarged prostate, massively distended urinary bladder and bilateral severe hydronephrosis consistent with urinary retention. Fleischner guidelines were followed. Abdomen/Pelvis CT 04/29/23 10:50 IMPRESSION: 1. Redemonstration of prominently distended urinary bladder. Interval placement of Lockhart catheter balloon within the urinary bladder with large hyperdense focus around the balloon and within the urinary bladder lumen measuring 16.8 x 9.0 suggesting hematoma from recent insertion. Dependent foci of air noted in the urinary bladder. 2. Redemonstration of severe bilateral hydronephrosis without discrete obstructing calculus. 3. Prostate is enlarged measuring 5.9 x 5.5 cm with mass effect upon the urinary bladder base. 4. Large left inguinal hernia containing sigmoid colon without evidence of obstruction. 5. Colonic diverticulosis without acute diverticulitis. Chest X-Ray 04/30/23 13:48 IMPRESSION: No pneumothorax after right IJ line placement. The catheter tip is located in region of proximal right atrium. Bone Scan Nuclear Medicine 04/30/23 14:45 IMPRESSION: 1. A focus of mildly increased activity is suggested in the midshaft of the right femur and there is also a mild diffuse increase in activity in the intertrochanteric regions bilaterally. The findings suggest continued bone remodeling at prior fracture sites, or possibly in the right mid shaft femoral region to some overlying urinary contamination. Clinical correlation is recommended, and the suggested abnormality in the midshaft of the right femur could be further evaluated with plain radiographs. 2. A few additional mild nonspecific abnormalities are noted as described above and these are all likely arthritic or traumatic in etiology. None of these abnormalities is strongly suspicious for metastatic disease. Discharge Plan Discharge Anticipated Discharge Date/Time: 05/09/23 14:59 Patient Disposition: [facility] Discharge Diagnosis: Renal failure requiring dialysis Referrals: [facility] [Outside] - 1 Week Physician,None [Primary Care Provider] - 1 Week Discharge Medications: New calcitriol 0.25 mcg Capsule 0.5 mcg PO DAILY Qty: 30 0RF metoprolol tartrate 25 mg Tablet 25 mg PO BID Qty: 60 0RF Protocol: Hold for SBP/HR < HOLD for SBP < : 90 HOLD for HR < : 60 sevelamer carbonate 0.8 gram Powder In Packet 800 mg PO TIDWM Qty: 90 0RF Discharge Orders: Discharge Order (Routine); Ordered 05/09/23 Ordered By: Kana Paez Diet: Low salt diet Activity on Discharge: As tolerated Stand Alone Forms: Patient Portal Discharge page Care Plan Goals: Read below Health Concerns: Read below Plan of Treatment: Read below Assessment: Continue MEtoprolol, Calcitriol as prescribed Started dialysis for acute kidney failure Follow with dr Louise in office in 1-2 weeks for void trials and remove Follow with dr Webber as outpatient
--- NOTE | 2023-05-09 16:38 | PC.NURSE ---
attempted to call facility to give report, tele and Iv removed all belongings with pt
== END 2023-05-09 16:45 | disposition skilled nursing facility (03) | DRG 484 ==
LOC: HO.ED 14:55 → HO.EDOVER 16:05 → HO.IMC 04-27 07:06 → HO.ICU 04-29 19:14 → HO.IMC 05-01 18:08
PROVIDERS: Anesthesiology; Hospitalist; Internal Medicine; Internal Medicine Cardiovascular Disease; Internal Medicine Nephrology; Nurse Practitioner Family; Radiology Vascular & Interventional Radiology; Urology; Admitting Provider Student in an Organized Health Care Education/Training Program; Emergency Provider Internal Medicine; Visit Provider Student in an Organized Health Care Education/Training Program
PROC: 0W3R8ZZ Control Bleeding in Genitourinary Tract, Via Natural or Artificial Opening Endoscopic (ICD-10-PCS; principal; 2023-04-29 16:00)
DX: N40.1 Benign prostatic hyperplasia with lower urinary tract symptoms (principal); G93.41 Metabolic encephalopathy; N17.9 Acute kidney failure, unspecified; E87.21 Acute metabolic acidosis; D62 Acute posthemorrhagic anemia; E87.1 Hypo-osmolality and hyponatremia; D63.1 Anemia in chronic kidney disease; N18.6 End stage renal disease; I12.0 Hypertensive chronic kidney disease with stage 5 chronic kidney disease or end stage renal disease; C61 Malignant neoplasm of prostate; I47.20 Ventricular tachycardia, unspecified; N25.81 Secondary hyperparathyroidism of renal origin; N13.8 Other obstructive and reflux uropathy; F10.239 Alcohol dependence with withdrawal, unspecified; R33.8 Other retention of urine; E87.5 Hyperkalemia; Z99.2 Dependence on renal dialysis; R31.0 Gross hematuria; Z20.822 Contact with and (suspected) exposure to COVID-19; Z79.899 Other long term (current) drug therapy
CPT/HCPCS: 36415; 36558; 70450; 71045; 72100; 73502; 74176; 76937; 78306; 80048; 80053; 80061; 80076; 80202; 80307; 81001; 82040; 82272; 82550; 82565; 82607; 82746; 82803; 82947; 83540; 83605; 83735; 83930; 83970; 84100; 84153; 84484; 85014; 85018; 85025; 85027; 85610; 85730; 86704; 86706; 86850; 86900; 86901; 86923; 87040; 87340; 87635; 87640; 87641; 90999; 92526; 92610; 92950; 93005; 93306; 97162; 97530; 99152; 99153; 99285; A9503; C1750; C1758; C1769; J0696; J1170; J1956; J2060; J2150; J2250; J2270; J2405; J2550; J2560; J3010; J3370; J3371; J7131; P9016; Q9957

== ENCOUNTER 2023-04-26 15:47 | Outpatient (BNV) | payer OTHER, SELFPAY | END 2023-04-28 07:00 | PROVIDERS: Admitting Provider Student in an Organized Health Care Education/Training Program; Emergency Provider Internal Medicine; Visit Provider Internal Medicine Cardiovascular Disease | DX: I34.89 Other nonrheumatic mitral valve disorders (principal) | CPT/HCPCS: 93306 ==

== ENCOUNTER 2023-04-26 15:47 | Outpatient (BNV) | payer OTHER, SELFPAY | END 2023-05-06 09:30 | PROVIDERS: Admitting Provider Student in an Organized Health Care Education/Training Program; Emergency Provider Internal Medicine; Visit Provider Radiology Vascular & Interventional Radiology | DX: N18.6 End stage renal disease (principal) | CPT/HCPCS: 36558; 76937 ==

== ENCOUNTER → 2023-04-26 15:47 | Outpatient (BNV) | payer OTHER, SELFPAY | PROVIDERS: Admitting Provider Student in an Organized Health Care Education/Training Program; Emergency Provider Internal Medicine; Visit Provider Internal Medicine Cardiovascular Disease | DX: N18.6 End stage renal disease (principal); Z99.2 Dependence on renal dialysis; I47.29 Other ventricular tachycardia | CPT/HCPCS: 99222; 99232 ==

== ENCOUNTER → 2023-04-26 15:47 | Outpatient (BNV) | payer OTHER, SELFPAY | PROVIDERS: Admitting Provider Student in an Organized Health Care Education/Training Program; Emergency Provider Internal Medicine; Visit Provider Internal Medicine Cardiovascular Disease | DX: E87.1 Hypo-osmolality and hyponatremia (principal); F10.939 Alcohol use, unspecified with withdrawal, unspecified; N19 Unspecified kidney failure; R79.89 Other specified abnormal findings of blood chemistry; R31.0 Gross hematuria; T83.9XXA Unspecified complication of genitourinary prosthetic device, implant and graft, initial encounter; N17.9 Acute kidney failure, unspecified | CPT/HCPCS: 36556; 99291 ==

== ENCOUNTER → 2023-04-26 15:47 | Outpatient (BNV) | payer OTHER, SELFPAY | PROVIDERS: Admitting Provider Student in an Organized Health Care Education/Training Program; Emergency Provider Internal Medicine; Visit Provider Student in an Organized Health Care Education/Training Program | DX: I47.29 Other ventricular tachycardia (principal); N18.6 End stage renal disease; Z99.2 Dependence on renal dialysis; E87.1 Hypo-osmolality and hyponatremia; F10.939 Alcohol use, unspecified with withdrawal, unspecified; R79.89 Other specified abnormal findings of blood chemistry; R31.0 Gross hematuria | CPT/HCPCS: 99223; 99232; 99233; 99239; 99499 ==

== ENCOUNTER → 2023-04-26 15:47 | Outpatient (BNV) | payer OTHER, SELFPAY | PROVIDERS: Admitting Provider Student in an Organized Health Care Education/Training Program; Emergency Provider Internal Medicine; Visit Provider Urology | DX: R31.0 Gross hematuria (principal) | CPT/HCPCS: 51703; 52000; 52648; 99222; 99232 ==

== ENCOUNTER 2023-06-09 23:57 | Emergency (ER) | payer OTHER, SELFPAY ==
[2023-06-10 00:04] VITALS: BP 117/71; BP 122/67; PULSE 94; RESP 18; TEMP 36.9; O2SAT 96; O2SAT 98; BMI 24.3
--- NOTE | 2023-06-10 00:55 | ED_ITS ---
HPI - Male Genitourinary General Chief complaint: Urogenital-Male Stated complaint: lockhart issue Time Seen by Provider: 06/10/23 00:05 Source: patient and EMS Mode of arrival: EMS History of Present Illness HPI Narrative: 62-year-old male who arrives via ambulance from [facility] for complaints of pain at the location of his Lockhart catheter and reporting extreme pain to testicles and penis. He denies any fevers or chills. Related Data Previous Rx's Medication Instructions Recorded calcitriol 0.25 mcg capsule 0.5 mcg (2 x 0.25 mcg) PO DAILY 05/09/23 #30 caps metoprolol tartrate 25 mg tablet 25 mg PO BID #60 tabs 05/09/23 sevelamer carbonate 0.8 gram oral 800 mg PO TIDWM #90 ea 05/09/23 powder packet cefdinir 300 mg capsule 300 mg PO BID 7 days #14 caps 06/10/23 nystatin 100,000 unit/gram topical 1 appl topical BID #60 grams 06/10/23 powder Allergies Allergy/AdvReac Type Severity Reaction Status Date / Time No Known Allergies Allergy Verified 05/06/23 08:31 Review of Systems 2 Review of Systems: Pertinent positives and negatives as stated in HPI [facility] Past Medical History Source: nursing notes reviewed Medical History NSVT (nonsustained ventricular tachycardia) ESRD needing dialysis Urinary retention with incomplete bladder emptying Bladder outlet obstruction Benign enlargement of prostate CKD (chronic kidney disease) stage 5, GFR less than 15 ml/min Anemia Social History Social History Household Members: None Housing: Apartment Alcohol intake: current Alcohol intake frequency: a few times a week Alcohol type: hard liquor Patient Tobacco Use Status: Never used Tobacco Second Hand Smoke Exposure: No Advance Directives: No Advance Directives Information Provided: Yes service: No Physical Exam 2 Vital Signs: Vital Signs: Last Vital Signs Temp 98.4 F 06/10/23 00:04 Pulse 94 06/10/23 00:04 Resp 18 06/10/23 00:04 BP 122/67 06/10/23 00:04 Pulse Ox 96 06/10/23 00:04 O2 Del Method Room Air 06/10/23 00:04 BMI result Body Mass Index 24.3 VITAL SIGNS: Reviewed. GENERAL: Well developed, well nourished, in no acute distress. HEAD: Normocephalic/atraumatic EYES: PERRLA, EOMI EARS: Ext canals without abnormality NOSE: Nares patent bilateral OROPHARYNX: no oral lesions noted, posterior pharynx clear NECK: Supple, no adenopathy LUNGS: Normal breath sounds. No adventitious sounds or accessory muscle use. SpO2<96> CARDIOVASCULAR: Regular rate and rhythm without noted murmurs ABDOMEN: Soft, non-tender, non-distended with bowel sounds. 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 MUSCULOSKELETAL: No tenderness, deformities, or effusions noted on gross inspection. EXTREMITIES: No cyanosis, clubbing or edema. SKIN: Inspection of the skin reveals no rashes NEUROLOGIC: Alert and oriented x 4. Strength and sensation to light touch were grossly intact x 4. Medications Administered Discontinued Medications Generic Name Dose Route Start Last Admin Trade Name Freq PRN Reason Stop Dose Admin Nystatin 1 appl 06/10/23 00:41 06/10/23 01:11 Nystatin Powder 15 Gm Bottle TOPICAL 06/10/23 00:42 1 appl ONCE ONE Administration Protocol Sodium Zirconium Cyclosilicate 10 gm 06/10/23 01:34 06/10/23 02:04 Sodium Zirconium Cyclosilicate 10 Gm Powd.Pack PO 06/10/23 01:35 10 gm ONCE ONE Administration Medical Decision Making Medical Decision Making MDM Narrative: 62-year-old male with history and clinical presentation, DDX: UTI, I feel the patient likely has a yeast infection as opposed to fungal infection as he has been trying to use antifungal so and does not appear to be improving. Patient has left inguinal hernia is reducible. Reviewed all investigations and hematologic indices demonstrate a mild leukocytosis with a slightly elevated platelet count as well as a left shift, he is otherwise afebrile and there is a chronic normocytic anemia without history or clinical findings to suggest active bleeding. Chemistry indices demonstrate chronic renal dysfunction, potassium is noted to be elevated although lab note does say slightly hemolyzed will administer 10 mg of Lokelma. Otherwise remaining chemistry studies are grossly within normal limits. Urinalysis appears to be consistent with urinary tract infection and will provide antibiotics. Patient will receive initial antibiotics here, patient was cleaned up and nystatin was apply to the groin area. Differential Diagnosis Differential Diagnoses: The differential diagnosis associated with the presentation includes Please see the discussion above Admission/Observation Consideration of admission/observation: Escalation of care including admission/observation considered Please see the discussion above Lab Data MDM Lab Attestation statement: I reviewed the patient's lab results. Please see the discussion above 06/10/23 01:07 06/10/23 01:07 Labs: Lab Results 06/10/23 Range/Units 01:07 WBC 11.7 H (4.8-10.8) X10*3/uL RBC 3.28 L (4.60-5.80) X10*6/uL Hgb 9.9 L (14.0-18.0) g/dl Hct 30.8 L (42.0-52.0) % MCV 93.9 (80.0-98.0) fL MCH 30.2 (27.0-33.0) pg MCHC 32.1 (31.0-36.0) g/dl RDW 14.2 (11.0-16.0) % Plt Count 478 H D (160-400) X10*3/uL MPV 8.7 L (9.4-12.4) fL Immature Gran % (Auto) 0.7 H (0.0-0.4) % Neut % (Auto) 84.6 H (45-73) % Lymph % (Auto) 9.1 L (20-40) % [place] % (Auto) 3.3 (2-11) % Eos % (Auto) 1.9 (0-4) % Baso % (Auto) 0.4 (0-2) % Lymph # (Auto) 1.1 L (1.2-4.9) X10*3/uL [place] # (Auto) 0.4 (0.1-1.2) X10*3/uL Eos # (Auto) 0.2 (0.0-0.4) X10*3/uL Baso # (Auto) 0.1 (0.0-0.2) X10*3/uL Abs Immat Gran (auto) 0.08 H (0.00-0.03) X10*3/uL Absolute Neuts (auto) 9.9 H (2.0-8.3) x10*3/uL Absolute Nucleated RBC 0.000 (0.0-0.012) X10*3/uL Nucleated RBC % (auto) 0.0 (0.0-0.2) /100WBC Sodium 134 L (135-145) mmol/L Potassium 5.4 H (3.3-5.1) mmol/L Chloride 105 (96-108) mmol/L Carbon Dioxide 19 L (22-29) mmol/L Anion Gap 15 (12-20) BUN 42 H (9-16) mg/dL Creatinine 2.48 H (0.5-1.4) mg/dL Estim Creat Clear Calc 28.5 Estimated GFR 26 Random Glucose 119 H (60-115) mg/dL Calcium 10.0 (8.4-10.2) mg/dL Total Bilirubin 0.3 (0.0-1.0) mg/dL AST 12 (5-37) U/L ALT 9 (0-40) U/L Alkaline Phosphatase 81 (39-117) U/L Total Protein 7.5 (6.5-8.0) g/dL Albumin 3.4 L (3.5-5.0) g/dL External Record Review External record reviewed: Outpatient record, Prior outpatient labs and Prior outpatient radiology Chronic Conditions Patient?s care impacted by: Other CKD Critical Care Time Critical Care Time Critical Care Time: Yes Total Critical Care Time: 30 Attestation: I personally attest to this time spent taking care of the patient. Discharge Plan Discharge Clinical Impression: Urinary tract infection, Candidiasis of scrotum Patient Disposition: Xfer Other Instructions: Yeast Infection (ED), Catheter-associated Urinary Tract Infection (ED) Additional Instructions: 1. Resume all home medications as prescribed. 2. Complete the entire course of antibiotics as prescribed. 3. You will need to apply the nystatin every day after you clean your groin area and dry it thoroughly. 4. I highly recommend that you follow-up with a urologist. Prescriptions: New cefdinir 300 mg capsule 300 mg PO BID 7 Days Qty: 14 0RF nystatin 100,000 unit/gram powder 1 appl topical BID Qty: 60 0RF No Action calcitriol 0.25 mcg Capsule 0.5 mcg PO DAILY Qty: 30 0RF metoprolol tartrate 25 mg Tablet 25 mg PO BID Qty: 60 0RF Protocol: Hold for SBP/HR < HOLD for SBP < : 90 HOLD for HR < : 60 sevelamer carbonate 0.8 gram Powder In Packet 800 mg PO TIDWM Qty: 90 0RF
[2023-06-10 01:11] LABS: MANUAL DIFF FLAG NO
[2023-06-10] MEDS: Nystatin Powder 15 GM BOTTLE 1 APPL TOPICAL (01:11)
[2023-06-10 01:21] LABS: Basophils Absolute Auto 0.1 X10*3/uL (0.0-0.2); Basophils Percent Auto 0.4 % (0-2); Eosinophils Absolute Auto 0.2 X10*3/uL (0.0-0.4); Eosinophils Percent Auto 1.9 % (0-4); Hematocrit 30.8 % (42.0-52.0); Hemoglobin 9.9 g/dl (14.0-18.0); Imm Gran Abs Auto 0.08 X10*3/uL (0.00-0.03); Imm Gran Pct Auto 0.7 % (0.0-0.4); Lymphocytes Absolute Auto 1.1 X10*3/uL (1.2-4.9); Lymphocytes Percent Auto 9.1 % (20-40); Mean Corpuscular HGB Conc 32.1 g/dl (31.0-36.0); Mean Corpuscular Hemoglobin 30.2 pg (27.0-33.0); Mean Corpuscular Volume 93.9 fL (80.0-98.0); Mean Platelet Volume 8.7 fL (9.4-12.4); Monocytes Absolute Auto 0.4 X10*3/uL (0.1-1.2); Monocytes Percent Auto 3.3 % (2-11); Neutrophils Absolute Auto 9.9 x10*3/uL (2.0-8.3); Neutrophils Percent Auto 84.6 % (45-73); Platelet Count 478 X10*3/uL (160-400); Red Blood Count 3.28 X10*6/uL (4.60-5.80); Red Cell Distribution Width 14.2 % (11.0-16.0); White Blood Count 11.7 X10*3/uL (4.8-10.8)
[2023-06-10 01:27] LABS: Alanine Aminotransferase 9 U/L (0-40); Albumin Level 3.4 g/dL (3.5-5.0); Alkaline Phosphatase 81 U/L (39-117); Anion Gap 15 (12-20); Aspartate Amino Transferase 12 U/L (5-37); Bilirubin Total 0.3 mg/dL (0.0-1.0); Blood Urea Nitrogen 42 mg/dL (9-16); Carbon Dioxide 19 mmol/L (22-29); Chloride 105 mmol/L (96-108); Creatinine Clr Calc Pharmacy 28.5; Estimated Glomerular Filt Rate 26; Glucose Random 119 mg/dL (60-115); Potassium 5.4 mmol/L (3.3-5.1); Sodium 134 mmol/L (135-145); Total Protein 7.5 g/dL (6.5-8.0)
[2023-06-10] MEDS: Sodium Zirconium Cyclosilicate 10 GM POWD.PACK PO (02:04)
[2023-06-10 02:23] LABS: Appearance Urine Clear; Color Urine Yellow; Glucose Urine UA Negative (Negative); Leukocyte Esterase Urine Moderate (2+) (Negative); Nitrite Urine Negative (Negative); Specific Gravity - Urine <= 1.005 (1.005-1.025); UMIC TRIGGER UACC YES; Urine Blood Small (1+) (Negative); Urine Ketones Negative (Negative); Urine Protein 30 (1+) mg/dL (Neg-Trace)
[2023-06-10] MEDS: oxyCODONE HCl Immed Release 5 MG TABLET PO (02:35)
[2023-06-10] MEDS: cefuroxime axetiL 500 MG TABLET PO (02:35)
[2023-06-10 02:50] LABS: Lactic Acid 1.6 mmol/L (0.5-2.0)
[2023-06-10 03:15] LABS: Bacteria Urine None Seen (None Seen); Hyaline Casts Urine 0-2 /LPF (0-2); RBC Urine 0-2 /HPF (0-2); Squamous Epithelial Cell Urine 0-2 /HPF (0-2); UACC Culture Trigger YES; WBC Urine >50 /HPF (0-5)
--- NOTE | 2023-06-10 03:32 | PC.NURSE ---
Report given to RN at [facility]. Pt waiting for ambulance transfer at this time.
== END 2023-06-10 04:11 | disposition other institution (70) ==
PROVIDERS: Emergency Provider Student in an Organized Health Care Education/Training Program
DX: N39.0 Urinary tract infection, site not specified (principal); B37.2 Candidiasis of skin and nail; Z79.899 Other long term (current) drug therapy
CPT/HCPCS: 36415; 80053; 81001; 83605; 85025; 87040; 87086; 87088; 99283; 99284

== ENCOUNTER 2023-06-27 11:15 | Outpatient (AMB) | payer OTHER, SELFPAY ==
--- NOTE | 2023-06-27 11:31 | MHC.OFFVIS ---
Intake Intake Visit Reasons: Voiding trial Intake Note: Patient presents for voiding trial Urology Medications: none Blood Thinner: none Manager Rn Case Required: No Accompanied by: Self / Same As Patient Allergies No Known Allergies Allergy (Verified 06/28/23 13:28) Medication List - Last Reconciled 06/28/23 by EUN Rios calcitriol 0.5 mcg (2 x 0.25 mcg) PO DAILY cefdinir 300 mg PO BID 7 days finasteride 5 mg PO DAILY 90 days metoprolol tartrate 25 mg See Protocol PO BID nystatin 1 appl topical BID sevelamer carbonate 800 mg PO TIDWM tamsulosin 0.4 mg PO BEDTIME 30 days HPI HPI Comments History of Present Illness Details Abdelrahman is a 62-year-old male patient. He has a past medical history of urinary retention with incomplete bladder emptying, NSVT, alcholol dependence, end-stage renal disease needing dialysis, chronic kidney disease stage 5, and anemia. He presents to the office today for follow-up of his lower urinary tract symptoms, urinary retention, and elevated PSA. In discussion with the patient today he discusses being a rehab in [place] since his discharge from [facility] approximately 2 months ago. Of note, patient was admitted to [facility] in April for weakness at which time he was noted to have an acute kidney injury complicated by acute metabolic encephalopathy evaluated by Nephrology and started on hemodialysis. PermCath was placed on 05/06 in he has been tolerating dialysis well. During hospital stay CT of the abdomen and pelvis found enlarged prostate, massively distended urinary bladder and bilateral severe hydronephrosis consistent with urinary retention at which time a Lew catheter was placed however patient underwent surgical intervention with Dr. Louise on 05/01/23 due to persistent gross hematuria after Lew catheter placement with potential balloon and prostate. He presents to the office today for follow-up of his elevated PSA and a voiding trial. Voiding trial performed and patient was able to urinate independently. When asked patient denies any previous history of urinary issues prior to episode of urinary retention in April. Discussed at length potential causes for urinary retention and elevated PSA. Discussed findings during surgical procedure with Dr. Louise regarding appearance of prostate tissue being abnormal. PSA results reviewed 05/02/23-- 149.5. Discussed at length prostate biopsy however patient declines at this time. Will redraw PSA and obtain retroperitoneal ultrasound for further assessment evaluation. Given most recent history of urinary retention will start Flomax as well as finasteride this was discussed with the patient today. He is agreeable. MCKENNA offered however patient declines. Patient otherwise denies any other issues or concerns. [facility] Medical History (Updated 06/28/23 @ 20:35 by EUN Rios) Urinary retention with incomplete bladder emptying NSVT (nonsustained ventricular tachycardia) ESRD needing dialysis Bladder outlet obstruction Benign enlargement of prostate CKD (chronic kidney disease) stage 5, GFR less than 15 ml/min Anemia Social History Household Members: None Housing: Apartment Alcohol intake: current Alcohol intake frequency: a few times a week Alcohol type: hard liquor Patient Tobacco Use Status: Never used Tobacco Second Hand Smoke Exposure: No service: No Review of Systems Const Reports as per HPI Eyes Reports no additional complaints ENT Reports no additional complaints Card Reports as per HPI Resp Reports no additional complaints GI Reports no additional complaints Reports as per HPI Musc Reports no additional complaints Neuro Reports as per HPI Psych Reports as per HPI Endo Reports no additional complaints Physical Exam Const General: cooperative, comfortable, no acute distress, well developed, alert and awake Orientation/consciousness: patient oriented x3 Limitations: no limitations HEENT Head: Yes normal to inspection, Yes normocephalic and Yes atraumatic Ears: hearing grossly normal bilaterally Eyes General: appearance normal, both eyes and all related structures Neck Neck: Yes normal visual inspection and Yes trachea midline Chest Chest palpation & inspection: normal inspection of the chest Resp Effort & Inspection: normal respiratory effort and able to speak in complete sentences Cardio Rate: regular rate GI Inspection: Yes normal to inspection Other: inguinal hernia present; patient declines referral for further assessment and evaluation General: Yes no CVA tenderness Back/Spine/Pelvis Back: no CVA tenderness Skin General skin exam: no rashes or lesions noted Neuro General: patient oriented x3 Extrem General: Yes normal to inspection Psych Appearance: grossly normal and well kempt Mental Status: mental status grossly normal Speech and movement: Normal speech and movement present and Clear speech present Affect: normal affect Attitude: cooperative Thought process: Normal thought process present Thought content: Normal thought content present Insight: Fair insight present (Psych) Judgement: Fair judgement present (Psych) Office Procedures Bladder/Catheter Procedure Details: 120 mls sterile water instilled into bladder, 16 fr cath removed, pt tolerated removal well. MA to room to bladder scan. 61390-[place] of Bladder Procedure code (CPT) selection complete Assessment & Plan Assessment & Plan (1) Urinary retention with incomplete bladder emptying: Code(s): R33.9 - Retention of urine, unspecified (2) Elevated PSA, greater than or equal to 20 ng/ml: Code(s): R97.20 - Elevated prostate specific antigen [PSA] Plan In office voiding trial performed; patient was able to independently void after Lew catheter was removed. Discussed at length potential causes for urinary retention as well as elevated PSA; this was discussed at length Discussed prostate biopsy; however patient declines at this time Will reassess PSA given recent episode of urinary retention with traumatic insertion; will obtain PSA in 8 weeks Discussed and stressed the importance of following up for continuity of care Start finasteride 5 mg daily and tamsulosin 0.4 mg daily. Discussed seeking medical treatment if unable to void or if urinary symptoms arise Follow-up in 8 weeks with labs and imaging to be completed prior; or sooner with any issues, concerns, and or questions. Orders: Orders US retroperitoneal comp 06/27/23 R33.9 - Retention of urine, unspecified AMB Bladder/Catheter Procedure 06/27/23 R33.9 - Retention of urine, unspecified Prostate Specific Antigen 8 Weeks R33.9 - Retention of urine, unspecified Medications: New finasteride 5 mg PO DAILY 90 days 90 tabs 1RF N13.8 - Other obstructive and reflux uropathy, N40.1 - Benign prostatic hyperplasia with lower urinary tract symptoms, R33.9 - Retention of urine, unspecified tamsulosin 0.4 mg PO BEDTIME 30 days 30 caps 1RF N40.1 - Benign prostatic hyperplasia with lower urinary tract symptoms, R35.1 - Nocturia Patient Instructions: The patient had an opportunity to ask questions regarding the treatment plan. All questions were answered. Physical exam, labs, and imaging were discussed and reviewed in detail. As well as risks, benefits, and discussion of treatment choices. No major barriers to understanding were identified. The patient expressed understanding and agreement with the above treatment plan. The patient was made aware they should contact our office by phone for worsening of their current condition, the appearance of new symptoms, or with any questions or concerns. Compliance is encouraged with any medications and follow up testing that is ordered. It is a privilege to be allowed the opportunity to participate in? your urological care.? Again, if you have any questions or concerns If you have any questions or concerns please do not hesitate to contact me. The office is [phone]. This note is constructed using voice recognition software. While every effort has been made to ensure accuracy manager [employer] retail errors may have been included. Yours sincerely, ALEXANDER Rios-ISABEL Coding Level of Care Code Est Pt Level 4 (25648) Diagnoses Urinary retention with incomplete bladder emptying R33.9 Elevated PSA, greater than or equal to 20 ng/ml R97.20 CPT Codes Bladder/Catheter Procedure - CPT: 74328-[place] of Bladder ([id number])
== END 2023-06-27 12:21 | disposition home or self-care (01) ==
PROVIDERS: Visit Provider Nurse Practitioner Family
DX: R33.9 Retention of urine, unspecified (principal)
CPT/HCPCS: 51700; 99024

== ENCOUNTER → 2023-06-27 11:15 | Outpatient (BNVA) | payer OTHER, SELFPAY | PROVIDERS: Visit Provider Nurse Practitioner Family | DX: R33.9 Retention of urine, unspecified (principal); R97.20 Elevated prostate specific antigen [PSA] | CPT/HCPCS: 51700 ==

== ENCOUNTER 2023-07-24 12:17 | Outpatient (REF) | payer OTHER, SELFPAY ==
[2023-07-24 13:11] LABS: Appearance Urine Cloudy; Color Urine Yellow; Glucose Urine UA Negative (Negative); Leukocyte Esterase Urine Large (3+) (Negative); Nitrite Urine Positive (Negative); UMIC TRIGGER UA YES; Urine Blood Moderate (2+) (Negative); Urine Ketones Negative (Negative); Urine Protein Trace mg/dL (Neg-Trace)
[2023-07-24 13:14] LABS: Bacteria Urine 1+ (None Seen); Squamous Epithelial Cell Urine 0-2 /HPF (0-2); WBC Urine >50 /HPF (0-5)
[2023-07-24 13:22] LABS: MANUAL DIFF FLAG NO
[2023-07-24 13:37] LABS: Basophils Absolute Auto 0.1 X10*3/uL (0.0-0.2); Basophils Percent Auto 1.2 % (0-2); Eosinophils Absolute Auto 0.2 X10*3/uL (0.0-0.4); Eosinophils Percent Auto 2.2 % (0-4); Hematocrit 34.5 % (42.0-52.0); Hemoglobin 11.5 g/dl (14.0-18.0); Imm Gran Abs Auto 0.02 X10*3/uL (0.00-0.03); Imm Gran Pct Auto 0.3 % (0.0-0.4); Lymphocytes Percent Auto 39.9 % (20-40); Mean Corpuscular HGB Conc 33.3 g/dl (31.0-36.0); Mean Corpuscular Hemoglobin 33.1 pg (27.0-33.0); Mean Corpuscular Volume 99.4 fL (80.0-98.0); Mean Platelet Volume 9.2 fL (9.4-12.4); Monocytes Absolute Auto 0.6 X10*3/uL (0.1-1.2); Monocytes Percent Auto 7.2 % (2-11); Neutrophils Absolute Auto 3.7 x10*3/uL (2.0-8.3); Neutrophils Percent Auto 49.2 % (45-73); Platelet Count 268 X10*3/uL (160-400); Red Blood Count 3.47 X10*6/uL (4.60-5.80); Red Cell Distribution Width 17.9 % (11.0-16.0); White Blood Count 7.6 X10*3/uL (4.8-10.8)
[2023-07-24 13:48] LABS: Anion Gap 13 (12-20); Blood Urea Nitrogen 35 mg/dL (9-16); Calcium 9.2 mg/dL (8.4-10.2); Carbon Dioxide 21 mmol/L (22-29); Chloride 111 mmol/L (96-108); Estimated Glomerular Filt Rate 33; Iron 78 mcg/dL (45-160); Percent Iron Saturation 29 % (15-50); Potassium 4.8 mmol/L (3.3-5.1); Sodium 140 mmol/L (135-145); Total Iron Binding Capacity 271 mcg/dL (228-428); Unsaturated Iron Binding 193 ug/dL; Uric Acid 12.6 mg/dL (3.4-7.0)
[2023-07-24 13:54] LABS: Parathyroid Hormone Intact 213.2 pg/mL (8.7-77.1)
[2023-07-24 14:06] LABS: Ferritin 1245 ng/mL (20-250); Microalbum/Creatinine Ratio Ur 135.2 ug/mg cr (<30); Protein/Creatinine Ratio, Ur 0.33 (<0.2); Total Protein Urine Random 17 mg/dL (<12); Vitamin D 25-OH Total 30.7 ng/mL (>30)
== END 2023-07-24 12:18 | disposition home or self-care (01) ==
LOC: HO.10HDL 12:17
PROVIDERS: Visit Provider Internal Medicine
DX: N17.9 Acute kidney failure, unspecified (principal)
CPT/HCPCS: 36415; 80051; 81001; 82043; 82306; 82310; 82565; 82570; 82728; 83540; 83970; 84156; 84520; 84550; 85025

== ENCOUNTER 2023-09-10 12:41 | Outpatient (REF) | payer OTHER, SELFPAY ==
--- NOTE | ~2023-09-10 | US_ITS ---
EXAMINATION: US RETROPERITONEAL COMPLETE (RENAL) CLINICAL INFORMATION: Retention of urine, unspecified. COMPARISON: CT abdomen and pelvis 04/29/2023. TECHNIQUE: Real-time imaging of the kidneys and bladder. FINDINGS: RIGHT KIDNEY: 9.2 x 4.6 x 4.8 cm (SAG x AP x TRV). The kidney is normal in size, contour, and echogenicity. Renal cortical thickness is normal. No renal calculi. There is pelviectasis, without ross hydronephrosis. At the lower pole, an 8 mm benign, simple cyst is seen, which requires no imaging follow-up. LEFT KIDNEY: 9.6 x 6.1 x 5.4 cm (SAG x AP x TRV). The kidney is normal in size, contour, and echogenicity. Renal cortical thickness is normal. No calculi or focal parenchymal lesions. There is pelviectasis, without ross hydronephrosis. BLADDER: Well distended. Bilateral ureteral jets are demonstrated. Prevoid bladder volume is 265 mL. Postvoid bladder volume is 99 mL. There are bladder wall trabeculations, consistent with hypertrophy. Small bladder diverticula are noted. OTHER: Prostate dimensions are 4.1 x 4.6 x 3.5 cm (volume 56.7 mL). US/US retroperitoneal comp IMPRESSION: 1. Unremarkable ultrasound appearance of the kidneys. 2. There is prostatomegaly. 3. There is bladder wall hypertrophy, and bladder diverticula are noted. There is an increased postvoid residual volume.
== END 2023-09-10 12:42 | disposition home or self-care (01) ==
LOC: HO.US 12:41
PROVIDERS: Visit Provider Nurse Practitioner Family
DX: R33.9 Retention of urine, unspecified (principal)
CPT/HCPCS: 76770

== ENCOUNTER 2023-09-18 10:26 | Outpatient (REF) | payer OTHER, SELFPAY ==
[2023-09-18 12:24] LABS: Prostate Specific Antigen 151.07 ng/mL (<0.05-4.0)
== END 2023-09-18 10:27 | disposition home or self-care (01) ==
LOC: HO.10HDL 10:26
PROVIDERS: Visit Provider Nurse Practitioner Family
DX: Z12.5 Encounter for screening for malignant neoplasm of prostate (principal); R33.9 Retention of urine, unspecified
CPT/HCPCS: 36415; 84153

== ENCOUNTER 2023-09-25 13:19 | Outpatient (REF) | payer OTHER, SELFPAY ==
[2023-09-25 17:03] LABS: Urine Cytology See Pathology rpt
== END 2023-09-25 13:20 | disposition home or self-care (01) ==
LOC: HO.LNP 13:19
PROVIDERS: Visit Provider Nurse Practitioner Family
DX: R33.9 Retention of urine, unspecified (principal)
CPT/HCPCS: 51798; 81003; 88112

== ENCOUNTER 2023-09-25 13:19 | Outpatient (AMB) | payer OTHER, SELFPAY ==
--- NOTE | 2023-09-25 13:45 | A.OFFVIS_ITS ---
Intake Intake Visit Reasons: 3m/US/PSA(set) Intake Note: Patient presents for follow up ultrasound and psa lab Urology Medications: finasteride, tamsulosin (patient is unsure) Blood Thinner: none PVR: 62ml's Branch Specialist Required: No Accompanied by: Self / Same As Patient Allergies No Known Allergies Allergy (Verified 09/25/23 22:23) Medication List - Last Reconciled 09/25/23 by EUN Rios calcitriol 0.5 mcg (2 x 0.25 mcg) PO DAILY cefdinir 300 mg PO BID 7 days finasteride 5 mg PO DAILY 90 days metoprolol tartrate 25 mg See Protocol PO BID nystatin 1 appl topical BID sevelamer carbonate 800 mg PO TIDWM tamsulosin 0.4 mg PO BEDTIME 30 days HPI HPI Comments History of Present Illness Details Abdelrahman is a 63-year-old male patient. He has a past medical history of urinary retention with incomplete bladder emptying, NSVT, alcholol dependence, end-stage renal disease needing dialysis, chronic kidney disease stage 5, and anemia. He presents to the office today for follow-up of his lower urinary tract symptoms, urinary retention, and elevated PSA. In discussion with the patient today he reports to be doing and feeling well. Recent PSA results and retroperitoneal ultrasound results reviewed with the patient today. B ilateral kidneys without ross hydronephrosis, calculi, and or lesions. At the lower pole of the right kidney 8 mm benign simple cyst is seen, which requires no additional follow-up imaging per radiology report. The bladder is well distended. Bladder jets are demonstrated. Pre void bladder volume is approximately 265 mL. Postvoid bladder volume is approximately 100 mL. The bladder wall is trabeculated with small bladder diverticula noted. Prostate measures approximately 57 mL. PSAs are as follows: 04/28--149.5, 09/27--151.1 Of note, patient was admitted to [facility] in April of last year for weakness at which time he was noted to have an acute kidney injury complicated by acute metabolic encephalopathy evaluated by Nephrology and started on hemodialysis. PermCath was placed on 05/06 and has been tolerating dialysis well. During this hospital stay CT of the abdomen and pelvis found enlarged prostate, massively distended urinary bladder and bilateral severe hydronephrosi s consistent with urinary retention at which time a Lew catheter was placed however patient underwent surgical intervention with Dr. Louise on 05/01/23 due to persistent gross hematuria after Lew catheter placement with potential balloon and prostate. During last office visit voiding trial was performed and patient has been successfully voiding independently with no issues or concerns. In office urinalysis results reviewed with the patient today. PVR 62 mL. Discussed at length potential causes for elevated PSA. Discussed obtaining bone scan as well as undergoing prostate biopsy. Initially during today's office visit patient was reluctant in performing prostate biopsy however in discussion regarding delay in treatment he does wish to undergo prostate biopsy. He otherwise denies any bothersome urinary issues or concerns. He reports compliance with finasteride and Flomax as prescribed. He otherwise offers no other issues or concerns at this time. [facility] Medical History Urinary retention with incomplete bladder emptying NSVT (nonsustained ventricular tachycardia) ESRD needing dialysis Bladder outlet obstruction Benign enlargement of prostate CKD (chronic kidney disease) stage 5, GFR less than 15 ml/min Anemia Social History Household Members: None Housing: Apartment Alcohol intake: current Alcohol intake frequency: a few times a week Alcohol type: hard liquor Patient Tobacco Use Status: Never used Tobacco Second Hand Smoke Exposure: No service: No Review of Systems Const Reports as per HPI Eyes Reports no additional complaints ENT Reports no additional complaints Card Reports as per HPI Resp Reports no additional complaints GI Reports no additional complaints Reports as per HPI Musc Reports no additional complaints Neuro Reports as per HPI Psych Reports as per HPI Endo Reports no additional complaints Physical Exam Const General: cooperative, comfortable, no acute distress, well developed, alert and awake Orientation/consciousness: patient oriented x3 Limitations: no limitations HEENT Head: Yes normal to inspection, Yes normocephalic and Yes atraumatic Ears: hearing grossly normal bilaterally Eyes General: appearance normal, both eyes and all related structures Neck Neck: Yes normal visual inspection and Yes trachea midline Chest Chest palpation & inspection: normal inspection of the chest Resp Effort & Inspection: normal respiratory effort and able to speak in complete sentences Cardio Rate: regular rate GI Inspection: Yes normal to inspection Other: inguinal hernia present; patient declines referral for further assessment and evaluation General: Yes no CVA tenderness Back/Spine/Pelvis Back: no CVA tenderness Skin General skin exam: no rashes or lesions noted Neuro General: patient oriented x3 Extrem General: Yes normal to inspection Psych Appearance: grossly normal Mental Status: mental status grossly normal Speech and movement: Normal speech and movement present and Clear speech present Affect: Other affect and mood findings present (flat affect) Attitude: cooperative Thought process: Normal thought process present Thought content: Normal thought content present Insight: Fair insight present (Psych) Judgement: Fair judgement present (Psych) Office Procedures Post Void Residual Post Residual Void Post Void Residual (PVR): 62 [id number] Void Residual by ultrasound Results AMB Urinalysis, Automated UA Leukoctes 70 Mohamud/uL Last Edit by [email or web address] on 09/25/23 13:56 UA Nitrite Negative Last Edit by [email or web address] on 09/25/23 13:56 UA Urobilinogen 0.2 mg/dL Last Edit by [email or web address] on 09/25/23 13:56 UA Protein 15 mg/dL Last Edit by [email or web address] on 09/25/23 13:56 UA pH 5.5 Last Edit by [email or web address] on 09/25/23 13:56 UA Blood 80 Jose Manuel/uL Last Edit by [email or web address] on 09/25/23 13:56 UA Specific [place] 1.010 Last Edit by [email or web address] on 09/25/23 13:56 UA Ketone Negative Last Edit by [email or web address] on 09/25/23 13:56 UA Bilirubin 0 mg/dL Last Edit by [email or web address] on 09/25/23 13:56 UA Glucose 0 mg/dL Last Edit by [email or web address] on 09/25/23 13:56 Results Reviewed Results Reviewed: Laboratory Last Values Urine pH (Auto) 5.5 09/25/23 13:54 Specific [place] (Auto) 1.010 09/25/23 13:54 Urine Protein (Auto) 15 mg/dL 09/25/23 13:54 Glucose (UA)(Auto) 0 mg/dL 09/25/23 13:54 Urine Ketones (Auto) Negative 09/25/23 13:54 Urine Blood (Auto) 80 Jose Manuel/uL 09/25/23 13:54 Urine Nitrite (Auto) Negative 09/25/23 13:54 Urine Bilirubin (Auto) 0 mg/dL 09/25/23 13:54 Urine Urobilinogen (Auto) 0.2 mg/dL 09/25/23 13:54 Leukocyte Esterase (Auto) 70 Mohamud/uL 09/25/23 13:54 Date of Service: 09/10/23 EXAMINATION: US RETROPERITONEAL COMPLETE (RENAL) FINDINGS: RIGHT KIDNEY: 9.2 x 4.6 x 4.8 cm (SAG x AP x TRV). The kidney is normal in size, contour, and echogenicity. Renal cortical thickness is normal. No renal calculi. There is pelviectasis, without ross hydronephrosis. At the lower pole, an 8 mm benign, simple cyst is seen, which requires no imaging follow-up. LEFT KIDNEY: 9.6 x 6.1 x 5.4 cm (SAG x AP x TRV). The kidney is normal in size, contour, and echogenicity. Renal cortical thickness is normal. No calculi or focal parenchymal lesions. There is pelviectasis, without ross hydronephrosis. BLADDER: Well distended. Bilateral ureteral jets are demonstrated. Prevoid bladder volume is 265 mL. Postvoid bladder volume is 99 mL. There are bladder wall trabeculations, consistent with hypertrophy. Small bladder diverticula are noted. OTHER: Prostate dimensions are 4.1 x 4.6 x 3.5 cm (volume 56.7 mL). IMPRESSION: 1. Unremarkable ultrasound appearance of the kidneys. 2. There is prostatomegaly. 3. There is bladder wall hypertrophy, and bladder diverticula are noted. There is an increased postvoid residual volume. Assessment & Plan Assessment & Plan (1) Hydronephrosis: Code(s): N13.30 - Unspecified hydronephrosis (2) Elevated PSA, greater than or equal to 20 ng/ml: Code(s): R97.20 - Elevated prostate specific antigen [PSA] (3) Urinary retention with incomplete bladder emptying: Code(s): R33.9 - Retention of urine, unspecified (4) Renal cyst: Code(s): N28.1 - Cyst of kidney, acquired (5) Bladder diverticulum: Code(s): N32.3 - Diverticulum of bladder Plan: Plan Risks and benefits regarding trans rectal ultrasound with prostate biopsy were discussed.? Options of continued surveillance, no treatment and biopsy were offered. The risks include but are not limited to, urinary tract infection, sepsis, difficulty urinating, bleeding into the rectum or bladder that requires intervention and transfusion,and failure to diagnose prostate cancer. The patient understands the options and the risks involved. They wish to proceed. Printed information was provided to ensure he remains off anticoagulation for the appropriate length of time. He may require cardiology or PCP clearance.? An antibiotic will be administered prior to, and following the procedure Plan In office urinalysis results reviewed with the patient today; as noted above. PVR 62 mL Recent PSA results reviewed with the patient today; as noted above. Recent retroperitoneal ultrasound results reviewed with the patient today; as noted above. Will obtain bone scan, BUN, and creatinine for further assessment evaluation. Discussed at length potential causes for elevated PSA Discussed risks and benefits of prostate biopsy; this was discussed at length Continue Flomax and finasteride as prescribed. Patient currently denies any bothersome urinary issues or concerns. Prescription provided for antibiotic therapy; discussed specific instructions of taking medication as prescribed day before, day of, and day after prostate biopsy. Will schedule for prostate biopsy as discussed Follow-up postprocedure per doctor's orders; or sooner with any issues, concerns, and or questions. Orders: Orders AMB Urinalysis Automated Today Z13.9 - Encounter for screening, unspecified AMB Post Void Residual by ultrasound Today R33.9 - Retention of urine, unspecified NM bone scan whole body Today C61 - Malignant neoplasm of prostate, C79.51 - Secondary malignant neoplasm of bone Urine Cytology Today R33.9 - Retention of urine, unspecified Blood Urea Nitrogen Today N13.30 - Unspecified hydronephrosis Creatinine Today N13.30 - Unspecified hydronephrosis Medications: New levofloxacin take 1 tablet day before procedure, 1 tablet day of procedure and 1 tablet day after procedure 500 mg PO daily 3 days 3 tabs 0RF Discontinued cefdinir Discontinued Reason: Patient Completed Course 300 mg PO BID 7 days 14 caps 0RF Patient Instructions: The patient had an opportunity to ask questions regarding the treatment plan. All questions were answered. Physical exam, labs, and imaging were discussed and reviewed in detail. As well as risks, benefits, and discussion of treatment choices. No major barriers to understanding were identified. The patient expressed understanding and agreement with the above treatment plan. The patient was made aware they should contact our office by phone for worsening of their current condition, the appearance of new symptoms, or with any questions or concerns. Compliance is encouraged with any medications and follow up testing that is ordered. It is a privilege to be allowed the opportunity to participate in? your urological care.? Again, if you have any questions or concerns If you have any questions or concerns please do not hesitate to contact me. The office is [phone]. This note is constructed using voice recognition software. While every effort has been made to ensure accuracy telecom engineer errors may have been included. Yours sincerely, EUN Rios Coding Level of Care Code Est Pt Level 4 (97193) Diagnoses Hydronephrosis N13.30 Elevated PSA, greater than or equal to 20 ng/ml R97.20 Urinary retention with incomplete bladder emptying R33.9 Renal cyst N28.1 Bladder diverticulum N32.3 CPT Codes Post Residual Void - PVR CPT Code: 85355-Oxjz Void Residual by ultrasound ([id number]) Time Spent (min) 45
== END 2023-09-25 14:32 | disposition home or self-care (01) ==
PROVIDERS: Visit Provider Nurse Practitioner Family
DX: N13.30 Unspecified hydronephrosis (principal); R97.20 Elevated prostate specific antigen [PSA]; R33.9 Retention of urine, unspecified; N28.1 Cyst of kidney, acquired; N32.3 Diverticulum of bladder
CPT/HCPCS: 99214

== ENCOUNTER 2023-10-29 19:07 | Emergency (ER) | payer OTHER, SELFPAY ==
[2023-10-29 19:30] VITALS: BP 182/105; BP 210/120; PULSE 91; PULSE 94; RESP 20; TEMP 36.7; O2SAT 97; O2SAT 98; BMI 29.4
--- NOTE | 2023-10-29 19:39 | PC.NURSE ---
pt biba from home reports painful urination with blood present in urine. reports incontinent urine since previous cath. bladder scan performed 392 ml urine present in bladder
[2023-10-29 19:55] LABS: MANUAL DIFF FLAG NO
[2023-10-29 19:56] LABS: Basophils Absolute Auto 0.1 X10*3/uL (0.0-0.2); Eosinophils Absolute Auto 0.2 X10*3/uL (0.0-0.4); Eosinophils Percent Auto 3.7 % (0-4); Imm Gran Abs Auto 0.02 X10*3/uL (0.00-0.03); Imm Gran Pct Auto 0.3 % (0.0-0.4); Lymphocytes Absolute Auto 1.7 X10*3/uL (1.2-4.9); Lymphocytes Percent Auto 27.2 % (20-40); Mean Corpuscular HGB Conc 34.2 g/dl (31.0-36.0); Mean Corpuscular Hemoglobin 32.2 pg (27.0-33.0); Mean Corpuscular Volume 94.1 fL (80.0-98.0); Monocytes Absolute Auto 0.4 X10*3/uL (0.1-1.2); Monocytes Percent Auto 6.8 % (2-11); Neutrophils Absolute Auto 3.8 x10*3/uL (2.0-8.3); Platelet Count 230 X10*3/uL (160-400); Red Blood Count 4.04 X10*6/uL (4.60-5.80); Red Cell Distribution Width 13.6 % (11.0-16.0); White Blood Count 6.3 X10*3/uL (4.8-10.8)
[2023-10-29 20:10] LABS: Appearance Urine Cloudy; Color Urine BROWN; Glucose Urine UA Negative (Negative); Leukocyte Esterase Urine Moderate (2+) (Negative); Nitrite Urine Positive (Negative); PH 6.5 (5.0-9.0); Specific Gravity - Urine 1.015 (1.005-1.025); UMIC TRIGGER UACC YES; Urine Blood Large (3+) (Negative); Urine Ketones Trace mg/dL (Negative); Urine Protein 300 (3+) mg/dL (Neg-Trace)
[2023-10-29 20:13] LABS: Alanine Aminotransferase 7 U/L (0-40); Albumin Level 3.9 g/dL (3.5-5.0); Alkaline Phosphatase 92 U/L (39-117); Anion Gap 11 (12-20); Aspartate Amino Transferase 11 U/L (5-37); Bilirubin Total 0.2 mg/dL (0.0-1.0); Blood Urea Nitrogen 34 mg/dL (9-16); Calcium 8.9 mg/dL (8.4-10.2); Carbon Dioxide 21 mmol/L (22-29); Chloride 106 mmol/L (96-108); Creatinine Clr Calc Pharmacy 34.5; Estimated Glomerular Filt Rate 30; Glucose Random 108 mg/dL (60-115); Potassium 3.9 mmol/L (3.3-5.1); Sodium 134 mmol/L (135-145); Total Protein 6.9 g/dL (6.5-8.0)
[2023-10-29 20:14] LABS: Bacteria Urine None Seen (None Seen); Hyaline Casts Urine 0-2 /LPF (0-2); RBC Urine >20 /HPF (0-2); Squamous Epithelial Cell Urine 0-2 /HPF (0-2); UACC Culture Trigger YES; WBC Urine >50 /HPF (0-5)
[2023-10-29 20:20] VITALS: BP 178/94; PULSE 82; RESP 14; TEMP 36.8; O2SAT 95
--- NOTE | 2023-10-29 22:16 | ED.MALEGU ---
HPI - Male Genitourinary General Chief complaint: Urogenital-Male Stated complaint: blood in urine Time Seen by Provider: 10/29/23 22:05 Source: patient, RN notes reviewed and old records reviewed Mode of arrival: ambulatory Limitations: no limitations History of Present Illness HPI Narrative: 63-year-old male with past medical history significant for chronic kidney disease, BPH, history of urinary retention followed by Dr. Louise presents for evaluation of blood in his urine. Patient reports his urine was very dark red starting 2-3 hours prior to arrival. He reports some mild lower abdominal discomfort. Denies any flank pain, fevers, chills He has not on any blood thinners He reports he had a similar episode about 3 months ago requiring Lew catheterization Related Data Previous Rx's ?Medication ?Instructions ?Recorded calcitriol 0.25 mcg capsule 0.5 mcg (2 x 0.25 mcg) PO DAILY 05/09/23 #30 caps metoprolol tartrate 25 mg tablet 25 mg PO BID #60 tabs 05/09/23 sevelamer carbonate 0.8 gram oral 800 mg PO TIDWM #90 ea 05/09/23 powder packet nystatin 100,000 unit/gram topical 1 appl topical BID #60 grams 06/10/23 powder finasteride 5 mg tablet 5 mg PO DAILY 90 days #90 tabs 06/27/23 tamsulosin 0.4 mg capsule 0.4 mg PO BEDTIME 30 days #30 caps 06/27/23 levofloxacin 500 mg tablet 500 mg PO daily 3 days #3 tabs 09/25/23 cefuroxime axetil 250 mg tablet 250 mg PO Q12H #14 tabs 10/29/23 Allergies Allergy/AdvReac Type Severity Reaction Status Date / Time No Known Allergies Allergy Verified 10/29/23 19:36 Review of Systems Constitutional: Constitutional: Denies body ache(s), Denies chills and Denies fever(s) ENT: Denies sore throat Cardiovascular: Cardiovascular: Denies chest pain and Denies dyspnea Respiratory: Respiratory: Denies cough and Denies dyspnea Gastrointestinal: Gastrointestinal: Reports abdominal pain, Denies nausea and Denies vomiting Genitourinary: Genitourinary: Reports hematuria and Reports dysuria Musculoskeletal: Musculoskeletal: Denies back pain Integumentary/Breasts: Skin/Breast: Denies rash PMF Past Medical History Medical History Urinary retention with incomplete bladder emptying NSVT (nonsustained ventricular tachycardia) ESRD needing dialysis Bladder outlet obstruction Benign enlargement of prostate CKD (chronic kidney disease) stage 5, GFR less than 15 ml/min Anemia Social History Social History Household Members: None Housing: Apartment Alcohol intake: current Alcohol intake frequency: a few times a week Alcohol type: hard liquor Patient Tobacco Use Status: Never used Tobacco Second Hand Smoke Exposure: No Advance Directives: Yes Advance Directives on File: Yes Advance Directives Date on File: 05/12/23 Do you have a plan to hurt others: No Plan service: No Physical Exam Vital Signs: Vital Signs: Last Vital Signs Temp 97.7 F 10/29/23 22:29 Pulse 89 10/29/23 22:29 Resp 14 10/29/23 22:29 BP 147/92 H 10/29/23 22:29 Pulse Ox 97 10/29/23 22:29 O2 Del Method Room Air 10/29/23 22:29 BMI result Body Mass Index 29.4 Const: General: healthy appearing, comfortable, no acute distress, alert and awake Nutritional Appearance: well nourished Orientation/consciousness: patient oriented x3 HEENT: Head: Yes normocephalic and Yes atraumatic Eyes: Eyelids: Yes eyelids normal Conjunctivae: conjunctivae normal Sclerae: sclerae normal Corneas: corneas normal Pupils: Equal, round and reactive pupils present EOM: EOMs intact bilaterally Neck: Neck: Yes full ROM Resp: Effort & Inspection: normal respiratory effort, able to speak in complete sentences and not labored GI: Inspection: No distended Palpation (GI): Soft to palpation, not firm, nontender, no guarding and not rigid : General: Yes no CVA tenderness Back/Spine/Pelvis: Back: no CVA tenderness Skin: General skin exam: elasticity normal Neuro: General: patient oriented x3 Cranial nerves: Yes Equal, round and reactive pupils present and Yes Bilaterally intact EOM present Cognition (Neuro): normal cognition Medications Administered Discontinued Medications Generic Name Dose Route Start Last Admin Trade Name Freq PRN Reason Stop Dose Admin Cefuroxime Axetil 250 mg 10/29/23 22:33 10/29/23 22:40 Cefuroxime Axetil 250 Mg Tablet PO 10/29/23 22:34 250 mg ONCE ONE Administration Medical Decision Making Medical Decision Making [facility] Narrative: 63-year-old male presents for evaluation of blood in his urine and difficulty urinating. The patient was able to urinate 3 times in the emergency department. He was bladder scanned prior to urinating that showed 392 cc in the bladder. He has no abdominal pain currently. His abdominal exam is reassuring. He has no flank pain or CVA tenderness to suggest obstructive uropathy. Patient has chronic kidney disease at baseline with a creatinine between 2 and 2.5. His creatinine today is 2.25 falling with in his baseline. His potassium is within normal limits. Sodium is just below normal at 134. He has no leukocytosis. The patient was quite hypertensive on arrival which improved without intervention after he was able to urinate. At this time the patient is comfortable, urinating independently I do not think he has a Lew catheter and he may follow-up with urology Differential Diagnosis Differential Diagnoses: The differential diagnosis associated with the presentation includes BPH Urinary retention Obstructive uropathy UTI Pyelonephritis Bladder mass Lab Data [facility] Lab Attestation statement: I reviewed the patient's lab results. See above 10/29/23 19:51 10/29/23 19:51 Labs: Lab Results 10/29/23 10/29/23 Range/Units 19:51 20:01 WBC 6.3 (4.8-10.8) X10*3/uL RBC 4.04 L (4.60-5.80) X10*6/uL Hgb 13.0 L (14.0-18.0) g/dl Hct 38.0 L (42.0-52.0) % MCV 94.1 (80.0-98.0) fL MCH 32.2 (27.0-33.0) pg MCHC 34.2 (31.0-36.0) g/dl RDW 13.6 (11.0-16.0) % Plt Count 230 (160-400) X10*3/uL MPV 9.0 L (9.4-12.4) fL Immature Gran % (Auto) 0.3 (0.0-0.4) % Neut % (Auto) 61.0 (45-73) % Lymph % (Auto) 27.2 (20-40) % [place] % (Auto) 6.8 (2-11) % Eos % (Auto) 3.7 (0-4) % Baso % (Auto) 1.0 (0-2) % Lymph # (Auto) 1.7 (1.2-4.9) X10*3/uL [place] # (Auto) 0.4 (0.1-1.2) X10*3/uL Eos # (Auto) 0.2 (0.0-0.4) X10*3/uL Baso # (Auto) 0.1 (0.0-0.2) X10*3/uL Abs Immat Gran (auto) 0.02 (0.00-0.03) X10*3/uL Absolute Neuts (auto) 3.8 (2.0-8.3) x10*3/uL Absolute Nucleated RBC 0.000 (0.0-0.012) X10*3/uL Nucleated RBC % (auto) 0.0 (0.0-0.2) /100WBC Sodium 134 L (135-145) mmol/L Potassium 3.9 (3.3-5.1) mmol/L Chloride 106 (96-108) mmol/L Carbon Dioxide 21 L (22-29) mmol/L Anion Gap 11 L (12-20) BUN 34 H (9-16) mg/dL Creatinine 2.25 H (0.5-1.4) mg/dL Estim Creat Clear Calc 34.5 Estimated GFR 30 Random Glucose 108 (60-115) mg/dL Calcium 8.9 (8.4-10.2) mg/dL Total Bilirubin 0.2 (0.0-1.0) mg/dL AST 11 (5-37) U/L ALT 7 (0-40) U/L Alkaline Phosphatase 92 (39-117) U/L Total Protein 6.9 (6.5-8.0) g/dL Albumin 3.9 (3.5-5.0) g/dL Urine Color BROWN Urine Appearance Cloudy Urine pH 6.5 (5.0-9.0) Ur Specific [place] 1.015 (1.005-1.025) Urine Protein 300 (3+) H (Neg-Trace) mg/dL Urine Glucose (UA) Negative (Negative) mg/dL Urine Ketones Trace (Negative) mg/dL Urine Blood Large (3+) H (Negative) Urine Nitrite Positive H (Negative) Ur Leukocyte Esterase Moderate (2+) H (Negative) Urine RBC >20 H (0-2) /HPF Urine WBC >50 H (0-5) /HPF Ur Squamous Epith Cells 0-2 (0-2) /HPF Urine Bacteria None Seen (None Seen) Hyaline Casts 0-2 (0-2) /LPF Tests considered The following testing was considered but not selected: Consider CT scan of the abdomen pelvis, however the patient has no flank pain or current abdominal pain. He is urinated independently. Plan for discharge with urology follow-up Discharge Plan Discharge Clinical Impression: Urinary tract infection, Hematuria Patient Disposition: Home, Self-Care Instructions: Urinary Tract Infection in Men (ED) Additional Instructions: Your workup in the ER today shows both blood and signs of infection in your urine Take the cefuroxime/Ceftin twice daily for 7 days Call your urologist tomorrow morning to schedule follow-up Return for new or worsening symptoms, especially if you are unable to urinate or develop fevers Prescriptions: New cefuroxime axetil 250 mg tablet 250 mg PO Q12H Qty: 14 0RF No Action calcitriol 0.25 mcg Capsule 0.5 mcg PO DAILY Qty: 30 0RF metoprolol tartrate 25 mg Tablet 25 mg PO BID Qty: 60 0RF Protocol: Hold for SBP/HR < HOLD for SBP < : 90 HOLD for HR < : 60 sevelamer carbonate 0.8 gram Powder In Packet 800 mg PO TIDWM Qty: 90 0RF nystatin 100,000 unit/gram powder 1 appl topical BID Qty: 60 0RF levofloxacin 500 mg tablet 500 mg PO daily 3 Days Qty: 3 0RF Rx Instructions: take 1 tablet day before procedure, 1 tablet day of procedure and 1 tablet day after procedure tamsulosin 0.4 mg capsule 0.4 mg PO BEDTIME 30 Days Qty: 30 1RF finasteride 5 mg tablet 5 mg PO DAILY 90 Days Qty: 90 1RF Referrals: Elliott Louise MD [Physician] - (hematuria, [employer] colored urine) Print Language: Upper Sorbian
[2023-10-29 22:29] VITALS: BP 147/92; PULSE 89; RESP 14; TEMP 36.5; O2SAT 97
[2023-10-29] MEDS: cefuroxime axetiL 250 MG TABLET PO (22:40)
[2023-10-29 23:01] VITALS: BP 147/92; PULSE 89; RESP 14; TEMP 36.5; O2SAT 97
== END 2023-10-29 23:05 | disposition home or self-care (01) ==
PROVIDERS: Emergency Provider Emergency Medicine Emergency Medical Services
DX: N39.0 Urinary tract infection, site not specified (principal); N18.5 Chronic kidney disease, stage 5
CPT/HCPCS: 36415; 51798; 80053; 81001; 85025; 87086; 87088; 87186; 99283; 99284

== ENCOUNTER → 2023-11-03 09:38 | Outpatient (REF) | payer OTHER, SELFPAY ==
--- NOTE | ~2023-11-03 | NM_ITS ---
EXAMINATION: NM BONE SCAN OF THE WHOLE BODY CLINICAL INFORMATION: Malignant neoplasm of prostate. 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 Increasing PSA. COMPARISON: Whole-body bone scan done on 04/30/2023. TECHNIQUE: Multiple gamma scintillation camera images of the whole body were performed 3 hours following the intravenous administration of 23.0 mCi Tc-99m MDP. The radiotracer was injected through right antecubital superficial vein without complications. FINDINGS: In the head, no suspicious focal lesion. In the thoracic cage and upper extremities, no suspicious focal lesion. In the spine, no suspicious focal lesion. In the pelvis, no suspicious focal lesion. The urinary bladder appeared to be displaced likely secondary to enlarged prostate. There is radiotracer contamination within the soft tissues overlying the pubic region. In the lower extremities, motion artifacts are present. Evaluation is technically limited. No definite suspicious abnormality. Degenerative changes at both knees (left greater than right). No other definite bony abnormalities are noted. The urinary bladder and faint visualization of both kidneys are noted. NM/VT bone scan whole body IMPRESSION: Compared to most recent prior whole-body bone scan dated 04/30/2023: * Previously suspected subtle focal abnormality involving the mid shaft of the right femur is suboptimally evaluated given the presence of significant motion artifacts. * No definite evidence of any osseous metastasis. * Follow-up PSMA PET/CT scan is recommended (to include both femur; more sensitive and specific imaging modality) for further full detail evaluation especially given the rising PSA level.
== END ==
LOC: HO.NUCMED 09:38
PROVIDERS: Visit Provider Nurse Practitioner Family
DX: C61 Malignant neoplasm of prostate (principal); C79.51 Secondary malignant neoplasm of bone
CPT/HCPCS: 78306; A9503

== ENCOUNTER 2023-11-19 13:17 | Outpatient (REF) | payer OTHER, SELFPAY ==
[2023-11-19 14:48] LABS: Appearance Urine Cloudy; Color Urine Yellow; Glucose Urine UA Negative (Negative); Leukocyte Esterase Urine Large (3+) (Negative); Nitrite Urine Negative (Negative); UMIC TRIGGER UA YES; Urine Blood Trace (Negative); Urine Ketones Negative (Negative); Urine Protein Trace mg/dL (Neg-Trace)
[2023-11-19 14:50] LABS: Bacteria Urine None Seen (None Seen); Hyaline Casts Urine 0-2 /LPF (0-2); RBC Urine 0-2 /HPF (0-2); Squamous Epithelial Cell Urine 0-2 /HPF (0-2); WBC Urine >50 /HPF (0-5)
== END 2023-11-19 13:18 | disposition home or self-care (01) ==
LOC: HO.LAB 13:17
PROVIDERS: Visit Provider Urology
DX: N39.0 Urinary tract infection, site not specified (principal)
CPT/HCPCS: 81001; 87086; 87088; 87186

== ENCOUNTER 2023-12-06 08:08 | Outpatient (REF) | payer OTHER, SELFPAY ==
[2023-12-06 09:58] LABS: Appearance Urine Clear; Color Urine Yellow; Glucose Urine UA Negative (Negative); Leukocyte Esterase Urine Negative (Negative); Nitrite Urine Negative (Negative); Specific Gravity - Urine 1.015 (1.005-1.025); Urine Blood Negative (Negative); Urine Ketones Negative (Negative); Urine Protein Negative (Neg-Trace)
[2023-12-06 10:04] LABS: Bacteria Urine None Seen (None Seen); Hyaline Casts Urine 0-2 /LPF (0-2); RBC Urine 0-2 /HPF (0-2); Squamous Epithelial Cell Urine 0-2 /HPF (0-2); WBC Urine 0-5 /HPF (0-5)
== END 2023-12-06 08:09 | disposition home or self-care (01) ==
LOC: HO.LAB 08:08
PROVIDERS: PCP Internal Medicine; Visit Provider Urology
DX: R39.9 Unspecified symptoms and signs involving the genitourinary system (principal); R97.20 Elevated prostate specific antigen [PSA]; N13.30 Unspecified hydronephrosis
CPT/HCPCS: 81001; 87086

== ENCOUNTER 2023-12-16 08:37 | Outpatient (AMB) | payer OTHER, SELFPAY ==
--- NOTE | 2023-12-16 08:52 | A.OFFPC_ITS ---
Vital Signs 12/16/23 08:54 Height 5 ft 5 in Weight 177 lb 8 oz BMI 29.5 BP 110/66 Blood Pressure Location Lt brachial Position Sitting Pulse 77 Pulse Source Pulse Oximeter Pulse Oximetry (%) 98 Oxygen Delivery Method Room Air Intake Visit Reasons: FARM TRACTOR OPERATOR, renal issues Intake Note: Patient is a new patient here to establish care for Complaint of pain in both legs, CKD, Incontinence, Elevated PSA, Prostate issues, Bladder mass, Anxiety. Transferring care from unknown . Medical records have not been requested and have not received. Principal Solutions Architect Required: No Marker Maker: Not Required per policy Accompanied by: Self / Same As Patient Allergies No Known Allergies Allergy (Verified 12/19/23 10:35) Medication List - Last Reconciled 12/19/23 by Kevin Jiang MD calcitriol 0.5 mcg (2 x 0.25 mcg) PO DAILY finasteride 5 mg PO DAILY 90 days levofloxacin 500 mg PO DAILY 3 days metoprolol tartrate 25 mg See Protocol PO BID sevelamer carbonate 800 mg PO TIDWM tamsulosin 0.4 mg PO BEDTIME 90 days Tobacco use date assessed: 12/16/23 Fall risk assessment: No Falls in past year Last assessed Fall Risk: 12/16/23 Dental Screening Dental Screen Date: 12/16/23 Did you have a dental visit in the last 12 months?: No Did you have a dental problem in the last 6 months where you did not have access to dental care?: No Was dental information given to patient?: No HPI FARM TRACTOR OPERATOR, renal issues HPI Details 63-year-old male presents to the office to establish his care here. He is accompanied by his sister. Patient was in the emergency room with hematuria and lower abdominal pain. Blood work done in the emergency room showed an elevated creatinine. Creatinine was 2.25 which is around his baseline. Patient has chronic kidney disease. Subsequently he was seen by the urologist and a PSA done was greater than 150. Patient was scheduled for a prostate biopsy and was canceled in the last minute due to patient's ambivalence. Patient reports today that he is able to urinate well. He is able to function and do his activities of daily living. Patient has sharp pain in his right lower extremity compared to the left. The pain is mostly in the area of the right knee. Patient is walking with a slight limp. [facility] Medical History History of bone density study Urinary retention with incomplete bladder emptying NSVT (nonsustained ventricular tachycardia) ESRD needing dialysis Bladder outlet obstruction Benign enlargement of prostate CKD (chronic kidney disease) stage 5, GFR less than 15 ml/min Anemia Surgical History History of colonoscopy Social History Household Members: None Housing: Apartment Alcohol intake: current Alcohol intake frequency: does not drink Alcohol type: hard liquor Patient Tobacco Use Status: Never used Tobacco e-Cigarette/Vaping Use: Never Used Second Hand Smoke Exposure: No Advance Directives Date on File: 05/12/23 service: No Current occupational status: employed 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[employer] Cognitive needs: No Hearing needs: No Vision needs: No Questionnaire PHQ-9 Over the last 2 weeks, how often have you been bothered by any of the following problems? 1. Little interest or pleasure in doing things: not at all 2. Feeling down, depressed, or hopeless: not at all 3. Trouble falling or staying asleep, or sleeping too much: not at all 4. Feeling tired or having little energy: not at all 5. Poor appetite or overeating: not at all 6. Feeling bad about yourself - or that you are a failure or have let yourself or your family down: not at all 7. Trouble concentrating on things, such as reading the newspaper or watching television: not at all 8. Moving or speaking so slowly that other people could have noticed. Or the opposite - being so fidgety or restless that you have been moving around a lot more than usual: not at all 9. Thoughts that you would be better off or of hurting yourself in some way: not at all Total score: 0 Depression Screening Interpretation: Negative Depression Screening Done: Yes Source: Developed by Drs. Remi Lloyd, Andreina Ramon, Aron Malone and colleagues, with an educational sophia from [employer]. Thrive Questionnaire Date Thrive assessed: 12/16/23 I am a: Patient What is your living situation today?: I have a steady place to live Within the past 12 months, did the food you bought not last and you didn't have the money to get more?: Never true Within the past 12 months, did you worry whether your food would run out before you got money to buy more?: Never true Do you have trouble paying for medicines?: Yes Do you have trouble getting transportation to medical appointments?: No Do you have trouble paying your heating and electricity bill?: No Do you have trouble taking care of your child, family member or friend?: No Do you have trouble with day-to-day activities such as bathing, preparing meals, shopping, managing finances, etc.?: No Are you currently unemployed and looking for a job?: No Are you interested in more education?: No Currently or been in a relationship where the following occur: no concerns reported THRIVE Score: 0 AUDIT C Alcohol Use Questionnaire (AUDIT-C) 1. How often do you have a drink containing alcohol?: 2-3 times a week 2. How many drinks containing alcohol do you have on a typical day when you are drinking?: 1 or 2 Total Score: 3 ADILENE-7 AMB Questionnaire ADILENE-7 Date ADILENE - 7 assessed: 12/16/23 Feeling nervous, anxious, or on edge: 0 = Not at all Not being able to stop or control worryin = Not at all Worrying too much about different things: 0 = Not at all Trouble relaxin = Not at all Being so restless that it is hard to sit still: 0 = Not at all Becoming easily annoyed or irritable: 0 = Not at all Feeling afraid as if something awful might happen: 0 = Not at all Total ADILENE-7 score (0-4 normal; 5-9 mild; 10-14 moderate; 15-21 severe): 0 Source: Developed by Drs. Remi Lloyd, Andreina Ramon, Aron Malone and colleagues, with an educational sophia from [employer]. Physical exam (Primary Care) Vital Signs: Last Vital Signs Pulse 77 12/16/23 08:54 BP 110/66 12/16/23 08:54 Pulse Ox 98 12/16/23 08:54 Oxygen Delivery Method Room Air 12/16/23 08:54 Care Plan Goal for BP management: Blood pressure is in range. BMI result Body Mass Index 29.5 Tobacco/Smoking Status: Tobacco use Status Tobacco use date assessed 12/16/23 12/16/23 09:09 Patient Tobacco Use Status Never used Tobacco 12/16/23 09:09 e-Cigarette/Vaping Use Never Used 12/16/23 09:09 PHQ-9: PHQ-9 Score PHQ-9: Total score 0 12/16/23 09:09 Depression Screening Interpretation: Negative Thrive Assessment: Date of Thrive Assessment Date Thrive assessed 12/16/23 12/16/23 09:09 Currently or been in a relationship where the following occur: no concerns reported Const General: cooperative and healthy appearing Nutritional Appearance: well nourished Orientation/consciousness: patient oriented x3 Limitations: no limitations HENMT Head: Yes normal to inspection Eyes General: appearance normal, both eyes and all related structures Neck Neck: Yes normal visual inspection Chest Chest palpation & inspection: normal palpation of entire chest wall Resp Effort & Inspection: normal respiratory effort Neuro General: patient oriented x3 Extrem Other: Right knee: Tenderness along the lateral joint line. Full range of motion and extension. Assessment and Plan Assessment & Plan (1) Acute renal failure (ARF): Code(s): N17.9 - Acute kidney failure, unspecified Plan: Patient's creatinine is at baseline. He has chronic renal failure most likely due to post bladder obstruction. PSA is markedly elevated. Convince the patient that he needs a biopsy. I spoke to the urologist on the phone. The procedure has been scheduled in the next 2 weeks. Continue current medications. (2) Right knee pain: Code(s): M25.561 - Pain in right knee Plan: X-ray of the knee has been ordered. Most likely it has a local issue. Bone scan done as a workup for prostate cancer was negative. Orders: Orders XR knee LT 3V 12/16/23 S83.92XA - Sprain of unspecified site of left knee, initial encounter Medications: Discontinued levofloxacin take 1 tablet day before procedure, 1 tablet day of procedure and 1 tablet day after procedure Discontinued Reason: Duplicate 500 mg PO daily 3 days 3 tabs 0RF Coding Level of Care Code New Pt Level 4 (54061) Complex EM visit Add On G2211 Diagnoses Acute renal failure (ARF) N17.9 Right knee pain M25.561
[2023-12-16 08:54] VITALS: BP 110/66; PULSE 77; O2SAT 98; BMI 29.5
== END 2023-12-16 10:36 | disposition home or self-care (01) ==
PROVIDERS: Visit Provider Internal Medicine
DX: N17.9 Acute kidney failure, unspecified (principal); M25.561 Pain in right knee
CPT/HCPCS: 99204; G2211

== ENCOUNTER 2023-12-23 13:04 | Outpatient (REF) | payer OTHER, SELFPAY ==
[2023-12-23 13:19] VITALS: PULSE 80; RESP 18; TEMP 36.5; O2SAT 98; BMI 27.4
[2023-12-23 13:22] VITALS: TEMP 36.5
[2023-12-23 13:50] VITALS: BP 195/90
--- NOTE | 2023-12-23 14:07 | MHC.SHP ---
Pre-Procedural Eval Section A - 24 Hr Update-Section A only Date of Service: 12/23/23 The patient is an INPATIENT: No The patient has been examined within 24 hours of the surgical procedure. The History & Physical has been completed within 30 days and I have reviewed it.: Yes Section B - Complete if H&P > 30 days Chief Complaint: Elevated prostate specific antigen [PSA] Details of Present Illness: Abdelrahman is a 63 year old male with CKD, followed by Nephrology, noted to have elevated PSA. Prostate biopsy scheduled today under local will not be done due to elevated blood pressure. Pre procedure vitals: 238/116 left arm, 210/119 right arm were repeated manually -- 195/80 left arm, 195/90 right arm Patient sent the the ED for further evaluation Allergies: Allergies Allergy/AdvReac Type Severity Reaction Status Date / Time No Known Allergies Allergy Verified 12/19/23 10:35 Plan Diagnosis/Plan: Change I have reviewed the history and physical and performed a pertinent physical examination on my patient. No changes have occurred unless specified. Prostate biopsy will need to be rescheduled. Pt sent to the ED due to elevated BP. Plan discussed with pt's sister Naida. Time Spent With Patient Time: Total time managing care of this patient today ____ minutes.
== END 2023-12-23 13:05 | disposition home or self-care (01) ==
LOC: HO.SSS 13:04
PROVIDERS: Visit Provider Urology
DX: Z01.818 Encounter for other preprocedural examination (principal); R97.20 Elevated prostate specific antigen [PSA]; N18.9 Chronic kidney disease, unspecified
CPT/HCPCS: 76942

== ENCOUNTER 2023-12-23 14:02 | Emergency (ER) | payer OTHER, SELFPAY ==
[2023-12-23] VITALS (7 sets, daily range): BP systolic 166–188; BP diastolic 81–135; PULSE 60–83; RESP 10–20; TEMP 36.4–36.6; O2SAT 99–100; BMI 29.0
--- NOTE | 2023-12-23 14:16 | ECG_ITS ---
Test Reason : HYPERTENSION Blood Pressure : / mmHG Vent. Rate : 064 BPM Atrial Rate : 064 BPM P-R Int : 140 ms QRS Dur : 082 ms QT Int : 360 ms P-R-T Axes : 067 035 052 degrees QTc Int : 371 ms Normal sinus rhythm Normal ECG When compared with ECG of 26-APR-2023 10:44, No significant change was found Referred By: Corky Rashid Electronically Signed By:Abe Cedillo
--- NOTE | 2023-12-23 14:18 | ED_ITS ---
HPI - General Adult General Chief complaint: General Medical Stated complaint: high bp Time Seen by Provider: 12/23/23 17:24 Source: patient, RN notes reviewed and old records reviewed Mode of arrival: ambulatory Limitations: no limitations History of Present Illness ED Provider: Barrett CHÁVEZ narrative: 63-year-old male past medical history significant for chronic kidney disease, hypertension, elevated PSA presents for evaluation of high blood pressure. Patient was due to have a prostate biopsy this morning but was referred to the ER due to elevated blood pressure The patient's blood pressure was as high as 236/119 at his urology office Patient's blood pressure on arrival to the ED is 195/90 Patient states that when he was due for his prostate biopsy he was ?given some medication to take before and after it. He states he believes it was an antibiotic He thought that because he was taking a new medication he had to stop his metoprolol so he has not taken it in 2 days He was not instructed to stop the medication He states that he currently has no complaints whatsoever He denies headache, chest pain, dizziness Related Data Previous Rx's ?Medication ?Instructions ?Recorded calcitriol 0.25 mcg capsule 0.5 mcg (2 x 0.25 mcg) PO DAILY 05/09/23 #30 caps metoprolol tartrate 25 mg tablet 25 mg PO BID #60 tabs 05/09/23 sevelamer carbonate 0.8 gram oral 800 mg PO TIDWM #90 ea 05/09/23 powder packet finasteride 5 mg tablet 5 mg PO DAILY 90 days #90 tabs 11/13/23 tamsulosin 0.4 mg capsule 0.4 mg PO BEDTIME 90 days #90 caps 11/13/23 levofloxacin 500 mg tablet 500 mg PO DAILY 3 days #3 tabs 12/18/23 Allergies Allergy/AdvReac Type Severity Reaction Status Date / Time No Known Allergies Allergy Verified 12/23/23 14:18 Review of Systems 2 Constitutional: Constitutional: Denies body ache(s), Denies chills, Denies fever(s), Denies frequent falls and Denies headache(s) Eyes: Eyes: Denies blurry vision ENT: Denies headache(s) Cardiovascular: Cardiovascular: Denies chest pain and Denies dyspnea Respiratory: Respiratory: Denies dyspnea Gastrointestinal: Gastrointestinal: Denies abdominal pain, Denies nausea and Denies vomiting Musculoskeletal: Musculoskeletal: Denies back pain Integumentary/Breasts: Skin/Breast: Denies rash Neurologic: Denies frequent falls and Denies headache(s) Psychiatric: Psychiatric: Denies anxiety and Denies panic attacks [facility] Past Medical History Medical History History of bone density study Urinary retention with incomplete bladder emptying NSVT (nonsustained ventricular tachycardia) ESRD needing dialysis Bladder outlet obstruction Benign enlargement of prostate CKD (chronic kidney disease) stage 5, GFR less than 15 ml/min Anemia Surgical History History of colonoscopy Social History Social History Household Members: None Housing: Apartment Alcohol intake: current Alcohol intake frequency: a few times a week Alcohol type: hard liquor Patient Tobacco Use Status: Never used Tobacco Smoked in Last 30 Days: No e-Cigarette/Vaping Use: Never Used Second Hand Smoke Exposure: No Substance Use Type: Marijuana Advance Directives: Yes Advance Directives on File: Yes Advance Directives Date on File: 05/12/23 Do you have a plan to hurt others: No Plan service: No Current occupational status: employed 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[employer] Cognitive needs: No Hearing needs: No Vision needs: No Physical Exam ED Vital Signs: Vital Signs - 24 hr 12/23/23 14:13 12/23/23 16:22 12/23/23 17:56 Temperature 97.9 F Pulse Rate 83 74 69 Respiratory Rate 18 20 10 L Blood Pressure 178/95 H 166/105 H 171/81 H Pulse Oximetry 99 100 99 Oxygen Delivery Method Room Air Room Air Room Air 12/23/23 18:18 12/23/23 18:21 12/23/23 18:28 Temperature 97.8 F 97.5 F Pulse Rate 76 77 60 Respiratory Rate 11 L 16 Blood Pressure 187/135 H 185/86 H 188/104 H Pulse Oximetry 99 Oxygen Delivery Method Room Air Room Air 12/23/23 19:05 Temperature 97.8 F Pulse Rate 77 Respiratory Rate 16 Blood Pressure 188/98 H Pulse Oximetry 100 Oxygen Delivery Method Room Air BMI result Body Mass Index 29.0 Const General: healthy appearing, comfortable, no acute distress, alert and awake Nutritional Appearance: well nourished Orientation/consciousness: patient oriented x3 HENMT Head: Yes normocephalic and Yes atraumatic Eyes Eyelids: Yes eyelids normal Conjunctivae: conjunctivae normal Sclerae: sclerae normal Corneas: corneas normal Pupils: Equal, round and reactive pupils present EOM: EOMs intact bilaterally Neck Neck: Yes full ROM Resp Effort & Inspection: normal respiratory effort, able to speak in complete sentences and not labored Cardio Rate: regular rate Rhythm: regular rhythm GI Inspection: No distended Palpation (GI): Soft to palpation, not firm, nontender, no guarding and not rigid Skin General skin exam: elasticity normal Neuro General: patient oriented x3 Cranial nerves: Yes Equal, round and reactive pupils present and Yes Bilaterally intact EOM present Cognition (Neuro): normal cognition Extrem Other: Moving all extremities well without any obvious deformities Course Course Course Narrative: RME: 63-year-old male with history of hypertension presents to ED for elevated blood pressure. Patient was supposed to be scheduled for prostate biopsy but is blood pressure systolics were 2351 in the 5. So procedure was canceled. Patient never received any meds. Patient states he is asymptomatic. NIH score is 0. Present blood pressure in ED was 175/95. NIH Score 0. Patient is A0x3. EKG labs ordered. Patient has not taken his high blood pressure medication in 3 days. Medications Administered Discontinued Medications Generic Name Dose Route Start Last Admin Trade Name Freq PRN Reason Stop Dose Admin Metoprolol Tartrate 50 mg 12/23/23 18:20 12/23/23 18:28 Metoprolol Tartrate 50 Mg Tablet PO 12/23/23 18:21 50 mg ONCE ONE Administration Protocol Medical Decision Making Medical Decision Making MDM Narrative: 63-year-old male presents for evaluation of elevated blood pressure his current blood pressure is 188/104. This is most likely related to rebound hypertension due to discontinuing metoprolol. The patient does have chronic kidney disease. His BUN is elevated 28 with a creatinine of 2.41 which is consistent his baseline, otherwise the patient's labs are without any significant abnormalities. His EKG is nonischemic. Plan to treat with metoprolol tartrate and likely discharged with the patient continuing his home metoprolol Differential Diagnosis Differential Diagnoses: The differential diagnosis associated with the presentation includes Hypertension Medication noncompliance Hypertensive urgency Hypertensive emergency Lab Data [facility] Lab Attestation statement: I reviewed the patient's lab results. No leukocytosis. The patient's hemoglobin was within normal limits, hematocrit just below normal which may be related to anemia chronic disease. Platelet count within normal limits, electrolyte within normal limits. BUN and creatinine elevated but baseline. 12/23/23 14:29 12/23/23 14:29 Labs: Lab Results 12/23/23 Range/Units 14:29 WBC 6.0 (4.8-10.8) X10*3/uL RBC 4.45 L (4.60-5.80) X10*6/uL Hgb 14.0 (14.0-18.0) g/dl Hct 41.3 L (42.0-52.0) % MCV 92.8 (80.0-98.0) fL MCH 31.5 (27.0-33.0) pg MCHC 33.9 (31.0-36.0) g/dl RDW 13.7 (11.0-16.0) % Plt Count 218 (160-400) X10*3/uL MPV 9.3 L (9.4-12.4) fL Immature Gran % (Auto) 0.3 (0.0-0.4) % Neut % (Auto) 58.4 (45-73) % Lymph % (Auto) 30.9 (20-40) % Bledsoe % (Auto) 6.4 (2-11) % Eos % (Auto) 3.0 (0-4) % Baso % (Auto) 1.0 (0-2) % Lymph # (Auto) 1.9 (1.2-4.9) X10*3/uL Bledsoe # (Auto) 0.4 (0.1-1.2) X10*3/uL Eos # (Auto) 0.2 (0.0-0.4) X10*3/uL Baso # (Auto) 0.1 (0.0-0.2) X10*3/uL Abs Immat Gran (auto) 0.02 (0.00-0.03) X10*3/uL Absolute Neuts (auto) 3.5 (2.0-8.3) x10*3/uL Absolute Nucleated RBC 0.000 (0.0-0.012) X10*3/uL Nucleated RBC % (auto) 0.0 (0.0-0.2) /100WBC PT 11.5 (11.1-13.3) SEC INR 0.9 (0.9-1.1) APTT 30.1 (26.0-36.8) SEC Sodium 138 (135-145) mmol/L Potassium 4.6 (3.3-5.1) mmol/L Chloride 107 (96-108) mmol/L Carbon Dioxide 24 (22-29) mmol/L Anion Gap 12 (12-20) BUN 28 H (9-16) mg/dL Creatinine 2.41 H (0.5-1.4) mg/dL Estim Creat Clear Calc 31.0 Estimated GFR 27 Random Glucose 93 (60-115) mg/dL Calcium 9.7 D (8.4-10.2) mg/dL Total Bilirubin 0.3 (0.0-1.0) mg/dL AST 12 (5-37) U/L ALT 9 (0-40) U/L Alkaline Phosphatase 80 (39-117) U/L Troponin I High Sens 3.8 D (<3.5-35.0) ng/L Total Protein 7.4 (6.5-8.0) g/dL Albumin 4.3 (3.5-5.0) g/dL Independent Interpretation I performed an independent interpretation of an: EKG (Normal sinus rhythm with a rate of 64 beats per minute. No ST segment elevations or depressions) Discharge Plan Discharge Clinical Impression: Hypertension, Chronic kidney disease (CKD) Patient Disposition: Home, Self-Care Instructions: Chronic Hypertension (ED) Additional Instructions: Your blood pressure was elevated today likely because you discontinue your home blood pressure medication. Your blood work was reassuring. It is important that you take your blood pressure medication as prescribed which is the metoprolol 25 mg twice daily Follow-up with your primary doctor Return for new or worsening symptoms Prescriptions: No Action tamsulosin 0.4 mg capsule 0.4 mg PO BEDTIME 90 Days Qty: 90 1RF finasteride 5 mg tablet 5 mg PO DAILY 90 Days Qty: 90 1RF levofloxacin 500 mg tablet 500 mg PO DAILY 3 Days Qty: 3 0RF Rx Instructions: start abx one day prior to prostate biopsy calcitriol 0.25 mcg Capsule 0.5 mcg PO DAILY Qty: 30 0RF metoprolol tartrate 25 mg Tablet 25 mg PO BID Qty: 60 0RF Protocol: Hold for SBP/HR < HOLD for SBP < : 90 HOLD for HR < : 60 sevelamer carbonate 0.8 gram Powder In Packet 800 mg PO TIDWM Qty: 90 0RF Interventions: ED Discharge Assessment Last Done: 12/23/23 19:05 Discharge Date/Time: 12/23/23 19:07 Print Language: Swazi
[2023-12-23 14:33] LABS: MANUAL DIFF FLAG NO
[2023-12-23 14:36] LABS: Basophils Absolute Auto 0.1 X10*3/uL (0.0-0.2); Eosinophils Absolute Auto 0.2 X10*3/uL (0.0-0.4); Hematocrit 41.3 % (42.0-52.0); Imm Gran Abs Auto 0.02 X10*3/uL (0.00-0.03); Imm Gran Pct Auto 0.3 % (0.0-0.4); Lymphocytes Absolute Auto 1.9 X10*3/uL (1.2-4.9); Lymphocytes Percent Auto 30.9 % (20-40); Mean Corpuscular HGB Conc 33.9 g/dl (31.0-36.0); Mean Corpuscular Hemoglobin 31.5 pg (27.0-33.0); Mean Corpuscular Volume 92.8 fL (80.0-98.0); Mean Platelet Volume 9.3 fL (9.4-12.4); Monocytes Absolute Auto 0.4 X10*3/uL (0.1-1.2); Monocytes Percent Auto 6.4 % (2-11); Neutrophils Absolute Auto 3.5 x10*3/uL (2.0-8.3); Neutrophils Percent Auto 58.4 % (45-73); Platelet Count 218 X10*3/uL (160-400); Red Blood Count 4.45 X10*6/uL (4.60-5.80); Red Cell Distribution Width 13.7 % (11.0-16.0)
[2023-12-23 14:42] LABS: INTERNATIONAL NORM RATIO 0.9 (0.9-1.1); Prothrombin Time 11.5 SEC (11.1-13.3)
[2023-12-23 14:45] LABS: Partial Thromboplastin Time 30.1 SEC (26.0-36.8)
[2023-12-23 14:49] LABS: Alanine Aminotransferase 9 U/L (0-40); Albumin Level 4.3 g/dL (3.5-5.0); Alkaline Phosphatase 80 U/L (39-117); Anion Gap 12 (12-20); Aspartate Amino Transferase 12 U/L (5-37); Bilirubin Total 0.3 mg/dL (0.0-1.0); Blood Urea Nitrogen 28 mg/dL (9-16); Calcium 9.7 mg/dL (8.4-10.2); Carbon Dioxide 24 mmol/L (22-29); Chloride 107 mmol/L (96-108); Estimated Glomerular Filt Rate 27; Glucose Random 93 mg/dL (60-115); Potassium 4.6 mmol/L (3.3-5.1); Sodium 138 mmol/L (135-145); Total Protein 7.4 g/dL (6.5-8.0)
[2023-12-23 14:56] LABS: Troponin-I High Sensitivity 3.8 ng/L (<3.5-35.0)
[2023-12-23] MEDS: Metoprolol Tartrate 50 MG TABLET PO (18:28)
== END 2023-12-23 19:07 | disposition home or self-care (01) ==
PROVIDERS: Physician Assistant; Emergency Provider Student in an Organized Health Care Education/Training Program; PCP Internal Medicine
DX: I12.0 Hypertensive chronic kidney disease with stage 5 chronic kidney disease or end stage renal disease (principal); N18.6 End stage renal disease
CPT/HCPCS: 36415; 80053; 84484; 85025; 85610; 85730; 93005; 99283; 99284

== ENCOUNTER → 2023-12-23 14:16 | Outpatient (BNV) | payer OTHER, SELFPAY | PROVIDERS: PCP Internal Medicine; Visit Provider Internal Medicine Cardiovascular Disease | DX: I10 Essential (primary) hypertension (principal) | CPT/HCPCS: 93010 ==

== ENCOUNTER 2024-01-14 14:36 | Outpatient (AMB) | payer OTHER, SELFPAY ==
--- NOTE | 2024-01-14 14:55 | A.OFFPC_ITS ---
Vital Signs 01/14/24 14:57 Height 5 ft 6 in Weight 178 lb 6 oz BMI 28.8 BP 130/84 Blood Pressure Location Lt brachial Position Sitting Pulse 68 Pulse Source Pulse Oximeter Pulse Oximetry (%) 98 Oxygen Delivery Method Room Air Intake Visit Reasons: Hypertension Intake Note: Patient is here to follow up on HTN. 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 He has scheduled for a prostate biopsy. This procedure was canceled couple of times due to elevated blood pressure. Patient is reporting that he is now compliant with medications. [facility] Medical History (Updated 01/14/24 @ 15:27 by Kevin Jiang MD) Essential hypertension History of bone density study Urinary retention with incomplete bladder emptying NSVT (nonsustained ventricular tachycardia) ESRD needing dialysis Bladder outlet obstruction Benign enlargement of prostate CKD (chronic kidney disease) stage 5, GFR less than 15 ml/min Anemia Surgical History History of colonoscopy Social History Household Members: None Housing: Apartment Alcohol intake: current Alcohol intake frequency: a few times a week Alcohol type: hard liquor Patient Tobacco Use Status: Never used Tobacco e-Cigarette/Vaping Use: Never Used Second Hand Smoke Exposure: No Substance Use Type: Marijuana Advance Directives Date on File: 05/12/23 service: No Current occupational status: employed 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 Remi Lloyd, Andreina Ramon, Aron Malone and colleagues, with an educational sophia from [employer]. Physical exam (Primary Care) Vital Signs: Last Vital Signs Pulse 68 01/14/24 14:57 BP 130/84 01/14/24 14:57 Pulse Ox 98 01/14/24 14:57 Oxygen Delivery Method Room Air 01/14/24 14:57 BMI result Body Mass Index 28.8 Tobacco/Smoking Status: Tobacco use Status Tobacco use date assessed 01/14/24 01/14/24 15:06 Patient Tobacco Use Status Never used Tobacco 01/14/24 15:06 e-Cigarette/Vaping Use Never Used 01/14/24 15:06 Thrive Assessment: Date of Thrive Assessment Date Thrive assessed 12/16/23 01/14/24 15:06 Const General: cooperative and healthy appearing Nutritional Appearance: well nourished Orientation/consciousness: patient oriented x3 Limitations: no limitations HENMT Head: Yes normal to inspection Eyes General: appearance normal, both eyes and all related structures Neck Neck: Yes normal visual inspection Chest Chest palpation & inspection: normal palpation of entire chest wall Resp Effort & Inspection: normal respiratory effort Neuro General: patient oriented x3 Assessment and Plan Assessment & Plan (1) Essential hypertension: Code(s): I10 - Essential (primary) hypertension Plan: Emphasized to the patient and the family member the importance of controlling the blood pressure. Patient has to get a prostate biopsy to determine further course of action. He does have chronic renal failure. Biopsy is scheduled for the week of February. Encouraged patient to get the x-ray of the knee. Medications: Refilled metoprolol tartrate 25 mg See Protocol PO BID 60 tabs 0RF Coding Level of Care Code Est Pt Level 3 (50381) Complex EM visit Add On G2211 Diagnoses Essential hypertension I10
[2024-01-14 14:57] VITALS: BP 130/84; PULSE 68; O2SAT 98; BMI 28.8
== END 2024-01-14 15:29 | disposition home or self-care (01) ==
PROVIDERS: PCP Internal Medicine; Visit Provider Internal Medicine
DX: I10 Essential (primary) hypertension (principal)
CPT/HCPCS: 99213

== ENCOUNTER → 2024-01-15 14:07 | Outpatient (BNVA) | payer OTHER, SELFPAY | PROVIDERS: PCP Internal Medicine; Visit Provider Urology ==

== ENCOUNTER 2024-02-13 07:41 | Outpatient (REF) | payer OTHER, SELFPAY ==
--- NOTE | 2024-02-13 08:42 | P.OP_ITS ---
Operative Note Operative Note Date of Service: 02/13/24 Narrative: PreOperative Diagnosis:? ? Elevated PSA Post Operative Diagnosis:??Elevated PSA Procedure:?1. Transrectal ultrasound guided biopsy of the prostate 12 core 2. Transrectal ultrasound measurement of prostate 3. Transrectal ultrasound guided pudendal nerve block Surgeon:?Dr Meenakshi Croft Anesthesia:? Local Indications for procedure: Elevated PSA on 09/18/23--151.07 Procedure: Preoperative antibiotics confirmed. After informed consent was verified the patient was placed on the procedure table in left lateral position. Patient identity confirmed. Safety pause time-out performed. Digital rectal exam performed to dilate rectal sphincter, iodine mixed with lubricant jelly 30 cc placed per rectum. Ultrasound probe was placed per rectum. The prostate was visualized. Prostatic calcifications noted. The prostate was measured width 4.52 cm, height 3.76 cm, length 5.53 cm with a volume of 49.3 mL. An ultrasound guided pudendal nerve block was performed using 10 cc of 1% lidocaine. A 12 core biopsy was performed from the left base, left mid, left apex and right base, mid, apex 2 biopsies from each section. The ultrasound probe was removed and digital palpation of the prostate for 1-2 minutes for h emostasis was performed. The patient tolerated the procedure well. Complications: None
[2024-02-13] MEDS: Lidocaine HCl 1 % MPF 5 ML VIAL 15 ML SUBCUT (09:23)
== END 2024-02-13 07:42 | disposition home or self-care (01) ==
LOC: HO.US 07:41
PROVIDERS: PCP Internal Medicine; Visit Provider Urology
DX: R97.20 Elevated prostate specific antigen [PSA] (principal)
CPT/HCPCS: 55700; 76942; 88305

== ENCOUNTER → 2024-02-13 07:41 | Outpatient (BNV) | payer OTHER, SELFPAY | PROVIDERS: PCP Internal Medicine; Visit Provider Urology | DX: R97.20 Elevated prostate specific antigen [PSA] (principal) | CPT/HCPCS: 55700; 76942 ==

== ENCOUNTER 2024-03-11 14:50 | Outpatient (AMB) | payer OTHER, SELFPAY ==
--- NOTE | 2024-03-11 14:56 | A.OFFVIS_ITS ---
Intake Visit Reasons: Prostate biopsy results Intake Note: Patient is present for PROSTATE BIOPSY RESULTS Urology Medication:LEVOFLOXACIN, TAMSULOSIN, FINASTERIDE Antibiotic Allergy:NONE Blood Thinner:NONE Market President Required: No Accompanied by: Self / Same As Patient Allergies No Known Allergies Allergy (Verified 03/11/24 14:57) HPI Comments Details: 03/11/24--FU prostate biopsy, for elevated PSA >100 ng/mL. nicki 4+4=8, Grade group 3, with suspicion for extraprostatic invasion and perineural invasion. Discussed further eval with PET CT, refer to Oncology, will start firmagon. Review of chart: 09/25/23--Abdelrahman is a 63-year-old male patient. He has a past medical history of urinary retention with incomplete bladder emptying, NSVT, alcholol dependence, end-stage renal disease needing dialysis, chronic kidney disease stage 5, and anemia. He presents to the office today for follow-up of his lower urinary tract symptoms, urinary retention, and elevated PSA. In discussion with the patient today he reports to be doing and feeling well. Recent PSA results and retroperitoneal ultrasound results reviewed with the patient today. Bilate ral kidneys without ross hydronephrosis, calculi, and or lesions. At the lower pole of the right kidney 8 mm benign simple cyst is seen, which requires no additional follow-up imaging per radiology report. The bladder is well distended. Bladder jets are demonstrated. Pre void bladder volume is approximately 265 mL. Postvoid bladder volume is approximately 100 mL. The bladder wall is trabeculated with small bladder diverticula noted. Prostate measures approximately 57 mL. PSAs are as follows: 04/28--149.5, 09/27--151.1 Of note, patient was admitted to [facility] in April of last year for weakness at which time he was noted to have an acute kidney injury complicated by acute metabolic encephalopathy evaluated by Nephrology and started on hemodialysis. PermCath was placed on 05/06 and has been tolerating dialysis well. During this hospital stay CT of the abdomen and pelvis found enlarged prostate, massively distended urinary bladder and bilateral severe hydronephrosis consistent with urinary retention at which time a Lew catheter was placed however patient underwent surgical intervention with Dr. Louise on 05/01/23 due to persistent gross hematuria after Lew catheter placement with potential balloon and prostate. During last office visit voiding trial was performed and patient has been successfully voiding independently with no issues or concerns. In office urinalysis results reviewed with the patient today. PVR 62 mL. Discussed at length potential causes for elevated PSA. Discussed obtaining bone scan as well as undergoing prostate biopsy. Initially during to day's office visit patient was reluctant in performing prostate biopsy however in discussion regarding delay in treatment he does wish to undergo prostate biopsy. He otherwise denies any bothersome urinary issues or concerns. He reports compliance with finasteride and Flomax as prescribed. He otherwise offers no other issues or concerns at this time. [facility] Medical History Essential hypertension History of bone density study Urinary retention with incomplete bladder emptying NSVT (nonsustained ventricular tachycardia) ESRD needing dialysis Bladder outlet obstruction Benign enlargement of prostate CKD (chronic kidney disease) stage 5, GFR less than 15 ml/min Anemia Surgical History History of colonoscopy Social History Household Members: None Housing: Apartment Alcohol intake: current Alcohol intake frequency: a few times a week Alcohol type: hard liquor Patient Tobacco Use Status: Never used Tobacco e-Cigarette/Vaping Use: Never Used Second Hand Smoke Exposure: No Substance Use Type: Marijuana Advance Directives Date on File: 05/12/23 service: No Current occupational status: employed 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ce Cognitive needs: No Hearing needs: No Vision needs: No Review of Systems Const All systems reviewed & are unremarkable except as noted in HPI and below Reports no additional complaints Eyes Reports no additional complaints ENT Reports no additional complaints Card Reports no additional complaints Resp Reports no additional complaints GI Reports no additional complaints Reports as per HPI Musc Reports no additional complaints Skin/Breast Reports system reviewed and no additional complaints, except as documented Neuro Reports no additional complaints Psych Reports no additional complaints Endo Reports no additional complaints Abhishek/Lymph Reports no additional complaints Aller/Immun Reports no additional complaints Results AMB Urinalysis, Automated UA Leukoctes 0 Mohamud/uL Last Edit by DARLENE Adams on 03/11/24 15:13 UA Nitrite Negative Last Edit by DARLENE Adams on 03/11/24 15:13 UA Urobilinogen 0.2 mg/dL Last Edit by Sunny Stevens [facility] on 03/11/24 15:1 3 UA Protein 15 mg/dL Last Edit by Sunny Stevens [facility] [place] on 03/11/24 15:13 UA pH 5.5 Last Edit by Sunny Stevens, [facility] [place] on 03/11/24 15:13 UA Blood 80 Jose Manuel/uL Last Edit by Sunny Stevens [facility] [place] on 03/11/24 15:13 UA Specific [place] 1.025 Last Edit by Sunny Stevens, [facility] [place] on 03/11/24 15: 13 UA Ketone Negative Last Edit by Sunny Stevens [facility] [place] on 03/11/24 15:13 UA Bilirubin 0 mg/dL Last Edit by Sunny Stevens [facility] [place] on 03/11/24 15:13 UA Glucose 0 mg/dL Last Edit by Sunny Stevens [facility] [place] on 03/11/24 15:13 Results Reviewed Results Reviewed: Laboratory Last Values Urine pH (Auto) 5.5 03/11/24 15:12 Specific [place] (Auto) 1.025 03/11/24 15:12 Urine Protein (Auto) 15 mg/dL 03/11/24 15:12 Glucose (UA)(Auto) 0 mg/dL 03/11/24 15:12 Urine Ketones (Auto) Negative 03/11/24 15:12 Urine Blood (Auto) 80 Jose Manuel/uL 03/11/24 15:12 Urine Nitrite (Auto) Negative 03/11/24 15:12 Urine Bilirubin (Auto) 0 mg/dL 03/11/24 15:12 Urine Urobilinogen (Auto) 0.2 mg/dL 03/11/24 15:12 Leukocyte Esterase (Auto) 0 Mohamud/uL 03/11/24 15:12 Collected: 02/13/24 Location: [facility] Received: 02/13/24 Diagnosis A. Prostate, left base lateral, needle core biopsy: Prostatic adenocarcinoma, Nicki grade 4+4=8 (Grade group 4), involving 100% of the length of the core with perineural invasion. B. Prostate, left base medial, needle core biopsy: Prostatic adenocarcinoma, [place] grade 4+4=8 (Grade group 4), involving 95% of the length of the core with perineural invasion. C. Prostate, left mid lateral, needle core biopsy: Prostatic adenocarcinoma, Nicki grade 4+3=7 (Grade group 3), involving 100% of the length of the core with perineural invasion. D. Prostate, left mid medial, needle core biopsy: Prostatic adenocarcinoma, Nicki grade 4+4=8 (Grade group 4), involving 100% of the length of the core with perineural invasion. E. Prostate, left apex lateral, needle core biopsy: Prostatic adenocarcinoma, [place] grade 4+3=7 (Grade group 3), involving 100% of the length of the core with perineural invasion. F. Prostate, left apex medial, needle core biopsy: Prostatic adenocarcinoma, Nicki grade 4+4=8 (Grade group 4), involving 100% of the length of the core with perineural invasion. G. Prostate, right base lateral, needle core biopsy: Prostatic adenocarcinoma, Nicki grade 4+ 4=8 (Grade group 4), involving 90% of the length of the core with perineural invasion. H. Prostate, right base medial, needle core biopsy: Prostatic adenocarcinoma, Nicki grade 4+ 3=7 (Grade group 3), involving 95% of the length of the core. I. Prostate, right mid lateral, needle core biopsy: Prostatic adenocarcinoma, Nicki grade 4+3=7 (Grade group 3), involving 95% of the length of the core with focus suspicious for extraprostatic extension. J. Prostate, right mid medial, needle core biopsy: Prostatic adenocarcinoma, [place] grade 4+4=8 (Grade group 4), involving 90% of the length of the core with perineural invasion. K. Prostate, right apex lateral, needle core biopsy: Prostatic adenocarcinoma, [place] grade 4+ 4=8 (Grade group 4), involving 95% of the length of the core with perineural invasion. L. Prostate, right apex medial, needle core biopsy: Prostatic adenocarcinoma, Nicki grade 4+ 4=8 (Grade group 4), involving 100% of the length of the core with perineural invasion. Data synopsis - Prostate needle biopsy Histologic type: Acinar adenocarcinoma Histologic grade: Nicki score: 4+3=7 (C, E, H, I); 4+4=8 (A, B, D, F, G, J, K, L) % of pattern 4: 5-100% % of pattern 5: Not identified Grade group: 3 (C, E, H, I); 4 (A, B, D, F, G, J, K, L) Tumor quantitation: Number cores positive: 12 Total number of cores: 12 % of tissue involved: 90-100% (see above for details) Periprostatic fat inv.: One focus suspicious for extraprostatic extension (see part I) Patient: Abdelrahman Campbell Age/Sex: 63/M MR#: [id number] Page 1 of 3 Surgical Pathology [id number] Seminal vesicle inv.: Not identified Perineural inv.: Present, extensive LVI: Not identified Clinical History Elevated PSA Microscopic Description A-L. Sections of the prostate cores demonstrate extensive involvement of prostatic parenchyma by prostatic adenocarcinoma comprised of cribriform, poorly formed and fused glands consistent with Nicki score 4+4=8. Variable areas show 4+3=7. Extensive perineural invasion is identified. There is one focus suspicious for extraprostatic extension in part I. Lymphovascular invasion is not identified. Material Received A: Left base lateral B: Left base medial C: Left mid lateral D: Left mid medial E: Left apex lateral F: Left apex medial G: Right base lateral H: Right base medial I: Right mid lateral J: Right mid medial K: Right apex lateral L: Right apex medial This case was reviewed intradepartmentally. Copies To Meenakshi Croft MD Date of Service: 09/10/23 EXAMINATION: US RETROPERITONEAL COMPLETE (RENAL) FINDINGS: RIGHT KIDNEY: 9.2 x 4.6 x 4.8 cm (SAG x AP x TRV). The kidney is normal in size, contour, and echogenicity. Renal cortical thickness is normal. No renal calculi. There is pelviectasis, without ross hydronephrosis. At the lower pole, an 8 mm benign, simple cyst is seen, which requires no imaging follow-up. LEFT KIDNEY: 9.6 x 6.1 x 5.4 cm (SAG x AP x TRV). The kidney is normal in size, contour, and echogenicity. Renal cortical thickness is normal. No calculi or focal parenchymal lesions. There is pelviectasis, without ross hydronephrosis. BLADDER: Well distended. Bilateral ureteral jets are demonstrated. Prevoid bladder volume is 265 mL. Postvoid bladder volume is 99 mL. There are bladder wall trabeculations, consistent with hypertrophy. Small bladder diverticula are noted. OTHER: Prostate dimensions are 4.1 x 4.6 x 3.5 cm (volume 56.7 mL). IMPRESSION: 1. Unremarkable ultrasound appearance of the kidneys. 2. There is prostatomegaly. 3. There is bladder wall hypertrophy, and bladder diverticula are noted. There is an increased postvoid residual volume. Assessment & Plan Assessment & Plan (1) Hydronephrosis: Code(s): N13.30 - Unspecified hydronephrosis Category: Medical (2) Elevated PSA, greater than or equal to 20 ng/ml: Code(s): R97.20 - Elevated prostate specific antigen [PSA] Category: Medical (3) Renal cyst: Code(s): N28.1 - Cyst of kidney, acquired Category: Medical (4) Bladder diverticulum: Code(s): N32.3 - Diverticulum of bladder Category: Medical (5) Adenocarcinoma of prostate: Code(s): C61 - Malignant neoplasm of prostate Category: Medical Plan PET CT, refer to Oncology, start firmagon hormonal therapy. Orders: Orders PET CT fusion whole body Today C61 - Malignant neoplasm of prostate, R97.20 - Elevated prostate specific antigen [PSA] AMB Urinalysis Automated Today Z13.9 - Encounter for screening, unspecified Referrals Hematology & Oncology Referral C61 - Malignant neoplasm of prostate, R97.20 - Elevated prostate specific antigen [PSA] Patient Instructions: The patient had an opportunity to ask questions regarding treatment plan. The patient expressed understanding and agreement with the above treatment plan. The patient is aware they should contact our office by phone for worsening of their current condition or the appearance of new symptoms. Compliance is encouraged with any medications and followup testing that is ordered. It is a privilege to be allowed the opportunity to participate in the urologic care of your patient. If you have any questions or concerns regarding treatment for the above conditions please do not hesitate to contact me. The office telephone contact is [phone]. This note is constructed in part using voice recognition software. While every effort has been made to ensure accuracy clinical allergist errors may have been included. Yours sincerely, Meenakshi Croft MD Coding Level of Care Code Est Pt Level 4 (11452) Diagnoses Hydronephrosis N13.30 Elevated PSA, greater than or equal to 20 ng/ml R97.20 Renal cyst N28.1 Bladder diverticulum N32.3 Adenocarcinoma of prostate C61
== END 2024-03-11 15:56 | disposition home or self-care (01) ==
PROVIDERS: PCP Internal Medicine; Visit Provider Urology
DX: N13.30 Unspecified hydronephrosis (principal); R97.20 Elevated prostate specific antigen [PSA]; N28.1 Cyst of kidney, acquired; N32.3 Diverticulum of bladder; C61 Malignant neoplasm of prostate; Z13.9 Encounter for screening, unspecified
CPT/HCPCS: 99214

== ENCOUNTER → 2024-03-11 14:50 | Outpatient (BNVA) | payer OTHER, SELFPAY | PROVIDERS: PCP Internal Medicine; Visit Provider Urology | DX: C61 Malignant neoplasm of prostate (principal); N13.30 Unspecified hydronephrosis; N28.1 Cyst of kidney, acquired; N32.3 Diverticulum of bladder | CPT/HCPCS: 81003 ==

== ENCOUNTER 2024-03-24 14:56 | Outpatient (AMB) | payer OTHER, SELFPAY ==
--- NOTE | 2024-03-24 14:58 | A.OFFPC_ITS ---
Vital Signs 03/24/24 14:59 Height 5 ft 6 in Weight 184 lb 6 oz BMI 29.8 BP 140/76 H Blood Pressure Location Lt brachial Position Sitting Pulse 76 Pulse Source Pulse Oximeter Pulse Oximetry (%) 96 Oxygen Delivery Method Room Air Intake Visit Reasons: Rsched due to time- 3M follow up Intake Note: Patient is here to follow up on HTN. Electronics Design Engineer Required: No Insurance Claims Processor: Present Accompanied by: Sister Allergies No Known Allergies Allergy (Verified 03/24/24 14:59) Tobacco use date assessed: 03/24/24 Fall risk assessment: No Falls in past year Last assessed Fall Risk: 03/24/24 Dental Screening Dental Screen Date: 12/16/23 HPI Rsched due to time- 3M follow up HPI Details 63-year-old male presents to the office to discuss his chronic medical conditions. He is accompanied by his sister. Patient reports that he had received a phone call from a Nephrology office but did not follow-up. He has not seen a sign language teacher yet. He has been diagnosed with prostate cancer and is awaiting further treatment. He has been scheduled the PET scan and is not aware of when it is going to be done. He also has a oncology appointment and has not heard from them yet. Continues to work and is at baseline health. Patient has gained weight recently. Able to do his activities of daily living. Occasionally he has pain around the right hip. No difficulty walking. No trouble urinating. Compliant with all his medications. [facility] Medical History Essential hypertension History of bone density study Urinary retention with incomplete bladder emptying NSVT (nonsustained ventricular tachycardia) ESRD needing dialysis Bladder outlet obstruction Benign enlargement of prostate CKD (chronic kidney disease) stage 5, GFR less than 15 ml/min Anemia Surgical History History of colonoscopy Social History Household Members: None Housing: Apartment Alcohol intake: current Alcohol intake frequency: a few times a week Alcohol type: hard liquor Patient Tobacco Use Status: Never used Tobacco e-Cigarette/Vaping Use: Never Used Second Hand Smoke Exposure: No Substance Use Type: Marijuana Advance Directives Date on File: 05/12/23 service: No Current occupational status: employed 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ce Cognitive needs: No Hearing needs: No Vision needs: No Questionnaire Thrive Questionnaire Date Thrive assessed: 12/16/23 Are you currently unemployed and looking for a job?: No AUDIT C Alcohol Use Questionnaire (AUDIT-C) 3. How often do you have six or more drinks on one occasion?: Less than monthly Total Score: 1 ADILENE-7 AMB Questionnaire ADILENE-7 Date ADILENE - 7 assessed: 12/16/23 Source: Developed by Drs. Remi Lloyd, Andreina Ramon, Aron Malone and colleagues, with an educational sophia from [employer]. Physical exam (Primary Care) Vital Signs: Last Vital Signs Pulse 76 03/24/24 14:59 BP 140/76 H 03/24/24 14:59 Pulse Ox 96 03/24/24 14:59 Oxygen Delivery Method Room Air 03/24/24 14:59 BMI result Body Mass Index 29.8 Tobacco/Smoking Status: Tobacco use Status Tobacco use date assessed 03/24/24 03/24/24 15:04 Patient Tobacco Use Status Never used Tobacco 03/24/24 15:04 e-Cigarette/Vaping Use Never Used 03/24/24 15:04 Thrive Assessment: Date of Thrive Assessment Date Thrive assessed 12/16/23 03/24/24 15:04 Const General: cooperative and healthy appearing Nutritional Appearance: well nourished Orientation/consciousness: patient oriented x3 Limitations: no limitations HENMT Head: Yes normal to inspection Eyes General: appearance normal, both eyes and all related structures Neck Neck: Yes normal visual inspection Chest Chest palpation & inspection: normal palpation of entire chest wall Resp Effort & Inspection: normal respiratory effort Neuro General: patient oriented x3 Assessment and Plan Assessment & Plan (1) Acute renal failure (ARF): Code(s): N17.9 - Acute kidney failure, unspecified Plan: Estimated creatinine clearance is 31.0. A Nephrology consult has been requested. Patient and his sister were informed that they would be called (2) Adenocarcinoma of prostate: Code(s): C61 - Malignant neoplasm of prostate Plan: Patient has been diagnosed with adenocarcinoma of the prostate. He is now awaiting a PET scan and a oncology consult. A recent bone scan shows increased uptake in the right femur. Retroperitoneal ultrasound shows enlarged prostate, thickened bladder with bladder diverticulum. (3) Essential hypertension: Code(s): I10 - Essential (primary) hypertension Plan: Blood pressure is in range. Continue current medications. Orders: Referrals Nephrology Referral N17.9 - Acute kidney failure, unspecified Coding Level of Care Code Est Pt Level 4 (71591) Complex EM visit Add On G2211 Diagnoses Acute renal failure (ARF) N17.9 Adenocarcinoma of prostate C61 Essential hypertension I10
[2024-03-24 14:59] VITALS: BP 140/76; PULSE 76; O2SAT 96; BMI 29.8
== END 2024-03-24 15:36 | disposition home or self-care (01) ==
PROVIDERS: PCP Internal Medicine; Visit Provider Internal Medicine
DX: N17.9 Acute kidney failure, unspecified (principal); C61 Malignant neoplasm of prostate; I10 Essential (primary) hypertension

== ENCOUNTER → 2024-03-24 14:56 | Outpatient (BNVA) | payer OTHER, SELFPAY | PROVIDERS: PCP Internal Medicine; Visit Provider Internal Medicine | DX: N17.9 Acute kidney failure, unspecified (principal); C61 Malignant neoplasm of prostate; I10 Essential (primary) hypertension ==

== ENCOUNTER 2024-04-02 14:47 | Outpatient (AMB) | payer OTHER, SELFPAY ==
--- NOTE | 2024-04-02 14:49 | AM.OFFVISNUR ---
Intake Visit Reasons: firmagon Allergies No Known Allergies Allergy (Verified 03/24/24 14:59) Office Meds degarelix 120 mg subcutaneous solution Performing Provider: Meenakshi Croft MD [facility] Administered by: Bigg Gutierrez LPN on 04/02/24 15:03 Dose Route Admin Location Dispensed Lot Number Expiration Date NDC Director International 240 mg subcut abdomen 240 mg [id number] 02/04/26 [address]-[facility] Assessment & Plan Assessment & Plan Orders: Orders AMB Degarelix Injection Practice Supplied Today C61 - Malignant neoplasm of prostate Medications: New degarelix 240 mg subcut ONCE 1 ea 0RF C61 - Malignant neoplasm of prostate
== END 2024-04-02 15:09 | disposition home or self-care (01) ==
PROVIDERS: PCP Internal Medicine; Visit Provider Urology
DX: C61 Malignant neoplasm of prostate (principal)
CPT/HCPCS: 96402

== ENCOUNTER → 2024-04-02 14:47 | Outpatient (BNVA) | payer OTHER, SELFPAY | PROVIDERS: PCP Internal Medicine; Visit Provider Urology | DX: C61 Malignant neoplasm of prostate (principal) | CPT/HCPCS: 96402; J9155 ==

== ENCOUNTER 2024-04-06 14:55 | Outpatient (REF) | payer OTHER, SELFPAY ==
[2024-04-06 15:57] LABS: MANUAL DIFF FLAG NO
[2024-04-06 16:42] LABS: Basophils Absolute Auto 0.1 X10*3/uL (0.0-0.2); Basophils Percent Auto 0.8 % (0-2); Eosinophils Absolute Auto 0.2 X10*3/uL (0.0-0.4); Eosinophils Percent Auto 3.4 % (0-4); Hemoglobin 13.5 g/dl (14.0-18.0); Imm Gran Abs Auto 0.01 X10*3/uL (0.00-0.03); Imm Gran Pct Auto 0.2 % (0.0-0.4); Lymphocytes Absolute Auto 2.1 X10*3/uL (1.2-4.9); Lymphocytes Percent Auto 32.4 % (20-40); Mean Corpuscular HGB Conc 32.9 g/dl (31.0-36.0); Mean Corpuscular Hemoglobin 32.1 pg (27.0-33.0); Mean Corpuscular Volume 97.6 fL (80.0-98.0); Mean Platelet Volume 9.9 fL (9.4-12.4); Monocytes Absolute Auto 0.5 X10*3/uL (0.1-1.2); Monocytes Percent Auto 7.3 % (2-11); Neutrophils Absolute Auto 3.6 x10*3/uL (2.0-8.3); Neutrophils Percent Auto 55.9 % (45-73); Platelet Count 202 X10*3/uL (160-400); Red Cell Distribution Width 14.1 % (11.0-16.0); White Blood Count 6.5 X10*3/uL (4.8-10.8)
[2024-04-06 17:13] LABS: Alanine Aminotransferase 10 U/L (0-40); Albumin Level 4.2 g/dL (3.5-5.0); Alkaline Phosphatase 78 U/L (39-117); Anion Gap 13 (12-20); Aspartate Amino Transferase 12 U/L (5-37); Bilirubin Total 0.4 mg/dL (0.0-1.0); Blood Urea Nitrogen 35 mg/dL (9-16); Calcium 9.6 mg/dL (8.4-10.2); Carbon Dioxide 24 mmol/L (22-29); Chloride 108 mmol/L (96-108); Estimated Glomerular Filt Rate 30; Glucose Random 95 mg/dL (60-115); Potassium 4.4 mmol/L (3.3-5.1); Sodium 141 mmol/L (135-145); Total Protein 7.2 g/dL (6.5-8.0)
[2024-04-06 17:15] LABS: Parathyroid Hormone Intact 165.8 pg/mL (8.7-77.1)
== END 2024-04-06 14:56 | disposition home or self-care (01) ==
LOC: HO.LAB 14:55
PROVIDERS: PCP Internal Medicine; Referring Provider Internal Medicine; Visit Provider Internal Medicine Hypertension Specialist
DX: C61 Malignant neoplasm of prostate (principal)
CPT/HCPCS: 36415; 80053; 83970; 85025

== ENCOUNTER 2024-04-06 14:55 | Outpatient (AMB) | payer OTHER, SELFPAY ==
[2024-04-06 14:59] VITALS: BP 148/82; PULSE 80; O2SAT 98
--- NOTE | 2024-04-06 14:59 | HO.NEPHOV_ITS ---
Vital Signs 04/06/24 14:59 Height 5 ft 6 in Weight 186 lb BMI 30.0 BP 148/82 H Blood Pressure Location Lt brachial Position Sitting Pulse 80 Pulse Source Pulse Oximeter Pulse Oximetry (%) 98 Oxygen Delivery Method Room Air Intake Visit Reasons: Acute kidney failure, unspecified/ Conf Safety And Security Officer Required: No Accompanied by: Sister Allergies No Known Allergies Allergy (Verified 04/06/24 15:01) Medication List - Last Reconciled 04/06/24 by Hermes Enamorado MD finasteride 5 mg PO DAILY 90 days metoprolol tartrate 25 mg See Protocol PO BID HPI Comments Details: Jose Guadalupe Quick is a pleasant 63 man who developed KIERA in April 2023. Workup revealed bilateral hydronephrosis Subsequent prostate biopsy revealed adenocarcinoma. He is scheduled for a PET scan this week. The peak serum creatinine was 20 mg/dL on 04/26/2023. The recent serum creatinine was 2.41 as of 12/23/2023. No further labs are available. He was seen by different private tutor several months ago but he has decided to switch care and has been referred by his primary care physician for further evaluation of CKD. [facility] Medical History Essential hypertension History of bone density study Urinary retention with incomplete bladder emptying NSVT (nonsustained ventricular tachycardia) ESRD needing dialysis Bladder outlet obstruction Benign enlargement of prostate CKD (chronic kidney disease) stage 5, GFR less than 15 ml/min Anemia Surgical History History of colonoscopy Social History Household Members: None Housing: Apartment Alcohol intake: current Alcohol intake frequency: a few times a week Alcohol type: hard liquor Patient Tobacco Use Status: Never used Tobacco e-Cigarette/Vaping Use: Never Used Second Hand Smoke Exposure: No Substance Use Type: Marijuana Advance Directives Date on File: 05/12/23 service: No Current occupational status: employed 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ce Cognitive needs: No Hearing needs: No Vision needs: No Review of Systems Const Denies fever(s) and Denies weight loss Card Denies chest pain Resp Denies cough and Denies hemoptysis GI Denies abdominal pain, Denies diarrhea and Denies nausea Musc Denies back pain Neuro Denies focal weakness Physical Exam Vital Signs: Last Vital Signs Pulse 80 04/06/24 14:59 BP 148/82 H 04/06/24 14:59 Pulse Ox 98 04/06/24 14:59 Oxygen Delivery Method Room Air 04/06/24 14:59 BMI result Body Mass Index 30.0 Results Reviewed Results Reviewed: Labs ordered Nephrology Results: No Data to Display Assessment & Plan Assessment & Plan (1) Chronic kidney disease (CKD): Code(s): N18.9 - Chronic kidney disease, unspecified Category: Medical (2) Adenocarcinoma of prostate: Code(s): C61 - Malignant neoplasm of prostate Category: Medical Plan . 63-year-old man with a history of adenocarcinoma prostate with CKD 3B/CKD 4. He had acute kidney injury back in April of 2023. KIERA has resolved renal function has returned to baseline. He is scheduled for a PET scan for further evaluation and waiting for further therapy regarding adenocarcinoma of the prostate. From a renal standpoint, Goal is to slow the progression disease . Continue overt nephrotoxic agents. Keep intake more than output. Optimize blood pressure. Ordered repeat renal panel along with calcium phosphorus and PTH. Answered all his questions Further workup will depend on the outcome of the above investigations. Orders: Orders Complete Blood Count Auto Diff Today C61 - Malignant neoplasm of prostate Comprehensive Met. Panel Today C61 - Malignant neoplasm of prostate Parathyroid Hormone Intact Today C61 - Malignant neoplasm of prostate Coding Level of Care Code New Pt Level 4 (84116) Diagnoses Chronic kidney disease (CKD) N18.9 Adenocarcinoma of prostate C61
== END 2024-04-06 15:18 | disposition home or self-care (01) ==
PROVIDERS: PCP Internal Medicine; Referring Provider Internal Medicine; Visit Provider Internal Medicine Hypertension Specialist
DX: N18.32 Chronic kidney disease, stage 3b (principal); C61 Malignant neoplasm of prostate
CPT/HCPCS: 99204

== ENCOUNTER → 2024-04-14 15:00 | Outpatient (BNV) | payer OTHER, SELFPAY | PROVIDERS: PCP Internal Medicine; Referring Provider Internal Medicine; Visit Provider Internal Medicine | DX: C61 Malignant neoplasm of prostate (principal) | CPT/HCPCS: 99214 ==

== ENCOUNTER 2024-04-14 15:48 | Outpatient (REF) | payer OTHER, SELFPAY ==
--- NOTE | ~2024-04-14 | XR_ITS ---
EXAMINATION: XR KNEE, RIGHT CLINICAL INFORMATION: Pain COMPARISON: None available. TECHNIQUE: Four views of the right knee. FINDINGS: No acute cortical disruption or malalignment. Joint space narrowing, medial compartment. No suprapatella bursa joint effusion. Vascular coruscations. Prominent tortuous opacities within the fat planes of the medial left lower extremity XR/XR knee RT 3V IMPRESSION: Medial compartment osteoarthrosis. Concerning varices. Electronically signed by: Francesco Mendoza MD 04/30/2024 02:08 PM EDT
== END 2024-04-14 15:49 | disposition home or self-care (01) ==
LOC: HO.XRAY 15:48
PROVIDERS: PCP Internal Medicine; Visit Provider Internal Medicine
DX: M25.561 Pain in right knee (principal)
CPT/HCPCS: 73562

== ENCOUNTER → 2024-04-14 15:51 | Outpatient (BNV) | payer OTHER, SELFPAY | PROVIDERS: PCP Internal Medicine; Visit Provider Radiology Diagnostic Radiology | DX: M25.561 Pain in right knee (principal) | CPT/HCPCS: 73562 ==

== ENCOUNTER 2024-05-13 14:46 | Outpatient (AMB) | payer OTHER, SELFPAY ==
--- NOTE | 2024-05-13 15:01 | AM.OFFVISNUR ---
Intake Visit Reasons: 4W firmagon(PA Set) Allergies No Known Allergies Allergy (Verified 04/14/24 14:59) Office Meds degarelix 80 mg subcutaneous solution Performing Provider: Meenakshi Croft MD Performing Location[place] [facility] [place] [facility] Administered by: Bigg Gutierrez LPN on 05/13/24 15:01 Dose Route Admin Location Dispensed Lot Number Expiration Date [facility] Clinical Trial Coordinator 80 mg subcut abdomen 80 mg [id number] 05/07/26 [address]-1 [facility] Assessment & Plan Assessment & Plan Orders: Orders AMB Degarelix Injection Practice Supplied Today C61 - Malignant neoplasm of prostate, R97.20 - Elevated prostate specific antigen [PSA] Medications: New degarelix 80 mg subcut ONCE 1 ea 0RF C61 - Malignant neoplasm of prostate, R97.20 - Elevated prostate specific antigen [PSA]
== END 2024-05-13 15:10 | disposition home or self-care (01) ==
LOC: HO.HUSH 14:46
PROVIDERS: PCP Internal Medicine; Visit Provider Urology
DX: C61 Malignant neoplasm of prostate (principal); R97.20 Elevated prostate specific antigen [PSA]
CPT/HCPCS: 96402

== ENCOUNTER → 2024-05-13 14:46 | Outpatient (BNVA) | payer OTHER, SELFPAY | PROVIDERS: PCP Internal Medicine; Visit Provider Urology | DX: C61 Malignant neoplasm of prostate (principal) | CPT/HCPCS: 96402; J9155 ==

== ENCOUNTER 2024-06-10 14:50 | Outpatient (AMB) | payer OTHER, SELFPAY ==
--- NOTE | 2024-06-10 15:15 | AM.OFFVISNUR ---
Intake Visit Reasons: 4w/Firmagon Allergies No Known Allergies Allergy (Verified 04/14/24 14:59) Office Meds degarelix 80 mg subcutaneous solution Performing Provider: Meenakshi Croft MD [place] [facility] [place] [facility] Administered by: Bigg Gutierrez LPN on 06/10/24 15:15 Dose Route Admin Location Dispensed Lot Number Expiration Date [place] Mattress Packer 80 mg subcut abdomen 80 mg [id number] 05/07/26 [address]-7 [facility] Assessment & Plan Assessment & Plan Orders: Orders AMB Degarelix Injection Practice Supplied Today C61 - Malignant neoplasm of prostate Medications: New degarelix 80 mg subcut ONCE 1 ea 0RF C61 - Malignant neoplasm of prostate
== END 2024-06-10 15:24 | disposition home or self-care (01) ==
PROVIDERS: PCP Internal Medicine; Visit Provider Urology
DX: C61 Malignant neoplasm of prostate (principal)
CPT/HCPCS: 96402

== ENCOUNTER → 2024-06-10 14:50 | Outpatient (BNVA) | payer OTHER, SELFPAY | PROVIDERS: PCP Internal Medicine; Visit Provider Urology | DX: C61 Malignant neoplasm of prostate (principal) | CPT/HCPCS: 96402; J9155 ==

== ENCOUNTER 2024-07-19 14:42 | Outpatient (AMB) | payer OTHER, SELFPAY ==
--- NOTE | 2024-07-19 14:51 | AM.OFFVISNUR ---
Intake Visit Reasons: 4W Firmagon(PA set) Allergies No Known Allergies Allergy (Verified 06/18/24 15:11) Office Meds degarelix 80 mg subcutaneous solution Performing Provider: Meenaksih Croft MD Performing Location[facility] [place] [facility] Administered by: Bigg Gutierrez LPN on 07/19/24 14:59 Dose Route Admin Location Dispensed Lot Number Expiration Date [facility] Womens Volleyball Coach 80 mg subcut abdomen 80 mg [id number] 05/07/26 [address]-0 [facility] Assessment & Plan Assessment & Plan Orders: Orders AMB Degarelix Injection Practice Supplied Today C61 - Malignant neoplasm of prostate, R33.9 - Retention of urine, unspecified Medications: New degarelix 80 mg subcut ONCE 1 ea 0RF C61 - Malignant neoplasm of prostate, R33.9 - Retention of urine, unspecified
== END 2024-07-19 15:12 | disposition home or self-care (01) ==
PROVIDERS: PCP Internal Medicine; Visit Provider Urology
DX: R33.9 Retention of urine, unspecified (principal); C61 Malignant neoplasm of prostate
CPT/HCPCS: 96402

== ENCOUNTER 2024-07-19 14:42 | Outpatient (AMB) | payer OTHER, SELFPAY ==
--- NOTE | 2024-07-18 14:57 | MHC.OFFVIS ---
Intake Visit Reasons: follow up/labs/Pet-CT Intake Note: Patient is present for follow up labs, pet-ct Urology Med: Finasteride Antibiotic Allergy: None Blood Thinner: None Steam And Power Supervisor Required: No Accompanied by: Self / Same As Patient Allergies No Known Allergies Allergy (Verified 07/19/24 16:12) HPI Comments Details: 07/19/24--Abdelrahman is a 63-year-old male patient. He has a past medical history of urinary retention with incomplete bladder emptying, NSVT, alcholol dependence, end-stage renal disease needing dialysis, chronic kidney disease stage 5, and anemia. He presents to the office today for follow-up prostate cancer, on hormonal treatment, firmagon, also followed by oncology. s/p PET CT (04/23/24) Review of chart: 03/11/24--FU prostate biopsy, for elevated PSA >100 ng/mL. nicki 4+4=8, Grade group 3, with suspicion for extraprostatic invasion and perineural invasion. Discussed further eval with PET CT, referr to Oncology, will start firmagon. 09/25/23--Abdelrahman is a 63-year-old male patient. He has a past medical history of urinary retention with incomplete bladder emptying, NSVT, alcholol dependence, end-stage renal disease needing dialysis, chronic kidney disease stage 5, and anemia. He presents to the office today for follow-up of his lower urinary tract symptoms, urinary retention, and elevated PSA. In discussion with the patient today he reports to be doing and feeling well. Recent PSA results and retroperitoneal ultrasound results reviewed with the patient today. Bilateral kidneys without ross hydronephrosis, calculi, and or lesions. At the lower pole of the right kidney 8 mm benign simple cyst is seen, which requires no additional follow-up imaging per radiology report. The bladder is well distended. Bladder jets are demonstrated. Pre void bladder volume is approximately 265 mL. Postvoid bladder volume is approximately 100 mL. The bladder wall is trabeculated with small bladder diverticula noted. Prostate measures approximately 57 mL. PSAs are as follows: 04/28--149.5, 09/27--151.1 Of note, patient was admitted to [facility] in April of last year for weakness at which time he was noted to have an acute kidney injury complicated by acute metabolic encephalopathy evaluated by Nephrology and started on hemodialysis. PermCath was placed on 05/06 and has been tolerating dialysis well. During this hospital stay CT of the abdomen and pelvis found enlarged prostate, massively distended urinary bladder and bilateral severe hydronephrosis consistent with urinary retention at which time a Lew catheter was placed however patient underwent surgical intervention with Dr. Louise on 05/01/23 due to persistent gross hematuria after Lew catheter placement with potential balloon and prostate. During last office visit voiding trial was performed and patient has been successfully voiding independently with no issues or concerns. In office urinalysis results reviewed with the patient today. PVR 62 mL. Discussed at length potential causes for elevated PSA. Discussed obtaining bone scan as well as undergoing prostate biopsy. Initially during today's office visit patient was reluctant in performing prostate biopsy however in discussion regarding delay in treatment he does wish to undergo prostate biopsy. He otherwise denies any bothersome urinary issues or concerns. He reports compliance with finasteride and Flomax as prescribed. He otherwise offers no other issues or concerns at this time. [facility] Medical History Essential hypertension History of bone density study Urinary retention with incomplete bladder emptying NSVT (nonsustained ventricular tachycardia) ESRD needing dialysis Bladder outlet obstruction Benign enlargement of prostate CKD (chronic kidney disease) stage 5, GFR less than 15 ml/min Anemia Surgical History History of colonoscopy Social History Household Members: None Housing: Apartment Alcohol intake: current Alcohol intake frequency: a few times a week Alcohol type: hard liquor Patient Tobacco Use Status: Never used Tobacco e-Cigarette/Vaping Use: Never Used Second Hand Smoke Exposure: No Substance Use Type: Marijuana Advance Directives Date on File: 05/12/23 service: No Current occupational status: employed 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ce Gender identity: Male Cognitive needs: No Hearing needs: No Vision needs: No Telehealth Telehealth Telehealth Platform: Telephone Location of provider rendering services: practice address Location of patient: address on file Patient Identification confirmed using: Name, : Yes Telehealth method: voice only Patient verbally consented to treatment: Yes Patient verbally consented to billing insurance company: Yes Patient informed of any privacy concerns related to visit: Yes Minutes spent on Phone/Video with Pt.: 14 Results Reviewed Results Reviewed: Collected: 02/13/24 Location: [facility] Received: 02/13/24 Diagnosis A. Prostate, left base lateral, needle core biopsy: Prostatic adenocarcinoma, Nicki grade 4+4=8 (Grade group 4), involving 100% of the length of the core with perineural invasion. B. Prostate, left base medial, needle core biopsy: Prostatic adenocarcinoma, Mertens grade 4+4=8 (Grade group 4), involving 95% of the length of the core with perineural invasion. C. Prostate, left mid lateral, needle core biopsy: Prostatic adenocarcinoma, Nicki grade 4+3=7 (Grade group 3), involving 100% of the length of the core with perineural invasion. D. Prostate, left mid medial, needle core biopsy: Prostatic adenocarcinoma, Nicki grade 4+4=8 (Grade group 4), involving 100% of the length of the core with perineural invasion. E. Prostate, left apex lateral, needle core biopsy: Prostatic adenocarcinoma, Nicki grade 4+3=7 (Grade group 3), involving 100% of the length of the core with perineural invasion. F. Prostate, left apex medial, needle core biopsy: Prostatic adenocarcinoma, Nicki grade 4+4=8 (Grade group 4), involving 100% of the length of the core with perineural invasion. G. Prostate, right base lateral, needle core biopsy: Prostatic adenocarcinoma, Nicki grade 4+ 4=8 (Grade group 4), involving 90% of the length of the core with perineural invasion. H. Prostate, right base medial, needle core biopsy: Prostatic adenocarcinoma, Nicki grade 4+ 3=7 (Grade group 3), involving 95% of the length of the core. I. Prostate, right mid lateral, needle core biopsy: Prostatic adenocarcinoma, Nicki grade 4+3=7 (Grade group 3), involving 95% of the length of the core with focus suspicious for extraprostatic extension. J. Prostate, right mid medial, needle core biopsy: Prostatic adenocarcinoma, Mertens grade 4+4=8 (Grade group 4), involving 90% of the length of the core with perineural invasion. K. Prostate, right apex lateral, needle core biopsy: Prostatic adenocarcinoma, Nicki grade 4+ 4=8 (Grade group 4), involving 95% of the length of the core with perineural invasion. L. Prostate, right apex medial, needle core biopsy: Prostatic adenocarcinoma, Mertens grade 4+ 4=8 (Grade group 4), involving 100% of the length of the core with perineural invasion. Data synopsis - Prostate needle biopsy Histologic type: Acinar adenocarcinoma Histologic grade: Nicki score: 4+3=7 (C, E, H, I); 4+4=8 (A, B, D, F, G, J, K, L) % of pattern 4: 5-100% % of pattern 5: Not identified Grade group: 3 (C, E, H, I); 4 (A, B, D, F, G, J, K, L) Tumor quantitation: Number cores positive: 12 Total number of cores: 12 % of tissue involved: 90-100% (see above for details) Periprostatic fat inv.: One focus suspicious for extraprostatic extension (see part I) Patient: Abdelrahman Campbell Age/Sex: 63/M MR#: [id number] Page 1 of 3 Surgical Pathology [id number] Seminal vesicle inv.: Not identified Perineural inv.: Present, extensive LVI: Not identified Clinical History Elevated PSA Microscopic Description A-L. Sections of the prostate cores demonstrate extensive involvement of prostatic parenchyma by prostatic adenocarcinoma comprised of cribriform, poorly formed and fused glands consistent with Nicki score 4+4=8. Variable areas show 4+3=7. Extensive perineural invasion is identified. There is one focus suspicious for extraprostatic extension in part I. Lymphovascular invasion is not identified. Material Received A: Left base lateral B: Left base medial C: Left mid lateral D: Left mid medial E: Left apex lateral F: Left apex medial G: Right base lateral H: Right base medial I: Right mid lateral J: Right mid medial K: Right apex lateral L: Right apex medial This case was reviewed intradepartmentally. Copies To Meenakshi Croft MD Date of Service: 09/10/23 EXAMINATION: US RETROPERITONEAL COMPLETE (RENAL) FINDINGS: RIGHT KIDNEY: 9.2 x 4.6 x 4.8 cm (SAG x AP x TRV). The kidney is normal in size, contour, and echogenicity. Renal cortical thickness is normal. No renal calculi. There is pelviectasis, without ross hydronephrosis. At the lower pole, an 8 mm benign, simple cyst is seen, which requires no imaging follow-up. LEFT KIDNEY: 9.6 x 6.1 x 5.4 cm (SAG x AP x TRV). The kidney is normal in size, contour, and echogenicity. Renal cortical thickness is normal. No calculi or focal parenchymal lesions. There is pelviectasis, without ross hydronephrosis. BLADDER: Well distended. Bilateral ureteral jets are demonstrated. Prevoid bladder volume is 265 mL. Postvoid bladder volume is 99 mL. There are bladder wall trabeculations, consistent with hypertrophy. Small bladder diverticula are noted. OTHER: Prostate dimensions are 4.1 x 4.6 x 3.5 cm (volume 56.7 mL). IMPRESSION: 1. Unremarkable ultrasound appearance of the kidneys. 2. There is prostatomegaly. 3. There is bladder wall hypertrophy, and bladder diverticula are noted. There is an increased postvoid residual volume. Assessment & Plan Assessment & Plan (1) Chronic kidney disease (CKD): Code(s): N18.9 - Chronic kidney disease, unspecified Category: Medical (2) Adenocarcinoma of prostate: Code(s): C61 - Malignant neoplasm of prostate Category: Medical Plan . Adenocarcinoma prostate with CKD 3B/CKD 4. He had acute kidney injury back in April of 2023. KIERA has resolved renal function has returned to baseline. Patient Instructions: The patient had an opportunity to ask questions regarding treatment plan. The patient expressed understanding and agreement with the above treatment plan. The patient is aware they should contact our office by phone for worsening of their current condition or the appearance of new symptoms. Compliance is encouraged with any medications and followup testing that is ordered. It is a privilege to be allowed the opportunity to participate in the urologic care of your patient. If you have any questions or concerns regarding treatment for the above conditions please do not hesitate to contact me. The office telephone contact is [phone]. This note is constructed in part using voice recognition software. While every effort has been made to ensure accuracy patient support assistant errors may have been included. Yours sincerely, Meenakshi Croft MD Coding Level of Care Code Tele Est Pt Level 3 (37690) Diagnoses Chronic kidney disease (CKD) N18.9 Adenocarcinoma of prostate C61
== END 2024-07-19 16:51 | disposition home or self-care (01) ==
PROVIDERS: PCP Internal Medicine; Visit Provider Urology
DX: N18.9 Chronic kidney disease, unspecified (principal); C61 Malignant neoplasm of prostate
CPT/HCPCS: 98016

== ENCOUNTER → 2024-07-19 14:42 | Outpatient (BNVA) | payer OTHER, SELFPAY | PROVIDERS: PCP Internal Medicine; Visit Provider Urology | DX: C61 Malignant neoplasm of prostate (principal); N18.6 End stage renal disease; R33.9 Retention of urine, unspecified | CPT/HCPCS: 96402; J9155 ==

== ENCOUNTER 2024-08-16 14:41 | Outpatient (AMB) | payer OTHER, SELFPAY ==
--- NOTE | 2024-08-16 14:57 | AM.OFFVISNUR ---
Intake Visit Reasons: Firmagon Allergies No Known Allergies Allergy (Verified 07/19/24 16:12) Office Meds degarelix 80 mg subcutaneous solution Performing Provider: Meenakshi Croft MD Performing Location[facility] [place] [facility] Administered by: Helen Braga RN on 08/16/24 14:57 Dose Route Admin Location Dispensed Lot Number Expiration Date NDC Boarding Specialist 80 mg subcut abdomen 80 mg [id number] 05/07/26 [address]-5 [facility] Assessment & Plan Assessment & Plan Orders: Orders AMB Degarelix Injection Practice Supplied Today C61 - Malignant neoplasm of prostate Medications: New degarelix 80 mg subcut ONCE 1 ea 0RF C61 - Malignant neoplasm of prostate Coding
== END 2024-08-16 15:01 | disposition home or self-care (01) ==
PROVIDERS: PCP Internal Medicine; Visit Provider Urology
DX: C61 Malignant neoplasm of prostate (principal)

== ENCOUNTER → 2024-08-16 14:41 | Outpatient (BNVA) | payer OTHER, SELFPAY | PROVIDERS: PCP Internal Medicine; Visit Provider Urology | DX: C61 Malignant neoplasm of prostate (principal) | CPT/HCPCS: 96402; J9155 ==

== ENCOUNTER 2024-09-14 14:34 | Outpatient (AMB) | payer OTHER, SELFPAY ==
--- NOTE | 2024-09-14 14:53 | AM.OFFVISNUR ---
Intake Visit Reasons: Ignacia(PA Set) Allergies No Known Allergies Allergy (Verified 07/19/24 16:12) Office Meds degarelix 80 mg subcutaneous solution Performing Provider: Elliott Louise MD Performing Location[facility] [place] [facility] [place] Administered by: Bigg Gutierrez LPN on 09/14/24 14:53 Dose Route Admin Location Dispensed Lot Number Expiration Date NDC Agronomist 80 mg subcut abdomen 80 mg [id number] 05/07/26 [address]-0 [facility] Assessment & Plan Assessment & Plan Orders: Orders AMB Degarelix Injection Practice Supplied Today C61 - Malignant neoplasm of prostate Medications: New degarelix 80 mg subcut ONCE 1 ea 0RF C61 - Malignant neoplasm of prostate Coding
--- OUTSIDE RECORDS SUMMARY | 2024-09-14 17:52 | XMS_ITS | Clinical Summary ---
Author Organization [facility] ity Address [address] [place] [id number] Care Team Providers Care Assistant Brand Manager Name Role Phone Unavailable Primary Care Provider Unavailabl e Social History Tobacco Use Types Packs/Day Years Used Date Smoking Tobacco: Never Assessed Sex and Gender Information Value Date Recorded Sex Assigned at Not on file Legal Sex Male 3:44 PM EDT Gender Identity Not on file Sexual Orientation Not on file Plan of Treatment Health Maintenance Due Date Last Done Comments DTaP,Tdap,and Td Vaccines (1 - Tdap) 1978 Pneumococcal Vaccine: 50+ Ye ars (1 of 1 - PCV) 2009 Zoster Vaccines (1 of 2) 2009 COVID-19 Vaccine (1 - 2023-2 5 season) 2024 Influenza Vaccine (#1) 2024 Abdominal Aortic Aneurysm (A AA) Screen 05/02/2024 Cholesterol Screening (Lipid Panel) 05/02/2024 Colorectal Cancer Screening: Colonoscopy 05/02/2024 Depression Screening 05/02/2024 Hepatitis C Screening 05/02/2024 Social Influencers of Health Screening 05/02/2024 Falls Risk Assessment 2024 RSV Immunization Patients 60 + Years Old (1 - 1-dose 75+ series) 2034 HIB Vaccines Aged Out No longer eligi ble based on patient's age to complete this topic HPV Vaccines Aged Out No longer eligi ble based on patient's age to complete this topic Hepatitis A Vaccines Aged Out No long er eligible based on patient's age to complete this topic Hepatitis B Vaccines Aged Out No long er eligible based on patient's age to complete this topic IPV Vaccines Aged Out No longer eligi ble based on patient's age to complete this topic MMR Vaccines Aged Out No longer eligi ble based on patient's age to complete this topic Meningococcal ACWY Vaccine Aged Out N o longer eligible based on patient's age to complete this topic Meningococcal B Vacine Aged Out No lo nger eligible based on patient's age to complete this topic Pneumococcal Vaccine: Pediat rics (0 to 5 Years) and At-Risk Patients (6 to 64 Years) Aged Out No longer eligible b ased on patient's age to complete this topic RSV Immunization Patients Un nima 20 months Aged Out No longer eligible b ased on patient's age to complete this topic Varicella Vaccines Aged Out No longer eligible based on patient's age to complete this topic
== END 2024-09-14 14:52 | disposition home or self-care (01) ==
LOC: HO.HUSH 14:35
PROVIDERS: PCP Internal Medicine; Visit Provider Urology
DX: C61 Malignant neoplasm of prostate (principal)

== ENCOUNTER → 2024-09-14 14:34 | Outpatient (BNVA) | payer OTHER, SELFPAY | PROVIDERS: PCP Internal Medicine; Visit Provider Urology | DX: C61 Malignant neoplasm of prostate (principal) | CPT/HCPCS: 96402; J9155 ==

== ENCOUNTER 2024-09-28 14:26 | Outpatient (AMB) | payer OTHER, SELFPAY ==
[2024-09-28 14:32] VITALS: BP 136/82; PULSE 75; O2SAT 96; BMI 32.6
--- NOTE | 2024-09-28 14:32 | HO.NEPHOV ---
Vital Signs 09/28/24 14:32 Height 5 ft 6 in Weight 202 lb BMI 32.6 BP 136/82 Blood Pressure Location Lt brachial Position Sitting Pulse 75 Pulse Source Pulse Oximeter Pulse Oximetry (%) 96 Oxygen Delivery Method Room Air Intake Visit Reasons: R/s from 05/24/24/ Medical Assembly Required: No Accompanied by: Sister Allergies No Known Allergies Allergy (Verified 09/28/24 14:36) Medication List - Last Reconciled 09/28/24 by Hermes Enamorado MD abiraterone 1,000 mg (4 x 250 mg) PO DAILY finasteride 5 mg PO DAILY 90 days metoprolol tartrate 25 mg See Protocol PO BID prednisone 5 mg PO DAILY HPI Comments Details: Jose Guadalupe Quick is a pleasant 64 man who developed KIERA in April 2023. Workup revealed bilateral hydronephrosis Subsequent prostate biopsy revealed adenocarcinoma. He is scheduled for a PET scan this week. The peak serum creatinine was 20 mg/dL on 04/26/2023. The recent serum creatinine was 2.41 as of 12/23/2023. No further labs are available. He was seen by different furnace charger several months ago but he has decided to switch care and has been referred by his primary care physician for further evaluation of CKD. COUNTS INCLUDE 234 BEDS AT THE [facility] Medical History Essential hypertension History of bone density study Urinary retention with incomplete bladder emptying NSVT (nonsustained ventricular tachycardia) ESRD needing dialysis Bladder outlet obstruction Benign enlargement of prostate CKD (chronic kidney disease) stage 5, GFR less than 15 ml/min Anemia Surgical History History of colonoscopy Social History Household Members: None Housing: Apartment Alcohol intake: current Alcohol intake frequency: a few times a week Alcohol type: hard liquor Patient Tobacco Use Status: Never used Tobacco e-Cigarette/Vaping Use: Never Used Second Hand Smoke Exposure: No Substance Use Type: Marijuana Advance Directives Date on File: 05/12/23 service: No Current occupational status: employed 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ce Gender identity: Male Cognitive needs: No Hearing needs: No Vision needs: No Physical Exam Vital Signs: Last Vital Signs Pulse 75 09/28/24 14:32 BP 136/82 09/28/24 14:32 Pulse Ox 96 09/28/24 14:32 Oxygen Delivery Method Room Air 09/28/24 14:32 BMI result Body Mass Index 32.6 Results Reviewed Nephrology Results: Hgb 13.2 g/dl (14.0-18.0) L 08/10/24 WBC 7.1 X10*3/uL (4.8-10.8) 08/10/24 Plt Count 210 X10*3/uL (160-400) 08/10/24 Sodium 139 mmol/L (135-145) 08/10/24 Potassium 5.4 mmol/L (3.3-5.1) H 08/10/24 Chloride 110 mmol/L (96-108) H 08/10/24 Carbon Dioxide 19 mmol/L (22-29) L 08/10/24 BUN 36 mg/dL (9-16) H 08/10/24 Creatinine 2.23 mg/dL (0.5-1.4) H 08/10/24 Calcium 9.4 mg/dL (8.4-10.2) 08/10/24 Assessment & Plan Assessment & Plan (1) Chronic kidney disease (CKD): Code(s): N18.9 - Chronic kidney disease, unspecified Category: Medical (2) Adenocarcinoma of prostate: Code(s): C61 - Malignant neoplasm of prostate Category: Medical (3) Essential hypertension: Code(s): I10 - Essential (primary) hypertension Category: Medical (4) Hyperkalemia: Code(s): E87.5 - Hyperkalemia Category: Medical Plan . 64-year-old man with a history of adenocarcinoma prostate with CKD 3B/CKD 4. He had acute kidney injury back in April of 2023. KIERA has resolved renal function has returned to baseline. From a renal standpoint, Goal is to slow the progression disease . Continue to avoid nephrotoxic agents including NSAIDS. Keep intake more than output. Optimize blood pressure. Increase PO fluid intake Low Potassium diet. Follow renal panel along with calcium phosphorus and PTH every 3 months Answered all his questions Coding Level of Care Code Est Pt Level 4 (96396) Diagnoses Chronic kidney disease (CKD) N18.9 Adenocarcinoma of prostate C61 Essential hypertension I10 Hyperkalemia E87.5
== END 2024-09-28 14:50 | disposition home or self-care (01) ==
LOC: HO.HKA 14:26
PROVIDERS: PCP Internal Medicine; Visit Provider Internal Medicine Hypertension Specialist
DX: I12.9 Hypertensive chronic kidney disease with stage 1 through stage 4 chronic kidney disease, or unspecified chronic kidney disease (principal); N18.9 Chronic kidney disease, unspecified; C61 Malignant neoplasm of prostate; E87.5 Hyperkalemia
CPT/HCPCS: 99214

== ENCOUNTER → 2024-09-28 14:26 | Outpatient (BNVA) | payer OTHER, SELFPAY | PROVIDERS: PCP Internal Medicine; Visit Provider Internal Medicine Hypertension Specialist ==

== ENCOUNTER 2024-10-14 08:28 | Outpatient (AMB) | payer OTHER, SELFPAY ==
--- OUTSIDE RECORDS SUMMARY | 2024-10-14 08:39 | XMS_ITS | Clinical Summary ---
Author Organization [facility] ity Address [address] [place] [id number] Care Team Providers Care Skid [address] Man Name Role Phone Unavailable Primary Care Provider [...] 05/02/2024 Falls Risk Assessment 2024 RSV Immunization Adult Patie nts (1 - 1-dose 75+ series) 2034 HIB [...] age to complete this topic Meningococcal B Vaccine Aged Out No l onger eligible based on patient's age to complete [...]
--- NOTE | 2024-10-14 08:42 | AM.OFFVISNUR ---
Intake Visit Reasons: firmagon Allergies No Known Allergies Allergy (Verified 09/28/24 14:36) Office Meds degarelix 80 mg subcutaneous solution Performing Provider: Meenakshi Croft MD Performing Location[facility] [place] [facility] Administered by: Bigg Gutierrez LPN on 10/14/24 08:42 Dose Route Admin Location Dispensed Lot Number Expiration Date [facility] Neuropsychology Medical Consultant 80 mg subcut right abdomen 80 mg [id number] 07/07/26 [address]-7 [facility] Assessment & Plan Assessment & Plan Orders: Orders AMB Degarelix Injection Practice Supplied Today C61 - Malignant neoplasm of prostate, R97.20 - Elevated prostate specific antigen [PSA] Medications: New degarelix 80 mg subcut ONCE 1 ea 0RF C61 - Malignant neoplasm of prostate, R97.20 - Elevated prostate specific antigen [PSA] Coding
== END 2024-10-14 08:56 | disposition home or self-care (01) ==
LOC: HO.HUSH 08:29
PROVIDERS: PCP Internal Medicine; Visit Provider Urology
DX: C61 Malignant neoplasm of prostate (principal); R97.20 Elevated prostate specific antigen [PSA]

== ENCOUNTER → 2024-10-14 08:28 | Outpatient (BNVA) | payer OTHER, SELFPAY | PROVIDERS: PCP Internal Medicine; Visit Provider Urology | DX: C61 Malignant neoplasm of prostate (principal); R97.20 Elevated prostate specific antigen [PSA] | CPT/HCPCS: 96402; J9155 ==

== ENCOUNTER 2024-11-09 10:22 | Outpatient (AMB) | payer OTHER, MEDICARE, SELFPAY ==
[2024-11-09 10:29] VITALS: BMI 32.6
--- NOTE | 2024-11-09 10:29 | MHC.OFFVIS ---
Vital Signs 11/09/24 10:29 Height 5 ft 6 in Weight 202 lb BMI 32.6 Intake Visit Reasons: [employer]-pain above B/L knees down his leg-RT one worse, Low back pain Intake Note: Abdelrahman is a 64 year old male who presents with complaints of progressively worsening bilateral knee pains, right greater than left. He describes his right knee pain as sharp in nature. Most of the pain is along the medial aspect of his knee. He also reports intermittent low back pain which radiates down his right leg. He denies any weakness. He states that his back pain is tolerable to him at this point. He has tried Tylenol and anti-inflammatory medicines which gave him minimal relief. He has failed the last 3 months of conservative treatment which has included physical therapy exercises, a home exercise program, Tylenol and anti-inflammatory medicines. He has had cortisone injections which gave him minimal relief. At this point his right knee pain is interfering with his activities of daily living and his ability to sleep well through the night. He wishes to hold off on surgery if at all possible. Allergies No Known Allergies Allergy (Verified 11/09/24 10:29) Medication List - Last Reconciled 11/09/24 by Osvaldo Hou MD abiraterone 1,000 mg (4 x 250 mg) PO DAILY finasteride 5 mg PO DAILY 90 days metoprolol tartrate 25 mg See Protocol PO BID prednisone 5 mg PO DAILY [facility] Medical History Essential hypertension History of bone density study Urinary retention with incomplete bladder emptying NSVT (nonsustained ventricular tachycardia) ESRD needing dialysis Bladder outlet obstruction Benign enlargement of prostate CKD (chronic kidney disease) stage 5, GFR less than 15 ml/min Anemia Surgical History History of colonoscopy Social History Household Members: None Housing: Apartment Alcohol intake: current Alcohol intake frequency: a few times a week Alcohol type: hard liquor Patient Tobacco Use Status: Never used Tobacco e-Cigarette/Vaping Use: Never Used Second Hand Smoke Exposure: No Substance Use Type: Marijuana Advance Directives Date on File: 05/12/23 service: No Current occupational status: employed 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ce Gender identity: Male Cognitive needs: No Hearing needs: No Vision needs: No Physical Exam Vital Signs: BMI result Body Mass Index 32.6 Const Other: Well-nourished well-developed very friendly male awake alert and oriented x3 in no acute distress Extrem Other: Right knee examination shows a minimal effusion, palpable crepitus with range of motion, pain with range motion, no instability Low back examination shows right-sided paraspinal muscle tenderness, negative straight leg raise test Results Reviewed Results Reviewed: X-rays of the patient's lumbar spine show mild diffuse degenerative disc disease, no acute bony abnormalities X-rays of the patient's right knee show moderate diffuse joint space narrowing, 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 Campbell presents with intermittent low back pain due to degenerative disc disease as well as right knee pain due to osteoarthritis. I had a lengthy discussion with the patient regarding the treatment options. He wishes to hold off on surgery if at all possible. I agree with this plan. I will see whether or not the patient's insurance company will cover a viscosupplementation injection, such as Durolane, for his right knee. I will see him back once the injection is available. Feel free to call me at any time should questions regarding his orthopedic management arise. Thank you very much for asking me to see this very friendly gentleman. I spent 20 minutes in reviewing the patient's records and imaging studies, seeing the patient and documenting in the medical record. Orders: Orders XR lumbar spine 2-3V Today M54.50 - Low back pain, unspecified XR knee LT 3V Today M25.562 - Pain in left knee Coding Level of Care Code New Pt Level 3 (65957) Complex EM visit Add On G2211 Diagnoses Low back pain M54.50
--- OUTSIDE RECORDS SUMMARY | 2024-11-09 11:52 | XMS_ITS | Clinical Summary ---
Author Organization [facility] ity Address [address] [place] [phone] Care Team Providers Care Subsystems Engineer Name Role Phone Unavailable Primary Care Provider [...] Vaccines (1 of 2) 2009 COVID-19 Vaccine ( - 2023-2 5 season) 2024 Abdominal Aortic Aneurysm (A AA) Screen 05/02/2024 Cholesterol Screening (Lipid Panel) 05/02/2024 Colorectal Cancer Screening: Colonoscopy 05/02/2024 Depression Screening 05/02/2024 Hepatitis C Screening 05/02/2024 Social Influencers of Health Screening 05/02/2024 Falls Risk Assessment 2024 Influenza Vaccine (Season Ended) 2025 RSV Immunization Adult Patie nts (1 - [...]
== END 2024-11-09 11:11 | disposition home or self-care (01) ==
PROVIDERS: PCP Internal Medicine; Visit Provider Orthopaedic Surgery
DX: M54.50 Low back pain, unspecified (principal); M25.561 Pain in right knee; M25.562 Pain in left knee
CPT/HCPCS: 99203

== ENCOUNTER → 2024-11-09 10:36 | Outpatient (BNV) | payer OTHER, SELFPAY | PROVIDERS: Visit Provider Radiology Diagnostic Radiology | DX: M54.50 Low back pain, unspecified (principal); M25.562 Pain in left knee | CPT/HCPCS: 73562 ==

== ENCOUNTER 2024-11-09 10:54 | Outpatient (REF) | payer OTHER, SELFPAY ==
--- NOTE | ~2024-11-09 | XR_ITS ---
CLINICAL HISTORY: M54.50 - Low back pain, unspecified 3 views lumbar spine Comparison: None Findings: No fractures or spondylolisthesis. Mild degenerative facet arthropathy L4-L5. Small anterolateral vertebral body osteophytes Disc spaces are maintained. Pedicles and transverse processes intact. Lordotic curvature is preserved. Normal bone mineralization. Normal soft tissues. Sacroiliac joints unremarkable. Impression: 1. No compression fractures or spondylolisthesis. This document has been electronically signed by: Shayan King MD on 11/10/2024 11:42:09
--- NOTE | ~2024-11-09 | XR_ITS ---
CLINICAL HISTORY: M25.562 - Pain in left knee Exam: AP, lateral, and sunrise views of the right knee. Comparison: April 14, 2024. Findings: Please note that there is a right/left discrepancy. Specifically, the title of the images was left knee radiographs. However, the images themselves are labeled right knee radiographs. In correlating with the patient's prior study from April 14, 2024, I believe these are images of the right knee as the findings are similar to that seen on the patient's prior study in the images are presented as right knee radiographs. Clinical correlation advised. Overall bony alignment is anatomic. No acute fracture. Lucency along the medial aspect of the medial femoral condyle is again seen measuring 4 x 3 mm in size. There is subjacent bony sclerosis. Mild medial compartment narrowing. Qeks-po-hcgvteph degenerative change of the patellofemoral joint. No joint effusion. Impression: 1. Right/left discrepancy. Please see above discussion. 2. 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 This document has been electronically signed by: Antonio Merrill MD on 11/10/2024 06:36:41
--- OUTSIDE RECORDS SUMMARY | 2024-11-10 12:19 | XMS_ITS | Clinical Summary ---
Author Organization [facility] ity Address [address] [place] [phone] Care Team Providers Care Flatwork Assembler Name Role Phone Unavailable Primary Care Provider [...]
== END 2024-11-09 10:55 | disposition home or self-care (01) ==
LOC: HO.HOSX 10:54
PROVIDERS: Visit Provider Orthopaedic Surgery
DX: M54.50 Low back pain, unspecified (principal); M25.562 Pain in left knee
CPT/HCPCS: 72100; 73562

== ENCOUNTER 2024-11-15 08:15 | Outpatient (AMB) | payer OTHER, MEDICARE, SELFPAY ==
--- OUTSIDE RECORDS SUMMARY | 2024-11-15 08:19 | XMS_ITS | Clinical Summary ---
Author Organization [facility] ity Address [id number] [place] [phone] Care Team Providers Care Home Connect Lpn Name Role Phone Unavailable Primary Care Provider [...]
--- NOTE | 2024-11-15 08:45 | AM.OFFVISNUR ---
Intake Visit Reasons: Firmagon Allergies No Known Allergies Allergy (Verified 11/09/24 10:29) Office Meds degarelix 80 mg subcutaneous solution Performing Provider: Meenakshi Croft MD Performing Location: [facility] [place] Administered by: Bigg Gutierrez LPN on 11/15/24 08:45 Dose Route Admin Location Dispensed Lot Number Expiration Date [facility] Sanitary Landfill Supervisor 80 mg subcut left abdomen 80 mg [id number] 07/07/26 [address]-5 [facility] Assessment & Plan Assessment & Plan Orders: Orders AMB Degarelix Injection Practice Supplied Today C61 - Malignant neoplasm of prostate, R97.20 - Elevated prostate specific antigen [PSA] Medications: New degarelix 80 mg subcut ONCE 1 ea 0RF C61 - Malignant neoplasm of prostate, R97.20 - Elevated prostate specific antigen [PSA] Coding
== END 2024-11-15 08:49 | disposition home or self-care (01) ==
PROVIDERS: PCP Internal Medicine; Visit Provider Urology
DX: R97.20 Elevated prostate specific antigen [PSA] (principal); C61 Malignant neoplasm of prostate

== ENCOUNTER → 2024-11-15 08:15 | Outpatient (BNVA) | payer OTHER, SELFPAY | PROVIDERS: PCP Internal Medicine; Visit Provider Urology | DX: C61 Malignant neoplasm of prostate (principal) | CPT/HCPCS: 96402; J9155 ==

== ENCOUNTER 2024-12-01 09:01 | Outpatient (AMB) | payer OTHER, SELFPAY ==
[2024-12-01 09:02] VITALS: BMI 32.6
--- NOTE | 2024-12-01 09:02 | MHC.OFFVIS ---
Vital Signs 12/01/24 09:02 Height 5 ft 6 in Weight 202 lb BMI 32.6 Intake Visit Reasons: Inj-Right knee Durolane inj Intake Note: Abdelrahman is a 64 year old male who presents today for a right knee Durolane injection. He describes his right knee pain as sharp in nature. His pain has gotten worse over the last few months in spite of continued non operative treatments. He has tried Tylenol and anti-inflammatory medicines which gave him minimal relief. He has also done physical therapy exercises which aggravated his pain. He wishes to hold off on surgery if at all possible. Allergies No Known Allergies Allergy (Verified 12/01/24 09:05) Medication List - Last Reconciled 12/01/24 by Osvaldo Hou MD abiraterone 1,000 mg (4 x 250 mg) PO DAILY finasteride 5 mg PO DAILY 90 days metoprolol tartrate 25 mg See Protocol PO BID prednisone 5 mg PO DAILY PFSH Medical History Essential hypertension History of bone density study Urinary retention with incomplete bladder emptying NSVT (nonsustained ventricular tachycardia) ESRD needing dialysis Bladder outlet obstruction Benign enlargement of prostate CKD (chronic kidney disease) stage 5, GFR less than 15 ml/min Anemia Surgical History History of colonoscopy Social History Household Members: None Housing: Apartment Alcohol intake: current Alcohol intake frequency: a few times a week Alcohol type: hard liquor Patient Tobacco Use Status: Never used Tobacco e-Cigarette/Vaping Use: Never Used Second Hand Smoke Exposure: No Substance Use Type: Marijuana Advance Directives Date on File: 05/12/23 service: No Current occupational status: employed 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ce Gender identity: Male Cognitive needs: No Hearing needs: No Vision needs: No Physical Exam Vital Signs: BMI result Body Mass Index 32.6 Const Other: Well-nourished well-developed very friendly male awake alert and oriented x3 in no acute distress Extrem Other: Right knee examination shows a minimal effusion, palpable crepitus with range of motion, pain with range of motion, no instability Office Procedures AMB Joint Injection/Aspiration Joint Injection/Aspiration Primary Site: right knee Prep: site was prepped using aseptic technique Injected: 60 mg of (Durolane viscosupplementation) and 1% plain lidocaine Procedure: The patient tolerated the procedure well Coding - Large joint Procedure code (CPT) selection complete Results Reviewed Results Reviewed: X-rays of the patient's right knee show joint space narrowing, subchondral sclerosis, no acute bony abnormalities Assessment & Plan Assessment & Plan (1) Osteoarthritis of right knee: Code(s): M17.11 - Unilateral primary osteoarthritis, right knee Category: Medical Plan Mr. Campbell presents with right knee pain due to osteoarthritis. The risks and benefits of a Durolane viscosupplementation injection were discussed at length with the patient. The patient wished to proceed. He tolerated the injection well. He will continue with his activity modifications. He will contact me prior to his follow-up appointment in 3 months should any questions or concerns arise. I spent 21 minutes in reviewing the patient's records and imaging studies, seeing the patient and documenting in the medical record. Orders: Orders AMB Joint Injection/Aspiration Today M17.11 - Unilateral primary osteoarthritis, right knee Coding Level of Care Code Est Pt Level 3 (18004) Complex EM visit Add On G2211 Diagnoses Osteoarthritis of right knee M17.11 CPT Codes Coding - Large joint: 07251 - Large joint ([id number])
--- OUTSIDE RECORDS SUMMARY | 2024-12-01 09:31 | XMS_ITS | Clinical Summary ---
Author Organization [facility] ity Address [address] [place] [phone] Care Team Providers Care Bulk Fluids Handler Name Role Phone Unavailable Primary Care Provider [...]
== END 2024-12-01 09:34 | disposition home or self-care (01) ==
LOC: HO.HOS 09:02
PROVIDERS: Visit Provider Orthopaedic Surgery
DX: M17.11 Unilateral primary osteoarthritis, right knee (principal)
CPT/HCPCS: 20610

== ENCOUNTER → 2024-12-01 09:01 | Outpatient (BNVA) | payer OTHER, SELFPAY | PROVIDERS: Visit Provider Orthopaedic Surgery | DX: M17.11 Unilateral primary osteoarthritis, right knee (principal) | CPT/HCPCS: 20610; J2003; J7318 ==

== ENCOUNTER 2024-12-13 09:48 | Outpatient (AMB) | payer MEDICARE, SELFPAY ==
--- NOTE | 2024-12-13 10:00 | AM.OFFVISNUR ---
Intake Visit Reasons: Firmagon Allergies No Known Allergies Allergy (Verified 12/01/24 09:05) Office Meds degarelix 80 mg subcutaneous solution Performing Provider: Meenakshi Croft MD Performing Location: [facility] Administered by: Bigg Gutierrez LPN on 12/13/24 10:00 Dose Route Admin Location Dispensed Lot Number Expiration Date [facility] Stiff Neck Loader 80 mg subcut abdomen 80 mg [id number] 07/07/26 [address]-1 [facility] Assessment & Plan Assessment & Plan Orders: Orders AMB Degarelix Injection Practice Supplied Today C61 - Malignant neoplasm of prostate, R97.20 - Elevated prostate specific antigen [PSA] Medications: New degarelix 80 mg subcut ONCE 1 ea 0RF C61 - Malignant neoplasm of prostate, R97.20 - Elevated prostate specific antigen [PSA] Coding
--- OUTSIDE RECORDS SUMMARY | 2024-12-13 10:33 | XMS_ITS | Clinical Summary ---
Author Organization [facility] ity Address [address] [place] [phone] Care Team Providers Care Customs Brokerage Manager Name Role Phone Unavailable Primary Care [...]
== END 2024-12-13 10:09 | disposition home or self-care (01) ==
PROVIDERS: PCP Internal Medicine
DX: R97.20 Elevated prostate specific antigen [PSA] (principal); C61 Malignant neoplasm of prostate

== ENCOUNTER → 2024-12-13 09:48 | Outpatient (BNVA) | payer OTHER, SELFPAY | PROVIDERS: PCP Internal Medicine | DX: C61 Malignant neoplasm of prostate (principal) | CPT/HCPCS: 96402; J9155 ==

== ENCOUNTER 2025-01-12 10:52 | Outpatient (AMB) | payer MEDICARE, SELFPAY ==
--- NOTE | 2025-01-12 11:06 | AM.OFFVISNUR ---
Intake Visit Reasons: Firmagon Allergies No Known Allergies Allergy (Verified 12/01/24 09:05) Office Meds degarelix 80 mg subcutaneous solution Performing Provider: Meenakshi Croft MD Performing Location[place] [facility] Administered by: Helen Braga RN on 01/12/25 11:06 Dose Route Admin Location Dispensed Lot Number Expiration Date [facility] Magnetic Prospector 80 mg subcut 80 mg [id number] 07/07/26 [address]-6 [facility] Total Dispensed Waste 80 mg 0 % Assessment & Plan Assessment & Plan Orders: Orders AMB Degarelix Injection Practice Supplied Today C61 - Malignant neoplasm of prostate Coding
--- OUTSIDE RECORDS SUMMARY | 2025-01-12 12:00 | XMS_ITS | Clinical Summary ---
Author Organization [facility] ity Address [address] [place] [phone] Care Team Providers Care Promotions Intern Name Role Phone Unavailable Primary Care Provider [...] Vaccine (1 - 2023-2 5 season) 2024 Abdominal Aortic Aneurysm (A AA) Screen 05/02/2024 Cholesterol Screening (Lipid Panel) 05/02/2024 Colorectal Cancer Screening: Colonoscopy 05/02/2024 Depression Screening 05/02/2024 Hepatitis C Screening 05/02/2024 Social Influencers of Health Screening 05/02/2024 Falls Risk Assessment 2024 Influenza Vaccine (#1) 2025 RSV Immunization Adult Patie nts (1 [...]
== END 2025-01-12 11:31 | disposition home or self-care (01) ==
PROVIDERS: PCP Internal Medicine; Visit Provider Urology
DX: C61 Malignant neoplasm of prostate (principal)

== ENCOUNTER → 2025-01-12 10:52 | Outpatient (BNVA) | payer OTHER, SELFPAY | PROVIDERS: PCP Internal Medicine; Visit Provider Urology | DX: C61 Malignant neoplasm of prostate (principal) | CPT/HCPCS: 96402; J9155 ==

== ENCOUNTER 2025-02-09 10:00 | Outpatient (AMB) | payer MEDICARE, SELFPAY ==
--- NOTE | 2025-02-09 10:09 | AM.OFFVISNUR ---
Intake Visit Reasons: Firmagon Allergies No Known Allergies Allergy (Verified 12/01/24 09:05) Office Meds degarelix 80 mg subcutaneous solution Performing Provider: Meenakshi Croft MD Performing Location[facility] [place] [facility] Administered by: Bigg Gutierrez LPN on 02/09/25 10:09 Dose Route Admin Location Dispensed Lot Number Expiration Date [facility] Education Specialist 80 mg subcut abdomen 80 mg [id number] 08/07/26 [address]-6 [employer] [facility] Total Dispensed Waste 80 mg 0 % Assessment & Plan Assessment & Plan Orders: Orders AMB Degarelix Injection Practice Supplied Today C61 - Malignant neoplasm of prostate Coding
--- OUTSIDE RECORDS SUMMARY | 2025-02-09 10:33 | XMS_ITS | Clinical Summary ---
Author Organization [facility] Address [address] [place] [phone] Phone Care Team Providers Care Radius Corner Machine Operator Name Role Phone Kevin Jiang MD Primary Care Provid er Social History Tobacco Use Types Packs/Day Years Used Date Smoking Tobacco: Never Assessed Education Answer Date Recorded Are you interested in more education? Not on rose e 04/15/2024 Are you concerned about learning? Not on file 04/15/2024 No 04/15/2024 No 04/15/2024 Digital Access Answer Date Recorded No 04/15/2024 No 04/15/2024 Reliable internet access at home? Not on file 04/15/2024 Device with a working camera? Not on file Sex and Gender Information Value Date Recorded Sex Assigned at Not on file Legal Sex Male 10:50 AM EDT Gender Identity Not on file Sexual Orientation Not on file Plan of Treatment Health Maintenance Due Date Last Done Comments Adult Td,Tdap Booster 1959 LIPID PANEL 1959 DEPRESSION SCREENING 1971 SMOKING Hx and SMOKELESS TOB ACCO SCREENING 1972 HEPATITIS C SCREENING 1977 HIV ONE-TIME SCREENING (18-6 5 YEARS) 1977 COLOGUARD 2004 COLONOSCOPY 2004 COLORECTAL CANCER SCREENING 2004 FIT TEST 2004 FOBT 2004 SIGMOIDOSCOPY 2004 VIRTUAL COLONOSCOPY 2004 PNEUMOCOCCAL VACCINES (50+ y ears) (1 of 1 - PCV) 2009 ZOSTER VACCINES (1 of 2) 2009 COVID-19 VACCINE ( - 2023-2 5 season) 2024 RSV VACCINE (1 - 1-dose 75+ series) 2034 HEPATITIS A VACCINES Aged Out No long er eligible based on patient's age to complete this topic HIB VACCINES Aged Out No longer eligi ble based on patient's age to complete this topic MENINGOCOCCAL VACCINES (ACWY) Aged Out No longer eligible based on patient's age to complete this topic MENINGOCOCCAL VACCINES (B) Aged Out N o longer eligible based on patient's age to complete this topic Medical Devices Not on file Insurance [address] [place] [id number] [facility] Care Teams Radius Corner Machine Operator Relationship Specialty Start Date End Date Kevin Jiang MD [address] [place] [phone] PCP - General Internal Medicine 04/15/24 Additional Source Comments The information contained in this document represents components of the legal health record. It is not the complete legal health record.[facility]
--- OUTSIDE RECORDS SUMMARY | 2025-02-09 10:33 | XMS_ITS | Clinical Summary ---
Author Organization [facility] ity Address [address] [place] [phone] Care Team Providers Care Wharf Attendant Name Role Phone Unavailable Primary Care Provider [...] Panel) 05/02/2024 Colorectal Cancer Screening: Colonoscopy 05/02/2024 Hepatitis C Screening 05/02/2024 Social Influencers of Health Screening 05/02/2024 Depression Screening 07/07/2024 Falls Risk Assessment 2024 Influenza Vaccine (#1) [...]
== END 2025-02-09 10:23 | disposition home or self-care (01) ==
LOC: HO.HUSH 10:01
PROVIDERS: PCP Internal Medicine; Visit Provider Urology
DX: C61 Malignant neoplasm of prostate (principal)

== ENCOUNTER → 2025-02-09 10:00 | Outpatient (BNVA) | payer OTHER, MEDICARE, SELFPAY | PROVIDERS: PCP Internal Medicine; Visit Provider Urology | DX: C61 Malignant neoplasm of prostate (principal) | CPT/HCPCS: 96402; J9155 ==

== ENCOUNTER 2025-03-03 09:21 | Outpatient (AMB) | payer OTHER, SELFPAY ==
--- NOTE | 2025-03-03 09:23 | A.OFFVIS_ITS ---
Vital Signs 03/03/25 09:24 03/03/25 09:27 Height 5 ft 6 in 5 ft 7 in Weight 205 lb 200 lb BMI 33.1 31.3 Intake Visit Reasons: Right knee pain and giving way Intake Note: Abdelrahman is a 64 year old male who presents with complaints of progressively worsening right knee pain and giving way. He describes his pain as sharp in nature. Most of the pain is along the medial aspect of his knee. He has failed the last 6 weeks of conservative treatment. He has tried Tylenol, Motrin, cortisone injections, viscosupplementation injections, a home exercise program and physical therapy exercises. He states that his right knee will give out several times per day. Allergies No Known Allergies Allergy (Verified 03/03/25 09:24) Medication List - Last Reconciled 03/03/25 by Osvaldo Hou MD abiraterone 1,000 mg (4 x 250 mg) PO DAILY finasteride 5 mg PO DAILY 90 days metoprolol tartrate 25 mg PO BID prednisone 5 mg PO DAILY [facility] Medical History Essential hypertension History of bone density study Urinary retention with incomplete bladder emptying NSVT (nonsustained ventricular tachycardia) ESRD needing dialysis Bladder outlet obstruction Benign enlargement of prostate CKD (chronic kidney disease) stage 5, GFR less than 15 ml/min Anemia Surgical History History of colonoscopy Social History Household Members: None Housing: Apartment Alcohol intake: current Alcohol intake frequency: a few times a week Alcohol type: hard liquor Patient Tobacco Use Status: Never used Tobacco e-Cigarette/Vaping Use: Never Used Second Hand Smoke Exposure: No Substance Use Type: Marijuana Advance Directives Date on File: 05/12/23 service: No Current occupational status: employed 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ce Gender identity: Male Cognitive needs: No Hearing needs: No Vision needs: No Physical Exam Vital Signs: BMI result Body Mass Index 31.3 Const Other: Well-nourished well-developed very friendly male awake alert and oriented x3 in no acute distress Extrem Other: Right knee examination shows a minimal effusion, mild crepitus with range of motion, tenderness along his medial joint line, positive Marianna's test, no instability Results Reviewed Results Reviewed: Standing full weight-bearing x-rays of the patient's right knee show mild diffuse joint space narrowing, no acute bony abnormalities Assessment & Plan Assessment & Plan (1) Tear of medial meniscus of right knee: Code(s): S83.241A - Other tear of medial meniscus, current injury, right knee, initial encounter Category: Medical Plan Mr. Campbell presents with right knee pain and mechanical symptoms most likely due to a medial meniscus tear. I did recommend that the patient get an MRI of his right knee for further evaluation. He wishes to hold off on getting the MRI for now. He will call my office if he decides get the MRI. We will order the MRI at that time. Otherwise he will continue with his activity modifications. Feel free to call me at any time should questions regarding his orthopedic management arise. I spent 22 minutes in reviewing the patient's records and imaging studies, seeing the patient and documenting in the medical record. Coding Level of Care Code Est Pt Level 3 (28388) Complex EM visit Add On G2211 Diagnoses Tear of medial meniscus of right knee S83.241A
[2025-03-03 09:24] VITALS: BMI 33.1
[2025-03-03 09:27] VITALS: BMI 31.3
--- OUTSIDE RECORDS SUMMARY | 2025-03-03 10:22 | XMS_ITS | Clinical Summary ---
Author Organization [facility] Address [address] [place] [phone] Phone Care Team Providers Care Mysql Developer Name Role Phone Kevin Jiang MD Primary [...] Devices Not on file Insurance [place] [address] [place], [place] [id number] [facility] Care Teams Mysql Developer Relationship Specialty Start Date End Date Kevin Jiang MD [address] [place] [id number] PCP - General Internal Medicine 04/15/24 Additional Source Comments The information contained in this document represents components of the legal health record. It is not the complete legal health record.[facility]
--- OUTSIDE RECORDS SUMMARY | 2025-03-03 10:22 | XMS_ITS | Clinical Summary ---
Author Organization [facility] ity Address [address] [place] [phone] Care Team Providers Care Field Ring Assembler Name Role Phone Unavailable Primary Care [...]
== END 2025-03-03 09:36 | disposition home or self-care (01) ==
LOC: HO.HOS 09:21
PROVIDERS: PCP Internal Medicine; Visit Provider Orthopaedic Surgery
DX: S83.241A Other tear of medial meniscus, current injury, right knee, initial encounter (principal)
CPT/HCPCS: 99213

== ENCOUNTER 2025-03-16 13:22 | Outpatient (AMB) | payer OTHER, SELFPAY ==
--- NOTE | 2025-03-16 13:33 | AM.OFFVISNUR ---
Intake Visit Reasons: firmagon Allergies No Known Allergies Allergy (Verified 03/03/25 09:24) Office Meds degarelix 80 mg subcutaneous solution Performing Provider: Meenakshi Croft MD Performing Location[facility] [place] [facility] Administered by: Helen Braga RN on 03/16/25 13:33 Dose Route Admin Location Dispensed Lot Number Expiration Date [facility] Cargo Surveyor 80 mg subcut right lower abd 80 mg [id number] 08/07/26 [address]-4 [facility] Total Dispensed Waste 80 mg 0 % Assessment & Plan Assessment & Plan Orders: Orders AMB Degarelix Injection Practice Supplied Today C61 - Malignant neoplasm of prostate Coding
--- OUTSIDE RECORDS SUMMARY | 2025-03-16 16:26 | XMS_ITS | Clinical Summary ---
Author Organization [facility] Address [address] [place] [phone] Phone Care Team Providers Care Field Representatives Director Name Role Phone Kevin Jiang MD Primary [...] 2009 ZOSTER VACCINES (1 of 2) 2009 INFLUENZA VACCINE (#1) 2025 COVID-19 VACCINE (2023-2 5 season) 2025 RSV VACCINE (1 - 1-dose 75+ series) [...] Devices Not on file Insurance [facility] O [facility] O [facility] Care Teams Field Representatives Director Relationship Specialty Start Date End Date Kevin Jiang MD [address] [place] [address] [address] [place], [place] [id number] PCP - General Internal Medicine 04/15/24 Additional Source Comments The information contained in this document represents components of the legal health record. It is not the complete legal health record.[facility]
--- OUTSIDE RECORDS SUMMARY | 2025-03-16 16:26 | XMS_ITS | Clinical Summary ---
Author Organization [facility] ity Address [address] [place] [address] Care Team Providers Care Suction Plate Carrier Cleaner Name Role Phone Unavailable Primary Care Provider [...] 2009 Zoster Vaccines (1 of 2) 2009 Abdominal Aortic Aneurysm (A AA) Screen 05/02/2024 Cholesterol Screening (Lipid Panel) 05/02/2024 Colorectal Cancer Screening: Colonoscopy 05/02/2024 Hepatitis C Screening 05/02/2024 Social Influencers of Health Screening 05/02/2024 Depression Screening 07/07/2024 Falls Risk Assessment 2024 COVID-19 Vaccine ( - 2023-2 5 season) 2025 Influenza Vaccine (#1) 2025 RSV Immunization Adult [...]
== END 2025-03-16 13:51 | disposition home or self-care (01) ==
LOC: HO.HUSH 13:22
PROVIDERS: PCP Internal Medicine; Visit Provider Urology
DX: C61 Malignant neoplasm of prostate (principal)

== ENCOUNTER → 2025-03-16 13:22 | Outpatient (BNVA) | payer OTHER, SELFPAY | PROVIDERS: PCP Internal Medicine; Visit Provider Urology | DX: C61 Malignant neoplasm of prostate (principal); Z79.899 Other long term (current) drug therapy | CPT/HCPCS: 96402; J9155 ==

== ENCOUNTER 2025-03-21 02:17 | Emergency (ER) | payer OTHER, MEDICARE, SELFPAY ==
--- NOTE | ~2025-03-21 | XR_ITS ---
CLINICAL HISTORY: sob 2 view chest x-ray Comparison: CR/DC/SR - XR CHEST 2 VIEWS - 04/30/2023 01:34 PM EDT Findings: The lungs are clear. Heart size is normal. No acute fracture. IMPRESSION: 1. No acute findings. This document has been electronically signed by: Jose De Jesus Craft MD on 03/21/2025 05:51:43
--- NOTE | ~2025-03-21 | XR_ITS ---
CLINICAL HISTORY: abd pain, vomiting 2 view abdomen Comparison: None provided Findings: Normal lung bases. No pneumoperitoneum or pneumatosis. No abnormal calcifications. No acute fractures. IMPRESSION: The bowel gas pattern is within normal limits This document has been electronically signed by: Jose De Jesus Craft MD on 03/21/2025 05:42:06
[2025-03-21 02:29] VITALS: BP 196/99; PULSE 86; RESP 18; TEMP 36.8; O2SAT 98; BMI 31.3
--- NOTE | 2025-03-21 02:39 | ECG_ITS ---
Test Reason : hypertension Blood Pressure : */* mmHG Vent. Rate : 86 BPM Atrial Rate : 86 BPM P-R Int : 138 ms QRS Dur : 72 ms QT Int : 384 ms P-R-T Axes : 49 8 47 degrees QTcB Int : 459 ms Normal sinus rhythm with sinus arrhythmia Low voltage QRS Possible Inferior infarct , age undetermined Abnormal ECG When compared with ECG of 23-Dec-2023 14:19, Borderline criteria for Inferior infarct are now Present Referred By: Sirena Dillard Electronically Signed By: LUIS EDUARDO DALEY
--- NOTE | 2025-03-21 02:39 | ED.ABDPAIN ---
HPI - Abdominal Pain General Chief Complaint: Abdominal Pain Stated Complaint: Nausea ABD Pain Time Seen by Provider: 03/21/25 02:39 Source: patient and EMS Mode of arrival: EMS Limitations: no limitations History of Present Illness ED Provider: Dr. Sirena Dillard HPI narrative: 64-year-old male brought in by EMS from a long term where he is a resident with reported nausea and lower abdominal cramping ongoing for the last 3 days or so. Patient is adamant that his symptoms started after eating a baked potato. That being said, he lives at a long term and multiple other residents ate the same baked potatoes and have not had any issues. Describes nausea but no vomiting. Has been passing a lot of gas and feels bloated but no bowel movement since yesterday. No reported fever. No hematochezia or melena. Denies urinary complaints. Had been feeling well prior to this. Related Data Previous Rx's ?Medication ?Instructions ?Recorded finasteride 5 mg tablet 5 mg PO DAILY 90 days #90 tabs 11/10/24 metoprolol tartrate 25 mg tablet 25 mg PO BID #180 tabs 12/06/24 prednisone 5 mg tablet 5 mg PO DAILY #30 tabs 01/10/25 abiraterone 250 mg tablet 1,000 mg (4 x 250 mg) PO DAILY 03/16/25 #120 tabs dicyclomine 20 mg tablet 20 mg PO TID #10 tabs 03/21/25 ondansetron 4 mg disintegrating 4 mg PO Q8H PRN nausea and 03/21/25 tablet vomiting #10 tabs Allergies Allergy/AdvReac Type Severity Reaction Status Date / Time No Known Allergies Allergy Verified 03/21/25 02:34 Review of Systems Review of Systems As per HPI, full review of systems performed and negative but for the above mentioned pertinent positives and negatives. [facility] Past Medical History Medical History Essential hypertension History of bone density study Urinary retention with incomplete bladder emptying NSVT (nonsustained ventricular tachycardia) ESRD needing dialysis Bladder outlet obstruction Benign enlargement of prostate CKD (chronic kidney disease) stage 5, GFR less than 15 ml/min Anemia Surgical History History of colonoscopy Social History Social History Household Members: None Housing: Apartment Unable to assess alcohol history related to: Unknown Alcohol intake: current Alcohol intake frequency: a few times a week Alcohol type: hard liquor Patient Tobacco Use Status: Never used Tobacco e-Cigarette/Vaping Use: Never Used Second Hand Smoke Exposure: No Substance Use Type: Marijuana Advance Directives Date on File: 05/12/23 service: No Current occupational status: employed 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ce Gender identity: Male Cognitive needs: No Hearing needs: No Vision needs: No Physical Exam ED Exam Exam: GENERAL: Ill-Appearing, appears uncomfortable. SKIN: Normal skin color for ethnicity, warm, dry, no rashes noted. HEENT: Normocephalic, atraumatic, no stridor, dry mucous membranes, dentition intact, EOMI, PERRLA. NECK: Soft, supple, full ROM, midline structures nontender, no step-offs, no deformities, no lymphadenopathy. CHEST: Heart regular rhythm, no murmurs, symmetric chest rise and fall. PULMONARY: Clear to auscultation bilaterally, diminished at the bases, no labored breathing, no wheezes/rhales/rhonchi. ABDOMINAL: Softly distended, nontender to palpation, quiet bowel sounds in all quadrants. : Deferred. MUSCULOSKELETAL: Normal tone, full range of motion, no deformities, no peripheral edema. NEURO: Alert and oriented x3, CN II through XII intact, equal strength and sensation bilateral upper and lower extremities, no focal neurologic deficits. PSYCHIATRIC: Flat affect, fluid speech, good eye contact and appropriate demeanor. Vital Signs: Vital Signs - 24 hr 03/21/25 02:29 03/21/25 06:51 Temperature 98.2 F Pulse Rate 86 90 Respiratory Rate 18 16 Blood Pressure 196/99 H 146/79 H Pulse Oximetry 98 96 Oxygen Delivery Method Room Air Room Air BMI result Body Mass Index 31.3 Medical Decision Making Medical Decision Making MDM Narrative: This patient presents today with a chief complaint of abdominal pain. Differential diagnosis for this patient is broad. It includes appendicitis, cholecystitis, bowel obstruction, peptic ulcer disease, pyelonephritis, vascular pathology, among many others. A broad-based workup based on history and physical examination was obtained. Patient's abdominal exam is very benign. Blood work is reassuring. X-ray of chest and abdomen and pelvis appears to have a nonspecific bowel gas pattern with no evidence of obstruction. No pneumonia. Normal heart contours. Patient feeling improved after treatment. Using shared decision making, plan for discharge home to follow-up with primary care and/or specialist. Patient understands and agrees with plan for discharge. Discharged home in stable condition. Differential Diagnosis Differential Diagnoses: The differential diagnosis associated with the presentation includes (As above) Admission/Observation Consideration of admission/observation: Escalation of care including admission/observation considered Lab Data MDM Lab Attestation statement: I reviewed the patient's lab results. 03/21/25 03:08 03/21/25 03:08 Labs: Lab Results 03/21/25 03/21/25 Range/Units 03:08 04:45 WBC 9.2 (4.8-10.8) X10*3/uL RBC 4.30 L (4.60-5.80) X10*6/uL Hgb 13.6 L (14.0-18.0) g/dl Hct 36.7 L (42.0-52.0) % MCV 85.3 (80.0-98.0) fL MCH 31.6 (27.0-33.0) pg MCHC 37.1 H (31.0-36.0) g/dl RDW 12.6 (11.0-16.0) % Plt Count 203 (160-400) X10*3/uL MPV 9.3 L (9.4-12.4) fL Immature Gran % (Auto) 0.3 (0.0-0.4) % Neut % (Auto) 65.5 (45-73) % Lymph % (Auto) 22.1 (20-40) % [place] % (Auto) 7.7 (2-11) % Eos % (Auto) 3.7 (0-4) % Baso % (Auto) 0.7 (0-2) % Lymph # (Auto) 2.0 (1.2-4.9) X10*3/uL [place] # (Auto) 0.7 (0.1-1.2) X10*3/uL Eos # (Auto) 0.3 (0.0-0.4) X10*3/uL Baso # (Auto) 0.1 (0.0-0.2) X10*3/uL Abs Immat Gran (auto) 0.03 (0.00-0.03) X10*3/uL Absolute Neuts (auto) 6.0 (2.0-8.3) x10*3/uL Absolute Nucleated RBC 0.000 (0.0-0.012) X10*3/uL Nucleated RBC % (auto) 0.0 (0.0-0.2) /100WBC Sodium 127 L (135-145) mmol/L Potassium 3.6 (3.3-5.1) mmol/L Chloride 94 L (96-108) mmol/L Carbon Dioxide 22 (22-29) mmol/L Anion Gap 15 (12-20) BUN 18 H (9-16) mg/dL Creatinine 1.45 H (0.5-1.4) mg/dL Estim Creat Clear Calc 54.5 Estimated GFR 49 Random Glucose 103 (60-115) mg/dL Calcium 9.1 D (8.4-10.2) mg/dL Magnesium 1.7 (1.6-2.6) mg/dL Total Bilirubin 0.6 (0.0-1.0) mg/dL AST 18 (5-37) U/L ALT 12 (0-40) U/L Alkaline Phosphatase 74 (39-117) U/L Troponin I High Sens 6.1 D (<3.5-35.0) ng/L Total Protein 6.6 (6.5-8.0) g/dL Albumin 4.1 (3.5-5.0) g/dL Lipase 21 (8-78) U/L COVID-19 (BRANDON) Negative (Negative) COVID-19 Clin Com See Note Influenza Type A (SAM) Negative (Negative) Influenza Type B (SAM) Negative (Negative) Influenza A & B Note See Note Independent Interpretation I performed an independent interpretation of an: EKG Radiology Impression Discussion of test interpretation with radiology: I have reviewed the radiologist's reading. Independent Historian Clinical information obtained from an independent historian. History obtained from or confirmed by: EMS External Record Review External record reviewed: Inpatient record Prescription Management I considered prescription management with: Other (Antiemetic) Chronic Conditions Patient?s care impacted by: Hypertension and Other (CKD) Social Determinants Patient?s care significantly limited by Social Determinants of Health including: Other Social Determinant of Health Medications Administered Discontinued Medications Generic Name Dose Route Start Last Admin Trade Name Dru PRN Reason Stop Dose Admin Droperidol 1.25 mg 03/21/25 04:24 03/21/25 05:25 Droperidol 5 Mg/2 Ml Vial IVPUSH 03/21/25 04:25 1.25 mg ONCE ONE Administration Lactated Ringer's 1,000 mls @ 999 mls/hr 03/21/25 02:39 03/21/25 04:19 Lr IV 03/21/25 03:39 Infused .Q1H1M ONE Infusion Ketorolac Tromethamine 15 mg 03/21/25 02:39 03/21/25 03:15 Ketorolac Tromethamine 15 Mg/Ml Vial IVPUSH 03/21/25 02:40 15 mg ONCE ONE Administration Metoclopramide HCl 10 mg 03/21/25 06:27 03/21/25 06:48 Metoclopramide Hcl 10 Mg/2 Ml Vial IVPUSH 03/21/25 06:28 10 mg ONCE ONE Administration Ondansetron HCl 4 mg 03/21/25 02:39 03/21/25 03:13 Ondansetron Hcl 4 Mg/2 Ml Vial IVPUSH 03/21/25 02:40 4 mg ONCE ONE Administration Discharge Plan Discharge Clinical Impression: Gastroenteritis, Abdominal pain, acute, Acute hyponatremia, Acute on chronic renal insufficiency Patient Disposition: Home, Self-Care Instructions: Hyponatremia (ED), Acute Abdominal Pain (ED) Additional Instructions: Use dicyclomine for abdominal cramping and ondansetron for nausea. These prescriptions were sent to your pharmacy. Your sodium levels were low meaning that you need to eat more salt. Try to limit water intake and beer intake. Drink plenty of Gatorade and electrolyte solutions to help stay hydrated. You should have your sodium level rechecked in approximately 5-7 days. Return to the emergency department immediately if you develop any new or worsening symptoms including: Worsening abdominal pain, worsening vomiting or fevers greater than 100?. Call 911 with any medical emergency. Prescriptions: New dicyclomine 20 mg tablet 20 mg PO TID Qty: 10 0RF ondansetron 4 mg tablet,disintegrating 4 mg PO Q8H PRN (Reason: nausea and vomiting) Qty: 10 0RF No Action finasteride 5 mg tablet 5 mg PO DAILY 90 Days Qty: 90 1RF metoprolol tartrate 25 mg tablet 25 mg PO BID Qty: 180 1RF prednisone 5 mg Tablet 5 mg PO DAILY Qty: 30 3RF abiraterone 250 mg Tablet 1,000 mg PO DAILY Qty: 120 3RF Rx Instructions: must be taken on empty stomach, at least 1 hr before or 2 hrs after a meal/food Interventions: ED Discharge Assessment Last Done: 03/21/25 07:42 Discharge Date/Time: 03/21/25 07:42 Print Language: Bulgarian
--- OUTSIDE RECORDS SUMMARY | 2025-03-21 02:59 | XMS_ITS | Clinical Summary ---
Author Organization [facility] ity Address [address] [place] [address] Care Team Providers Care Laundry Laborer Name Role Phone Unavailable Primary Care Provider [...]
--- OUTSIDE RECORDS SUMMARY | 2025-03-21 02:59 | XMS_ITS | Clinical Summary ---
Author Organization [facility] Address [address] [place] [phone] Phone Care Team Providers Care Research Archaeologist Name Role Phone Kevin Jiang MD Primary [...] on file Insurance O O O O [facility] Care Teams Research Archaeologist Relationship Specialty Start Date End Date Kevin Jiang MD [address] [place] [address] [address] [place], [place] [phone] PCP - General Internal Medicine 04/15/24 Additional Source Comments The information contained in this document represents components of the legal health record. It is not the complete legal health record.[facility]
[2025-03-21] MEDS: Lactated Ringers 1,000 ML 999 ML IV (03:07)
[2025-03-21 03:12] LABS: MANUAL DIFF FLAG NO
[2025-03-21 03:13] LABS: Hematocrit 36.7 % (42.0-52.0); Hemoglobin 13.6 g/dl (14.0-18.0); Imm Gran Abs Auto 0.03 X10*3/uL (0.00-0.03); Imm Gran Pct Auto 0.3 % (0.0-0.4); Lymphocytes Absolute Auto 2.0 X10*3/uL (1.2-4.9); Mean Corpuscular HGB Conc 37.1 g/dl (31.0-36.0); Mean Corpuscular Hemoglobin 31.6 pg (27.0-33.0); Mean Corpuscular Volume 85.3 fL (80.0-98.0); NRBC Abs Auto 0.000 X10*3/uL (0.0-0.012); NRBC Pct Auto 0.0 /100WBC (0.0-0.2); Platelet Count 203 X10*3/uL (160-400); Red Blood Count 4.30 X10*6/uL (4.60-5.80); White Blood Count 9.2 X10*3/uL (4.8-10.8)
[2025-03-21 03:28] LABS: Alanine Aminotransferase 12 U/L (0-40); Albumin Level 4.1 g/dL (3.5-5.0); Alkaline Phosphatase 74 U/L (39-117); Anion Gap 15 (12-20); Aspartate Amino Transferase 18 U/L (5-37); Blood Urea Nitrogen 18 mg/dL (9-16); Calcium 9.1 mg/dL (8.4-10.2); Carbon Dioxide 22 mmol/L (22-29); Chloride 94 mmol/L (96-108); Creatinine Clr Calc Pharmacy 54.5; Estimated Glomerular Filt Rate 49; Lipase 21 U/L (8-78); Magnesium 1.7 mg/dL (1.6-2.6); Potassium 3.6 mmol/L (3.3-5.1); Sodium 127 mmol/L (135-145); Total Protein 6.6 g/dL (6.5-8.0)
[2025-03-21 03:49] LABS: Troponin-I High Sensitivity 6.1 ng/L (<3.5-35.0)
[2025-03-21 05:27] LABS: COVID-19 Test Negative (Negative); IDNOW Serial# 55D5AD1C; IDNOW Serial# 58CA691E; Influenza B2 Negative (Negative)
[2025-03-21 06:51] VITALS: BP 146/79; PULSE 90; RESP 16; O2SAT 96
[2025-03-21 07:42] VITALS: BP 146/79; PULSE 90; RESP 16; TEMP -17.7; TEMP 0; O2SAT 96
== END 2025-03-21 07:42 | disposition home or self-care (01) ==
PROVIDERS: Emergency Provider Emergency Medicine; PCP Internal Medicine
DX: K52.9 Noninfective gastroenteritis and colitis, unspecified (principal); E87.1 Hypo-osmolality and hyponatremia; N28.9 Disorder of kidney and ureter, unspecified; I49.8 Other specified cardiac arrhythmias; I10 Essential (primary) hypertension; R11.0 Nausea; Z11.52 Encounter for screening for COVID-19; Z79.899 Other long term (current) drug therapy
CPT/HCPCS: 36415; 71046; 74022; 80053; 83690; 83735; 84484; 85025; 87502; 87635; 93005; 96361; 96374; 96375; 99284; 99285; J1790; J1885; J2405; J2765; J7120

== ENCOUNTER → 2025-03-21 02:39 | Outpatient (BNV) | payer OTHER, MEDICARE, SELFPAY | PROVIDERS: Emergency Provider Emergency Medicine; PCP Internal Medicine; Visit Provider Internal Medicine | DX: I49.9 Cardiac arrhythmia, unspecified (principal) | CPT/HCPCS: 93010 ==

== ENCOUNTER → 2025-03-21 04:24 | Outpatient (BNV) | payer OTHER, MEDICARE, SELFPAY | PROVIDERS: Emergency Provider Emergency Medicine; PCP Internal Medicine; Visit Provider Specialist | DX: R10.9 Unspecified abdominal pain (principal); R11.10 Vomiting, unspecified; R06.02 Shortness of breath | CPT/HCPCS: 71046; 74022 ==

== ENCOUNTER 2025-03-29 14:32 | Outpatient (AMB) | payer MEDICARE, SELFPAY ==
[2025-03-29 14:39] VITALS: BP 152/74; PULSE 84; O2SAT 97; BMI 32.1
--- NOTE | 2025-03-29 14:39 | HO.NEPHOV_ITS ---
Vital Signs 03/29/25 14:39 03/29/25 14:50 Height 5 ft 7 in Weight 205 lb BMI 32.1 BP 152/74 H 120/64 Blood Pressure Location Lt brachial Lt brachial Position Sitting Sitting Pulse 84 Pulse Source Pulse Oximeter Pulse Oximetry (%) 97 Oxygen Delivery Method Room Air Intake Visit Reasons: FU-LVM Phlebotomist Medical Lab Assistant Required: No Accompanied by: Spouse Allergies No Known Allergies Allergy (Verified 03/29/25 14:41) Medication List - Last Reconciled 03/29/25 by Hermes Enamorado MD abiraterone 1,000 mg (4 x 250 mg) PO DAILY dicyclomine 20 mg PO TID finasteride 5 mg PO DAILY 90 days metoprolol tartrate 25 mg PO BID ondansetron 4 mg PO Q8H PRN prednisone 5 mg PO DAILY HPI Comments Details: Jose Guadalupe Quick is a pleasant 64 man who developed KIERA in April 2023. Workup revealed bilateral hydronephrosis Subsequent prostate biopsy revealed adenocarcinoma. He is scheduled for a PET scan this week. The peak serum creatinine was 20 mg/dL on 04/26/2023. The recent serum creatinine was 2.41 as of 12/23/2023. No further labs are available. He was seen by different application assistant several months ago but he has decided to switch care and has been referred by his primary care physician for further evaluation of CKD. 03/29/25 History of Present Illness - The patient is a 64-year-old male presenting with chronic kidney disease and diabetes. - Chronic Kidney Disease: Stage 3, with fluctuating kidney function percentages. - Diabetes: Requires ongoing management and monitoring. [facility] Medical History Essential hypertension History of bone density study Urinary retention with incomplete bladder emptying NSVT (nonsustained ventricular tachycardia) ESRD needing dialysis Bladder outlet obstruction Benign enlargement of prostate CKD (chronic kidney disease) stage 5, GFR less than 15 ml/min Anemia Surgical History History of colonoscopy Social History Household Members: None Housing: Apartment Alcohol intake: current Alcohol intake frequency: a few times a week Alcohol type: hard liquor Patient Tobacco Use Status: Never used Tobacco e-Cigarette/Vaping Use: Never Used Second Hand Smoke Exposure: No Substance Use Type: Marijuana Advance Directives Date on File: 05/12/23 service: No Current occupational status: employed 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ce Gender identity: Male Cognitive needs: No Hearing needs: No Vision needs: No Physical Exam Vital Signs: Last Vital Signs Pulse 84 03/29/25 14:39 BP 120/64 03/29/25 14:50 Pulse Ox 97 03/29/25 14:39 Oxygen Delivery Method Room Air 03/29/25 14:39 BMI result Body Mass Index 32.1 Results Reviewed Results Reviewed: Labs ordered Nephrology Results: Hgb, (14.0-18.0) 13.6 g/dl L 03/21/25 WBC, (4.8-10.8) 9.2 X10*3/uL 03/21/25 Plt Count, (160-400) 203 X10*3/uL 03/21/25 Sodium, (135-145) 127 mmol/L L 03/21/25 Potassium, (3.3-5.1) 3.6 mmol/L 03/21/25 Chloride, (96-108) 94 mmol/L L 03/21/25 Carbon Dioxide, (22-29) 22 mmol/L 03/21/25 BUN, (9-16) 18 mg/dL H 03/21/25 Creatinine, (0.5-1.4) 1.45 mg/dL H 03/21/25 Calcium, (8.4-10.2) 9.1 mg/dL Δ 03/21/25 Assessment & Plan Assessment & Plan (1) Chronic kidney disease (CKD): Code(s): N18.9 - Chronic kidney disease, unspecified Category: Medical (2) Adenocarcinoma of prostate: Code(s): C61 - Malignant neoplasm of prostate Category: Medical (3) Essential hypertension: Code(s): I10 - Essential (primary) hypertension Category: Medical (4) Hyperkalemia: Code(s): E87.5 - Hyperkalemia Category: Medical Plan . 64-year-old man with a history of adenocarcinoma prostate with CKD 3B/CKD 4. He had acute kidney injury back in April of 2023. KIERA has resolved renal function has returned to baseline. eGFR at 49 ml/mt !! From a renal standpoint, Goal is to slow the progression disease . Continue to avoid nephrotoxic agents including NSAIDS. Keep intake more than output. Optimize blood pressure. Increase PO fluid intake Low Potassium diet. Orders: Orders Basic Metabolic Panel 6 Months C61 - Malignant neoplasm of prostate, N18.30 - Chronic kidney disease, stage 3 unspecified Creatinine Urine 6 Months C61 - Malignant neoplasm of prostate, N18.30 - Chronic kidney disease, stage 3 unspecified Complete Blood Count no Diff 6 Months C61 - Malignant neoplasm of prostate, N18.30 - Chronic kidney disease, stage 3 unspecified Total Protein Urine Random 6 Months C61 - Malignant neoplasm of prostate, N18.30 - Chronic kidney disease, stage 3 unspecified UA and rflx microscopic 6 Months C61 - Malignant neoplasm of prostate, N18.30 - Chronic kidney disease, stage 3 unspecified Coding Level of Care Code Est Pt Level 4 (63776) Diagnoses Chronic kidney disease (CKD) N18.9 Adenocarcinoma of prostate C61 Essential hypertension I10 Hyperkalemia E87.5
[2025-03-29 14:50] VITALS: BP 120/64
--- OUTSIDE RECORDS SUMMARY | 2025-03-29 17:44 | XMS_ITS | Clinical Summary ---
Author Organization [facility] ity Address [address] [place] [address] Care Team Providers Care Traveling Engineer Name Role Phone Unavailable Primary Care [...]
--- OUTSIDE RECORDS SUMMARY | 2025-03-29 17:44 | XMS_ITS | Clinical Summary ---
Author Organization [facility] Address [address] [place] [phone] Phone Care Team Providers Care Excavator Operator Name Role Phone Kevin Jiang MD [...] on file Insurance [facility] Care Teams Excavator Operator Relationship Specialty Start Date End Date Kevin Jiang MD [address] [place] [address] [address] [place], [place] [phone] PCP - General Internal Medicine 04/15/24 Additional Source Comments The information contained in this document represents components of the legal health record. It is not the complete legal health record.[facility]
== END 2025-03-29 14:53 | disposition home or self-care (01) ==
PROVIDERS: PCP Internal Medicine; Visit Provider Internal Medicine Hypertension Specialist
DX: I12.9 Hypertensive chronic kidney disease with stage 1 through stage 4 chronic kidney disease, or unspecified chronic kidney disease (principal); N18.9 Chronic kidney disease, unspecified; C61 Malignant neoplasm of prostate; E87.5 Hyperkalemia
CPT/HCPCS: 99214

== ENCOUNTER → 2025-03-29 14:32 | Outpatient (BNVA) | payer OTHER, SELFPAY | PROVIDERS: PCP Internal Medicine; Visit Provider Internal Medicine Hypertension Specialist | DX: I12.9 Hypertensive chronic kidney disease with stage 1 through stage 4 chronic kidney disease, or unspecified chronic kidney disease (principal); C61 Malignant neoplasm of prostate; E87.5 Hyperkalemia | CPT/HCPCS: 99212 ==

== ENCOUNTER 2025-03-31 14:25 | Outpatient (AMB) | payer MEDICARE, SELFPAY ==
--- NOTE | 2025-03-31 14:39 | A.OFFPC_ITS ---
Vital Signs 03/31/25 14:40 Height 5 ft 7 in Weight 205 lb 6 oz BMI 32.2 BP 160/80 H Blood Pressure Location Lt brachial Position Sitting Pulse 78 Pulse Source Pulse Oximeter Temp 96.9 F Temp Source Temporal Artery Scan Pulse Oximetry (%) 96 Oxygen Delivery Method Room Air Intake Visit Reasons: follow up Intake Note: Patient is here to follow up on CKD, HTN. Requesting for medication to help sleep and anxiety. Special Educator Required: No Banana Expert: Present Accompanied by: Sister Allergies No Known Allergies Allergy (Verified 04/20/25 09:16) Tobacco use date assessed: 03/31/25 Fall risk assessment: No Falls in past year Last assessed Fall Risk: 03/31/25 Dental Screening Dental Screen Date: 03/31/25 Did you have a dental visit in the last 12 months?: No Did you have a dental problem in the last 6 months where you did not have access to dental care?: No Was dental information given to patient?: No [facility] Medical History (Updated 04/20/25 @ 09:49 by Kevin Jiang MD) Major depression in partial remission Essential hypertension History of bone density study Urinary retention with incomplete bladder emptying NSVT (nonsustained ventricular tachycardia) ESRD needing dialysis Bladder outlet obstruction Benign enlargement of prostate CKD (chronic kidney disease) stage 5, GFR less than 15 ml/min Anemia Surgical History History of colonoscopy Social History Household Members: None Housing: Apartment Alcohol intake: current Alcohol intake frequency: a few times a week Alcohol type: hard liquor Patient Tobacco Use Status: Never used Tobacco e-Cigarette/Vaping Use: Never Used Second Hand Smoke Exposure: No Substance Use Type: Marijuana Advance Directives Date on File: 05/12/23 service: No Current occupational status: employed 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 Gender identity: Male Cognitive needs: No Hearing needs: No Vision needs: No Questionnaire PHQ-9 Over the last 2 weeks, how often have you been bothered by any of the following problems? 1. Little interest or pleasure in doing things: not at all 2. Feeling down, depressed, or hopeless: several days 3. Trouble falling or staying asleep, or sleeping too much: nearly every day 4. Feeling tired or having little energy: nearly every day 5. Poor appetite or overeating: more than half the days 6. Feeling bad about yourself - or that you are a failure or have let yourself or your family down: several days 7. Trouble concentrating on things, such as reading the newspaper or watching television: several days 8. Moving or speaking so slowly that other people could have noticed. Or the opposite - being so fidgety or restless that you have been moving around a lot more than usual: several days 9. Thoughts that you would be better off or of hurting yourself in some way: not at all Total score: 12 Depression Screening Interpretation: Positive Depression Screening Done: Yes Source: Developed by Drs. Remi Lloyd, Andreina Ramon, Aron Malone and colleagues, with an educational sophia from [employer]. Thrive Questionnaire Date Thrive assessed: 03/31/25 I am a: Parent/Caregiver What is your living situation today?: I have a steady place to live Within the past 12 months, did the food you bought not last and you didn't have the money to get more?: Never true Within the past 12 months, did you worry whether your food would run out before you got money to buy more?: Never true Do you have trouble paying for medicines?: No Do you have trouble getting transportation to medical appointments?: No Do you have trouble paying your heating and electricity bill?: No Do you have trouble taking care of your child, family member or friend?: No Do you have trouble with day-to-day activities such as bathing, preparing meals, shopping, managing finances, etc.?: No Are you currently unemployed and looking for a job?: No Are you interested in more education?: No Please select the resources that you would like help with: None Currently or been in a relationship where the following occur: No concerns reported THRIVE Score: 0 AUDIT C Alcohol Use Questionnaire (AUDIT-C) 1. How often do you have a drink containing alcohol?: 2-3 times a week 2. How many drinks containing alcohol do you have on a typical day when you are drinking?: 1 or 2 3. How often do you have six or more drinks on one occasion?: Weekly Total Score: 6 ADILENE-7 AMB Questionnaire ADILENE-7 Date ADILENE - 7 assessed: 03/31/25 Feeling nervous, anxious, or on edge: 3 = Nearly every day Not being able to stop or control worryin = Nearly every day Worrying too much about different things: 3 = Nearly every day Trouble relaxin = Nearly every day Being so restless that it is hard to sit still: 1 = Several days Becoming easily annoyed or irritable: 3 = Nearly every day Feeling afraid as if something awful might happen: 0 = Not at all Total ADILENE-7 score (0-4 normal; 5-9 mild; 10-14 moderate; 15-21 severe): 16 Source: Developed by Drs. Remi Lloyd, Andreina Ramon, Aron Malone and colleagues, with an educational sophia from [employer]. Physical exam (Primary Care) Vital Signs: Last Vital Signs Temp 96.9 F 03/31/25 14:40 Pulse 78 03/31/25 14:40 BP 160/80 H 03/31/25 14:40 Pulse Ox 96 03/31/25 14:40 Oxygen Delivery Method Room Air 03/31/25 14:40 BMI result Body Mass Index 32.2 Tobacco/Smoking Status: Tobacco use Status Tobacco use date assessed 03/31/25 03/31/25 14:43 Patient Tobacco Use Status Never used Tobacco 03/31/25 14:43 e-Cigarette/Vaping Use Never Used 03/31/25 14:43 PHQ-9: PHQ-9 Score PHQ-9: Total score 12 03/31/25 14:43 Depression Screening Interpretation: Positive Thrive Assessment: Date of Thrive Assessment Date Thrive assessed 03/31/25 03/31/25 14:43 Currently or been in a relationship where the following occur: No concerns reported Coding Level of Care Code Est Pt Level 4 (31505) Complex EM visit Add On G2211 Diagnoses Major depression in partial remission F32.4 Assessment & Plan Assessment & Plan (1) Major depression in partial remission: Code(s): F32.4 - Major depressive disorder, single episode, in partial remission Category: Medical Plan: History of Present Illness - The patient is a 64-year-old male presenting with insomnia, anxiety, and depression. - Insomnia: Persistent difficulty sleeping impacting daily life. - Anxiety: Recent anxiety attack led to emergency room visit; treated with IV therapy and medication. - Depression: Feelings of depression linked to health issues and treatment side effects. - Prostate cancer: Ongoing hormone therapy treatment, reportedly effective. - Renal function: Increase in kidney function markers from 35 to 49, indicating decline. Social History - Housing: The patient resides in an assisted living facility. Review of Systems - General: Reports insomnia and fatigue. - Psychiatric: Reports anxiety and depression. - Respiratory: Reports dyspnea during anxiety attacks. Physical Exam General: Cooperative and healthy appearing Nutritional Appearance: Well nourished Orientation/consciousness: Patient oriented x3 Limitations: No limitations Head: Normal to inspection General: Appearance normal, both eyes and all related structures Neck: Normal visual inspection Chest: Normal palpation of entire chest wall Respiratory: Difficulty breathing noted, history of emergency room visit for breathing issues. ormal respiratory effort Neurology: Patient oriented x3, experiencing anxiety and trouble sleeping. Results - Renal function test: Increase in kidney function markers from 35 to 49. Plan - Start Zoloft for anxiety and depression, with effects expected in one week. - Prescribe clonazepam for immediate anxiety relief and sleep aid, to be taken with Zoloft. - Schedule follow-up in two weeks to evaluate treatment response and make necessary adjustments. Discussion Notes I discussed with the patient the initiation of Zoloft for managing anxiety and depression, explaining that it takes about a week to become effective. Clonazepam was prescribed for immediate relief and to assist with sleep. We agreed on a follow-up in two weeks to evaluate the treatment's effectiveness and make any necessary adjustments. The patient was informed about the electronic prescription sent to the pharmacy and advised to monitor his response to the medications. Patient Instructions - Take Zoloft and clonazepam together in the evening as prescribed. - Monitor how you feel and report any issues at the follow-up appointment in two weeks. - electronic equipment set up operator your prescription from the pharmacy as discussed. Medications: New sertraline 50 mg PO DAILY 60 tabs 0RF clonazepam (Klonopin) administer 30 minutes before bedtime 0.5 mg PO BEDTIME 20 tabs 0RF
[2025-03-31 14:40] VITALS: BP 160/80; PULSE 78; TEMP 36.1; O2SAT 96; BMI 32.2
--- OUTSIDE RECORDS SUMMARY | 2025-03-31 18:47 | XMS_ITS | Clinical Summary ---
Author Organization [facility] Address [address] [place] [phone] Phone Care Team Providers Care Physician Vice President Name Role Phone Kevin Jiang MD Primary [...] on file Insurance [facility] Care Teams Physician Vice President Relationship Specialty Start Date End Date Kevin Jiang MD [address] [place] [address] [address] [place], [place] [id number] PCP - General Internal Medicine 04/15/24 Additional Source Comments The information contained in this document represents components of the legal health record. It is not the complete legal health record.[facility]
== END 2025-03-31 15:23 | disposition home or self-care (01) ==
LOC: HO.HMCH 14:26
PROVIDERS: PCP Internal Medicine; Visit Provider Internal Medicine
DX: F32.4 Major depressive disorder, single episode, in partial remission (principal)

== ENCOUNTER → 2025-03-31 14:25 | Outpatient (BNVA) | payer OTHER, MEDICARE, SELFPAY | PROVIDERS: PCP Internal Medicine; Visit Provider Internal Medicine | DX: F32.4 Major depressive disorder, single episode, in partial remission (principal); F41.9 Anxiety disorder, unspecified; C61 Malignant neoplasm of prostate; Z13.31 Encounter for screening for depression; Z13.39 Encounter for screening examination for other mental health and behavioral disorders | CPT/HCPCS: 96127; 99212 ==

== ENCOUNTER 2025-04-15 15:19 | Outpatient (AMB) | payer MEDICARE, SELFPAY ==
--- NOTE | 2025-04-15 15:36 | A.OFFVIS_ITS ---
Intake Visit Reasons: Firmagon/follow up Intake Note: Patient is present for follow up/firmagon injection Urology Med: Finasteride Antibiotic Allergy: None Blood Thinner: None Chairman And Ceo Required: No Accompanied by: Self / Same As Patient Allergies No Known Allergies Allergy (Verified 04/15/25 15:36) HPI Comments Details: 04/15/25--Abdelrahman is a 64-year-old male who has advanced prostate cancer. He has followed by Oncology. He receives monthly Firmagon injections in the urology office. History of Present Illness The patient is a 64-year-old male presenting with advanced prostate cancer. He is under the care of oncology. The patient is on androgen suppression therapy with abiraterone 1000 mg daily and prednisone 5 mg daily. and receives monthly Firmagon injections in the urology office. His last prostate-specific antigen (PSA) test in January showed a level of less than 0.10, indicating effective management of the cancer. He reports frequent urination, particularly at night, which is managed with finasteride to address prostate enlargement. The next oncology follow-up planned in six months. Blood work, including PSA, is planned for July to monitor the condition. Results - Labs: PSA less than 0.10 on 01/19/25 Plan 1. Advanced Prostate Cancer - Continue monthly Firmagon injections. - Maintain current regimen of abiraterone 1000 mg daily and prednisone 5 mg daily. - Schedule blood work, including PSA, in July. - Next oncology follow-up in six months. 2. Prostate Enlargement - Continue finasteride. 07/19/24--Abdelrahman is a 63-year-old male patient. He has a past medical history of urinary retention with incomplete bladder emptying, NSVT, alcholol dependence, end-stage renal disease needing dialysis, chronic kidney disease stage 5, and anemia. He presents to the office today for follow-up prostate cancer, on hormonal treatment, firmagon, also followed by oncology. s/p PET CT (04/23/24) 03/11/24--FU prostate biopsy, for elevated PSA >100 ng/mL. nicki 4+4=8, Grade group 3, with suspicion for extraprostatic invasion and perineural invasion. Discussed further eval with PET CT, referr to Oncology, will start firmagon. 09/25/23--Abdelrahman is a 63-year-old male patient. He has a past medical history of urinary retention with incomplete bladder emptying, NSVT, alcholol dependence, end-stage renal disease needing dialysis, chronic kidney disease stage 5, and anemia. He presents to the office today for follow-up of his lower urinary tract symptoms, urinary retention, and elevated PSA. In discussion with the patient today he reports to be doing and feeling well. Recent PSA results and retroperitoneal ultrasound results reviewed with the patient today. Bilateral kidneys without ross hydronephrosis, calculi, and or lesions. At the lower pole of the right kidney 8 mm benign simple cyst is seen, which requires no additional follow-up imaging per radiology report. The bladder is well distended. Bladder jets are demonstrated. Pre void bladder volume is approximately 265 mL. Postvoid bladder volume is approximately 100 mL. The bladder wall is trabeculated with small bladder diverticula noted. Prostate measures approximately 57 mL. PSAs are as follows: 04/28--149.5, 09/27--151.1 Of note, patient was admitted to [facility] in April of last year for weakness at which time he was noted to have an acute kidney injury complicated by acute metabolic encephalopathy evaluated by Nephrology and started on hemodialysis. PermCath was placed on 05/06 and has been tolerating dialysis well. During this hospital stay CT of the abdomen and pelvis found enlarged prostate, massively distended urinary bladder and bilateral severe hydronephrosis consistent with urinary retention at which time a Lew catheter was placed however patient underwent surgical intervention with Dr. Louise on 05/01/23 due to persistent gross hematuria after Lew catheter placement with potential balloon and prostate. During last office visit voiding trial was performed and patient has been successfully voiding independently with no issues or concerns. In office urinalysis results reviewed with the patient today. PVR 62 mL. Discussed at length potential causes for elevated PSA. Discussed obtaining bone scan as well as undergoing prostate biopsy. Initially during today's office visit patient was reluctant in performing prostate biopsy however in discussion regarding delay in treatment he does wish to undergo prostate biopsy. He otherwise denies any bothersome urinary issues or concerns. He reports compliance with finasteride and Flomax as prescribed. He otherwise offers no other issues or concerns at this time. [facility] Medical History Essential hypertension History of bone density study Urinary retention with incomplete bladder emptying NSVT (nonsustained ventricular tachycardia) ESRD needing dialysis Bladder outlet obstruction Benign enlargement of prostate CKD (chronic kidney disease) stage 5, GFR less than 15 ml/min Anemia Surgical History History of colonoscopy Social History Household Members: None Housing: Apartment Alcohol intake: current Alcohol intake frequency: a few times a week Alcohol type: hard liquor Patient Tobacco Use Status: Never used Tobacco e-Cigarette/Vaping Use: Never Used Second Hand Smoke Exposure: No Substance Use Type: Marijuana Advance Directives Date on File: 05/12/23 service: No Current occupational status: employed 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 Gender identity: Male Cognitive needs: No Hearing needs: No Vision needs: No Review of Systems Const All systems reviewed & are unremarkable except as noted in HPI and below Reports no additional complaints Eyes Reports no additional complaints ENT Reports no additional complaints Card Reports no additional complaints Resp Reports no additional complaints GI Reports no additional complaints Reports as per HPI Musc Reports no additional complaints Skin/Breast Reports system reviewed and no additional complaints, except as documented Neuro Reports no additional complaints Psych Reports no additional complaints Endo Reports no additional complaints Abhishek/Lymph Reports no additional complaints Aller/Immun Reports no additional complaints Office Meds degarelix 80 mg subcutaneous solution Performing Provider: Meenakshi Croft MD [facility] Administered by: Bigg Gutierrez LPN on 04/15/25 15:39 Dose Route Admin Location Dispensed Lot Number Expiration Date [facility] [employer] 80 mg subcut abdomen 80 mg [id number] 08/07/26 [id number] [employer] Total Dispensed Waste 80 mg 0 % Assessment & Plan Assessment & Plan (1) Chronic kidney disease (CKD): Code(s): N18.9 - Chronic kidney disease, unspecified Category: Medical (2) Adenocarcinoma of prostate: Code(s): C61 - Malignant neoplasm of prostate Category: Medical (3) Benign prostatic hyperplasia with nocturia: Code(s): N40.1 - Benign prostatic hyperplasia with lower urinary tract symptoms; R35.1 - Nocturia Category: Medical Plan Plan 1. Advanced Prostate Cancer - Continue monthly Firmagon injections. - Maintain current regimen of abiraterone 1000 mg daily and prednisone 5 mg daily. - Schedule blood work, including PSA, in July. - Next oncology follow-up in six months. 2. Prostate Enlargement - Continue finasteride. Orders: Orders AMB Degarelix Injection Practice Supplied 04/15/25 C61 - Malignant neoplasm of prostate Patient Instructions: The patient had an opportunity to ask questions regarding treatment plan. The patient expressed understanding and agreement with the above treatment plan. The patient is aware they should contact our office by phone for worsening of their current condition or the appearance of new symptoms. Compliance is encouraged with any medications and followup testing that is ordered. It is a privilege to be allowed the opportunity to participate in the urologic care of your patient. If you have any questions or concerns regarding treatment for the above conditions please do not hesitate to contact me. The office telephone contact is [phone]. This note is constructed in part using voice recognition software. While every effort has been made to ensure accuracy waterproofing mixer errors may have been included. Yours sincerely, Meenakshi Croft MD Scribe Plan - Not visible on output: Patient was informed and verbally consented to the use of an ambient scribe for clinic note documentation during this visit. Coding Level of Care Code Est Pt Level 4 (36197) Complex EM visit Add On G2211 Diagnoses Chronic kidney disease (CKD) N18.9 Adenocarcinoma of prostate C61 Benign prostatic hyperplasia with nocturia N40.1; R35.1
== END 2025-04-15 16:17 | disposition home or self-care (01) ==
LOC: HO.HUSH 15:20
PROVIDERS: PCP Internal Medicine; Visit Provider Urology
DX: C61 Malignant neoplasm of prostate (principal)

== ENCOUNTER → 2025-04-15 15:19 | Outpatient (BNVA) | payer MEDICARE, SELFPAY | PROVIDERS: PCP Internal Medicine; Visit Provider Urology | DX: Z51.11 Encounter for antineoplastic chemotherapy (principal); C61 Malignant neoplasm of prostate; N40.1 Benign prostatic hyperplasia with lower urinary tract symptoms; R35.1 Nocturia; N18.9 Chronic kidney disease, unspecified | CPT/HCPCS: 96402; J9155 ==

== ENCOUNTER 2025-04-20 09:01 | Outpatient (AMB) | payer MEDICARE, SELFPAY ==
--- NOTE | 2025-04-20 09:15 | MHC.PC.OV ---
Vital Signs 04/20/25 09:17 Height 5 ft 7 in Weight 205 lb 6 oz BMI 32.2 BP 130/60 Blood Pressure Location Lt brachial Position Sitting Pulse 71 Pulse Source Pulse Oximeter Temp 96.6 F L Temp Source Temporal Artery Scan Pulse Oximetry (%) 97 Oxygen Delivery Method Room Air Intake Visit Reasons: 3 week f/u Intake Note: Patient is here to follow up on Anxiety. Serology Teacher Required: No Production Expert: Present Accompanied by: Sister Allergies No Known Allergies Allergy (Verified 04/20/25 09:16) Tobacco use date assessed: 04/20/25 Fall risk assessment: No Falls in past year Last assessed Fall Risk: 04/20/25 Dental Screening Dental Screen Date: 03/31/25 [facility] Medical History (Updated 04/20/25 @ 09:49 by Kevin Jiang MD) Major depression in partial remission Essential hypertension History of bone density study Urinary retention with incomplete bladder emptying NSVT (nonsustained ventricular tachycardia) ESRD needing dialysis Bladder outlet obstruction Benign enlargement of prostate CKD (chronic kidney disease) stage 5, GFR less than 15 ml/min Anemia Surgical History History of colonoscopy Social History Household Members: None Housing: Apartment Alcohol intake: current Alcohol intake frequency: a few times a week Alcohol type: hard liquor Patient Tobacco Use Status: Never used Tobacco e-Cigarette/Vaping Use: Never Used Second Hand Smoke Exposure: No Substance Use Type: Marijuana Advance Directives Date on File: 05/12/23 service: No Current occupational status: employed 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[employer] Gender identity: Male Cognitive needs: No Hearing needs: No Vision needs: No Questionnaire Thrive Questionnaire Date Thrive assessed: 03/31/25 I am a: Parent/Caregiver What is your living situation today?: I have a steady place to live Within the past 12 months, did the food you bought not last and you didn't have the money to get more?: Never true Within the past 12 months, did you worry whether your food would run out before you got money to buy more?: Never true Do you have trouble paying for medicines?: No Do you have trouble getting transportation to medical appointments?: No Do you have trouble paying your heating and electricity bill?: No Do you have trouble taking care of your child, family member or friend?: No Do you have trouble with day-to-day activities such as bathing, preparing meals, shopping, managing finances, etc.?: No Are you currently unemployed and looking for a job?: No Are you interested in more education?: No Please select the resources that you would like help with: None Currently or been in a relationship where the following occur: No concerns reported THRIVE Score: 0 ADILENE-7 AMB Questionnaire ADILENE-7 Date ADILENE - 7 assessed: 03/31/25 Source: Developed by Drs. Remi Lloyd, Andreina Ramon, Aron Malone and colleagues, with an educational sophia from [employer]. Physical exam (Primary Care) Vital Signs: Last Vital Signs Temp 96.6 F L 04/20/25 09:17 Pulse 71 04/20/25 09:17 BP 130/60 04/20/25 09:17 Pulse Ox 97 04/20/25 09:17 Oxygen Delivery Method Room Air 04/20/25 09:17 BMI result Body Mass Index 32.2 Tobacco/Smoking Status: Tobacco use Status Tobacco use date assessed 04/20/25 04/20/25 09:22 Patient Tobacco Use Status Never used Tobacco 04/20/25 09:15 e-Cigarette/Vaping Use Never Used 04/20/25 09:15 Thrive Assessment: Date of Thrive Assessment Date Thrive assessed 03/31/25 04/20/25 09:15 Currently or been in a relationship where the following occur: No concerns reported Coding Level of Care Code Est Pt Level 4 (36850) Complex EM visit Add On G2211 Diagnoses Major depression in partial remission F32.4 Assessment & Plan Assessment & Plan (1) Major depression in partial remission: Code(s): F32.4 - Major depressive disorder, single episode, in partial remission Category: Medical Plan: History of Present Illness - The patient is a 64-year-old male presenting with symptoms of depression and insomnia. - Major Depressive Disorder: The patient was started on sertraline (Zoloft) three weeks ago, which initially provided relief but wears off by afternoon. - Insomnia: The patient reports inconsistent sleep patterns, with some nights of decent sleep and others with significant difficulty sleeping. - Medication History: The patient was previously on clonazepam for sleep, which was not effective, and he has a few doses left. - Social History: The patient occasionally consumes alcohol, which he believes may aid in sleep. Social History - Alcohol Use: The patient occasionally consumes alcohol, which he believes may aid in sleep. Review of Systems - Psychiatric: Reports symptoms of depression, including mood improvement in the morning with medication that wears off by afternoon. Reports inconsistent sleep patterns with some nights of decent sleep and others with significant difficulty sleeping. Physical Exam General: Cooperative and healthy appearing Nutritional Appearance: Well nourished Orientation/consciousness: Patient oriented x3 Limitations: No limitations Head: Normal to inspection General: Appearance normal, both eyes and all related structures Neck: Normal visual inspection Chest: Normal palpation of entire chest wall Respiratory: Normal respiratory effort Neurology: Patient oriented x3 Results Plan - Increase sertraline dosage to 50 mg twice daily to address the wearing off effect in the afternoon. - Discontinue clonazepam due to lack of efficacy for sleep. - Consider trazodone for sleep if insomnia persists, but not immediately. - Follow-up appointment scheduled in three months to reassess symptoms and medication efficacy. Discussion Notes I discussed with the patient the option of increasing the sertraline dosage to 50 mg twice daily to manage the wearing off effect in the afternoon. We also talked about discontinuing clonazepam due to its ineffectiveness for sleep. If insomnia persists, we may consider trazodone, but not immediately. A follow-up appointment is scheduled in three months to reassess symptoms and medication efficacy. Patient Instructions - Take sertraline 50 mg twice daily, once in the morning and once in the afternoon. - Discontinue clonazepam as it is not effective for sleep. - Consider trazodone for sleep if insomnia persists, but discuss with the doctor first. - Schedule a follow-up appointment in three months. Medications: Changed From sertraline 50 mg PO DAILY 60 tabs 0RF To sertraline 50 mg PO BID 180 tabs 1RF 90 days Refilled ondansetron 4 mg PO Q8H PRN 10 tabs 0RF nausea and vomiting
[2025-04-20 09:17] VITALS: BP 130/60; PULSE 71; TEMP 35.9; O2SAT 97; BMI 32.2
--- OUTSIDE RECORDS SUMMARY | 2025-04-20 09:50 | XMS_ITS | Clinical Summary ---
Author Organization [facility] Address [address] [place] [id number] Phone Care Team Providers Care Mechanical Service Representative Name Role Phone Kevin Jiang MD Primary [...] 2009 INFLUENZA VACCINE (#1) 2025 COVID-19 VACCINE ( - 2024-2 6 season) 2025 RSV VACCINE (1 - 1-dose [...] file Insurance O O O O [facility] Care Teams Mechanical Service Representative Relationship Specialty Start Date End Date Kevin Jiang MD [address] [place] [address] [address] [place], [place] [phone] PCP - General Internal Medicine 04/15/24 Additional Source Comments The information contained in this document represents components of the legal health record. It is not the complete legal health record.[facility]
--- OUTSIDE RECORDS SUMMARY | 2025-04-20 09:50 | XMS_ITS | Clinical Summary ---
Author Organization [facility] ity Address [address] [place] [address] Care Team Providers Care Ceramic Design Engineer Name Role Phone Unavailable Primary Care Provider Unavailabl e Social History Tobacco Use Types Packs/Day Years Used Date Smoking Tobacco: Never Assessed Sex and Gender Information Value Date Recorded Sex Assigned at Not on file Legal Sex Male 3:44 PM EDT Gender Identity Not on file Sexual Orientation Not on file Plan of Treatment Health Maintenance Due Date Last Done Comments Colorectal Cancer Screening: Colonoscopy 1959 DTaP,Tdap,and Td Vaccines (1 - Tdap) 1978 Pneumococcal Vaccine: 50+ Ye ars (1 of 1 - PCV) 2009 Zoster Vaccines (1 of 2) 2009 Abdominal Aortic Aneurysm (A AA) Screen 05/02/2024 Cholesterol Screening (Lipid Panel) 05/02/2024 Hepatitis C Screening 05/02/2024 Social Influencers of Health Screening 05/02/2024 Depression Screening 07/07/2024 Falls Risk Assessment 2024 COVID-19 Vaccine (1 - 2023-2 5 season) 2025 Influenza Vaccine [...]
== END 2025-04-20 09:41 | disposition home or self-care (01) ==
LOC: HO.HMCH 09:02
PROVIDERS: PCP Internal Medicine; Visit Provider Internal Medicine
DX: F32.4 Major depressive disorder, single episode, in partial remission (principal)

== ENCOUNTER → 2025-04-20 09:01 | Outpatient (BNVA) | payer OTHER, MEDICARE, SELFPAY | PROVIDERS: PCP Internal Medicine; Visit Provider Internal Medicine | DX: F32.4 Major depressive disorder, single episode, in partial remission (principal); G47.00 Insomnia, unspecified | CPT/HCPCS: 99212 ==

== ENCOUNTER 2025-05-18 10:15 | Outpatient (AMB) | payer MEDICARE, SELFPAY ==
--- NOTE | 2025-05-18 10:34 | AM.OFFVISNUR ---
Intake Visit Reasons: Firmagon Allergies No Known Allergies Allergy (Verified 04/20/25 09:16) Office Meds degarelix 80 mg subcutaneous solution Performing Provider: Meenakshi Croft MD [facility] Administered by: Bigg Gutierrez LPN on 05/18/25 10:34 Dose Route Admin Location Dispensed Lot Number Expiration Date [facility] Bill Of Materials Clerk 80 mg subcut left abdomen 80 mg [id number] 08/07/26 [address]-1 [employer] Total Dispensed Waste 80 mg 0 % Assessment & Plan Assessment & Plan Orders: Orders AMB Degarelix Injection Practice Supplied Today C61 - Malignant neoplasm of prostate Coding
--- OUTSIDE RECORDS SUMMARY | 2025-05-18 12:04 | XMS_ITS | Clinical Summary ---
Author Organization [facility] Address [address] [place] [phone] Phone Care Team Providers Care Renewals Manager Name Role Phone Kevin Jiang MD Primary [...] on file Insurance [facility] Care Teams Renewals Manager Relationship Specialty Start Date End Date Kevin Jiang MD [address] [place] [address] [address] [place], [place] [phone] PCP - General Internal Medicine 04/15/24 Additional Source Comments The information contained in this document represents components of the legal health record. It is not the complete legal health record.[facility]
--- OUTSIDE RECORDS SUMMARY | 2025-05-18 12:04 | XMS_ITS | Clinical Summary ---
Author Organization [facility] ity Address [address] [place] [address] Care Team Providers Care Consumer Experience Consultant Name Role Phone Unavailable Primary Care Provider [...]
== END 2025-05-18 10:36 | disposition home or self-care (01) ==
LOC: HO.HUSH 10:16
PROVIDERS: PCP Internal Medicine; Visit Provider Urology
DX: C61 Malignant neoplasm of prostate (principal)

== ENCOUNTER → 2025-05-18 10:15 | Outpatient (BNVA) | payer MEDICARE, SELFPAY | PROVIDERS: PCP Internal Medicine; Visit Provider Urology | DX: Z51.11 Encounter for antineoplastic chemotherapy (principal); C61 Malignant neoplasm of prostate | CPT/HCPCS: 96402; J9155 ==

== ENCOUNTER 2025-06-04 16:47 | Emergency (ER) | payer MEDICARE, SELFPAY ==
[2025-06-04 17:07] VITALS: BP 196/92; BP 198/100; PULSE 126; PULSE 98; RESP 20; TEMP 36.5; O2SAT 94; O2SAT 96; BMI 33.3
[2025-06-04 17:21] VITALS: BP 196/92; PULSE 98; RESP 20; TEMP 36.5; O2SAT 94
--- OUTSIDE RECORDS SUMMARY | 2025-06-04 17:31 | XMS_ITS | Clinical Summary ---
Author Organization [facility] ity Address [address] [place] [address] Care Team Providers Care Second Shift Supervisor Name Role Phone Unavailable Primary Care Provider [...] Risk Assessment 2024 COVID-19 Vaccine (1 - 2024-2 6 season) 2025 Influenza Vaccine (#1) 2025 RSV [...]
--- OUTSIDE RECORDS SUMMARY | 2025-06-04 17:31 | XMS_ITS | Clinical Summary ---
Author Organization [facility] Address [address] [place] [phone] Phone Care Team Providers Care Police Superintendent Name Role Phone Kevin Jiang MD Primary [...] on file Insurance [facility] Care Teams Police Superintendent Relationship Specialty Start Date End Date Kevin Jiang MD [address] [place] [address] [address] [place], [place] [phone] PCP - General Internal Medicine 04/15/24 Additional Source Comments The information contained in this document represents components of the legal health record. It is not the complete legal health record.[facility]
[2025-06-04 18:27] VITALS: BP 184/104; PULSE 96; RESP 16; TEMP 36.3; O2SAT 91
--- NOTE | 2025-06-04 19:17 | ED.GENADULT ---
HPI - General Adult General Chief complaint: Psychiatric Symptoms Stated complaint: Psych Time Seen by Provider: 06/04/25 19:15 History of Present Illness ED Provider: Renetta Cruz NP HPI narrative: 64-year-old male with a remote history of dementia, bipolar disorder, CKD, hypertension, hydronephrosis, presents to the ED via EMS after being found outside a dollar tree. He was met by police, and was verbally aggressive and threatening per EMS report. Upon arrival to the ED the patient is alert and oriented to person, and to time. He is disoriented to place. He is able to tell me that he lives in a facility but does not know why he is in the hospital. He did tell me that he left the facility this morning, but does not tell me why. She denies any chest pain or pressure, shortness of breath, abdominal pain, fever or chills. HPI is limited given the dementia history. He has not recall speaking with police or being aggressive. He is fully cooperative upon my assessment. Related Data Previous Rx's ?Medication ?Instructions ?Recorded abiraterone 250 mg tablet 1,000 mg (4 x 250 mg) PO DAILY 03/16/25 #120 tabs dicyclomine 20 mg tablet 20 mg PO TID #10 tabs 03/21/25 sertraline 50 mg tablet 50 mg PO BID 90 days #180 tabs 04/20/25 prednisone 5 mg tablet 5 mg PO DAILY #30 tabs 04/27/25 finasteride 5 mg tablet 5 mg PO DAILY 90 days #90 tabs 05/02/25 ondansetron 4 mg disintegrating 4 mg PO Q8H PRN nausea and 05/08/25 tablet vomiting #10 tabs trazodone 100 mg tablet 100 mg PO BEDTIME PRN sleep 90 05/08/25 days #90 tabs metoprolol tartrate 25 mg tablet 25 mg PO BID #180 tabs 06/03/25 Allergies Allergy/AdvReac Type Severity Reaction Status Date / Time No Known Allergies Allergy Verified 06/04/25 17:12 Review of Systems Review of Systems: ROS is otherwise negative unless mentioned in HPI. [facility] Past Medical History Medical History (Updated 06/04/25 @ 21:41 by Renetta Cruz, ALEXANDER-ISABEL) Major depression in partial remission Essential hypertension History of bone density study Urinary retention with incomplete bladder emptying NSVT (nonsustained ventricular tachycardia) ESRD needing dialysis Bladder outlet obstruction Benign enlargement of prostate CKD (chronic kidney disease) stage 5, GFR less than 15 ml/min Anemia Surgical History History of colonoscopy Social History Social History Household Members: None Housing: Apartment Alcohol intake: current Alcohol intake frequency: a few times a week Alcohol type: hard liquor Patient Tobacco Use Status: Never used Tobacco e-Cigarette/Vaping Use: Never Used Second Hand Smoke Exposure: No Substance Use Type: Marijuana Advance Directives: No Advance Directives Information Provided: No Advance Directives Date on File: 05/12/23 Do you have a plan to hurt others: No Plan service: No Current occupational status: employed 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[employer] Gender identity: Male Cognitive needs: No Hearing needs: No Vision needs: No Physical Exam ED Exam Exam: Nursing notes and vital signs reviewed. Constitutional: Well-appearing, NAD. Alert. Oriented to person, time. Eyes: EOMI. ENT: Pharynx normal. Neck: Normal inspection. Neck supple. CVS: Normal heart rate and rhythm. Pulses normal. Respiratory: No respiratory distress. Breath sounds normal. Abdomen: Soft and nontender. Skin: Skin warm and dry. Normal skin color. Extremities: No lower extremity edema. Neuro: Oriented to person, time. No motor deficit. Vital Signs: Vital Signs - 24 hr 06/04/25 17:07 06/04/25 17:21 06/04/25 18:27 Temperature 97.7 F 97.7 F 97.4 F Pulse Rate 98 98 96 Respiratory Rate 20 20 16 Blood Pressure 196/92 H 196/92 H 184/104 H Pulse Oximetry 94 94 91 L Oxygen Delivery Method Room Air Room Air Room Air 06/04/25 20:11 Temperature 98.3 F Pulse Rate 102 H Respiratory Rate 16 Blood Pressure 185/102 H Pulse Oximetry 94 Oxygen Delivery Method Room Air BMI result Body Mass Index 33.3 Medical Decision Making Medical Decision Making MDM Narrative: Overall he appears well, answers questions appropriately, he is alert and oriented to person, time but disoriented to place, which appears to be his baseline given his dementia. He comes from the [facility] facility. Per nursing staff, the facility was agreeable to take him back once he was medically cleared. He was agreeable to lab work here. He has mild leukocytosis to 14.5, nonspecific, though currently pending urinalysis and viral panel. Sodium is mildly elevated at 1.34, creatinine 1.6 which appears to be around baseline given his CKD. Negative alcohol level. If urinalysis, viral panel is negative, we will discharge back to facility. If positive, we will inform facility and treat appropriately. Patient agreeable at this time. Pending results. He has not elicited any aggressive or physical behavior while in the ED. He has been cooperative with care. 2139-- he has been cooperative with care here. Urinalysis with no signs of infection, negative toxicology. No indication to keep the patient in the ED, he is agreeable to go back to his nursing facility. They were contacted by nursing staff and agreeable with his discharge plan. Differential Diagnosis Differential Diagnoses: The differential diagnosis associated with the presentation includes AMS, viral illness, cystitis, dementia Admission/Observation Consideration of admission/observation: Escalation of care including admission/observation considered (Not currently indicated. ) Lab Data MDM Lab Attestation statement: I reviewed the patient's lab results. (Reassuring. ) 06/04/25 19:46 06/04/25 19:46 Labs: Lab Results 06/04/25 06/04/25 Range/Units 19:46 21:10 WBC 14.5 H (4.8-10.8) X10*3/uL RBC 4.86 (4.60-5.80) X10*6/uL Hgb 15.4 (14.0-18.0) g/dl Hct 44.4 D (42.0-52.0) % MCV 91.4 (80.0-98.0) fL MCH 31.7 (27.0-33.0) pg MCHC 34.7 (31.0-36.0) g/dl RDW 12.9 (11.0-16.0) % Plt Count 253 (160-400) X10*3/uL MPV 9.3 L (9.4-12.4) fL Immature Gran % (Auto) 0.3 (0.0-0.4) % Neut % (Auto) 83.5 H (45-73) % Lymph % (Auto) 8.9 L (20-40) % [place] % (Auto) 6.6 (2-11) % Eos % (Auto) 0.3 (0-4) % Baso % (Auto) 0.4 (0-2) % Lymph # (Auto) 1.3 (1.2-4.9) X10*3/uL [place] # (Auto) 1.0 (0.1-1.2) X10*3/uL Eos # (Auto) 0.0 (0.0-0.4) X10*3/uL Baso # (Auto) 0.1 (0.0-0.2) X10*3/uL Abs Immat Gran (auto) 0.05 H (0.00-0.03) X10*3/uL Absolute Neuts (auto) 12.1 H (2.0-8.3) x10*3/uL Absolute Nucleated RBC 0.000 (0.0-0.012) X10*3/uL Nucleated RBC % (auto) 0.0 (0.0-0.2) /100WBC Sodium 134 L (135-145) mmol/L Potassium 4.2 (3.3-5.1) mmol/L Chloride 101 (96-108) mmol/L Carbon Dioxide 22 (22-29) mmol/L Anion Gap 15 (12-20) BUN 25 H (9-16) mg/dL Creatinine 1.60 H (0.5-1.4) mg/dL Estim Creat Clear Calc 49.2 Estimated GFR 44 Random Glucose 116 H (60-115) mg/dL Calcium 9.9 D (8.4-10.2) mg/dL Magnesium 2.1 (1.6-2.6) mg/dL Total Bilirubin 0.4 (0.0-1.0) mg/dL AST 18 (5-37) U/L ALT 17 (0-40) U/L Alkaline Phosphatase 86 (39-117) U/L Total Protein 7.2 (6.5-8.0) g/dL Albumin 4.6 (3.5-5.0) g/dL TSH 0.87 (0.32-4.0) uIU/mL Urine Color Yellow Urine Appearance Clear Urine pH 5.5 (5.0-9.0) Ur Specific Bennett 1.015 (1.005-1.025) Urine Protein Trace (Neg-Trace) mg/dL Urine Glucose (UA) Negative (Negative) mg/dL Urine Ketones Negative (Negative) mg/dL Urine Blood Negative (Negative) Urine Nitrite Negative (Negative) Ur Leukocyte Esterase Negative (Negative) Salicylates < 5.0 L (15-30) mg/dL Urine Opiates Screen Not Detected (Not Detect) Ur Buprenorphine Scrn Not Detected (Not Detect) ng/mL Ur Oxycodone Screen Not Detected (Not Detect) ng/mL Urine Methadone Screen Not Detected (Not Detect) ng/mL Urine Fentanyl Screen Not Detected (Not Detect) Acetaminophen < 3 (<30) mcg/mL Ur Barbiturates Screen Not Detected (Not Detect) Ur Phencyclidine Scrn Not Detected (Not Detect) Ur Amphetamines Screen Not Detected (Not Detect) U Benzodiazepines Scrn Not Detected (Not Detect) Urine Cocaine Screen Not Detected (Not Detect) U Marijuana (THC) Screen Not Detected (Not Detect) Ethyl Alcohol < 10 mg/dL Independent Historian Clinical information obtained from an independent historian. History obtained from or confirmed by: EMS and Other (prison staff) External Record Review External record reviewed: Inpatient record, Outpatient record and Other (prior ED visits) Chronic Conditions Patient?s care impacted by: Other (Dementia, psych diagnoses. ) Social Determinants Patient?s care significantly limited by Social Determinants of Health including: Problems related to primary support group Discharge Plan Discharge Clinical Impression: Encounter for medical screening examination CKD (chronic kidney disease) Qualifiers: Chronic kidney disease stage: unspecified stage Qualified Code(s): N18.9 - Chronic kidney disease, unspecified Patient Disposition: Home, Self-Care Instructions: Chronic Kidney Disease (ED) Additional Instructions: The patient was seen in our ED today after an episode of aggressive/threatening behavior with police when he was found outside of a dollar tree. Here, his lab work shows a mild elevation in his white blood cell count, which is nonspecific. The urine sample does not show evidence of any urinary tract infection, and is otherwise reassuring. The urine toxicology is negative. His creatinine level is mildly elevated at 1.6, though this is around his baseline. Please have this rechecked in the next several days. With any worsening complaints, bring the patient back to the ED for additional assessment. Prescriptions: No Action finasteride 5 mg tablet 5 mg PO DAILY 90 Days Qty: 90 1RF ondansetron 4 mg tablet,disintegrating 4 mg PO Q8H PRN (Reason: nausea and vomiting) Qty: 10 0RF metoprolol tartrate 25 mg tablet 25 mg PO BID Qty: 180 1RF abiraterone 250 mg Tablet 1,000 mg PO DAILY Qty: 120 3RF Rx Instructions: must be taken on empty stomach, at least 1 hr before or 2 hrs after a meal/food prednisone 5 mg Tablet 5 mg PO DAILY Qty: 30 3RF dicyclomine 20 mg tablet 20 mg PO TID Qty: 10 0RF sertraline 50 mg tablet 50 mg PO BID 90 Days Qty: 180 1RF trazodone 100 mg tablet 100 mg PO BEDTIME PRN (Reason: sleep) 90 Days Qty: 90 1RF Referrals: Kevin Jiang MD [Primary Care Provider, Internal Medicine] Interventions: Barren-Suicide Risk Severity Scale Last Done: 06/04/25 17:21 Print Language: Filipino
[2025-06-04 19:52] LABS: MANUAL DIFF FLAG NO
[2025-06-04 20:10] LABS: Acetaminophen LAB < 3 mcg/mL (<30); Salicylate < 5.0 mg/dL (15-30)
[2025-06-04 20:11] VITALS: BP 185/102; PULSE 102; RESP 16; TEMP 36.8; O2SAT 94
[2025-06-04 20:20] LABS: Alanine Aminotransferase 17 U/L (0-40); Albumin Level 4.6 g/dL (3.5-5.0); Alkaline Phosphatase 86 U/L (39-117); Anion Gap 15 (12-20); Aspartate Amino Transferase 18 U/L (5-37); Blood Urea Nitrogen 25 mg/dL (9-16); Calcium 9.9 mg/dL (8.4-10.2); Carbon Dioxide 22 mmol/L (22-29); Chloride 101 mmol/L (96-108); Creatinine Clr Calc Pharmacy 49.2; Estimated Glomerular Filt Rate 44; Magnesium 2.1 mg/dL (1.6-2.6); Potassium 4.2 mmol/L (3.3-5.1); Sodium 134 mmol/L (135-145); Total Protein 7.2 g/dL (6.5-8.0)
[2025-06-04 20:30] LABS: Hematocrit 44.4 % (42.0-52.0); Hemoglobin 15.4 g/dl (14.0-18.0); Imm Gran Abs Auto 0.05 X10*3/uL (0.00-0.03); Imm Gran Pct Auto 0.3 % (0.0-0.4); Lymphocytes Absolute Auto 1.3 X10*3/uL (1.2-4.9); Mean Corpuscular HGB Conc 34.7 g/dl (31.0-36.0); Mean Corpuscular Hemoglobin 31.7 pg (27.0-33.0); Mean Corpuscular Volume 91.4 fL (80.0-98.0); NRBC Abs Auto 0.000 X10*3/uL (0.0-0.012); NRBC Pct Auto 0.0 /100WBC (0.0-0.2); Platelet Count 253 X10*3/uL (160-400); Red Blood Count 4.86 X10*6/uL (4.60-5.80); White Blood Count 14.5 X10*3/uL (4.8-10.8)
[2025-06-04 21:19] LABS: Appearance Urine Clear; Glucose Urine UA Negative (Negative); PH 5.5 (5.0-9.0); Specific Gravity - Urine 1.015 (1.005-1.025)
[2025-06-04 21:29] LABS: Cannabinoid Screen Urine Not Detected (Not Detect)
[2025-06-04 21:55] LABS: Resp Syncy Virus RNA Qual PCR NEGATIVE (Negative); SARS COV2 PCR INHOUSE NEGATIVE (Negative)
--- NOTE | 2025-06-04 22:08 | PC.NURSE ---
pt with 1:1 sitter, d/c up, pt awaiting ride to [facility]. Pt calm and cooperative.
[2025-06-05 00:12] VITALS: BP 185/102; PULSE 102; RESP 16; TEMP 36.8; O2SAT 94
== END 2025-06-05 00:13 | disposition home or self-care (01) ==
PROVIDERS: Nurse Practitioner; Physician Assistant Medical; Emergency Provider Emergency Medicine; PCP Internal Medicine
DX: F03.911 Unspecified dementia, unspecified severity, with agitation (principal); I12.0 Hypertensive chronic kidney disease with stage 5 chronic kidney disease or end stage renal disease; N18.5 Chronic kidney disease, stage 5; D63.1 Anemia in chronic kidney disease; Z79.899 Other long term (current) drug therapy; Z03.818 Encounter for observation for suspected exposure to other biological agents ruled out; Z51.81 Encounter for therapeutic drug level monitoring
CPT/HCPCS: 36415; 80053; 80143; 80179; 80307; 81003; 83735; 84443; 85025; 87637; 99285

== ENCOUNTER 2025-06-17 09:51 | Outpatient (AMB) | payer MEDICARE, SELFPAY ==
--- NOTE | 2025-06-17 10:10 | AM.OFFVISNUR ---
Intake Visit Reasons: Firmagon Allergies No Known Allergies Allergy (Verified 06/04/25 17:12) Office Meds degarelix 80 mg subcutaneous solution Performing Provider: Meenakshi Croft MD [facility] Administered by: Bigg Gutierrez LPN on 06/17/25 10:10 Dose Route Admin Location Dispensed Lot Number Expiration Date [facility] Elephant Tamer 80 mg subcut abdomen 80 mg [id number] 12/05/26 [address]-2 [employer] [facility] Total Dispensed Waste 80 mg 0 % Assessment & Plan Assessment & Plan Orders: Orders AMB Degarelix Injection Practice Supplied Today C61 - Malignant neoplasm of prostate Coding
== END 2025-06-17 10:49 | disposition home or self-care (01) ==
LOC: HO.HUSH 09:52
PROVIDERS: PCP Internal Medicine; Visit Provider Urology
DX: C61 Malignant neoplasm of prostate (principal)

== ENCOUNTER → 2025-06-17 09:51 | Outpatient (BNVA) | payer MEDICARE, SELFPAY | PROVIDERS: PCP Internal Medicine; Visit Provider Urology | DX: C61 Malignant neoplasm of prostate (principal); R97.21 Rising PSA following treatment for malignant neoplasm of prostate | CPT/HCPCS: 96402; J9155 ==